=== PATIENT | female | born 1950 | race Caucasian/White ===

== ENCOUNTER 2018-06-17 04:42 | Inpatient (IN) | payer OTHER ==
[2018-06-17] VITALS (72 sets, daily range): BP systolic 68–135; BP diastolic 44–109; PULSE 82–123; RESP 15–30; Ht 152.4 cm; Wt 98.4 kg
[~2018-06-17] VITALS: Ht 152.4 cm; Wt 98.4 kg
--- NOTE | 2018-06-17 04:56 | ERD ---
ER Documentation Chief Complaint Chief Complaint chest pain and dyspnea HPI The patient is a 67-year-old female, presenting to the ER because of substernal chest pain and dyspnea that began around 4 AM that awoke her, 9 over 10, diap horetic, denies similar symptoms previously, complains of nausea but no vomiting, worse with exertion associated with upper back pain. She denies fever, chills, neck pain, abdominal pain, vomiting, dysuria, diarrhea. She does not smoke nor drink. She is supposed to have cholecystectomy in the morning Past medical history: Hypertension, cholelithiasis Past surgical history: None ROS All systems reviewed and are negative except as per history of present illness. Allergies Allergies: Coded Allergies: No Known Allergy (Unverified , 06/17/18) Physical Exam Vitals Vital Signs Date Temp Pulse Resp B/P (MAP) Pulse Ox O2 O2 Flow FiO2 Time Delivery Rate 06/17/18 98 10.0 05:20 06/17/18 56 30 85/69 (74) 98 Nasal 4.0 05:08 Cannula 06/17/18 Nasal 2 05:07 Cannula 06/17/18 56 21 83/58 (66) 98 Nasal 4.0 05:07 Cannula 06/17/18 85 18 129/85 94 Room Air 05:00 (100) 06/17/18 97.9 66 22 120/86 98 04:43 (97) Physical Exam Const: No acute distress. Diaphoretic Head: Atraumatic. Eyes: Normal Conjunctiva. ENT: Normal External Ears, Nose and Mouth. Neck: Full range of motion. No meningismus. Resp: Clear to auscultation bilaterally. Cardio: Regular rate and rhythm. Abd: Soft, non distended, normal bowel sounds, non tender. Skin: No petechiae or rashes. Back: No midline or flank tenderness. Ext: No cyanosis, or edema. Neur: Awake and alert. No focal deficit Psych: Anxious Result Diagram: 06/17/18 1938 06/17/18 1351 Results 24 hrs Laboratory Tests Test 06/17/18 04:45 White Blood Count 12.1 10^3/ul Red Blood Count 5.09 10^6/ul Hemoglobin 15.3 g/dl Hematocrit 45.9 % Mean Corpuscular Volume 90.2 fl Mean Corpuscular Hemoglobin 30.1 pg Mean Corpuscular Hemoglobin Concent 33.3 g/dl Red Cell Distribution Width 13.1 % Platelet Count 255 10^3/UL Mean Platelet Volume 10.3 fl Immature Granulocytes % 0.400 % Neutrophils % 42.5 % Lymphocytes % 47.3 % Monocytes % 7.7 % Eosinophils % 1.5 % Basophils % 0.6 % Nucleated Red Blood Cells % 0.0 /100WBC Immature Granulocytes # 0.050 10^3/ul Neutrophils # 5.2 10^3/ul Lymphocytes # 5.7 10^3/ul Monocytes # 0.9 10^3/ul Eosinophils # 0.2 10^3/ul Basophils # 0.1 10^3/ul Nucleated Red Blood Cells # 0.0 10^3/ul Prothrombin Time 12.5 Sec Prothrombin Time Ratio 1.0 INR International Normalized Ratio 0.92 Activated Partial Thromboplast Time 25.5 Sec Sodium Level 143 mmol/L Potassium Level 3.9 mmol/L Chloride Level 106 mmol/L Carbon Dioxide Level 26 mmol/L Anion Gap 11 Blood Urea Nitrogen 20 mg/dl Creatinine 0.78 mg/dl Est Glomerular Filtrat Rate mL/min > 60 mL/min Glucose Level 186 mg/dl Calcium Level 9.8 mg/dl Troponin I 0.048 ng/ml Current Medications Medications Dose Sig/Waylon Start Time Status Last (Trade) Ordered Route PRN Stop Time Admin Dose Reason Admin Heparin 5,000 unit ONCE ONCE 06/17/18 DC Sodium IV 05:00 06/17/18 (Porcine) 05:01 (Heparin (1000 Units/ml)) Amiodarone 200 ml @ ONCE ONCE 06/17/18 DC 06/17/18 HCl 33.333 mls/ IV 05:15 06/17/18 05:17 hr 11:14 Amiodarone 150 mg STK-MED 06/17/18 DC HCl ONCE .ROUTE 05:11 06/17/18 (Cordarone) 05:12 Ondansetron 4 mg STK-MED 06/17/18 DC HCl (Zofran ONCE .ROUTE 05:19 06/17/18 Inj) 05:20 Procedures/MDM [place] [id number] Radiology Main Line: [phone] DIAGNOSTIC IMAGING REPORT Patient: WILNER VASQUEZ : 1950 Age: 67 Sex: F [id number] [id number] DOS: 06/17/18 0457 Ordering MD: JORGE BOYD MD Location: E/R Room/Bed: PROCEDURE: XR Chest. CLINICAL INDICATION: Chest pain and STEMI TECHNIQUE: AP Portable chest. COMPARISON: None available FINDINGS: Defibrillator paddle is noted along the chest wall with multiple EKG leads. The soft tissues and osseous structures demonstrate thoracic enthesopathy present. No focal infiltrates are present. Mild cardiogenic pulmonary venous hypertension is noted. Moderate cardiomegaly and vascular calcifications are present of the thoracic aorta. No pleural effusions and no pneumothorax is present. The upper abdomen is normal . IMPRESSION: 1. Mild cardiogenic pulmonary venous hypertension 2. Moderate cardiomegaly and atherosclerotic vascular disease 3. Degenerative enthesopathy of the imaged spine RPTAT: HDC .Cielo Bay MD, MD Date Time Electronically viewed and signed by .Cielo Bay MD, MD on 06/17/2018 05:50 .C/ CC: JORGE BOYD MD [phone] EKG: at 4:50 am Read by emergency physician Rate/Rhythm: Normal Sinus Rhythm 91 beats/min QRS, ST, T-waves: Acute inferior ST elevation with reciprocal changes, no PVC Impression: Abnormal EKG, acute inferior NV Consultation: Code STEMI was activated after I read the EKG. I discussed the patient with the on-call critical care physician assistant Dr Monge at 4:55am, made aware of the patient condition, the EKG finding, she is on her way to the ER to do emergent cardiac cath for the patient She was treated with 1 L normal saline, Aspirin 324 mg p.o. chew and swallow, no nitroglycerin was given due to hypotension and acute inferior NV, no heparin was given yet because chest x-ray was pending and she was hypotensive. At approximately 0503 AM, patient went to ventricular tachycardia and became unconscious. She was immediately defibrillated with 200 J with ROSC achieved immediately at 0505am. She was immediately started on amiodarone 1mg/min drip. The granite sandblaster apprentice was informed of the ventricular tachycardia episode MEDICAL MAKING DECISION: The patient is a 67-year-old female, presenting with acute inferior NV, associated with ventricular tachycardia and probable acute cardiogenic shock The differential diagnoses considered include but are not limited to acute inferior NV, suspected right ventricular NV, cardiogenic shock Critical Care: Time: 35 minutes excluding all billable procedures. Treatments/Evaluations: Close monitoring and treatment of unstable vital signs, cardiorespiratory, and neurologic status, while maintaining tight balance of fluid, respiratory, and cardiac interventions. Departure Diagnosis: Primary Impression: Non-ST elevation NV (NSTEMI) Additional Impressions: Ventricular tachycardia Cardiogenic shock Condition: Critical Comments I discussed the findings with the patient. I discussed the patient with the hospitalist Dr Flynn at 5:20 am. who was made aware of the lab, the treatment, the patient condition. The patient is admitted to ICU Disclaimer: Inadvertent spelling and grammatical errors are likely due to EHR/dictation software use and do not reflect on the overall quality of patient care. Also, please note that the electronic time recorded on this note does not necessarily reflect the actual time of the patient encounter. JORGE BOYD MD Jun 17, 2018 04:56
[2018-06-17] MEDS ORDERED: HEPARIN 1000 UNITS/ML 10 ML INJ IV ONE (05:00)
[2018-06-17] MEDS ORDERED: AMIODARONE 150 MG INJ ONE (05:11)
[2018-06-17] MEDS ORDERED: AMIODARONE 200 ML IV ONE (05:15)
[2018-06-17] MEDS ORDERED: ONDANSETRON 4 MG INJ ONE (05:19)
[2018-06-17] MEDS ORDERED: SODIUM CHLORIDE 0.9% 50 ML BAG ONE (05:30)
[2018-06-17] MEDS ORDERED: HEPARIN 5,000 UNIT/1 ML VIAL ONE (05:30)
[2018-06-17] MEDS ORDERED: ASPIRIN 81 MG TAB ONE (05:30)
--- NOTE | 2018-06-17 05:44 | CONS ---
Assessment/Plan Assessment/Plan Hospital Course (Demo Recall) 67 yo with acute inferior stemi Imp: Inferior stemi VT due to OK, shocked htn hypercholesterolemia gallstones Recc: Cath with probable pci, risks and benefits reviewed, she agrees to proceed, all questions answered. Pt got asa, will get heparin during procedure and a p2y12 inhibitor. Echo after procedure. Statin to be initiated Gallbladder surgery will need to be postponed. In light of this, if the artery occluded is large, will lean toward placing a bare-metal stent to facilitate surgery in 3 months -- surgery shortly after OK associated with increased risk of and cv complications. Consultation Date/Type/Reason Admit Date/Time Date of Consultation: Jun 17, 2018 Type of Consult Cardiology Reason for Consultation stemi inferior wall Requesting Provider: JORGE BOYD MD Date/Time of Note DATE: 06/17/18 TIME: 05:39 Hx of Present Illness 67 yo with h/o hypertension, prescribed a statin but did not take, presents with sudden cp that started around 0400. EKG showed st elevation in inferior leads. Patient developed VT in ED, shocked once successfully. No prior cardiac hx. CP aw dyspnea, nausea, no vomiting. Patient has plans for gallbladder surgery on Wednesday, which I informed her would be postponed due to her OK. No smoking, no family history. Constitutional: no complaints Eyes: no complaints ENT: no complaints Respiratory: shortness of breath Cardiovascular: chest pain Gastrointestinal: nausea Genitourinary: no complaints Musculoskeletal: back pain Skin: no complaints Neurologic: no complaints Endocrine: no complaints Lymphatic: no complaints Psychological: no complaints Immunologic: no complaints Past Medical History Medical History: gallstones, high cholesterol, hypertension Medications Current Medications Amiodarone HCl 200 ml @ 33.333 mls/ hr ONCE ONCE IV Last administered on 06/17/18at 05:17; Admin Dose 33.333 MLS/HR; Start 06/17/18 at 05:15; Stop 06/17/18 at 11:14 Amiodarone HCl 200 ml @ 16.667 mls/ hr Q12H IV ; Start 06/17/18 at 11:15 Allergies: Coded Allergies: Unknown: Unable to obtain (Unverified , 06/17/18) Family History Significant Family History: no pertinent family hx Social History Smoking Status: Never smoker Exam/Review of Systems Vital Signs Vitals Vital Signs Date Temp Pulse Resp B/P (MAP) Pulse Ox O2 O2 Flow FiO2 Time Delivery Rate 06/17/18 78 22 85/69 (74) 99 Mask 10.0 05:28 06/17/18 97.9 04:43 Exam Constitutional: alert, oriented, well developed, distress, other (obese) Psych: nl mood/affect Head: normocephalic, atraumatic Eyes: nl conjunctiva, EOMI, nl lids, nl sclera ENMT: nl external ears & nose, nl lips & teeth, nl nasal mucosa & septum Neck: supple; No jvd, No bruits Respiratory: clear to auscultation (anteriorly), normal air movement Cardiovascular: regular rate and rhythm, nl pulses; No murmurs/extra sounds Gastrointestinal: soft, nl liver, spleen, non-tender Musculoskeletal: nl extremities to inspection Extremities: No normal pulses (radial and dp pulses difficult to palpate) Neurological: nl mental status, nl speech Skin: diaphoresis; No rash or lesions Lymph: nl lymph nodes Labs Result Diagram: 06/17/185 06/17/185 Results 24hrs Laboratory Tests Test 06/17/18 04:45 White Blood Count 12.1 H Red Blood Count 5.09 Hemoglobin 15.3 Hematocrit 45.9 Mean Corpuscular Volume 90.2 Mean Corpuscular Hemoglobin 30.1 Mean Corpuscular Hemoglobin Concent 33.3 Red Cell Distribution Width 13.1 Platelet Count 255 Mean Platelet Volume 10.3 Immature Granulocytes % 0.400 Neutrophils % 42.5 Lymphocytes % 47.3 Monocytes % 7.7 Eosinophils % 1.5 Basophils % 0.6 Nucleated Red Blood Cells % 0.0 Immature Granulocytes # 0.050 H Neutrophils # 5.2 Lymphocytes # 5.7 H Monocytes # 0.9 Eosinophils # 0.2 Basophils # 0.1 Nucleated Red Blood Cells # 0.0 Prothrombin Time 12.5 Prothrombin Time Ratio 1.0 INR International Normalized Ratio 0.92 Activated Partial Thromboplast Time 25.5 Sodium Level 143 Potassium Level 3.9 Chloride Level 106 Carbon Dioxide Level 26 Anion Gap 11 Blood Urea Nitrogen 20 Creatinine 0.78 Est Glomerular Filtrat Rate mL/min > 60 Glucose Level 186 Calcium Level 9.8 Troponin I 0.048 Imaging Imaging nsr with st elevation in 2, 3, avf and reciprocal changes Medications Medications Current Medications Amiodarone HCl 200 ml @ 33.333 mls/ hr ONCE ONCE IV Last administered on 06/17/18at 05:17; Admin Dose 33.333 MLS/HR; Start 06/17/18 at 05:15; Stop 06/17/18 at 11:14 Amiodarone HCl 200 ml @ 16.667 mls/ hr Q12H IV ; Start 06/17/18 at 11:15 LISSET PATINO Jun 17, 2018 05:44
[2018-06-17] MEDS ORDERED: IOHEXOL 350MG/ML 50 ML BTL ONE (05:49)
[2018-06-17] MEDS ORDERED: FENTAnyl 50 MCG/ML VIAL ONE (05:49)
[2018-06-17] MEDS ORDERED: IODIXANOL LOCM 100 ML BTL ONE (05:49)
[2018-06-17] MEDS ORDERED: LIDOCAINE 1% (MDV) 20 ML INJ ONE (05:49)
[2018-06-17] MEDS ORDERED: MIDAZOLAM 1 MG/ML 2 ML INJ ONE (05:49)
[2018-06-17] MEDS ORDERED: NORepinephrine 8MG/250 ML (PMX 250 ML IV ONE (06:30)
[2018-06-17] MEDS ORDERED: FUROSEMIDE 40 MG INJ ONE (06:31)
[2018-06-17] MEDS ORDERED: SOD CHLORIDE 0.9% 500 ML ONE (06:31)
[2018-06-17] MEDS ORDERED: ETOMIDATE 20 MG INJ ONE (06:52)
[2018-06-17] MEDS ORDERED: ROCURONIUM 50 MG INJ ONE (06:52)
[2018-06-17] MEDS ORDERED: EPTIFIBATIDE 10 ML ONE ×2 (06:53→08:19)
[2018-06-17] MEDS ORDERED: DOPamine-D5W 1.6 MG/ML 250 ML ONE (06:53)
[2018-06-17] MEDS ORDERED: EPTIFIBATIDE 100 ML IV ONE (06:53)
--- NOTE | 2018-06-17 07:04 | QN ---
Documentation Comment I have been consulted to see the patient for intubation in the [facility] given critical nature and chauncey-Code patient. On exam: General: Altered mental status, currently undergoing coronary artery cathet erization Head: Normocephalic, atraumatic. Eyes: Pupils equally reactive, EOM intact ENT: Moist mucous membranes Neck: Supple, no lymphadenopathy Respiratory: Rhonchi bilaterally, mild distress Cardiovascular: Unable to assess Abdominal: Unable to assess : Deferred MSK: Unable to assess Neurologic: Unable to assess Skin: Unable to assess Psych: Unable to assess Procedure(s): Intubation Note: Indication: Airway protection Consent: This was an emergent situation, implied consent was observed RSI Medications: Etomidate 20 mg, Rocuronium 100 mg Tube size: 7 Secured at: Initially 24 the corner of Mouth and Pulled Back to 23 Procedure: Endotracheal intubation was performed. The patient was preoxygenated with supplemental oxygen, the room was set up with emergency airway equipment including [id number], suction, and adjunct airways. Direct visualization of the cords was performed and was technically very difficult. The patient's body habitus and limited oral space made direct laryngoscopy using a MAC blade and possible. With direct laryngoscopy using [video laryngoscope] I was unable to pass an endotracheal tube given anterior an d limited view of the arytenoids. A bougie was inserted with direct visualization above the arytenoids and palpation of the tracheal rings. Endotracheal tube was then inserted over the bougie. Bilateral breath sounds were auscultated, color change was observed. The tube was then secured in a postintubation chest x-ray was ordered. The patient tolerated the procedure well there were no complications. Significant amount of pulmonary edema visualized. Suctioning requested. Assessment and plan: The patient is likely in cardiogenic shock undergoing cardiac catheterization secondary to ST elevation myocardial infarction. The patient is critically ill requiring intubation. Intubation as above was technically difficult but successful. Chest x-ray is pending given critical nature of the patient. To be followed by admitting team. There is good color change, oxygen saturation response and bilateral breath sounds. Diagnostic impression: Acute respiratory failure, hypoxic Acute encephalopathy. STEMI KAI PALOMINO MD Jun 17, 2018 07:04
[2018-06-17] MEDS ORDERED: EPTIFIBATIDE 100 ML IV SCH (07:32)
[2018-06-17] MEDS ORDERED: morphine 4 MG/ML VIAL ONE (07:54)
[2018-06-17] MEDS ORDERED: TICAGRELOR 90 MG TABLET PO ONE (08:00)
[2018-06-17] MEDS ORDERED: morphine 4 MG/ML VIAL IV STA (08:02)
--- NOTE | 2018-06-17 08:05 | OPR ---
Date/Time of Note Date/Time of Note DATE: 06/17/18 TIME: 07:46 Operative Report Procedure Date: Jun 17, 2018 Preoperative Diagnosis STEMI inferior wall Postoperative Diagnosis STEMI inferior wall due to occlusion of dominant LCX vessel, with severe LM and LAD disease Cardiogenic shock Operation/Procedure Performed Coronary angiography Conscious sedation Balloon angioplasty of distal left main and proximal LCX Bare-metal stent placement to the proximal LCX Intra-aortic balloon pump Surgeon see signature line Engineering Faculty Rudi LANDSCAPE ARCHITECTURE TEACHER and Keila LANDSCAPE ARCHITECTURE TEACHER Anesthesia Type: moderate sedation Estimated Blood Loss: 100 - 150 ml's Transfusion none Specimen none Grafts/Implants Rebel 3.0 x 16 mm bare metal stent to prox Lcx Complications none Pt Condition Post Procedure: critical Disposition: other (ICU) Indications 67 yo with acute onset of chest pain and ST elevations in inferior leads and VT arrest x 1 in the ED Procedure Description Findings: Left mail distal 90% LCX 100% occlusion proximally. Dominant vessel. Lesion length 8 mm. SABRA flow 0 at the beginning of the case, sabra flow 3 at the end of the case LAD ostial/prosimal 90% lesion 8 mm in length, 70% mid lesion 14 mm in length, SABRA 2 flow down the vessel. First diagonal with 95% ostial lesion 12 mm in [facility] RCA small nondominant vessel without significant disease Door to balloon time delayed due to 1) Difficulty obtaining access in the femoral artery, poor pulses. 2) Armboards not available for prepping the patient. Informed consent obtained. Versed and Fentanyl given for sedation. IV fluids given wide open due to hypotension on presentation with suspicion of RV invo lvement. Lidocaine for local anesthesia. Fluoroscopy used for identifying landmarks. Micropuncture used for access, two sheaths placed in the right common femoral vein, sheath placed in right common femoral artery. JL4 diagnostic and JR4 guide advanced to the ascending thoracic aorta, engaged the LM and RCA respectively. Images obtained with cine with injection of contrast. Only one shot taken of the RCA because the vessel was clearly nondominant and catheter was damping. At this point it was decided to proceed to a PCI. Pressors were needed due to hypotension. The LCX was felt to be the culprit vessel. Heparin given, ACT therapeutic. A FL4 guide engaged the LM. Fish Blue wire advanced across the lesion. 2.5 x 12 mm balloon would not advance across the LM lesion. Therefore a second wire, a BMW, was placed in the LCX. The 2.5 x 12 balloon then was able to cross the LM and was inflated in the distal LM and in the LCX several times. Flow was reestablished. However, patient began to desaturate, and was intubated. Once the airway was secured, a 3.0x16 mm Rebel bare metal stent was placed in the proximal LCX. Good apposition noted on final imaging shots. SABRA 3 flow re-established in the LCX. The 6F femoral sheath was exchanged for a IABP sheath, and then an IABP was advanced to the cordell, and inflated with good augmentation of blood pressure. Dr. Mcgraw evaluated the patient, STS risk of 33% of mortality and 70% morbidity with early surgery. As patient stabilized on 2 pressors and balloon, plan will be for surgery in a couple of days if she survives. Patient transferred to the ICU in guarded condition. LISSET PATINO Jun 17, 2018 08:04
[2018-06-17] MEDS ORDERED: CANGRELOR TETRASODIUM/ NS 250 50 MG ONE (08:19)
[2018-06-17] MEDS ORDERED: PROPOFOL 100 ML IV ONE (08:30)
[2018-06-17] MEDS ORDERED: NORepinephrine 8MG/250 ML (PMX 250 ML IV SCH (10:00)
[2018-06-17] MEDS: DOPamine-D5W 1.6 MG/ML 250 ML IV SCH ×2 (10:11→14:07)
[2018-06-17] MEDS ORDERED: AMIODARONE 200 ML IV SCH (11:15)
[2018-06-17] MEDS: PIPER-TAZO 3.375 GM IV (PMX) 100 ML IVPB SCH ×3 (12:16→23:47)
[2018-06-17] MEDS: NORepinephrine 8MG/250 ML (PMX 250 ML IV SCH ×2 (12:22→16:12)
--- NOTE | 2018-06-17 12:55 | HP ---
DATE OF ADMISSION: 06/17/2018 CHIEF COMPLAINT: Chest pain. HISTORY OF PRESENT ILLNESS: A 67-year-old female with a history of hypertension, hyperlipidemia, pre sented to emergency room with sudden onset of chest pain. Symptoms started about 4:00 in the morning . Initial EKG showed inferior wall ST elevated [place]. The patient developed ventricular tachycardia in the emergency room and shocked once only. She was successfully resuscitated. The patient was taken to the supervisor laboratory. She was found to have diffuse multivessel coronary artery disease including left m ain. A stent was placed in circumflex artery and she underwent balloon angioplasty of the left main. The patient was intubated and also placed on intraaortic balloon pump. I met with her daughter at the bedside. There is no previous cardiac history. The patient was supposed to undergo a cholecyste ctomy in 3 days. PAST MEDICAL HISTORY: 1. Hypertension. 2. Hyperlipidemia. SOCIAL HISTORY: The patient lives at home. There is no history of tobacco use or alcohol. PHYSICAL EXAMINATION: GENERAL: Well-developed, well-nourished female, who is intubated and sedated. VITAL SIGNS: Stable. She is afebrile. CHEST: Clear to auscultation bilaterally. CARDIAC: Regular rate and rhythm. No murmurs, rubs or gallops. ABDOMEN: Soft and obese. Normoactive bowel sounds. EXTREMITIES: No clubbing, cyanosis or edema. NEUROLOGICAL: The patient is sedated. LABORATORY DATA: White blood cell count is 12.1, hemoglobin 15.3, platelet count is 255,000. BMP wa s within normal limits. ASSESSMENT: 1. A 67-year-old female with acute inferior wall ST elevated myocardial infarction. 2. Severe and diffuse multivessel coronary artery disease. 3. Cardiogenic shock. The patient was placed on intraaortic balloon pump. 4. Status post cardiac arrest with ventricular tachycardia. 5. Acute respiratory failure, on mechanical ventilation. 6. Hypertension. 7. Hyperlipidemia. PLAN: 1. Admit to ICU. Continue medical therapy. 2. Wean off intraaortic balloon pump. 3. Cardiothoracic consultation was requested. The patient requires coronary artery bypass graft. 4. Her condition is guarded. This was discussed with her daughter at the bedside. Dictated By: CRIS MEEK/RENETTA Conf#: [id number] DID#: [id number] CC: ISABELLA RUSSELL MD;*End*
--- NOTE | 2018-06-17 13:50 | RADRPT ---
Echocardiogram Report Patient Name: WILNER VASQUEZPatient ID: [id number] : 1950 (67y 11m)Study Date: 06/17/2018 8:38:38 AM Gender: FAccession #: [id number] Tech: Trace Bender [facility] Location: 629 Ref.Physician: CARLA MONGE Height(Cm): BSA: Weight(Kg): Quality: AdequateAccount #: Procedures: Echocardiographic Report: Transthoracic echocardiogram with complete 2D, M-Mode, and doppler examination. Indications: STEMI. Measurements: 2D/M Mode Doppler Measurement Value Normal Range Measurement Value Normal Range LVIDd 2D 3.8 [ 3.8 - 5.2 ] cm AV Peak Rcistian 1.6 [ 100.0 - 170.0 ] cm/sec LVIDs 2D 2.8 [ 2.2 - 3.5 ] cm AV Peak PG 10.0 [ 2.0 - 9.0 ] mmHg LVPWd 2D 1.5 [ 0.6 - 0.9 ] cm LVOT Peak Cristian 1.1 [ 70.0 - 110.0 ] cm/sec IVSd 2D 1.4 [ 0.6 - 0.9 ] cm LVOT Peak PG 5.0 [ 2.0 - 6.0 ] mmHg AoR Diam 2D 3.0 [ 2.3 - 3.1 ] cm Lat E` Cristian 0.1 [ 10.0 - 15.0 ] cm/sec EDV 2D 61.2 [ 46.0 - 106.0 ] ml TR Peak Cristian 2.8 [ 100.0 - 280.0 ] cm/sec ESV 2D 29.0 [ 14.0 - 42.0 ] ml TR Peak PG 30.0 mmHg EF 2D 52.6 [ 54.0 - 74.0 ] percent RVSP 33.0 [ 10.0 - 36.0 ] mmHg LA Dimen 2D 3.0 [ 2.7 - 3.8 ] cm RA Pressure 3.0 mmHg Findings: Left Ventricle: Normal left ventricular systolic function. Normal left ventricular cavity size. Moderate concentric left ventricular hypertrophy. Ejection fraction is visually estimated at 60 %. Tissue Doppler/Mitral Doppler indices are consistent with impaired relaxation (Stage I diastolic dysfunction). These segments of the LV are akinetic inferolateral base segment and inferior base segment. Right Ventricle: Normal right ventricular size. Normal right ventricular systolic function. Left Atrium: The left atrium is normal in size. Right Atrium: The right atrium is normal in size. Mitral Valve: Mitral valve leaflets appear mildly thickened. Mild mitral annular calcification. Trace mitral regurgitation. Aortic Valve: Normal appearance of the aortic valve. No significant aortic stenosis or insufficiency. Tricuspid Valve: Normal appearance of the tricuspid valve. Estimated peak PA systolic pressure 33 mmHg. There is trace tricuspid regurgitation. Pulmonic Valve: Pulmonic valve not well visualized. Pericardium: Normal pericardium with no significant pericardial effusion. Aorta: Normal aortic root. IVC: Normal IVC with respiratory collapse, however patient on ventilator. Conclusions: Moderate concentric left ventricular hypertrophy with normal systolic function. Basal inferior and posterior akinesis. Grade 1 diastolic dysfunctoin. Trace mitral and tricuspid regurgitation with borderline pulmonary pressures. Electronically Signed By: Carla Monge 2018-06-17 13:50:01 PST
[2018-06-17] MEDS: SODIUM BICARBONATE (IV ADD) 100 MEQ in DEXTROSE 5%-0.45% NACL 1,000 ML IV SCH (14:38)
--- NOTE | 2018-06-17 15:10 | RADRPT ---
Vent Rate: 107 bpm RR Interval: 0 msec [place] Interval: 156 msec QRS Duration: 80 msec QT Interval: 378 msec QTC Interval: 504 msec P-R-T [place]: 71 - 71 - 64 degrees Sinus tachycardia with frequent premature ventricular complexes Otherwise normal ECG Electronically Signed By: Mason Frey
--- NOTE | 2018-06-17 15:45 | CONS ---
DATE OF ADMISSION: 06/17/2018 DATE OF CONSULTATION: 06/17/2018 #[id number] TYPE OF CONSULTATION: REASON FOR CONSULTATION: Ventilator management. Thank you, Dr. Isidro, for this consultation. HISTORY OF PRESENT ILLNESS: This is a 67-year-old lady who is being evaluated for cholecystectomy, d eveloped chest pain starting around 4:00 a.m., presented to the Emergency Room, found to have inferio r ST elevations. The patient developed ventricular tachycardia requiring ACLS protocol and defibrill ation. Taken to laboratory apparatus glass blower emergently, found to have occlusion of circumflex and severe left main and LAD disease. She underwent bare metal stent placement of proximal circumflex and angioplasty left ma in and proximal circumflex placed on intraaortic balloon pump for hemodynamic support, transferred to the intensive care unit where she remains on mechanical ventilation, intraaortic balloon pump and va sopressor support. Cardiothoracic surgery has been contacted and currently evaluating for coronary a rtery bypass graft surgery when more stable. Chest x-ray this morning demonstrates extensive right-s ided infiltrate consistent with possible aspiration pneumonia. PAST MEDICAL HISTORY: Essential hypertension. MEDICATIONS: Per chart. ALLERGIES: UNKNOWN. SOCIAL HISTORY: Tobacco history none. PHYSICAL EXAMINATION: GENERAL: Well-nourished, well-developed lady, orally intubated on mechanical ventilation, intraaorti c balloon pump. VITAL SIGNS: Temperature 98, pulse is 100, blood pressure 81/50, O2 saturation 96%, FIO2 of 60%. NECK: Supple. No JVD or lymphadenopathy. CARDIAC: S1, S2, no added sounds or murmurs. CHEST: Diminished air entry bilaterally with few rales. ABDOMEN: Soft, nontender. No guarding or rebound. EXTREMITIES: No cyanosis, clubbing. NEUROLOGIC: Generalized weakness. LABORATORY DATA: White count 18.3, hemoglobin 14.7, platelets of 287. BUN 20, creatinine 0.78. DIAGNOSTIC DATA: Chest x-ray shows extensive right-sided infiltrate. Possible underlying pulmonary edema. IMPRESSION AND PLAN: 1. Inferior myocardial infarction, status post angioplasty and stent placement. 2. Ventricular fibrillation. 3. Likely aspiration pneumonia. 4. Probable combination of septic and cardiogenic shock. 5. History of gallbladder disease. The patient will require: 1. Continued vasopressor support. 2. Continue intraaortic balloon pump. 3. Broad-spectrum antibiotic coverage pending sputum cultures. 4. Vent support. 5. Deep vein thrombosis and gastrointestinal prophylaxis. Dictated By: ISABELLA RUSSELL MD SV/RENETTA Conf#: [id number] DID#: [id number] CC: CRIS HAWTHORNE MD;*EndCC*
[2018-06-17] MEDS ORDERED: MAGNESIUM SULFATE 2 GM/50 ML 50 ML IVPB ONE (16:00)
[2018-06-17] MEDS ORDERED: POTASSIUM CHLORIDE 100 ML IVPB ONE (16:00)
[2018-06-17] MEDS ORDERED: ACETAMINOPHEN 650MG/20.3ML CUP NGT PRN (19:30)
[2018-06-17] MEDS: PROPOFOL 100 ML IV SCH (20:00)
[2018-06-17] MEDS: MIDAZOLAM (DRIP) 50 mg/50 mL 50 ML IV SCH (20:20)
[2018-06-17] MEDS: FENTAnyl (DRIP) 1000 mcg/100mL 100 ML IV SCH (20:21)
[2018-06-17] MEDS: ATORVASTATIN 80 MG TAB PO SCH (21:26)
[2018-06-17] MEDS: TICAGRELOR 90 MG TABLET PO SCH (21:29)
[2018-06-17] MEDS ORDERED: LACTULOSE 30ML CUP NGT ONE (21:30)
[2018-06-18] VITALS (104 sets, daily range): BP systolic 70–148; BP diastolic 5–99; PULSE 80–98; RESP 11–25
[2018-06-18] MEDS: SODIUM BICARBONATE (IV ADD) 100 MEQ in DEXTROSE 5%-0.45% NACL 1,000 ML IV SCH (01:06)
[2018-06-18] MEDS: MIDAZOLAM (DRIP) 50 mg/50 mL 50 ML IV SCH ×2 (04:55→20:34)
[2018-06-18] MEDS: PANTOPRAZOLE 40 MG INJ IV SCH (05:28)
[2018-06-18] MEDS: PIPER-TAZO 3.375 GM IV (PMX) 100 ML IVPB SCH ×4 (05:29→23:51)
[2018-06-18] MEDS: PROPOFOL 100 ML IV SCH ×2 (08:00→20:00)
[2018-06-18] MEDS: TICAGRELOR 90 MG TABLET PO SCH (09:00)
--- NOTE | 2018-06-18 09:13 | CONS ---
Assessment/Plan Assessment/Plan Assessment/Plan (Daily) 67 year old admitted with STEMI and shock s/p PCI improving with less pressor support. I discussed with patients daughter that she will need CABG probably Wednesday. The risks are but not limited to bleeding, infection, stroke, [place], renal and respiratory failure and . They understand and accept. Hold berlinta and continue with integrellin. check carotids Consultation Date/Type/Reason Admit Date/Time Date of Consultation: Jun 17, [address] SURGERY Reason for Consultation CABG EVAL Requesting Provider: LISSET PATINO Date/Time of Note DATE: 06/18/18 TIME: 09:05 Hx of Present Illness 67 year old female with history of HTN admitted with STEMI and found to have 90% LM and occluded cx. She underwent pci of cx with bare metal stent and angioplasty of the LM. She was in cardiogenic shock and had an IABP placed and was also on pressors. She now is more hemodynamically stable only on levophed and is responsive. Echo shows an EF of 35%. We are asked to see regarding CABG. pt intubated, unobtainable Subjective hx not possible: pt non-verbal Past Medical History Medical History: hypertension Medications Current Medications Ticagrelor (Brilinta) 90 mg BID PO Last administered on 06/17/18at 21:29; Admin Dose 90 MG; Start 06/17/18 at 21:00 Atorvastatin Calcium (Lipitor) 80 mg DAILY@21 PO Last administered on 06/17/18at 21:26; Admin Dose 80 MG; Start 06/17/18 at 21:00 Dopamine HCl/ Dextrose 250 ml @ 6.705 mls/ hr TITRATE IV Last administered on 06/17/18at 14:07; Admin Dose 50.288 MLS/HR; Start 06/17/18 at 09:30 Piperacillin Sod/ Tazobactam Sod 100 ml @ 200 mls/hr Q6 IVPB Last administered on 06/18/18at 05:29; Admin Dose 200 MLS/HR; Start 06/17/18 at 10:00 Sodium Bicarbonate 100 meq/Dextrose/ Sodium Chloride 1,100 ml @ 100 mls/hr Q11H IV Last administered on 06/18/18at 01:06; Admin Dose 100 MLS/HR; Start 06/17/18 at 15:30 Aspirin (Aspirin) 81 mg DAILY NGT ; Start 06/18/18 at 09:00 Morphine Sulfate (morphine) 2 mg Q3 PRN IV SEVERE PAIN LEVEL 7-10; Start 06/17/18 at 19:30 Acetaminophen (Tylenol Liquid) 650 mg Q4H PRN NGT MILD PAIN(1-3)OR ELEVATED TEMP; Start 06/17/18 at 19:30 Fentanyl 100 ml @ 2.5 mls/hr TITRATE IV Last administered on 06/17/18at 20:21; Admin Dose 2.5 MLS/HR; Start 06/17/18 at 20:00 Midazolam HCl 50 ml @ 1 mls/hr TITRATE IV Last administered on 06/18/18at 04:55; Admin Dose 4 MLS/HR; Start 06/17/18 at 20:00 Norepinephrine 16 mg/Dextrose 250 ml @ 0.94 mls/hr TITRATE IV Last administered on 06/18/18at 03:41; Admin Dose 0.94 MLS/HR; Start 06/17/18 at 20:00 Propofol 100 ml @ 2.952 mls/ hr Q12H IV ; Start 06/17/18 at 20:00 Pantoprazole (Protonix Iv) 40 mg DAILY@06 IV Last administered on 06/18/18at 05:28; Admin Dose 40 MG; Start 06/18/18 at 06:00 Allergies: Coded Allergies: No Known Allergy (Unverified , 06/17/18) Past Surgical History Past Surgical Hx: no surgical history Family History Significant Family History: no pertinent family hx Social History Alcohol Use: none Smoking Status: Never smoker Drug Use: none Exam/Review of Systems Exam Vitals Vital Signs Date Temp Pulse Resp B/P (MAP) Pulse Ox O2 O2 Flow FiO2 Time Delivery Rate 06/18/18 91 18 105/51 99 08:30 (69) 06/18/18 99.1 Mechanical 08:00 Ventilator 06/18/18 45 08:00 06/17/18 10.0 05:28 Intake and Output 06/17/18 06/17/18 06/18/18 1515:00 23:00 07:00 IntakeIntake Total 685.284 ml 1772.622 ml 1172.938 ml OutputOutput Total 1150 ml 450 ml 340 ml BalanceBalance -464.716 ml 1322.622 ml 832.938 ml Head: No normocephalic, No atraumatic, No lacerations, No hematomas, No other Eyes: No nl conjunctiva, No EOMI, No nl lids, No nl sclera, No PERRL, No icteric, No fundi, disc, No other ENMT: No nl external ears & nose, No nl lips & teeth, No nl nasal mucosa & septum, No mucosa pink and moist, No intubated, No tympanic membranes, No other Neck: No supple, No non-tender, No jvd, No bruits, No masses, No thyromegaly, No nuchal rigidity, No other Respiratory: clear to auscultation, normal air movement; No congested cough, No crackles/rales, No diminished breath sounds, No intercostal retraction, No labored breathing, No respirations, No tactile fremitus, No wheezing, No other Cardiovascular: regular rate and rhythm, nl pulses Gastrointestinal: soft, non-tender Musculoskeletal: nl extremities to inspection Extremities: normal pulses; No calf tenderness, No cyanosis, No clubbing, No edema, No pitting pedal edema, No palpable cord, No tenderness, No other Neurological: [employer] AND REPA[employer]ER II-XII intact Skin: No nl turgor, No rash or lesions, No diaphoresis, No ecchymosis, No laceration, No puncture, No other Lymph: No nl lymph nodes, No enlarged, No nontender, No other Results Result Diagram: 06/18/1842106/18/18421 Results 24hrs Laboratory Tests Test 06/17/18 10:51 06/17/18 12:56 06/17/18 13:45 06/17/18 13:51 White Blood 18.3 #H Count Red Blood Count 5.01 Hemoglobin 14.7 Hematocrit 46.0 Mean Corpuscular 91.8 Volume Mean Corpuscular 29.3 Hemoglobin Mean Corpuscular 32.0 Hemoglobin Linda nt Red Cell 13.2 Distribution Width Platelet Count 287 Mean Platelet 10.6 H Volume Immature 1.000 H Granulocytes % Neutrophils % 82.0 H Lymphocytes % 6.9 L Monocytes % 9.8 Eosinophils % 0.0 Basophils % 0.3 Nucleated Red 0.0 Blood Cells % Immature 0.190 H Granulocytes # Neutrophils # 15.0 H Lymphocytes # 1.3 Monocytes # 1.8 H Eosinophils # 0.0 Basophils # 0.1 Nucleated Red 0.0 Blood Cells # Creatine Kinase 2797 H Creatine Kinase 9.9 Index Creatinine 278.00 H Kinase MB (Mass) Troponin I 17.700 *H Lactic Acid 3.0 *H Level Blood Gas Blood arterial Specimen Source Arterial Blood 06/17/2018 1:43:14 Date Drawn PM Arterial Blood 7.264 *L pH (Temp corrected) Arterial Blood 44.2 pCO2 (Temp correct) Arterial Blood 75.6 L pO2 (Temp corrected) Arterial Blood 19.6 L HCO3 Arterial Blood -7.3 L Base Excess Arterial Blood 93.9 L Oxygen Saturatio n Jarrod Test N/A Arterial Blood A-Line Gas Puncture Site Arterial 0.3 Blood Carboxyhem oglobin Arterial Blood 0.4 Methemoglobin Blood Gas A-a O2 303.6 H Differential Oxyhemoglobin 93.2 Percent Blood Gas 37.0 Temperature Blood Gas 18.0 Respiration Rate Blood Gas Actual 19 Respiration Rate Blood Gas VENT - AC Modality FiO2 60.0 Blood Gas Tidal 450.0 Volume Blood Gas Low 8.0 PEEP Setting Blood Gas TDICKENS RN Critical Value Read Back Blood Gas TM Notified Whom Blood Gas 06/17/2018 1:51:03 Notified Time PM Sodium Level 140 Potassium Level 3.6 Chloride Level 109 Carbon Dioxide 22 Level Anion Gap 9 Blood Urea 20 Nitrogen Creatinine 0.79 Est Glomerular > 60 Filtrat Rate mL/min Glucose Level 248 H Calcium Level 8.8 Magnesium Level 1.8 Test 06/17/18 17:12 06/17/18 18:00 06/17/18 19:38 06/18/18 04:22 Creatine Kinase 4666 H Creatine Kinase 8.5 Index Creatinine 395.00 H Kinase MB (Mass) Troponin I 38.600 *H Blood Gas Blood arterial Specimen Source Arterial Blood 06/17/2018 6:45:49 Date Drawn PM Arterial Blood 7.348 L pH (Temp corrected) Arterial Blood 35.8 pCO2 (Temp correct) Arterial Blood 315.7 H pO2 (Temp corrected) Arterial Blood 19.2 L HCO3 Arterial Blood -5.6 L Base Excess Arterial Blood 99.4 H Oxygen Saturatio n Jarrod Test ACCEPTAB Arterial Blood Right Radial Gas Puncture Site Arterial 0.3 Blood Carboxyhem oglobin Arterial Blood 0.4 Methemoglobin Blood Gas A-a O2 72.7 H Differential Oxyhemoglobin 98.7 Percent Blood Gas 37.0 Temperature Blood Gas 18.0 Respiration Rate Blood Gas Actual 24 Respiration Rate Blood Gas TRACH COLLAR Modality FiO2 60.0 Blood Gas Tidal 450.0 Volume Blood Gas Low 8.0 PEEP Setting Blood Gas Krystal MARQUIS RN Critical Value Read Back Blood Gas RDIX Notified Whom Blood Gas 06/17/2018 7:08:02 Notified Time PM White Blood 21.0 H 16.6 #H Count Red Blood Count 4.73 4.31 Hemoglobin 14.1 12.9 Hematocrit 42.4 38.9 Mean Corpuscular 89.6 90.3 Volume Mean Corpuscular 29.8 29.9 Hemoglobin Mean Corpuscular 33.3 33.2 Hemoglobin Linda nt Red Cell 12.9 13.2 Distribution Width Platelet Count 248 221 Mean Platelet 10.1 10.7 H Volume Immature 0.700 H 0.700 H Granulocytes % Neutrophils % 85.2 H 81.0 H Lymphocytes % 6.6 L 10.5 L Monocytes % 7.3 7.6 Eosinophils % 0.0 0.0 Basophils % 0.2 0.2 Nucleated Red 0.0 0.0 Blood Cells % Immature 0.150 H 0.120 H Granulocytes # Neutrophils # 17.8 H 13.4 H Lymphocytes # 1.4 1.7 Monocytes # 1.5 H 1.3 H Eosinophils # 0.0 0.0 Basophils # 0.1 0.0 Nucleated Red 0.0 0.0 Blood Cells # Sodium Level 137 Potassium Level 4.0 Chloride Level 103 Carbon Dioxide 27 Level Anion Gap 7 Blood Urea 15 Nitrogen Creatinine 0.75 Est Glomerular > 60 Filtrat Rate mL/min Glucose Level 189 Lactic Acid 2.2 *H Level Calcium Level 8.4 Phosphorus Level 3.6 Magnesium Level 2.2 Medications Medication Current Medications Ticagrelor (Brilinta) 90 mg BID PO Last administered on 06/17/18at 21:29; Admin Dose 90 MG; Start 06/17/18 at 21:00 Atorvastatin Calcium (Lipitor) 80 mg DAILY@21 PO Last administered on 06/17/18at 21:26; Admin Dose 80 MG; Start 06/17/18 at 21:00 Dopamine HCl/ Dextrose 250 ml @ 6.705 mls/ hr TITRATE IV Last administered on 06/17/18at 14:07; Admin Dose 50.288 MLS/HR; Start 06/17/18 at 09:30 Piperacillin Sod/ Tazobactam Sod 100 ml @ 200 mls/hr Q6 IVPB Last administered on 06/18/18at 05:29; Admin Dose 200 MLS/HR; Start 06/17/18 at 10:00 Sodium Bicarbonate 100 meq/Dextrose/ Sodium Chloride 1,100 ml @ 100 mls/hr Q11H IV Last administered on 06/18/18at 01:06; Admin Dose 100 MLS/HR; Start 06/17/18 at 15:30 Aspirin (Aspirin) 81 mg DAILY NGT ; Start 06/18/18 at 09:00 Morphine Sulfate (morphine) 2 mg Q3 PRN IV SEVERE PAIN LEVEL 7-10; Start 06/17/18 at 19:30 Acetaminophen (Tylenol Liquid) 650 mg Q4H PRN NGT MILD PAIN(1-3)OR ELEVATED TEMP; Start 06/17/18 at 19:30 Fentanyl 100 ml @ 2.5 mls/hr TITRATE IV Last administered on 06/17/18at 20:21; Admin Dose 2.5 MLS/HR; Start 06/17/18 at 20:00 Midazolam HCl 50 ml @ 1 mls/hr TITRATE IV Last administered on 06/18/18at 04:55; Admin Dose 4 MLS/HR; Start 06/17/18 at 20:00 Norepinephrine 16 mg/Dextrose 250 ml @ 0.94 mls/hr TITRATE IV Last administered on 06/18/18at 03:41; Admin Dose 0.94 MLS/HR; Start 06/17/18 at 20:00 Propofol 100 ml @ 2.952 mls/ hr Q12H IV ; Start 06/17/18 at 20:00 Pantoprazole (Protonix Iv) 40 mg DAILY@06 IV Last administered on 06/18/18at 05:28; Admin Dose 40 MG; Start 06/18/18 at 06:00 ROSI HOWELL MD Jun 18, 2018 09:13
[2018-06-18] MEDS: ASPIRIN 81 MG TAB NGT SCH (09:21)
--- NOTE | 2018-06-18 10:24 | PN ---
Date/Time of Note Date/Time of Note DATE: 06/18/18 TIME: 10:20 Subjective Patient remains intubated and sedated. Objective Vitals Vital Signs Date Temp Pulse Resp B/P (MAP) Pulse Ox O2 O2 Flow FiO2 Time Delivery Rate 06/18/18 91 18 105/51 99 08:30 (69) 06/18/18 99.1 Mechanical 08:00 Ventilator 06/18/18 45 08:00 06/17/18 10.0 05:28 Intake and Output 06/17/18 06/17/18 06/18/18 1515:00 23:00 07:00 IntakeIntake Total 685.284 ml 1772.622 ml 1172.938 ml OutputOutput Total 1150 ml 450 ml 340 ml BalanceBalance -464.716 ml 1322.622 ml 832.938 ml Lungs with rhonchi Cardiac regular rate and rhythm no murmurs or gallops Abdomen soft normoactive bowel sounds Extremities no clubbing cyanosis or edema. Intra-aortic balloon pump in place Results Result Diagram: 06/18/18 0422 06/18/18 0422 Medications Medications Current Medications Ticagrelor (Brilinta) 90 mg BID PO Last administered on 06/17/18at 21:29; Admin Dose 90 MG; Start 06/17/18 at 21:00; Status Hold Atorvastatin Calcium (Lipitor) 80 mg DAILY@21 PO Last administered on 06/17/18 21:26; Admin Dose 80 MG; Start 06/17/18 at 21:00 Dopamine HCl/ Dextrose 250 ml @ 6.705 mls/ hr TITRATE IV Last administered on 06/17/18at 14:07; Admin Dose 50.288 MLS/HR; Start 06/17/18 at 09:30 Piperacillin Sod/ Tazobactam Sod 100 ml @ 200 mls/hr Q6 IVPB Last administered on 06/18/18 05:29; Admin Dose 200 MLS/HR; Start 06/17/18 at 10:00 Sodium Bicarbonate 100 meq/Dextrose/ Sodium Chloride 1,100 ml @ 100 mls/hr Q11H IV Last administered on 06/18/18 01:06; Admin Dose 100 MLS/HR; Start 06/17/18 at 15:30 Aspirin (Aspirin) 81 mg DAILY NGT Last administered on 3/2/19at 09:21; Admin Dose 81 MG; Start 06/18/18 at 09:00 Morphine Sulfate (morphine) 2 mg Q3 PRN IV SEVERE PAIN LEVEL 7-10; Start 06/17/18 at 19:30 Acetaminophen (Tylenol Liquid) 650 mg Q4H PRN NGT MILD PAIN(1-3)OR ELEVATED TEMP; Start 06/17/18 at 19:30 Fentanyl 100 ml @ 2.5 mls/hr TITRATE IV Last administered on 06/17/18at 20:21; Admin Dose 2.5 MLS/HR; Start 06/17/18 at 20:00 Midazolam HCl 50 ml @ 1 mls/hr TITRATE IV Last administered on 06/18/18at 04:55; Admin Dose 4 MLS/HR; Start 06/17/18 at 20:00 Norepinephrine 16 mg/Dextrose 250 ml @ 0.94 mls/hr TITRATE IV Last administered on 06/18/18at 03:41; Admin Dose 0.94 MLS/HR; Start 06/17/18 at 20:00 Propofol 100 ml @ 2.952 mls/ hr Q12H IV ; Start 06/17/18 at 20:00 Pantoprazole (Protonix Iv) 40 mg DAILY@06 IV Last administered on 06/18/18at 05:28; Admin Dose 40 MG; Start 06/18/18 at 06:00 Eptifibatide 100 ml @ 5.904 mls/ hr [id number] IV ; Start 06/18/18 at 10:00 VTE Prophylaxis Risk score (from Nsg)>0 risk: 12 SCD applied (from Nsg): Yes Lines/Catheters IV Catheter Type: Saline Lock Reyes in Place: Yes Cont'd reyes catheter reason: other (indicate) (Intubated and sedated) Assessment/Plan Assessment/Plan 67-year-old female with acute inferior wall STEMI Status post cardiac arrest Status post PCI to circumflex and balloon angioplasty of left main Cardiogenic shock, on intra-aortic balloon pump Hypertension Hyperlipidemia Hold Brilinta Wean off levo fed Wean off intra-aortic balloon pump On-call to operating room in 2 days for CABG Case was discussed with CRIS Cardoso MD Jun 18, 2018 10:24
--- NOTE | 2018-06-18 10:53 | CONS ---
Assessment/Plan Assessment/Plan Assessment/Plan (Daily) Inferior stemi VT due to RI, shocked htn hypercholesterolemia gallstones Recc: s/p CX BMS stent awaiting CABG will leave IABP in place, on integrilin CTS following, off brilinta Consultation Date/Type/Reason Admit Date/Time Jun 17, 2018 at 05:25 Initial Consult Date 06/17/18 Type of Consult Cardiology Requesting Provider: LISSET PATINO Date/Time of Note DATE: 06/18/18 TIME: 10:51 24 HR Interval Summary Free Text/Dictation The patient stable overnight Exam/Review of Systems Vital Signs Vitals Vital Signs Date Temp Pulse Resp B/P (MAP) Pulse Ox O2 O2 Flow FiO2 Time Delivery Rate 06/18/18 85 18 104/5 (38) 100 10:30 06/18/18 Mechanical 10:00 Ventilator 06/18/18 99.1 08:00 06/18/18 45 08:00 06/17/18 10.0 05:28 Intake and Output 06/17/18 06/17/18 06/18/18 1515:00 23:00 07:00 IntakeIntake Total 685.284 ml 1772.622 ml 1172.938 ml OutputOutput Total 1150 ml 450 ml 340 ml BalanceBalance -464.716 ml 1322.622 ml 832.938 ml Labs Result Diagram: 06/18/18 0422 06/18/18 0422 Results 24hrs Laboratory Tests Test 06/17/18 12:56 06/17/18 13:45 06/17/18 13:51 06/17/18 17:12 Lactic Acid 3.0 *H Level Blood Gas Blood arterial Specimen Source Arterial Blood 06/17/2018 1:43:1 Date Drawn 4 PM Arterial Blood 7.264 *L pH (Temp corrected ) Arterial Blood 44.2 pCO2 (Temp correct) Arterial Blood 75.6 L pO2 (Temp corrected ) Arterial Blood 19.6 L HCO3 Arterial Blood -7.3 L Base Excess Arterial Blood 93.9 L Oxygen Saturati on Jarrod Test N/A Arterial Blood A-Line Gas Puncture Site Arterial 0.3 Blood Carboxyhe moglobin Arterial Blood 0.4 Methemoglobin Blood Gas A-a 303.6 H O2 Differential Oxyhemoglobin 93.2 Percent Blood Gas 37.0 Temperature Blood Gas 18.0 Respiration Rate Blood Gas 19 Actual Respiration Rat e Blood Gas VENT - AC Modality FiO2 60.0 Blood Gas Tidal 450.0 Volume Blood Gas Low 8.0 PEEP Setting Blood Gas SUNNY LANGLEY Critical Value Read Back Blood Gas TM Notified Whom Blood Gas 06/17/2018 1:51:0 Notified Time 3 PM Sodium Level 140 Potassium Level 3.6 Chloride Level 109 Carbon Dioxide 22 Level Anion Gap 9 Blood Urea 20 Nitrogen Creatinine 0.79 Est Glomerular > 60 Filtrat Rate mL/min Glucose Level 248 H Calcium Level 8.8 Magnesium Level 1.8 Creatine Kinase 4666 H Creatine Kinase 8.5 Index Creatinine 395.00 H Kinase MB (Mass) Troponin I 38.600 *H Test 06/17/18 18:00 06/17/18 19:38 06/18/18 04:22 06/18/18 07:00 Blood Gas Blood arterial Blood arterial Specimen Source Arterial Blood 06/17/2018 6:45:4 06/18/2018 8:55:0 Date Drawn 9 PM 9 AM Arterial Blood 7.348 L 7.428 pH (Temp corrected ) Arterial Blood 35.8 40.1 pCO2 (Temp correct) Arterial Blood 315.7 H 125.0 H pO2 (Temp corrected ) Arterial Blood 19.2 L 25.9 HCO3 Arterial Blood -5.6 L 1.5 Base Excess Arterial Blood 99.4 H 98.4 H Oxygen Saturati on Jarrod Test ACCEPTAB N/A Arterial Blood Right Radial A-Line Gas Puncture Site Arterial 0.3 0.2 Blood Carboxyhe moglobin Arterial Blood 0.4 0.3 Methemoglobin Blood Gas A-a 72.7 H 150.2 H O2 Differential Oxyhemoglobin 98.7 97.9 Percent Blood Gas 37.0 37.0 Temperature Blood Gas 18.0 18.0 Respiration Rate Blood Gas 24 18 Actual Respiration Rat e Blood Gas TRACH COLLAR VENT - AC Modality FiO2 60.0 45.0 Blood Gas Tidal 450.0 450.0 Volume Blood Gas Low 8.0 8.0 PEEP Setting Blood Gas H. Critical Value BENITEZ LANGLEY Read Back Blood Gas JACK SHANKS [employer] BALANCER Notified Whom Blood Gas 06/17/2018 7:08:0 06/18/2018 9:17:1 Notified Time 2 PM 7 AM White Blood 21.0 H 16.6 #H Count Red Blood Count 4.73 4.31 Hemoglobin 14.1 12.9 Hematocrit 42.4 38.9 Mean 89.6 90.3 Corpuscular Volume Mean 29.8 29.9 Corpuscular Hemoglobin Mean 33.3 33.2 Corpuscular Hemoglobin Conc ent Red Cell 12.9 13.2 Distribution Width Platelet Count 248 221 Mean Platelet 10.1 10.7 H Volume Immature 0.700 H 0.700 H Granulocytes % Neutrophils % 85.2 H 81.0 H Lymphocytes % 6.6 L 10.5 L Monocytes % 7.3 7.6 Eosinophils % 0.0 0.0 Basophils % 0.2 0.2 Nucleated Red 0.0 0.0 Blood Cells % Immature 0.150 H 0.120 H Granulocytes # Neutrophils # 17.8 H 13.4 H Lymphocytes # 1.4 1.7 Monocytes # 1.5 H 1.3 H Eosinophils # 0.0 0.0 Basophils # 0.1 0.0 Nucleated Red 0.0 0.0 Blood Cells # Sodium Level 137 Potassium Level 4.0 Chloride Level 103 Carbon Dioxide 27 Level Anion Gap 7 Blood Urea 15 Nitrogen Creatinine 0.75 Est Glomerular > 60 Filtrat Rate mL/min Glucose Level 189 Lactic Acid 2.2 *H Level Calcium Level 8.4 Phosphorus 3.6 Level Magnesium Level 2.2 Troponin I 35.400 *H Medications Medications Current Medications Ticagrelor (Brilinta) 90 mg BID PO Last administered on 06/17/18 21:29; Admin Dose 90 MG; Start 06/17/18 at 21:00; Status Hold Atorvastatin Calcium (Lipitor) 80 mg DAILY@21 PO Last administered on 06/17/18 21:26; Admin Dose 80 MG; Start 06/17/18 at 21:00 Dopamine HCl/ Dextrose 250 ml @ 6.705 mls/ hr TITRATE IV Last administered on 06/17/18 14:07; Admin Dose 50.288 MLS/HR; Start 06/17/18 at 09:30 Piperacillin Sod/ Tazobactam Sod 100 ml @ 200 mls/hr Q6 IVPB Last administered on 06/18/18 05:29; Admin Dose 200 MLS/HR; Start 06/17/18 at 10:00 Sodium Bicarbonate 100 meq/Dextrose/ Sodium Chloride 1,100 ml @ 100 mls/hr Q11H IV Last administered on 3/2/19at 01:06; Admin Dose 100 MLS/HR; Start 06/17/18 at 15:30 Aspirin (Aspirin) 81 mg DAILY NGT Last administered on 06/18/18at 09:21; Admin Dose 81 MG; Start 06/18/18 at 09:00 Morphine Sulfate (morphine) 2 mg Q3 PRN IV SEVERE PAIN LEVEL 7-10; Start 06/17/18 at 19:30 Acetaminophen (Tylenol Liquid) 650 mg Q4H PRN NGT MILD PAIN(1-3)OR ELEVATED TEMP; Start 06/17/18 at 19:30 Fentanyl 100 ml @ 2.5 mls/hr TITRATE IV Last administered on 06/17/18at 20:21; Admin Dose 2.5 MLS/HR; Start 06/17/18 at 20:00 Midazolam HCl 50 ml @ 1 mls/hr TITRATE IV Last administered on 06/18/18at 04:55; Admin Dose 4 MLS/HR; Start 06/17/18 at 20:00 Norepinephrine 16 mg/Dextrose 250 ml @ 0.94 mls/hr TITRATE IV Last administ ered on 06/18/18at 03:41; Admin Dose 0.94 MLS/HR; Start 06/17/18 at 20:00 Propofol 100 ml @ 2.952 mls/ hr Q12H IV ; Start 06/17/18 at 20:00 Pantoprazole (Protonix Iv) 40 mg DAILY@06 IV Last administered on 06/18/18at 05:28; Admin Dose 40 MG; Start 06/18/18 at 06:00 Eptifibatide 100 ml @ 5.904 mls/ hr [id number] IV ; Start 06/18/18 at 10:00 JOSE ANGEL CORLEY MD Jun 18, 2018 10:53
--- NOTE | 2018-06-18 11:55 | CONS ---
Consult Date/Type/Reason Admit Date/Time Jun 17, 2018 at 05:25 Initial Consult Date 06/17/18 Type of Consultation: Pulm/CCM Requesting Provider: LISSET PATINO Date/Time of Note DATE: 06/18/18 TIME: 11:52 Subjective No events. Sedated on the vent. IABP in place. Levophed gtt. Objective Vitals Vital Signs Date Temp Pulse Resp B/P (MAP) Pulse Ox O2 O2 Flow FiO2 Time Delivery Rate 06/18/18 87 18 120/84 100 Mechanical 11:00 (96) Ventilator 06/18/18 99.1 08:00 06/18/18 45 08:00 06/17/18 10.0 05:28 Intake and Output 06/17/18 06/17/18 06/18/18 1515:00 23:00 07:00 IntakeIntake Total 685.284 ml 1772.622 ml 1172.938 ml OutputOutput Total 1150 ml 450 ml 340 ml BalanceBalance -464.716 ml 1322.622 ml 832.938 ml Exam NECK: Supple. No JVD or lymphadenopathy. + ET tube CARDIAC: S1, S2, no added sounds or murmurs. CHEST: Diminished air entry bilaterally with few rales. ABDOMEN: Soft, nontender. No guarding or rebound. EXTREMITIES: No cyanosis, clubbing. NEUROLOGIC: Sedated but moving all extremities Results/Medications Result Diagram: 06/18/18 0422 06/18/18421 Results 24 hrs Laboratory Tests Test 06/17/18 12:56 06/17/18 13:45 06/17/18 13:51 06/17/18 17:12 Lactic Acid 3.0 *H Level Blood Gas Blood arterial Specimen Source Arterial Blood 06/17/2018 1:43:1 Date Drawn 4 PM Arterial Blood 7.264 *L pH (Temp corrected ) Arterial Blood 44.2 pCO2 (Temp correct) Arterial Blood 75.6 L pO2 (Temp corrected ) Arterial Blood 19.6 L HCO3 Arterial Blood -7.3 L Base Excess Arterial Blood 93.9 L Oxygen Saturati on Jarrod Test N/A Arterial Blood A-Line Gas Puncture Site Arterial 0.3 Blood Carboxyhe moglobin Arterial Blood 0.4 Methemoglobin Blood Gas A-a 303.6 H O2 Differential Oxyhemoglobin 93.2 Percent Blood Gas 37.0 Temperature Blood Gas 18.0 Respiration Rate Blood Gas 19 Actual Respiration Rat e Blood Gas VENT - AC Modality FiO2 60.0 Blood Gas Tidal 450.0 Volume Blood Gas Low 8.0 PEEP Setting Blood Gas SUNNY LANGLEY Critical Value Read Back Blood Gas TM Notified Whom Blood Gas 06/17/2018 1:51:0 Notified Time 3 PM Sodium Level 140 Potassium Level 3.6 Chloride Level 109 Carbon Dioxide 22 Level Anion Gap 9 Blood Urea 20 Nitrogen Creatinine 0.79 Est Glomerular > 60 Filtrat Rate mL/min Glucose Level 248 H Calcium Level 8.8 Magnesium Level 1.8 Creatine Kinase 4666 H Creatine Kinase 8.5 Index Creatinine 395.00 H Kinase MB (Mass) Troponin I 38.600 *H Test 06/17/18 18:00 06/17/18 19:38 06/18/18 04:22 06/18/18 07:00 Blood Gas Blood arterial Blood arterial Specimen Source Arterial Blood 06/17/2018 6:45:4 06/18/2018 8:55:0 Date Drawn 9 PM 9 AM Arterial Blood 7.348 L 7.428 pH (Temp corrected ) Arterial Blood 35.8 40.1 pCO2 (Temp correct) Arterial Blood 315.7 H 125.0 H pO2 (Temp corrected ) Arterial Blood 19.2 L 25.9 HCO3 Arterial Blood -5.6 L 1.5 Base Excess Arterial Blood 99.4 H 98.4 H Oxygen Saturati on Jarrod Test ACCEPTAB N/A Arterial Blood Right Radial A-Line Gas Puncture Site Arterial 0.3 0.2 Blood Carboxyhe moglobin Arterial Blood 0.4 0.3 Methemoglobin Blood Gas A-a 72.7 H 150.2 H O2 Differential Oxyhemoglobin 98.7 97.9 Percent Blood Gas 37.0 37.0 Temperature Blood Gas 18.0 18.0 Respiration Rate Blood Gas 24 18 Actual Respiration Rat e Blood Gas TRACH COLLAR VENT - AC Modality FiO2 60.0 45.0 Blood Gas Tidal 450.0 450.0 Volume Blood Gas Low 8.0 8.0 PEEP Setting Blood Gas H. Critical Value BENITEZ LANGLEY Read Back Blood Gas JACK SHANKS [employer]IOR DEVELOPER Notified Whom Blood Gas 06/17/2018 7:08:0 06/18/2018 9:17:1 Notified Time 2 PM 7 AM White Blood 21.0 H 16.6 #H Count Red Blood Count 4.73 4.31 Hemoglobin 14.1 12.9 Hematocrit 42.4 38.9 Mean 89.6 90.3 Corpuscular Volume Mean 29.8 29.9 Corpuscular Hemoglobin Mean 33.3 33.2 Corpuscular Hemoglobin Conc ent Red Cell 12.9 13.2 Distribution Width Platelet Count 248 221 Mean Platelet 10.1 10.7 H Volume Immature 0.700 H 0.700 H Granulocytes % Neutrophils % 85.2 H 81.0 H Lymphocytes % 6.6 L 10.5 L Monocytes % 7.3 7.6 Eosinophils % 0.0 0.0 Basophils % 0.2 0.2 Nucleated Red 0.0 0.0 Blood Cells % Immature 0.150 H 0.120 H Granulocytes # Neutrophils # 17.8 H 13.4 H Lymphocytes # 1.4 1.7 Monocytes # 1.5 H 1.3 H Eosinophils # 0.0 0.0 Basophils # 0.1 0.0 Nucleated Red 0.0 0.0 Blood Cells # Sodium Level 137 Potassium Level 4.0 Chloride Level 103 Carbon Dioxide 27 Level Anion Gap 7 Blood Urea 15 Nitrogen Creatinine 0.75 Est Glomerular > 60 Filtrat Rate mL/min Glucose Level 189 Lactic Acid 2.2 *H Level Calcium Level 8.4 Phosphorus 3.6 Level Magnesium Level 2.2 Troponin I 35.400 *H Medications Current Medications Ticagrelor (Brilinta) 90 mg BID PO Last administered on 06/17/18at 21:29; Admin Dose 90 MG; Start 06/17/18 at 21:00; Status Hold Atorvastatin Calcium (Lipitor) 80 mg DAILY@21 PO Last administered on 06/17/18at 21:26; Admin Dose 80 MG; Start 06/17/18 at 21:00 Dopamine HCl/ Dextrose 250 ml @ 6.705 mls/ hr TITRATE IV Last administered on 06/17/18at 14:07; Admin Dose 50.288 MLS/HR; Start 06/17/18 at 09:30 Piperacillin Sod/ Tazobactam Sod 100 ml @ 200 mls/hr Q6 IVPB Last administered on 06/18/18at 05:29; Admin Dose 200 MLS/HR; Start 06/17/18 at 10:00 Sodium Bicarbonate 100 meq/Dextrose/ Sodium Chloride 1,100 ml @ 100 mls/hr Q11H IV Last administered on 06/18/18at 01:06; Admin Dose 100 MLS/HR; Start 06/17/18 at 15:30 Aspirin (Aspirin) 81 mg DAILY NGT Last administered on 06/18/18at 09:21; Admin Dose 81 MG; Start 06/18/18 at 09:00 Morphine Sulfate (morphine) 2 mg Q3 PRN IV SEVERE PAIN LEVEL 7-10; Start 06/17/18 at 19:30 Acetaminophen (Tylenol Liquid) 650 mg Q4H PRN NGT MILD PAIN(1-3)OR ELEVATED TEMP; Start 06/17/18 at 19:30 Fentanyl 100 ml @ 2.5 mls/hr TITRATE IV Last administered on 06/17/18at 20:21; Admin Dose 2.5 MLS/HR; Start 06/17/18 at 20:00 Midazolam HCl 50 ml @ 1 mls/hr TITRATE IV Last administered on 06/18/18at 04:55; Admin Dose 4 MLS/HR; Start 06/17/18 at 20:00 Norepinephrine 16 mg/Dextrose 250 ml @ 0.94 mls/hr TITRATE IV Last administered on 06/18/18at 03:41; Admin Dose 0.94 MLS/HR; Start 06/17/18 at 20:00 Propofol 100 ml @ 2.952 mls/ hr Q12H IV ; Start 06/17/18 at 20:00 Pantoprazole (Protonix Iv) 40 mg DAILY@06 IV Last administered on 06/18/18at 05:28; Admin Dose 40 MG; Start 06/18/18 at 06:00 Eptifibatide 100 ml @ 5.904 mls/ hr [id number] IV ; Start 06/18/18 at 10:00 Assessment/Plan Assessment/Plan (Daily) IMP: 1. Inferior myocardial infarction, status post angioplasty and stent placement. 2. Ventricular fibrillation 2/2 #1 3. Likely aspiration pneumonia. 4. Cardiogenic shock. 5. History of gallbladder disease. RECS: 1. Vent support 2. Titrate levophed gtt 3. Balloon pump as per Cards 4. Await CABG on Wednesday 5. DVT/GI prophylaxis 40 min cc time ZI LIVE MD Jun 18, 2018 11:55
[2018-06-18] MEDS: EPTIFIBATIDE 100 ML IV SCH (12:09)
[2018-06-18] MEDS: morphine 2 MG INJ IV PRN (20:01)
[2018-06-18] MEDS: ATORVASTATIN 80 MG TAB PO SCH (20:54)
[2018-06-19] VITALS (105 sets, daily range): BP systolic 68–144; BP diastolic 50–112; PULSE 79–102; RESP 0–20
[2018-06-19] MEDS: EPTIFIBATIDE 100 ML IV SCH ×2 (05:15→16:07)
[2018-06-19] MEDS: PIPER-TAZO 3.375 GM IV (PMX) 100 ML IVPB SCH ×4 (05:34→23:39)
[2018-06-19] MEDS: PANTOPRAZOLE 40 MG INJ IV SCH (05:34)
[2018-06-19] MEDS: PROPOFOL 100 ML IV SCH ×3 (08:00→22:52)
[2018-06-19] MEDS: ASPIRIN 81 MG TAB NGT SCH (08:54)
[2018-06-19] MEDS ORDERED: POTASSIUM CHLORIDE 20 MEQ POWDER FOR ORAL SOLN NGT ONE (09:00)
[2018-06-19] MEDS: morphine 2 MG INJ IV PRN (09:39)
[2018-06-19] MEDS ORDERED: POTASSIUM PHOSPHATE 15 MM in SOD CHLORIDE 0.9% 250 ML IVPB ONE (10:00)
--- NOTE | 2018-06-19 10:27 | PN ---
Date/Time of Note Date/Time of Note DATE: 06/19/18 TIME: 10:24 Subjective Remains intubated and sedated Objective Vitals Vital Signs Date Temp Pulse Resp B/P (MAP) Pulse Ox O2 O2 Flow FiO2 Time Delivery Rate 06/19/18 95 18 115/63 98 Mechanical 10:00 (80) Ventilator 06/19/18 98.7 08:00 06/19/18 35 08:00 06/17/18 10.0 05:28 Intake and Output 06/18/18 06/18/18 06/19/18 1515:00 23:00 07:00 IntakeIntake Total 735.55 ml 255.1 ml 293.3 ml OutputOutput Total 755 ml 350 ml 360 ml BalanceBalance -19.45 ml -94.9 ml -66.7 ml Lungs are clear to auscultation Cardiac regular rate and rhythm Abdomen soft normoactive bowel sounds Extremities no clubbing cyanosis or edema Results Result Diagram: 06/19/18 0330 06/19/18 0330 Medications Medications Current Medications Ticagrelor (Brilinta) 90 mg BID PO Last administered on 06/17/18at 21:29; Admin Dose 90 MG; Start 06/17/18 at 21:00; Status Hold Atorvastatin Calcium (Lipitor) 80 mg DAILY@21 PO Last administered on 06/18/18 20:54; Admin Dose 80 MG; Start 06/17/18 at 21:00 Dopamine HCl/ Dextrose 250 ml @ 6.705 mls/ hr TITRATE IV Last administered on 06/17/18 14:07; Admin Dose 50.288 MLS/HR; Start 06/17/18 at 09:30 Piperacillin Sod/ Tazobactam Sod 100 ml @ 200 mls/hr Q6 IVPB Last administered on 06/19/18 05:34; Admin Dose 200 MLS/HR; Start 06/17/18 at 10:00 Aspirin (Aspirin) 81 mg DAILY NGT Last administered on 06/19/18 08:54; Admin Dose 81 MG; Start 06/18/18 at 09:00 Morphine Sulfate (morphine) 2 mg Q3 PRN IV SEVERE PAIN LEVEL 7-10 Last administered on 06/19/18 09:39; Admin Dose 2 MG; Start 06/17/18 at 19:30 Acetaminophen (Tylenol Liquid) 650 mg Q4H PRN NGT MILD PAIN(1-3)OR ELEVATED TEMP; Start 06/17/18 at 19:30 Fentanyl 100 ml @ 2.5 mls/hr TITRATE IV Last administered on 06/17/18at 20:21; Admin Dose 2.5 MLS/HR; Start 06/17/18 at 20:00 Midazolam HCl 50 ml @ 1 mls/hr TITRATE IV Last administered on 06/18/18at 20:34; Admin Dose 4 MLS/HR; Start 06/17/18 at 20:00 Norepinephrine 16 mg/Dextrose 250 ml @ 0.94 mls/hr TITRATE IV Last administered on 06/18/18at 03:41; Admin Dose 0.94 MLS/HR; Start 06/17/18 at 20:00 Propofol 100 ml @ 2.952 mls/ hr Q12H IV ; Start 06/17/18 at 20:00 Pantoprazole (Protonix Iv) 40 mg DAILY@06 IV Last administered on 06/19/18at 05:34; Admin Dose 40 MG; Start 06/18/18 at 06:00 Eptifibatide 100 ml @ 5.904 mls/ hr [id number] IV Last administered on 06/19/18at 05:15; Admin Dose 5.904 MLS/HR; Start 06/18/18 at 10:00 Potassium Phosphate 15 mm/ Sodium Chloride 255 ml @ 85 mls/hr ONCE ONCE IVPB ; Start 06/19/18 at 10:00; Stop 06/19/18 at 12:59 VTE Prophylaxis Risk score (from Nsg)>0 risk: 9 SCD applied (from Nsg): Yes Lines/Catheters IV Catheter Type: Saline Lock Reyes in Place: Yes Cont'd reyes catheter reason: other (indicate) Assessment/Plan Assessment/Plan 67-year-old female status post acute inferior wall STEMI Status post cardiac arrest with V. tach Multivessel coronary artery disease Status post PCI and stent to circumflex and balloon angioplasty of left main Cardiogenic shock, on intra-aortic balloon pump. Levothroid has been discontinued Hypertension Hyperlipidemia Continue current therapy On-call to operating room in a.m. for CABG Potassium and phosphate supplementation CRIS HAWTHONRE MD Jun 19, 2018 10:27
[2018-06-19] MEDS: MIDAZOLAM (DRIP) 50 mg/50 mL 50 ML IV SCH (10:30)
[2018-06-19] MEDS: FENTAnyl (DRIP) 1000 mcg/100mL 100 ML IV SCH ×2 (10:42→23:00)
[2018-06-19] MEDS ORDERED: CEFAZOLIN 2 GM/50 ML (PMX) 50 ML IVPB ONE (11:00)
--- NOTE | 2018-06-19 11:13 | CONS ---
Consultation Date/Type/Reason Admit Date/Time Jun 17, 2018 at 05:25 Initial Consult Date 06/17/18 Type of Consult Cardiology Requesting Provider: LISSET PATINO Date/Time of Note DATE: 06/19/18 TIME: 11:12 24 HR Interval Summary Free Text/Dictation Inferior stemi VT due to ID, shocked htn hypercholesterolemia gallstones Recc: s/p CX BMS stent awaiting CABG will leave IABP in place, on integrilin CTS following, off brilinta 90 % LM and ocluded Circumflex Exam/Review of Systems Vital Signs Vitals Vital Signs Date Temp Pulse Resp B/P (MAP) Pulse Ox O2 O2 Flow FiO2 Time Delivery Rate 06/19/18 98 18 117/61 98 Mechanical 11:00 (79) Ventilator 06/19/18 98.7 08:00 06/19/18 35 08:00 06/17/18 10.0 05:28 Intake and Output 06/18/18 06/18/18 06/19/18 1515:00 23:00 07:00 IntakeIntake Total 735.55 ml 255.1 ml 293.3 ml OutputOutput Total 755 ml 350 ml 360 ml BalanceBalance -19.45 ml -94.9 ml -66.7 ml Exam Constitutional: other (intubated sedated) Respiratory: clear to auscultation Cardiovascular: regular rate and rhythm Extremities: normal pulses (IABP on place) Labs Result Diagram: 06/19/18 0330 06/19/18 0330 Results 24hrs Laboratory Tests Test 06/19/18 03:30 06/19/18 05:00 White Blood Count 11.2 #H Red Blood Count 3.77 L Hemoglobin 11.2 L Hematocrit 34.4 L Mean Corpuscular Volume 91.2 Mean Corpuscular Hemoglobin 29.7 Mean Corpuscular Hemoglobin Concent 32.6 Red Cell Distribution Width 13.5 Platelet Count 159 # Mean Platelet Volume 11.3 H Immature Granulocytes % 0.400 Neutrophils % 70.6 Lymphocytes % 18.4 Monocytes % 10.0 Eosinophils % 0.2 Basophils % 0.4 Nucleated Red Blood Cells % 0.0 Immature Granulocytes # 0.040 H Neutrophils # 7.9 H Lymphocytes # 2.1 Monocytes # 1.1 H Eosinophils # 0.0 Basophils # 0.1 Nucleated Red Blood Cells # 0.0 Prothrombin Time 15.0 H Prothrombin Time Ratio 1.2 INR International Normalized Ratio 1.17 Sodium Level 140 Potassium Level 3.4 L Chloride Level 106 Carbon Dioxide Level 27 Anion Gap 7 Blood Urea Nitrogen 12 Creatinine 0.70 Est Glomerular Filtrat Rate mL/min > 60 Glucose Level 108 # Lactic Acid Level 1.2 Calcium Level 8.2 L Phosphorus Level 2.4 #L Magnesium Level 2.1 Troponin I 17.100 *H Blood Gas Specimen Source Blood arterial Arterial Blood Date Drawn 06/19/2018 4:50:35 AM Arterial Blood pH (Temp corrected) 7.469 H Arterial Blood pCO2 (Temp correct) 22.9 L Arterial Blood pO2 (Temp corrected) 145.7 H Arterial Blood HCO3 16.3 L Arterial Blood Base Excess -6.0 L Arterial Blood Oxygen Saturation 98.5 H Jarrod Test N/A Arterial Blood Gas Puncture Site A-Line Arterial Blood Carboxyhemoglobin 0.3 Arterial Blood Methemoglobin 0.3 Blood Gas A-a O2 Differential 113.2 H Oxyhemoglobin Percent 97.9 Blood Gas Temperature 37.0 Blood Gas Respiration Rate 18.0 Blood Gas Actual Respiration Rate 18 Blood Gas Modality VENT - AC FiO2 40.0 Blood Gas Tidal Volume 450.0 Blood Gas Low PEEP Setting 8.0 Blood Gas Notified Whom Rakan MARAVILLA RCP Blood Gas Notified Time 06/19/2018 5:02:38 AM Medications Medications Current Medications Ticagrelor (Brilinta) 90 mg BID PO Last administered on 06/17/18 21:29; Admin Dose 90 MG; Start 06/17/18 at 21:00; Status Hold Atorvastatin Calcium (Lipitor) 80 mg DAILY@21 PO Last administered on 06/18/18 20:54; Admin Dose 80 MG; Start 06/17/18 at 21:00 Dopamine HCl/ Dextrose 250 ml @ 6.705 mls/ hr TITRATE IV Last administered on 06/17/18 14:07; Admin Dose 50.288 MLS/HR; Start 06/17/18 at 09:30 Piperacillin Sod/ Tazobactam Sod 100 ml @ 200 mls/hr Q6 IVPB Last administered on 06/19/18 05:34; Admin Dose 200 MLS/HR; Start 06/17/18 at 10:00 Aspirin (Aspirin) 81 mg DAILY NGT Last administered on 06/19/18 08:54; Admin Dose 81 MG; Start 06/18/18 at 09:00 Morphine Sulfate (morphine) 2 mg Q3 PRN IV SEVERE PAIN LEVEL 7-10 Last administered on 06/19/18 09:39; Admin Dose 2 MG; Start 06/17/18 at 19:30 Acetaminophen (Tylenol Liquid) 650 mg Q4H PRN NGT MILD PAIN(1-3)OR ELEVATED TEMP; Start 06/17/18 at 19:30 Fentanyl 100 ml @ 2.5 mls/hr TITRATE IV Last administered on 06/19/18 10:42; Admin Dose 2.5 MLS/HR; Start 06/17/18 at 20:00 Midazolam HCl 50 ml @ 1 mls/hr TITRATE IV Last administered on 06/19/18 10:30; Admin Dose 4 MLS/HR; Start 06/17/18 at 20:00 Norepinephrine 16 mg/Dextrose 250 ml @ 0.94 mls/hr TITRATE IV Last administered on 06/18/18 03:41; Admin Dose 0.94 MLS/HR; Start 06/17/18 at 20:00 Propofol 100 ml @ 2.952 mls/ hr Q12H IV ; Start 06/17/18 at 20:00 Pantoprazole (Protonix Iv) 40 mg DAILY@06 IV Last administered on 06/19/18 05:34; Admin Dose 40 MG; Start 06/18/18 at 06:00 Eptifibatide 100 ml @ 5.904 mls/ hr [id number] IV Last administered on 06/19/18 05:15; Admin Dose 5.904 MLS/HR; Start 06/18/18 at 10:00 Potassium Phosphate 15 mm/ Sodium Chloride 255 ml @ 85 mls/hr ONCE ONCE IVPB Last administered on 06/19/18 10:29; Admin Dose 85 MLS/HR; Start 06/19/18 at 10:00; Stop 06/19/18 at 12:59 Cefazolin Sodium/ Dextrose 50 ml @ 100 mls/hr PRE-OP ONCE IVPB ; Start 06/19/18 at 11:00; Stop 06/19/18 at 11:29 LOIS GUZMAN MD Jun 19, 2018 11:13
--- NOTE | 2018-06-19 12:42 | CONS ---
Consult Date/Type/Reason Admit Date/Time Jun 17, 2018 at 05:25 Initial Consult Date 06/17/18 Type of Consultation: Pulm/CCM Requesting Provider: LISSET PATINO Date/Time of Note DATE: 06/19/18 TIME: 12:40 Subjective No events. Sedated on vent. IABP in place. Objective Vitals Vital Signs Date Temp Pulse Resp B/P (MAP) Pulse Ox O2 O2 Flow FiO2 Time Delivery Rate 06/19/18 98.8 93 18 138/70 99 Mechanical 12:00 (92) Ventilator 06/19/18 35 08:00 06/17/18 10.0 05:28 Intake and Output 06/18/18 06/18/18 06/19/18 1515:00 23:00 07:00 IntakeIntake Total 735.55 ml 255.1 ml 293.3 ml OutputOutput Total 755 ml 350 ml 360 ml BalanceBalance -19.45 ml -94.9 ml -66.7 ml Exam NECK: Supple. No JVD or lymphadenopathy. + ET tube CARDIAC: S1, S2, no added sounds or murmurs. CHEST: Diminished air entry bilaterally with few rales. ABDOMEN: Soft, nontender. No guarding or rebound. EXTREMITIES: No cyanosis, clubbing. NEUROLOGIC: Sedated but moving all extremities Results/Medications Result Diagram: 06/19/18 0330 06/19/18 0330 Results 24 hrs Laboratory Tests Test 06/19/18 03:30 06/19/18 05:00 White Blood Count 11.2 #H Red Blood Count 3.77 L Hemoglobin 11.2 L Hematocrit 34.4 L Mean Corpuscular Volume 91.2 Mean Corpuscular Hemoglobin 29.7 Mean Corpuscular Hemoglobin Concent 32.6 Red Cell Distribution Width 13.5 Platelet Count 159 # Mean Platelet Volume 11.3 H Immature Granulocytes % 0.400 Neutrophils % 70.6 Lymphocytes % 18.4 Monocytes % 10.0 Eosinophils % 0.2 Basophils % 0.4 Nucleated Red Blood Cells % 0.0 Immature Granulocytes # 0.040 H Neutrophils # 7.9 H Lymphocytes # 2.1 Monocytes # 1.1 H Eosinophils # 0.0 Basophils # 0.1 Nucleated Red Blood Cells # 0.0 Prothrombin Time 15.0 H Prothrombin Time Ratio 1.2 INR International Normalized Ratio 1.17 Sodium Level 140 Potassium Level 3.4 L Chloride Level 106 Carbon Dioxide Level 27 Anion Gap 7 Blood Urea Nitrogen 12 Creatinine 0.70 Est Glomerular Filtrat Rate mL/min > 60 Glucose Level 108 # Lactic Acid Level 1.2 Calcium Level 8.2 L Phosphorus Level 2.4 #L Magnesium Level 2.1 Troponin I 17.100 *H Blood Gas Specimen Source Blood arterial Arterial Blood Date Drawn 06/19/2018 4:50:35 AM Arterial Blood pH (Temp corrected) 7.469 H Arterial Blood pCO2 (Temp correct) 22.9 L Arterial Blood pO2 (Temp corrected) 145.7 H Arterial Blood HCO3 16.3 L Arterial Blood Base Excess -6.0 L Arterial Blood Oxygen Saturation 98.5 H Jarrod Test N/A Arterial Blood Gas Puncture Site A-Line Arterial Blood Carboxyhemoglobin 0.3 Arterial Blood Methemoglobin 0.3 Blood Gas A-a O2 Differential 113.2 H Oxyhemoglobin Percent 97.9 Blood Gas Temperature 37.0 Blood Gas Respiration Rate 18.0 Blood Gas Actual Respiration Rate 18 Blood Gas Modality VENT - AC FiO2 40.0 Blood Gas Tidal Volume 450.0 Blood Gas Low PEEP Setting 8.0 Blood Gas Notified Whom Rakan MARAVILLA RCP Blood Gas Notified Time 06/19/2018 5:02:38 AM Medications Current Medications Ticagrelor (Brilinta) 90 mg BID PO Last administered on 06/17/18 21:29; Admin Dose 90 MG; Start 06/17/18 at 21:00; Status Hold Atorvastatin Calcium (Lipitor) 80 mg DAILY@21 PO Last administered on 06/18/18 20:54; Admin Dose 80 MG; Start 06/17/18 at 21:00 Dopamine HCl/ Dextrose 250 ml @ 6.705 mls/ hr TITRATE IV Last administered on 06/17/18 14:07; Admin Dose 50.288 MLS/HR; Start 06/17/18 at 09:30 Piperacillin Sod/ Tazobactam Sod 100 ml @ 200 mls/hr Q6 IVPB Last administered on 06/19/18at 12:37; Admin Dose 200 MLS/HR; Start 06/17/18 at 10:00 Aspirin (Aspirin) 81 mg DAILY NGT Last administered on 06/19/18 08:54; Admin Dose 81 MG; Start 06/18/18 at 09:00 Morphine Sulfate (morphine) 2 mg Q3 PRN IV SEVERE PAIN LEVEL 7-10 Last administered on 06/19/18 09:39; Admin Dose 2 MG; Start 06/17/18 at 19:30 Acetaminophen (Tylenol Liquid) 650 mg Q4H PRN NGT MILD PAIN(1-3)OR ELEVATED TEMP; Start 06/17/18 at 19:30 Fentanyl 100 ml @ 2.5 mls/hr TITRATE IV Last administered on 06/19/18at 10:42; Admin Dose 2.5 MLS/HR; Start 06/17/18 at 20:00 Midazolam HCl 50 ml @ 1 mls/hr TITRATE IV Last administered on 06/19/18 10:30; Admin Dose 4 MLS/HR; Start 06/17/18 at 20:00 Norepinephrine 16 mg/Dextrose 250 ml @ 0.94 mls/hr TITRATE IV Last administered on 06/18/18 03:41; Admin Dose 0.94 MLS/HR; Start 06/17/18 at 20:00 Propofol 100 ml @ 2.952 mls/ hr Q12H IV ; Start 06/17/18 at 20:00 Pantoprazole (Protonix Iv) 40 mg DAILY@06 IV Last administered on 06/19/18at 05 :34; Admin Dose 40 MG; Start 06/18/18 at 06:00 Eptifibatide 100 ml @ 5.904 mls/ hr [id number] IV Last administered on 06/19/18 05:15; Admin Dose 5.904 MLS/HR; Start 06/18/18 at 10:00 Potassium Phosphate 15 mm/ Sodium Chloride 255 ml @ 85 mls/hr ONCE ONCE IVPB Last administered on 06/19/18at 10:29; Admin Dose 85 MLS/HR; Start 06/19/18 at 10:00; Stop 06/19/18 at 12:59 Assessment/Plan Assessment/Plan (Daily) IMP: 1. Inferior myocardial infarction, status post angioplasty and stent placement---> awaiting CABG 2. Ventricular fibrillation 2/2 #1 3. Likely aspiration pneumonia. 4. Cardiogenic shock. 5. History of gallbladder disease. RECS: 1. Vent support; reduce PEEP 6 2. Would transition off versed gtt; can up titrate fentanyl and add propofol. 3. Balloon pump as per Cards 4. Await CABG on Wednesday 5. DVT/GI prophylaxis 40 min cc time ZI LIVE MD Jun 19, 2018 12:42
[2018-06-19] MEDS: ATORVASTATIN 80 MG TAB PO SCH (20:48)
[2018-06-20] VITALS (58 sets, daily range): BP systolic 55–138; BP diastolic 35–99; PULSE 74–145; RESP 16–25
[2018-06-20] MEDS: morphine 2 MG INJ IV PRN (01:13)
[2018-06-20] MEDS: PANTOPRAZOLE 40 MG INJ IV SCH (05:30)
[2018-06-20] MEDS: PIPER-TAZO 3.375 GM IV (PMX) 100 ML IVPB SCH ×2 (05:30→12:08)
--- NOTE | 2018-06-20 09:15 | PN ---
Date/Time of Note Date/Time of Note DATE: 06/20/18 TIME: 09:12 Subjective Remains intubated and sedated Objective Vitals Vital Signs Date Temp Pulse Resp B/P (MAP) Pulse Ox O2 O2 Flow FiO2 Time Delivery Rate 06/20/18 83 18 110/55 100 08:30 (73) 06/20/18 35 08:00 06/20/18 98.0 Mechanical 08:00 Ventilator 06/17/18 10.0 05:28 Intake and Output 06/19/18 06/19/18 06/20/18 1515:00 23:00 07:00 IntakeIntake Total 462.7 ml 261.82 ml 237.98 ml OutputOutput Total 400 ml 605 ml 820 ml BalanceBalance 62.7 ml -343.18 ml -582.02 ml Lungs clear to auscultation bilaterally Cardiac regular rate and rhythm. No murmurs or gallops Abdomen soft, normoactive bowel sounds Extremities no clubbing cyanosis or edema. Distal pulses are intact Results Result Diagram: 06/20/18 0330 06/20/18 0330 Medications Medications Current Medications Ticagrelor (Brilinta) 90 mg BID PO Last administered on 06/17/18 21:29; Admin Dose 90 MG; Start 06/17/18 at 21:00; Status Hold Atorvastatin Calcium (Lipitor) 80 mg DAILY@21 PO Last administered on 06/19/18 20:48; Admin Dose 80 MG; Start 06/17/18 at 21:00 Dopamine HCl/ Dextrose 250 ml @ 6.705 mls/ hr TITRATE IV Last administered on 06/17/18 14:07; Admin Dose 50.288 MLS/HR; Start 06/17/18 at 09:30 Piperacillin Sod/ Tazobactam Sod 100 ml @ 200 mls/hr Q6 IVPB Last administered on 06/20/18 05:30; Admin Dose 200 MLS/HR; Start 06/17/18 at 10:00 Aspirin (Aspirin) 81 mg DAILY NGT Last administered on 06/19/18 08:54; Admin Dose 81 MG; Start 06/18/18 at 09:00 Morphine Sulfate (morphine) 2 mg Q3 PRN IV SEVERE PAIN LEVEL 7-10 Last administered on 06/20/18 01:13; Admin Dose 2 MG; Start 06/17/18 at 19:30 Acetaminophen (Tylenol Liquid) 650 mg Q4H PRN NGT MILD PAIN(1-3)OR ELEVATED TEMP; Start 06/17/18 at 19:30 Fentanyl 100 ml @ 2.5 mls/hr TITRATE IV Last administered on 06/19/18at 23:00; Admin Dose 5 MLS/HR; Start 06/17/18 at 20:00 Midazolam HCl 50 ml @ 1 mls/hr TITRATE IV Last administered on 06/19/18at 10:30; Admin Dose 4 MLS/HR; Start 06/17/18 at 20:00 Norepinephrine 16 mg/Dextrose 250 ml @ 0.94 mls/hr TITRATE IV Last administered on 06/18/18at 03:41; Admin Dose 0.94 MLS/HR; Start 06/17/18 at 20:00 Pantoprazole (Protonix Iv) 40 mg DAILY@06 IV Last administered on 06/20/18at 05:30; Admin Dose 40 MG; Start 06/18/18 at 06:00 Propofol 100 ml @ 2.952 mls/ hr Q12H IV Last administered on 06/19/18at 22:52; Admin Dose 8.88 MLS/HR; Start 06/19/18 at 13:00 Cefazolin Sodium/ Dextrose 50 ml @ 100 mls/hr PRE-OP ONCE IVPB ; Start 06/20/18 at 14:00; Stop 06/20/18 at 14:29 Insulin Human Regular 100 unit/ Sodium Chloride 100 ml @ 0 mls/hr Q0M ONCE IVPB ; Start 06/20/18 at 12:00; Stop 06/20/18 at 12:01 Norepinephrine 250 ml @ 0 mls/hr ONCE IV ; Start 06/20/18 at 12:00; Stop 06/20/18 at 16:00 Epinephrine 4 mg/ Dextrose 250 ml @ 0 mls/hr Q0M ONCE IV ; Start 06/20/18 at 12:00; Stop 06/20/18 at 12:01 Phenylephrine HCl 250 ml @ 0 mls/hr ONCE ONCE IV ; Start 06/20/18 at 12:00; Stop 06/20/18 at 12:01 Aspirin (Aspirin) 600 mg ONCE ONCE GA ; Start 06/20/18 at 12:00; Stop 06/20/18 at 12:01 Heparin Sodium (Porcine) 56860 unit/Milrinone Lactate 10 mg/ Sodium Chloride 1,011 ml @ 0 mls/hr ONCE ONCE SC ; Start 06/20/18 at 12:00; Stop 06/20/18 at 12:01 Milrinone Lactate 2 mg/Sodium Chloride 52 ml @ 0 mls/hr ONCE ONCE IV ; Start 06/20/18 at 12:00; Stop 06/20/18 at 12:01 VTE Prophylaxis Risk score (from Ns)>0 risk: 13 SCD applied (from Ns): Yes Lines/Catheters IV Catheter Type: Saline Lock Reyes in Place: Yes Cont'd reyes catheter reason: other (indicate) Assessment/Plan Assessment/Plan 67-year-old female status post inferior wall STEMI Status post cardiac arrest Status post PCI and stent to circumflex and balloon angioplasty of left main Multivessel coronary artery disease Hypertension Hyperlipidemia Cardiogenic shock, on intra-aortic balloon pump On-call to OR this afternoon for CABG Integrtabby has been held Cardiology and cardiothoracic follow-up CRIS HAWTHORNE MD Jun 20, 2018 09:15
[2018-06-20] MEDS: ASPIRIN 81 MG TAB NGT SCH (09:28)
[2018-06-20] MEDS: PROPOFOL 100 ML IV SCH ×2 (10:38→20:12)
--- NOTE | 2018-06-20 10:50 | CONS ---
Consult Date/Type/Reason Admit Date/Time Jun 17, 2018 at 05:25 Initial Consult Date 06/17/18 Type of Consult Pulmonary Requesting Provider: LISSET PATINO Date/Time of Note DATE: 06/20/18 TIME: 10:49 Subjective Patient intubated on mechanical ventilation. Currently no vasopressors. Continues intra-aortic balloon pump. Remains awake and alert. Objective Vital Signs Date Temp Pulse Resp B/P (MAP) Pulse Ox O2 O2 Flow FiO2 Time Delivery Rate 06/20/18 88 18 100 35 09:33 06/20/18 131/76 09:30 (94) 06/20/18 Mechanical 09:00 Ventilator 06/20/18 98.0 08:00 06/17/18 10.0 05:28 Intake and Output 06/19/18 06/19/18 06/20/18 1515:00 23:00 07:00 IntakeIntake Total 462.7 ml 261.82 ml 237.98 ml OutputOutput Total 400 ml 605 ml 820 ml BalanceBalance 62.7 ml -343.18 ml -582.02 ml Exam GENERAL: Well-nourished well-developed lady orally intubated on mechanical ventilation VITAL SIGNS: per chart NECK: Supple. No JVD or lymphadenopathy. CARDIAC EXAM: S1, S2. No added sounds or murmurs. CHEST: clear bilaterally, No added sounds, rales or wheezes ABDOMEN: Soft, nontender. No guarding or rebound. EXTREMITIES: No cyanosis, clubbing or edema. NEUROLOGIC: Generalized weakness. No focal deficits. Vent Setting Ventilator Support Mode: AC Fraction of Inspired Oxygen pe: 35 Positive End Expiratory Pressu: 6.0 Results/Medications Result Diagram: 06/20/18 0330 06/20/18 0330 Results 24 hrs Laboratory Tests Test 06/20/18 03:30 06/20/18 05:00 White Blood Count 9.6 Red Blood Count 3.67 L Hemoglobin 11.0 L Hematocrit 33.7 L Mean Corpuscular Volume 91.8 Mean Corpuscular Hemoglobin 30.0 Mean Corpuscular Hemoglobin Concent 32.6 Red Cell Distribution Width 13.9 Platelet Count 150 Mean Platelet Volume 11.1 H Immature Granulocytes % 0.500 H Neutrophils % 76.2 Lymphocytes % 14.3 L Monocytes % 7.8 Eosinophils % 0.8 Basophils % 0.4 Nucleated Red Blood Cells % 0.0 Immature Granulocytes # 0.050 H Neutrophils # 7.3 Lymphocytes # 1.4 Monocytes # 0.8 Eosinophils # 0.1 Basophils # 0.0 Nucleated Red Blood Cells # 0.0 Sodium Level 139 Potassium Level 3.8 Chloride Level 110 Carbon Dioxide Level 25 Anion Gap 4 L Blood Urea Nitrogen 11 Creatinine 0.63 Est Glomerular Filtrat Rate mL/min > 60 Glucose Level 86 Lactic Acid Level 0.9 Calcium Level 8.4 Blood Gas Specimen Source Blood arterial Arterial Blood Date Drawn 06/20/2018 4:50:47 AM Arterial Blood pH (Temp corrected) 7.366 Arterial Blood pCO2 (Temp correct) 39.1 Arterial Blood pO2 (Temp corrected) 95.0 Arterial Blood HCO3 21.9 L Arterial Blood Base Excess -3.1 L Arterial Blood Oxygen Saturation 97.1 Jarrod Test ACCEPTAB Arterial Blood Gas Puncture Site Right HEEL Arterial Blood Carboxyhemoglobin 0.1 Arterial Blood Methemoglobin 0.2 Blood Gas A-a O2 Differential 109.1 H Oxyhemoglobin Percent 96.8 Blood Gas Temperature 37.0 Blood Gas Respiration Rate 18.0 Blood Gas Actual Respiration Rate 18 Blood Gas Modality VENT - AC FiO2 35.0 Blood Gas Tidal Volume 450.0 Blood Gas Low PEEP Setting 6.0 Blood Gas Notified Whom UP Blood Gas Notified Time 06/20/2018 5:35:07 AM Medications Current Medications Ticagrelor (Brilinta) 90 mg BID PO Last administered on 06/17/18 21:29; Admin Dose 90 MG; Start 06/17/18 at 21:00; Status Hold Atorvastatin Calcium (Lipitor) 80 mg DAILY@21 PO Last administered on 06/19/18 20:48; Admin Dose 80 MG; Start 06/17/18 at 21:00 Dopamine HCl/ Dextrose 250 ml @ 6.705 mls/ hr TITRATE IV Last administered on 06/17/18 14:07; Admin Dose 50.288 MLS/HR; Start 06/17/18 at 09:30 Piperacillin Sod/ Tazobactam Sod 100 ml @ 200 mls/hr Q6 IVPB Last administered on 06/20/18 05:30; Admin Dose 200 MLS/HR; Start 06/17/18 at 10:00 Aspirin (Aspirin) 81 mg DAILY NGT Last administered on 06/20/18 09:28; Admin Dose 81 MG; Start 06/18/18 at 09:00 Morphine Sulfate (morphine) 2 mg Q3 PRN IV SEVERE PAIN LEVEL 7-10 Last administered on 06/20/18 01:13; Admin Dose 2 MG; Start 06/17/18 at 19:30 Acetaminophen (Tylenol Liquid) 650 mg Q4H PRN NGT MILD PAIN(1-3)OR ELEVATED TEMP; Start 06/17/18 at 19:30 Fentanyl 100 ml @ 2.5 mls/hr TITRATE IV Last administered on 06/19/18at 23:00; Admin Dose 5 MLS/HR; Start 06/17/18 at 20:00 Midazolam HCl 50 ml @ 1 mls/hr TITRATE IV Last administered on 06/19/18 10:30; Admin Dose 4 MLS/HR; Start 06/17/18 at 20:00 Norepinephrine 16 mg/Dextrose 250 ml @ 0.94 mls/hr TITRATE IV Last administered on 06/18/18 03:41; Admin Dose 0.94 MLS/HR; Start 06/17/18 at 20:00 Pantoprazole (Protonix Iv) 40 mg DAILY@06 IV Last administered on 06/20/18 05:30; Admin Dose 40 MG; Start 06/18/18 at 06:00 Propofol 100 ml @ 2.952 mls/ hr Q12H IV Last administered on 06/20/18at 10:38; Admin Dose 8.856 MLS/HR; Start 06/19/18 at 13:00 Cefazolin Sodium/ Dextrose 50 ml @ 100 mls/hr PRE-OP ONCE IVPB ; Start 06/20/18 at 14:00; Stop 06/20/18 at 14:29 Insulin Human Regular 100 unit/ Sodium Chloride 100 ml @ 0 mls/hr Q0M ONCE IVPB ; Start 06/20/18 at 12:00; Stop 06/20/18 at 12:01 Norepinephrine 250 ml @ 0 mls/hr ONCE IV ; Start 06/20/18 at 12:00; Stop 06/20/18 at 16:00 Epinephrine 4 mg/ Dextrose 250 ml @ 0 mls/hr Q0M ONCE IV ; Start 06/20/18 at 12:00; Stop 06/20/18 at 12:01 Phenylephrine HCl 250 ml @ 0 mls/hr ONCE ONCE IV ; Start 06/20/18 at 12:00; Stop 06/20/18 at 12:01 Aspirin (Aspirin) 600 mg ONCE ONCE IA ; Start 06/20/18 at 12:00; Stop 06/20/18 at 12:01 Heparin Sodium (Porcine) 10498 unit/Milrinone Lactate 10 mg/ Sodium Chloride 1,011 ml @ 0 mls/hr ONCE ONCE SC ; Start 06/20/18 at 12:00; Stop 06/20/18 at 12:01 Milrinone Lactate 2 mg/Sodium Chloride 52 ml @ 0 mls/hr ONCE ONCE IV ; Start 06/20/18 at 12:00; Stop 06/20/18 at 12:01 Assessment/Plan Hospital Course (Demo Recall) IMP: 1. Inferior myocardial infarction, status post angioplasty and stent placemen t---> awaiting CABG, scheduled for today 2. Ventricular fibrillation 2/2 #1 3. Likely aspiration pneumonia. 4. Cardiogenic shock. 5. History of gallbladder disease. RECS: 1. Vent support; reduce PEEP 6 2. Continue fentanyl and propofol 3. Balloon pump as per Cards 4. Await CABG on Wednesday 5. DVT/GI prophylaxis 40 min cc time ISABELLA RUSSELL MD, [facility] Jun 20, 2018 10:50
[2018-06-20] MEDS ORDERED: MILRINONE LACTATE 2 MG in SOD CHLORIDE 0.9% 50 ML IV ONE ×2 (12:00→22:00)
[2018-06-20] MEDS ORDERED: NORepinephrine 8MG/250 ML (PMX 250 ML IV SCH ×2 (12:00→19:00)
[2018-06-20] MEDS ORDERED: HEPARIN (10000 UNITS/ML) 10,000 UNIT, MILRINONE LACTATE 10 MG in SOD CHLORIDE 0.9% 1,00... SC ONE ×2 (12:00→22:00)
[2018-06-20] MEDS ORDERED: EPINEPHrine 4 MG in DEXTROSE 5% 246 ML IV ONE ×2 (12:00→22:00)
[2018-06-20] MEDS ORDERED: INSULIN HUMAN REGULAR 100 UNIT in SOD CHLORIDE 0.9% 99 ML IVPB ONE ×2 (12:00→22:00)
[2018-06-20] MEDS ORDERED: PHENYLephrine 20MG IN 250 ML 250 ML IV ONE ×3 (12:00→22:00)
[2018-06-20] MEDS ORDERED: ASPIRIN 600 MG SUPP PR ONE ×2 (12:00→22:00)
--- NOTE | 2018-06-20 13:45 | CONS ---
Assessment/Plan Assessment/Plan Hospital Course (Demo Recall) 67 yo with acute inferior stemi, with severe left man disease and acutely occluded dominant LCX. Bare metal stent placed in the prox LCX and balloon angioplasty performed on the left main. She has remained stable over the weekend. Imp: Inferior stemi due to occluded dominant LCX, with severe left main and proximal LAD disease, small nondominant RCA Acute respiratory failure, on ventilator Recc: CABG today On Integrilin as bridge to surgery instead of Brilinta Continue asa, statin Will add beta blockade after surgery if hemodynamics permit Consultation Date/Type/Reason Admit Date/Time Jun 17, 2018 at 05:25 Initial Consult Date 06/17/18 Type of Consult Cardiology Requesting Provider: LISSET PATINO Date/Time of Note DATE: 06/20/18 TIME: 13:41 24 HR Interval Summary Free Text/Dictation Weekend hospital course reviewed. Patient remains intubated, IABP in place, is now off pressors, stable bp and rhythm, with plans to go to OR this afternoon for CABG. (late entry, patient seen at 0950) Exam/Review of Systems Vital Signs Vitals Vital Signs Date Temp Pulse Resp B/P (MAP) Pulse Ox O2 O2 Flow FiO2 Time Delivery Rate 06/20/18 91 18 117/59 99 Mechanical 13:00 (78) Ventilator 06/20/18 35 11:25 06/20/18 98.4 11:00 06/17/18 10.0 05:28 Intake and Output 06/19/18 06/19/18 06/20/18 1414:59 22:59 06:59 IntakeIntake Total 458.2 ml 263.94 ml 233.06 ml OutputOutput Total 375 ml 480 ml 960 ml BalanceBalance 83.2 ml -216.06 ml -726.94 ml Exam Constitutional: other (sedated) Eyes: nl lids ENMT: intubated Neck: No jvd, No bruits Respiratory: clear to auscultation Cardiovascular: regular rate and rhythm; No murmurs/extra sounds Gastrointestinal: soft, nl liver, spleen, non-tender Musculoskeletal: nl extremities to inspection Extremities: edema (mild, diffuse) Neurological: unresponsive (sedated) Skin: nl turgor Labs Result Diagram: 06/20/18 0330 06/20/18 0330 Results 24hrs Laboratory Tests Test 06/20/18 03:30 06/20/18 05:00 White Blood Count 9.6 Red Blood Count 3.67 L Hemoglobin 11.0 L Hematocrit 33.7 L Mean Corpuscular Volume 91.8 Mean Corpuscular Hemoglobin 30.0 Mean Corpuscular Hemoglobin Concent 32.6 Red Cell Distribution Width 13.9 Platelet Count 150 Mean Platelet Volume 11.1 H Immature Granulocytes % 0.500 H Neutrophils % 76.2 Lymphocytes % 14.3 L Monocytes % 7.8 Eosinophils % 0.8 Basophils % 0.4 Nucleated Red Blood Cells % 0.0 Immature Granulocytes # 0.050 H Neutrophils # 7.3 Lymphocytes # 1.4 Monocytes # 0.8 Eosinophils # 0.1 Basophils # 0.0 Nucleated Red Blood Cells # 0.0 Sodium Level 139 Potassium Level 3.8 Chloride Level 110 Carbon Dioxide Level 25 Anion Gap 4 L Blood Urea Nitrogen 11 Creatinine 0.63 Est Glomerular Filtrat Rate mL/min > 60 Glucose Level 86 Lactic Acid Level 0.9 Calcium Level 8.4 Blood Gas Specimen Source Blood arterial Arterial Blood Date Drawn 06/20/2018 4:50:47 AM Arterial Blood pH (Temp corrected) 7.366 Arterial Blood pCO2 (Temp correct) 39.1 Arterial Blood pO2 (Temp corrected) 95.0 Arterial Blood HCO3 21.9 L Arterial Blood Base Excess -3.1 L Arterial Blood Oxygen Saturation 97.1 Jarrod Test ACCEPTAB Arterial Blood Gas Puncture Site Right HEEL Arterial Blood Carboxyhemoglobin 0.1 Arterial Blood Methemoglobin 0.2 Blood Gas A-a O2 Differential 109.1 H Oxyhemoglobin Percent 96.8 Blood Gas Temperature 37.0 Blood Gas Respiration Rate 18.0 Blood Gas Actual Respiration Rate 18 Blood Gas Modality VENT - AC FiO2 35.0 Blood Gas Tidal Volume 450.0 Blood Gas Low PEEP Setting 6.0 Blood Gas Notified Whom UP Blood Gas Notified Time 06/20/2018 5:35:07 AM Medications Medications Current Medications Ticagrelor (Brilinta) 90 mg BID PO Last administered on 06/17/18at 21:29; Admin Dose 90 MG; Start 06/17/18 at 21:00; Status Hold Atorvastatin Calcium (Lipitor) 80 mg DAILY@21 PO Last administered on 06/19/18at 20:48; Admin Dose 80 MG; Start 06/17/18 at 21:00 Dopamine HCl/ Dextrose 250 ml @ 6.705 mls/ hr TITRATE IV Last administered on 06/17/18 14:07; Admin Dose 50.288 MLS/HR; Start 06/17/18 at 09:30 Piperacillin Sod/ Tazobactam Sod 100 ml @ 200 mls/hr Q6 IVPB Last administered on 06/20/18 12:08; Admin Dose 200 MLS/HR; Start 06/17/18 at 10:00 Aspirin (Aspirin) 81 mg DAILY NGT Last administered on 06/20/18 09:28; Admin Dose 81 MG; Start 06/18/18 at 09:00 Morphine Sulfate (morphine) 2 mg Q3 PRN IV SEVERE PAIN LEVEL 7-10 Last administered on 06/20/18 01:13; Admin Dose 2 MG; Start 06/17/18 at 19:30 Acetaminophen (Tylenol Liquid) 650 mg Q4H PRN NGT MILD PAIN(1-3)OR ELEVATED TEMP; Start 06/17/18 at 19:30 Fentanyl 100 ml @ 2.5 mls/hr TITRATE IV Last administered on 06/19/18 23:00; Admin Dose 5 MLS/HR; Start 06/17/18 at 20:00 Midazolam HCl 50 ml @ 1 mls/hr TITRATE IV Last administered on 06/19/18 10:30; Admin Dose 4 MLS/HR; Start 06/17/18 at 20:00 Norepinephrine 16 mg/Dextrose 250 ml @ 0.94 mls/hr TITRATE IV Last administered on 06/18/18 03:41; Admin Dose 0.94 MLS/HR; Start 06/17/18 at 20:00 Pantoprazole (Protonix Iv) 40 mg DAILY@06 IV Last administered on 06/20/18 05:30; Admin Dose 40 MG; Start 06/18/18 at 06:00 Propofol 100 ml @ 2.952 mls/ hr Q12H IV Last administered on 06/20/18 10:38; Admin Dose 8.856 MLS/HR; Start 06/19/18 at 13:00 Cefazolin Sodium/ Dextrose 50 ml @ 100 mls/hr PRE-OP ONCE IVPB ; Start 06/20/18 at 14:00; Stop 06/20/18 at 14:29 Norepinephrine 250 ml @ 0 mls/hr ONCE IV ; Start 06/20/18 at 12:00; Stop 06/20/18 at 16:00 LISSET PATINO Jun 20, 2018 13:45
[2018-06-20] MEDS ORDERED: CEFAZOLIN 2 GM/50 ML (PMX) 50 ML IVPB ONE (14:00)
--- NOTE | 2018-06-20 14:06 | PREAC ---
Date/Time of Note Date/Time of Note DATE: 06/20/18 TIME: 14:04 Anesthesia Eval and Record Evaluation Time Pre-Procedure Interview DATE: 06/20/18 TIME: 14:04 Age 67 Sex female NPO: 8 hrs Preoperative diagnosis CAD Planned procedure CABG Past Medical History Past Medical History: Includes Cardio: HTN, Dyslipidemia Endo: Diabetes Pulm: COPD GI: Morbid obesity Surgery & Anesthesia Issues No known issue Meds Anticoagulation: No Beta Jaleel within 24 hr: No Reason Beta Jaleel not given: Pt. not on B-Jaleel Current Medications Ticagrelor (Brilinta) 90 mg BID PO Last administered on 06/17/18 21:29; Admin Dose 90 MG; Start 06/17/18 at 21:00; Status Hold Atorvastatin Calcium (Lipitor) 80 mg DAILY@21 PO Last administered on 06/19/18 20:48; Admin Dose 80 MG; Start 06/17/18 at 21:00 Dopamine HCl/ Dextrose 250 ml @ 6.705 mls/ hr TITRATE IV Last administered on 06/17/18 14:07; Admin Dose 50.288 MLS/HR; Start 06/17/18 at 09:30 Piperacillin Sod/ Tazobactam Sod 100 ml @ 200 mls/hr Q6 IVPB Last administered on 06/20/18 12:08; Admin Dose 200 MLS/HR; Start 06/17/18 at 10:00 Aspirin (Aspirin) 81 mg DAILY NGT Last administered on 06/20/18 09:28; Admin Dose 81 MG; Start 06/18/18 at 09:00 Morphine Sulfate (morphine) 2 mg Q3 PRN IV SEVERE PAIN LEVEL 7-10 Last administered on 06/20/18 01:13; Admin Dose 2 MG; Start 06/17/18 at 19:30 Acetaminophen (Tylenol Liquid) 650 mg Q4H PRN NGT MILD PAIN(1-3)OR ELEVATED TEMP; Start 06/17/18 at 19:30 Fentanyl 100 ml @ 2.5 mls/hr TITRATE IV Last administered on 06/19/18 23:00; Admin Dose 5 MLS/HR; Start 06/17/18 at 20:00 Midazolam HCl 50 ml @ 1 mls/hr TITRATE IV Last administered on 06/19/18 10:30; Admin Dose 4 MLS/HR; Start 06/17/18 at 20:00 Norepinephrine 16 mg/Dextrose 250 ml @ 0.94 mls/hr TITRATE IV Last administered on 06/18/18at 03:41; Admin Dose 0.94 MLS/HR; Start 06/17/18 at 20:00 Pantoprazole (Protonix Iv) 40 mg DAILY@06 IV Last administered on 06/20/18at 05:30; Admin Dose 40 MG; Start 06/18/18 at 06:00 Propofol 100 ml @ 2.952 mls/ hr Q12H IV Last administered on 06/20/18at 10:38; Admin Dose 8.856 MLS/HR; Start 06/19/18 at 13:00 Cefazolin Sodium/ Dextrose 50 ml @ 100 mls/hr PRE-OP ONCE IVPB ; Start 06/20/18 at 14:00; Stop 06/20/18 at 14:29 Norepinephrine 250 ml @ 0 mls/hr ONCE IV ; Start 06/20/18 at 12:00; Stop 06/20/18 at 16:00 Meds reviewed: Yes Allergies Coded Allergies: No Known Allergy (Unverified , 06/17/18) Allergies Reviewed: Yes Labs/Studies Labs Reviewed: Reviewed by anesthesiologist Result Diagram: 06/20/18 0330 06/20/18 0330 Laboratory Tests 06/20/18 03:30 test: N/A Studies: ECG Pre-procedure Exam Last vitals Vital Signs Date Temp Pulse Resp B/P (MAP) Pulse Ox O2 O2 Flow FiO2 Time Delivery Rate 06/20/18 94 18 99 35 13:30 06/20/18 117/59 Mechanical 13:00 (78) Ventilator 06/20/18 98.4 11:00 06/17/18 10.0 05:28 Airway: Adequate mouth opening, Adequate thyromental dist Mallampati: Mallampati III Teeth: Normal Lung: Normal Heart: Normal ASA Physical Status ASA physical status: 4 Emergency: None Planned Anesthetic General/MAC: ETT Planned Pain Management Parenteral pain med Pre-operative Attestations Prior to commencing anesthesia and surgery, the patient was re-evaluated, there was verification of: *The patient's identity *The results of appropriate recent lab work and preoperative vital signs *The above evaluation not changing prior to induction *Anesthetic plan, risk benefits, alternative and complications discussed with patient/family; questions answered; patient/family understands, accepts and wishes to proceed. LINDA TOSCANO MD Jun 20, 2018 14:06
--- NOTE | 2018-06-20 14:30 | HPN ---
Date/Time of Note Date/Time of Note DATE: 06/20/18 TIME: 14:30 Interval H&P Admission Note Pt. seen H&P reviewed: No system changes ROSI HOWELL MD Jun 20, 2018 14:30
[2018-06-20] MEDS ORDERED: AMINOCAPROIC ACID 5 GM INJ ONE (14:55)
[2018-06-20] MEDS ORDERED: ALBUMIN HUMAN 25% 100 ML INJ ONE (14:55)
[2018-06-20] MEDS ORDERED: NA BICARBONATE 8.4% 50 ML SYG ONE (14:55)
[2018-06-20] MEDS ORDERED: CA CHLORIDE 10% 10 ML SYRINGE ONE (14:55)
[2018-06-20] MEDS ORDERED: FENTAnyl 250MCG INJ ONE (14:55)
[2018-06-20] MEDS ORDERED: CEFAZOLIN 1 GM INJ ONE (14:55)
[2018-06-20] MEDS ORDERED: POTASSIUM CHLORIDE 40 MEQ INJ ONE (14:55)
[2018-06-20] MEDS ORDERED: PHENYLephrine (100 MCG/ML) 5ML SYG ONE (14:55)
[2018-06-20] MEDS ORDERED: MANNITOL 20% 500 ML BAG ONE (14:55)
[2018-06-20] MEDS ORDERED: PROTAMINE 250 MG INJ ONE (14:55)
[2018-06-20] MEDS ORDERED: HEPARIN 1000 UNITS/ML 10 ML INJ ONE ×2 (14:55→14:59)
[2018-06-20] MEDS ORDERED: ROCURONIUM 50 MG INJ ONE (14:55)
[2018-06-20] MEDS ORDERED: ETOMIDATE 20 MG INJ ONE (14:55)
[2018-06-20] MEDS ORDERED: MAGNESIUM SULFATE (MG) 50% 10 ML INJ ONE (14:55)
[2018-06-20] MEDS ORDERED: MIDAZOLAM 1 MG/ML 5 ML INJ ONE (14:55)
[2018-06-20] MEDS ORDERED: LIDOCAINE 2% (SDV) 5 ML INJ ONE (14:55)
[2018-06-20] MEDS ORDERED: VANCOMYCIN 1 GM INJ ONE (14:59)
[2018-06-20] MEDS ORDERED: PAPAVERINE 60 MG INJ ONE (14:59)
[2018-06-20] MEDS ORDERED: DOPamine-D5W 1.6 MG/ML 250 ML ONE (15:00)
[2018-06-20] MEDS ORDERED: NITROGLYCERIN 50 MG/D5W 250 ML BTL ONE (15:00)
[2018-06-20] MEDS ORDERED: PAPAVERINE 60 MG INJ INJ ONE (15:17)
[2018-06-20] MEDS ORDERED: HEPARIN 1000 UNITS/ML 10 ML INJ IRR ONE (15:17)
[2018-06-20] MEDS ORDERED: VANCOMYCIN 1 GM INJ IRR ONE (15:17)
--- NOTE | 2018-06-20 18:42 | SIPON ---
Date/Time of Note Date/Time of Note DATE: 06/20/18 TIME: 18:40 Operative Report Preoperative Diagnosis STEMI, LM STENOSIS, 3V CAD Postoperative Diagnosis SAME Operation/Procedure Performed CABGX4, WALKER TO LAD, SVG TO DISTAL RCA, SVG TO DIAG SEQUENCED TO OM Surgeon see signature line tax accounting assistant NEMESIO SMITH MD Second assist: LELAND JACKSON Anesthesia: general Estimated blood loss: 250 - 300 ml's Transfusion Required 1 UNIT PRBC AND 1 UNIT PLATELETS Specimen NONE Grafts/Implants none Complications none ROSI HOWELL MD Jun 20, 2018 18:42
[2018-06-20] MEDS ORDERED: NITROGLYCERIN 50 MG/D5W (PMX) 250 ML IV SCH ×2 (19:00→20:00)
[2018-06-20] MEDS ORDERED: DEXTROSE 50% 50 ML SYRINGE IV PRN ×2 (19:00)
[2018-06-20] MEDS ORDERED: OXYCODONE/ACETAMINOPHEN (5/325) TAB PO PRN (19:00)
[2018-06-20] MEDS: ACCU-CHEK XX SCH ×5 (19:00→23:00)
[2018-06-20] MEDS ORDERED: FACTOR VIIA 1 MG VIAL IV ONE (19:00)
[2018-06-20] MEDS ORDERED: DOPamine-D5W 1.6 MG/ML 250 ML IV SCH ×2 (19:00→20:00)
[2018-06-20] MEDS ORDERED: CEFAZOLIN 1 GM/50 ML (PMX) 50 ML IVPB SCH (19:00)
[2018-06-20] MEDS ORDERED: POTASSIUM CHLORIDE 50 ML ONE (19:34)
[2018-06-20] MEDS ORDERED: MAGNESIUM SULFATE 2 GM/50 ML 50 ML ONE (19:36)
--- NOTE | 2018-06-20 19:54 | PAC ---
Date/Time of Note Date/Time of Note DATE: 06/20/18 TIME: 19:53 Post-Anesthesia Notes Post-Anesthesia Note Last documented vital signs Vital Signs Date Temp Pulse Resp B/P (MAP) Pulse Ox O2 O2 Flow FiO2 Time Delivery Rate 06/20/18 94 18 99 35 13:30 06/20/18 117/59 Mechanical 13:00 (78) Ventilator 06/20/18 98.4 11:00 06/17/18 10.0 05:28 Activity: WNL Respiratory function: WNL Cardiovascular function: WNL Mental status: Baseline Pain reasonably controlled: Yes Hydration appropriate: Yes Nausea/Vomiting absent: Yes Comments BP:112/56, P:104, spo2:100%, T:98,9 LINDA TOSCANO MD Jun 20, 2018 19:54
[2018-06-20] MEDS ORDERED: POTASSIUM CHLORIDE 50 ML IVPB ONE (20:00)
[2018-06-20] MEDS ORDERED: EPHEDrine SULFATE 50 MG/5 ML SYG IV PRN (20:00)
[2018-06-20] MEDS ORDERED: LORAZEPAM 2 MG INJ IV PRN (20:00)
[2018-06-20] MEDS ORDERED: PHENYLephrine 20MG IN 250 ML 250 ML IV SCH (20:00)
[2018-06-20] MEDS ORDERED: MIDAZOLAM 1 MG/ML 2 ML INJ IV PRN (20:00)
[2018-06-20] MEDS ORDERED: DIPHENHYDRAMINE 50 MG INJ IV PRN (20:00)
[2018-06-20] MEDS ORDERED: MAGNESIUM SULFATE 2 GM/50 ML 50 ML IVPB ONE (20:00)
[2018-06-20] MEDS ORDERED: morphine 2 MG INJ IV PRN ×2 (20:00)
[2018-06-20] MEDS ORDERED: ONDANSETRON 4 MG INJ IV PRN (20:00)
[2018-06-20] MEDS ORDERED: ENOXAPARIN 40 MG/0.4 ML SYG SC SCH (21:00)
[2018-06-20] MEDS ORDERED: FAMOTIDINE 20 MG TAB PO SCH (21:00)
[2018-06-20] MEDS: SOD CHLORIDE 0.9% 1,000 ML IV SCH ×2 (21:00→22:00)
[2018-06-20] MEDS ORDERED: ALBUMIN HUMAN 5% 250 ML ONE (21:15)
[2018-06-20] MEDS: ALBUMIN HUMAN 5% 250 ML IV SCH ×2 (21:30→22:36)
[2018-06-20] MEDS ORDERED: FENTAnyl 50 MCG/ML VIAL ONE (21:44)
[2018-06-20] MEDS ORDERED: NORepinephrine 8MG/250 ML (PMX 250 ML IV ONE (22:00)
--- NOTE | 2018-06-20 23:40 | SIPON ---
Date/Time of Note Date/Time of Note DATE: 06/20/18 TIME: 23:38 Operative Report Preoperative Diagnosis mediastinal bleeding and tamponade Postoperative Diagnosis same Operation/Procedure Performed mediastinal exploration and evacuation of mediastinal clot and control of lbl eeding from RV, WALKER anastomosis and small area on ascending aorta Surgeon see signature line human resources benefits assistant Leatha CHIU Anesthesia: general Estimated blood loss: other Transfusion Required none Specimen none Grafts/Implants none Complications none ROSI HOWELL MD Jun 20, 2018 23:40
--- NOTE | 2018-06-20 23:50 | PREAC ---
Date/Time of Note Date/Time of Note DATE: 06/20/18 TIME: 23:47 Anesthesia Eval and Record Evaluation Time Pre-Procedure Interview DATE: 06/20/18 TIME: 23:47 Age 67 Sex female NPO: 8 hrs Preoperative diagnosis Postop bleeding, Cardiac Tamponade Planned procedure Re thoracotomy, control of bleeding Past Medical History Past Medical History: Includes Cardio: HTN, Dyslipidemia, CAD, CABG GI: Morbid obesity Surgery & Anesthesia Issues No known issue Meds Anticoagulation: No Beta Jaleel within 24 hr: No Reason Beta Jaleel not given: Pt. not on B-Jaleel Current Medications Diagnostic Test (Pha) (Accu-Chek) 1 ea Q1H XX ; Start 06/20/18 at 19:00 Insulin Human Regular 100 unit/ Sodium Chloride 100 ml @ 0 mls/hr PER PROTOCOL IV ; Start 06/20/18 at 19:00 Miscellaneous Information (* Miscellaneous Pharmacy Order) Treatment of Hypoglycemia: 1.BG 51... Per protocol XX ; Start 06/20/18 at 19:00 Dextrose (D50w Syringe) 25 ml Q15M PRN IV .DECREASED GLUCOSE; Start 06/20/18 at 19:00 Dextrose (D50w Syringe) 50 ml Q15M PRN IV .DECREASED GLUCOSE; Start 06/20/18 at 19:00 Potassium Chloride 40 meq/ Calcium Chloride 1 gm/Dextrose/ Sodium Chloride 1,030 ml @ 60 mls/hr [id number] IV ; Start 06/20/18 at 18:43 Cefazolin Sodium 50 ml @ 100 mls/hr Q8H IVPB ; Start 06/20/18 at 19:00; Stop 06/21/18 at 11:29 Hydromorphone HCl (Dilaudid) 0.2 mg Q15M PRN IV PAIN LEVEL 1-5; Start 06/20/18 at 19:00 Hydromorphone HCl (Dilaudid) 0.4 mg Q15M PRN IV PAIN LEVEL 6-10; Start 06/20/18 at 19:00 Oxycodone/ Acetaminophen (Percocet (5/ 325)) 1 tab Q3H PRN PO PAIN LEVEL 1-5; Start 06/20/18 at 19:00 Oxycodone/ Acetaminophen (Percocet (5/ 325)) 2 tab Q3H PRN PO PAIN LEVEL 6-10; Start 06/20/18 at 19:00 Ondansetron HCl (Zofran Inj) 4 mg Q6H PRN IV NAUSEA AND/OR VOMITING; Start 06/20/18 at 19:00 Famotidine (Pepcid Iv) 20 mg BID@08,20 IV ; Start 06/20/18 at 20:00 Famotidine (Pepcid) 20 mg BID PO ; Start 06/20/18 at 21:00; Status UNV Aspirin (Aspirin) 325 mg DAILY PO ; Start 06/21/18 at 09:00 Acetaminophen (Tylenol Tab) 650 mg Q3H PRN PO ELEVATED TEMPERATURE; Start 06/20/18 at 19:00 Potassium Chloride 50 ml @ 50 mls/hr SEE DIRECTION PRN IVPB K+ LEVEL; Start 06/20/18 at 19:00 Magnesium Sulfate/ Dextrose 100 ml @ 100 mls/hr PRN PRN IVPB PENDING LAB VALUE; Start 06/20/18 at 19:00 Nitroglycerin/ Dextrose 250 ml @ 1.5 mls/hr PER PROTOCOL IV ; Start 06/20/18 at 19:00 Dopamine HCl/ Dextrose 250 ml @ 7.38 mls/hr PER PROTOCOL IV ; Start 06/20/18 at 19:00 Enoxaparin Sodium (Lovenox) 40 mg BID SC ; Start 06/20/18 at 21:00 Nitroglycerin/ Dextrose 250 ml @ 1.5 mls/hr PER PROTOCOL IV ; Start 06/20/18 at 20:00 Phenylephrine HCl 250 ml @ 75 mls/hr PER PROTOCOL IV ; Start 06/20/18 at 20:00 Propofol 100 ml @ 2.952 mls/ hr Q12H IV Last administered on 06/20/18at 20:12; Admin Dose 8.856 MLS/HR; Start 06/20/18 at 20:00 Morphine Sulfate (morphine) 2 mg ICU RECOVERY PRN IV .MILD PAIN LEVEL 1-3; Start 06/20/18 at 20:00; Stop 06/20/18 at 23:59 Morphine Sulfate (morphine) 4 mg ICU RECOVERY PRN IV MODERATE PAIN LEVEL 4-6; Start 06/20/18 at 20:00; Stop 06/20/18 at 23:59 Ondansetron HCl (Zofran Inj) 4 mg ICU RECOVERY PRN IV NAUSEA/VOMITING; Start 06/20/18 at 20:00; Stop 06/20/18 at 23:59 Ephedrine Sulfate 5 mg ICU RECOVERY PRN IV MAP LESS THAN 60; Start 06/20/18 at 20:00; Stop 06/20/18 at 23:59 Diphenhydramine HCl (Benadryl) 25 mg ICU RECOVERY PRN IV .PRURITUS; Start 06/20/18 at 20:00; Stop 06/20/18 at 23:59 Lorazepam (Ativan) 1 mg ICU RECOVERY PRN IV .ANXIETY; Start 06/20/18 at 20:00; Stop 06/20/18 at 23:59 Midazolam HCl (Versed) 2 mg ICU RECOVERY PRN IV .ANXIETY; Start 06/20/18 at 20:00; Stop 06/20/18 at 23:59 Norepinephrine 8 mg/Dextrose 258 ml @ 0 mls/hr ONCE IV ; Start 06/20/18 at 22:00; Stop 06/20/18 at 23:59 Norepinephrine 250 ml @ 1.875 mls/ hr TITRATE IV ; Start 06/20/18 at 19:00 Phenylephrine HCl 250 ml @ 75 mls/hr TITRATE IV ; Start 06/20/18 at 19:00 Sodium Chloride 1,000 ml @ 1,000 mls/hr Q1H IV Last administered on 06/20/18at 21:00; Admin Dose 1,000 MLS/HR; Start 06/20/18 at 21:00 Meds reviewed: Yes Allergies Coded Allergies: No Known Allergy (Unverified , 06/17/18) Allergies Reviewed: Yes Labs/Studies Labs Reviewed: Reviewed by anesthesiologist Result Diagram: 06/20/18212906/20/182034 Laboratory Tests 06/20/18 20:35 06/20/18 21:30 test: N/A Studies: ECG Pre-procedure Exam Last vitals Vital Signs Date Temp Pulse Resp B/P (MAP) Pulse Ox O2 O2 Flow FiO2 Time Delivery Rate 06/20/18 98.0 20:04 06/20/18 122 20:00 06/20/18 18 99 35 13:30 06/20/18 117/59 Mechanical 13:00 (78) Ventilator 06/17/18 10.0 05:28 Airway: Adequate mouth opening, Adequate thyromental dist Mallampati: Mallampati III Teeth: Normal Lung: Normal Heart: Abnormal (hypotensive) ASA Physical Status ASA physical status: 4 Emergency: E Planned Anesthetic General/MAC: ETT Planned Pain Management Parenteral pain med Pre-operative Attestations Prior to commencing anesthesia and surgery, the patient was re-evaluated, there was verification of: *The patient's identity *The results of appropriate recent lab work and preoperative vital signs *The above evaluation not changing prior to induction *Anesthetic plan, risk benefits, alternative and complications discussed with patient/family; questions answered; patient/family understands, accepts and wishes to proceed. LINDA TOSCANO MD Jun 20, 2018 23:50
[2018-06-21] VITALS (106 sets, daily range): BP systolic 80–162; BP diastolic 44–75; PULSE 106–131; RESP 17–25; TEMP 96.1–100.2
--- NOTE | 2018-06-21 00:17 | PAC ---
Date/Time of Note Date/Time of Note DATE: 06/21/18 TIME: 00:17 Post-Anesthesia Notes Post-Anesthesia Note Last documented vital signs Vital Signs Date Temp Pulse Resp B/P (MAP) Pulse Ox O2 O2 Flow FiO2 Time Delivery Rate 06/20/18 132 22 119/68 100 21:45 (85) 06/20/18 Mechanical 21:30 Ventilator 06/20/18 98.0 20:04 06/20/18 100 20:00 Activity: WNL Respiratory function: WNL Cardiovascular function: WNL Mental status: Baseline Pain reasonably controlled: Yes Hydration appropriate: Yes Nausea/Vomiting absent: Yes Comments BP:137/67, P:112, spo2:100%, T:98,8 LINDA TOSCANO MD Jun 21, 2018 00:17
[2018-06-21] MEDS: PROPOFOL 100 ML IV SCH ×2 (00:30→10:49)
[2018-06-21] MEDS ORDERED: NORepinephrine 8MG/250 ML (PMX 250 ML IV SCH (00:30)
--- NOTE | 2018-06-21 00:51 | OPR ---
DATE OF OPERATION: 06/20/2018 PREOPERATIVE DIAGNOSES: 1. ST-elevation myocardial infarction. 2. Three-vessel coronary artery disease. 3. Left main stenosis. POSTOPERATIVE DIAGNOSES: 1. ST-elevation myocardial infarction. 2. Three-vessel coronary artery disease. 3. Left main stenosis. PROCEDURE: CABG x4, WALKER to LAD, SVG to distal right coronary artery, SVG to diagonal artery sequenc ed to obtuse marginal artery, endoscopic vein harvesting, epiaortic scanning of the ascending aorta. SURGEON: Rosi Howell MD. TRAFFIC COUNTER: Redd Plata MD. SECOND COSTUMED CHARACTER: ARAM Payne. ANESTHESIOLOGIST: Maged Rashid MD. TYPE OF ANESTHESIA: General endotracheal. COMPLICATIONS: None. FINDINGS: LV function was good pre- and post-revascularization. The flow in the distal RCA was 25 m L per minute, the flow in the sequenced vein graft was 39 mL per minute and the flow in the WALKER was 59 mL per minute. There were no atheromas or plaques noted in the ascending aorta. INDICATION: The patient is a 67-year-old female who was admitted with STEMI, found to have critical left main stenosis and an occluded circumflex. She had a PCI of the circumflex and balloon angioplas ty of the left main and had intraaortic balloon pump placed. She was taken to the ICU and then we we re asked to see her regarding CABG. After explaining to her daughters the risks, benefits and altern atives, they understood and agreed. DESCRIPTION OF PROCEDURE: The patient was brought to the operating room and was placed in supine pos ition. She was already intubated. Lines were placed. Antibiotics were given. She was prepped and draped in the usual sterile fashion. Median sternotomy was made with simultaneous endoscopic vein mejia rvesting of the saphenous vein from the left lower extremity. WALKER was taken down using clips and ca utery. Pericardial well was established. The ascending aorta was scanned. There were no atheromas or plaques. Pursestring was placed in the ascending aorta followed by the right atrium. The ascendi ng aorta was cannulated followed by 2-stage venous cannula in the right atrium. We placed an ascendi ng aortic vent. Once all our lines were in place, we commenced cardiopulmonary bypass. We placed a crossclamp and arrested using antegrade cardioplegia and topical ice. We identified the distal RCA. We made an arteriotomy. We were able to probe into the PDA. We anastomosed our vein graft using 7- 0 Prolene in running fashion in an end-to-side manner. We gave more cardioplegia. We identified the mid obtuse marginal artery, made arteriotomy, extended with Ramires scissors. We anastomosed our vein graft using 7-0 Prolene in running fashion in an end-to-side manner. We then identified the diagona l artery, made a venotomy and arteriotomy, and performed a [id number]-yi-[id number] anastomosis using 7-0 Prolene in running fashion in an end-to-side manner. We then identified the LAD, made arteriotomy, extended with Ramires scissors, anastomosed our WALKER using 7-0 Prolene in a running fashion in an end-to-side m sammy. Once this was completed, warm blood was given. We continued to rewarm the patient. We remov ed the crossclamp and placed a ventricular pacing wire. We placed a partial clamp on the ascending a linda and anastomosed our vein grafts using 5-0 Prolene in a running fashion in an end-to-side manner. Partial clamp was removed. Vein grafts were deaired. Distal hemostasis was achieved. We began ve ntilating and weaned the patient off cardiopulmonary bypass. She was weaned off bypass without diffi culty, on no pressors. We placed the left pleural tube and anterior mediastinal tube. Once hemostas is was achieved, we closed the chest using interrupted cables followed by sternal plates and screws, followed by closure of the fascia using 0 Vicryl and the skin using 4-0 Monocryl in a subcuticular fa shion. Lower extremity incisions were closed using 3-0 Vicryl for the deep layer and 4-0 Monocryl fo r the skin. Dressings were applied. The patient was brought to the ICU in critical condition. Dictated By: ROSI HOWELL MD AA/NTS Conf#: [id number] DID#: [id number] CC: LISSET PATINO MD; CRIS HAWTHORNE MD;*EndCC*
[2018-06-21] MEDS ORDERED: PANTOPRAZOLE IV 80 MG in SOD CHLORIDE 0.9% 100 ML IV SCH (01:00)
[2018-06-21] MEDS: ACCU-CHEK XX SCH ×24 (01:00→22:59)
--- NOTE | 2018-06-21 01:02 | OPR ---
DATE OF OPERATION: 06/20/2018 PREOPERATIVE DIAGNOSES; 1. Status post coronary artery bypass graft. 2. Mediastinal bleeding. 3. Cardiac tamponade. POSTOPERATIVE DIAGNOSES: 1. Status post coronary artery bypass graft. 2. Mediastinal bleeding. 3. Cardiac tamponade. PROCEDURE: Mediastinal exploration with evacuation of mediastinal hematoma and control of bleeding f rom a small area in the right ventricle, the mammary anastomosis as well as a small area in the ascen ding aorta next to one of the vein graft anastomosis. FINDINGS: About 800 mL of clotted blood was identified. There was a small bleeder on the inferior s urface of the right ventricle that appeared to be an arterial bleeder and that was causing the most s ignificant bleeding. This was taken care of using a 4-0 pledgeted suture. We also found a small are a in the WALKER anastomosis and placed a 7-0 suture to control this and then there was a very small are a next to one of the vein graft anastomosis that was controlled using 6-0 Prolene. Once this was don e, hemostasis was achieved and we were able to close the chest. DESCRIPTION OF PROCEDURE: The patient was brought to the operating room and was placed in the supine position. She was prepped and draped. Her incision was reopened. All the wires were cut and all t he sternal plates and screws were removed. Immediately upon opening the chest, several hundred mL of blood was removed. There was significant hematoma and clot along the inferior and left ventricular surface of the heart. All the blood was removed and clot was removed. We suctioned out the left ple ural space as well. The most significant bleeder was identified on the inferior wall of the right ve ntricle. We controlled this using 4-0 pledgeted sutures. There was a very small area on the anastom osis of the WALKER which was controlled using 7-0 Prolene suture and then, along the ascending aorta wh ere some of the fat was removed to place our vein graft, there was a small area on the ascending aort a that required a 6-0 Prolene to control this bleeding. Once this was done, we checked all the other anastomoses. There was no bleeding. We then began our closure. Again, we closed using interrupted cables followed by sternal plates and screws, followed by closure of the fascia using 0 Vicryl and t he skin using 4-0 Monocryl in a subcuticular fashion. She was brought to the ICU in critical conditi on. Dictated By: ROSI HOWELL MD AA/NTS Conf#: [id number] DID#: [id number] CC: CRIS HAWTHORNE MD;*EndCC*
[2018-06-21] MEDS ORDERED: NA BICARBONATE 8.4% 50 ML SYG IV STA (01:37)
[2018-06-21] MEDS ORDERED: NA BICARBONATE 8.4% 50 ML SYG ONE (01:37)
[2018-06-21] MEDS: POTASSIUM CHLORIDE 40 MEQ, CALCIUM CHLORIDE 10% 1 GM in DEXTROSE 5%-0.225% NACL 1,000 ML IV SCH ×2 (01:44→11:53)
[2018-06-21] MEDS: FAMOTIDINE 20 MG INJ IV SCH ×3 (02:02→19:47)
[2018-06-21] MEDS: POTASSIUM CHLORIDE 50 ML IVPB PRN ×5 (02:25→21:14)
[2018-06-21] MEDS ORDERED: DEXTROSE 50% 50 ML SYRINGE IV PRN ×2 (03:00)
[2018-06-21] MEDS: MILRINONE LACTATE 100 ML IV SCH ×2 (03:05→11:09)
[2018-06-21] MEDS: INSULIN HUMAN REGULAR 100 UNIT in SOD CHLORIDE 0.9% 99 ML IV SCH ×2 (03:30→18:13)
[2018-06-21] MEDS ORDERED: EPINEPHrine 4 MG in SOD CHLORIDE 0.9% 246 ML IV SCH (04:00)
[2018-06-21] MEDS: PHENYLephrine 20MG IN 250 ML 250 ML IV SCH ×3 (05:54→18:05)
--- NOTE | 2018-06-21 06:22 | PN ---
Date/Time of Note Date/Time of Note DATE: 06/21/18 TIME: 06:19 Assessment/Plan Lines/Catheters IV Catheter Type (from Nrs): [place] [facility] Ulrich in Place (from Nrs): Yes Assessment/Plan Assessment/Plan HD stable on minimal epi and primacor. good urine output. remove IABP. wean FIO2. hct 30. WBC 11. cxr shows some congestion.will need to restart berlinta tomorrow for stent. Exam/Review of Systems Vital Signs Vitals Vital Signs Date Temp Pulse Resp B/P (MAP) Pulse Ox O2 O2 Flow FiO2 Time Delivery Rate 06/21/18 108 22 94/46 (62) 99 Mechanical 05:30 Ventilator 06/21/18 100 05:20 06/21/18 98.1 05:00 Intake and Output 06/20/18 06/20/18 06/21/18 1515:00 23:00 07:00 IntakeIntake Total 202.8 ml 5507 ml 2903.599 ml OutputOutput Total 635 ml 2580 ml 1495 ml BalanceBalance -432.2 ml 2927 ml 1408.599 ml Results Result Diagram: 06/21/18 0450 06/21/18 0430 ROSI HOWELL MD Jun 21, 2018 06:22
[2018-06-21] MEDS: HYDROmorphONE 0.5 MG/0.5 ML SYG IV PRN ×2 (07:18→09:48)
--- NOTE | 2018-06-21 08:08 | CONS ---
Consult Date/Type/Reason Admit Date/Time Jun 17, 2018 at 05:25 Initial Consult Date 06/17/18 Type of Consult Pulmonary Requesting Provider: LISSET PATINO Date/Time of Note DATE: 06/21/18 TIME: 08:06 Subjective Status post coronary artery bypass graft surgery yesterday. Taken back to the OR for bleeding and chest cavity. Now more stable. Continues multiple vasopressors on mechanical ventilation opens eyes. Objective Vital Signs Date Temp Pulse Resp B/P (MAP) Pulse Ox O2 O2 Flow FiO2 Time Delivery Rate 06/21/18 98.5 121 23 101/56 97 08:00 (71) 06/21/18 Mechanical 07:00 Ventilator 06/21/18 100 05:20 Intake and Output 06/20/18 06/20/18 06/21/18 1515:00 23:00 07:00 IntakeIntake Total 202.8 ml 5507 ml 2908.749 ml OutputOutput Total 635 ml 2580 ml 1675 ml BalanceBalance -432.2 ml 2927 ml 1233.749 ml Exam GENERAL: Well-nourished well-developed lady orally intubated on mechanical ventilation VITAL SIGNS: per chart NECK: Supple. No JVD or lymphadenopathy. CARDIAC EXAM: S1, S2. No added sounds or murmurs. CHEST: clear bilaterally, No added sounds, rales or wheezes ABDOMEN: Soft, nontender. No guarding or rebound. EXTREMITIES: No cyanosis, clubbing or edema. NEUROLOGIC: Generalized weakness. No focal deficits. Vent Setting Ventilator Support Mode: AC Fraction of Inspired Oxygen pe: 100 Positive End Expiratory Pressu: 6.0 Results/Medications Result Diagram: 06/21/18 0450 06/21/18 0430 Results 24 hrs Laboratory Tests Test 06/20/18 20:30 06/20/18 20:35 06/20/18 20:50 06/20/18 21:00 Blood Gas Blood arterial Blood venous Specimen Source Arterial Blood 06/20/2018 8:35:0 06/20/2018 8:50:1 Date Drawn 2 PM 3 PM Arterial Blood 7.387 pH (Temp corrected ) Arterial Blood 40.7 pCO2 (Temp correct) Arterial Blood 150.1 H pO2 (Temp corrected ) Arterial Blood 23.9 HCO3 Arterial Blood -1.0 Base Excess Arterial Blood 98.1 H Oxygen Saturati on Jarrod Test N/A N/A Arterial Blood A-Line VENOUS LINE Gas Puncture Site Arterial 0.3 Blood Carboxyhe moglobin Arterial Blood 0.5 Methemoglobin Blood Gas A-a 522.2 H O2 Differential Oxyhemoglobin 97.3 Percent Blood Gas 37.0 37.0 Temperature Blood Gas 18.0 18.0 Respiration Rate Blood Gas 18 18 Actual Respiration Rat e Blood Gas VENT - AC VENT - AC Modality FiO2 100.0 100.0 Blood Gas Tidal 450.0 450.0 Volume Blood Gas Low 8.0 8.0 PEEP Setting Blood Gas 44.0 44.0 Inspiratory Pressure Blood Gas [facility] Notified Whom Blood Gas 06/20/2018 8:42:1 06/20/2018 9:06:1 Notified Time 0 PM 7 PM White Blood 17.1 #H Count Red Blood Count 2.32 #L Hemoglobin 7.2 #L Hematocrit 21.7 #L Mean 93.5 Corpuscular Volume Mean 31.0 Corpuscular Hemoglobin Mean 33.2 Corpuscular Hemoglobin Conc ent Red Cell 13.3 Distribution Width Platelet Count 114 #L Mean Platelet 9.8 Volume Immature 2.900 H Granulocytes % Neutrophils % 69.5 Lymphocytes % 15.9 Monocytes % 10.7 Eosinophils % 0.6 Basophils % 0.4 Nucleated Red 0.1 H Blood Cells % Immature 0.490 H Granulocytes # Neutrophils # 11.9 H Lymphocytes # 2.7 Monocytes # 1.8 H Eosinophils # 0.1 Basophils # 0.1 Nucleated Red 0.0 Blood Cells # Prothrombin 12.2 Time Prothrombin 1.0 Time Ratio INR 0.89 International Normalized Rati o Activated 26.9 Partial Thrombo plast Time Sodium Level 142 Potassium Level 3.9 Chloride Level 109 Carbon Dioxide 25 Level Anion Gap 8 Blood Urea 12 Nitrogen Creatinine 0.74 Est Glomerular > 60 Filtrat Rate mL/min Glucose Level 156 Calcium Level 8.0 L Magnesium Level 3.2 H Mixed Venous 7.385 Blood pH Mixed Venous 41.2 L Blood PCO2 Mixed Venous 24.8 L Blood PO2 Mixed Venous 24.1 Blood HCO3 Mixed Venous -0.9 Blood Base Excess Mixed Venous 47.8 L Blood O2 Saturation Mixed Venous 8.5 Blood Total Hemoglobi n Mixed Venous 47.4 Blood Oxyhemogl obin Mixed Venous 0.3 Bld Carboxyhemo globin Mixed Venous 0.5 Blood Methemogl obin Albumin 2.7 L Test 06/20/18 21:30 06/21/18 00:20 06/21/18 00:46 06/21/18 01:00 Platelet Count 116 L 92 L Prothrombin 12.7 14.7 Time Prothrombin 1.0 1.1 Time Ratio INR 0.94 1.14 International Normalized Rati o Activated 27.5 28.1 Partial Thrombo plast Time Thrombin Time 15.3 Fibrinogen 300.0 Plasma Fibrin >40 and <80 H Degradation Pro ducts D-Dimer 6811.16 H D-Dimer Comment Sodium Level 143 Potassium Level 4.0 Chloride Level 110 Carbon Dioxide 19 L Level Anion Gap 14 H Blood Urea 11 Nitrogen Creatinine 0.74 Est Glomerular > 60 Filtrat Rate mL/min Glucose Level 192 Calcium Level 7.3 L Magnesium Level 2.5 White Blood 16.5 H Count Red Blood Count 4.12 #L Hemoglobin 11.6 #L Hematocrit 34.6 #L Mean 84.0 Corpuscular Volume Mean 28.2 L Corpuscular Hemoglobin Mean 33.5 Corpuscular Hemoglobin Conc ent Red Cell 18.6 #H Distribution Width Mean Platelet 10.2 Volume Immature 3.100 H Granulocytes % Neutrophils % 81.0 H Lymphocytes % 5.4 L Monocytes % 9.9 Eosinophils % 0.1 Basophils % 0.5 Nucleated Red 0.1 H Blood Cells % Immature 0.510 H Granulocytes # Neutrophils # 13.4 H Lymphocytes # 0.9 Monocytes # 1.6 H Eosinophils # 0.0 Basophils # 0.1 Nucleated Red 0.0 Blood Cells # Blood Gas Blood venous Specimen Source Arterial Blood 06/21/2018 12:55: Date Drawn 15 AM Arterial Blood 7.264 *L pH (Temp corrected ) Arterial Blood 44.5 pCO2 (Temp correct) Arterial Blood 67.9 L pO2 (Temp corrected ) Arterial Blood 19.7 L HCO3 Arterial Blood -7.1 L Base Excess Arterial Blood 92.0 L Oxygen Saturati on Jarrod Test N/A Arterial Blood A-Line Gas Puncture Site Arterial 0.3 Blood Carboxyhe moglobin Arterial Blood 0.3 Methemoglobin Mixed Venous 7.293 L Blood pH Mixed Venous 37.8 L Blood PCO2 Mixed Venous 54.9 H Blood PO2 Mixed Venous 17.9 L Blood HCO3 Mixed Venous -8.0 Blood Base Excess Mixed Venous 87.0 H Blood O2 Saturation Mixed Venous 12.4 Blood Total Hemoglobi n Mixed Venous 86.4 Blood Oxyhemogl obin Mixed Venous 0.3 Bld Carboxyhemo globin Mixed Venous 0.4 Blood Methemogl obin Blood Gas A-a 600.6 H O2 Differential Oxyhemoglobin 91.4 L Percent Blood Gas 37.0 Temperature Blood Gas 18.0 Respiration Rate Blood Gas 19 Actual Respiration Rat e Blood Gas VENT - AC Modality FiO2 100.0 Blood Gas Tidal 450.0 Volume Blood Gas Low 6.0 PEEP Setting Blood Gas C. MARCIASONI Critical Value Read Back Blood Gas Notified Whom Blood Gas 06/21/2018 1:09:1 Notified Time 3 AM Test 06/21/18 02:29 06/21/18 03:26 06/21/18 04:02 06/21/18 04:30 Bedside Glucose 208 208 179 Prothrombin 14.3 Time Prothrombin 1.1 Time Ratio INR 1.10 International Normalized Rati o Activated 30.2 Partial Thrombo plast Time Sodium Level 144 Potassium Level 4.2 Chloride Level 112 H Carbon Dioxide 23 Level Anion Gap 9 # Blood Urea 12 Nitrogen Creatinine 0.67 Est Glomerular > 60 Filtrat Rate mL/min Glucose Level 208 Calcium Level 7.3 L Phosphorus 3.5 Level Magnesium Level 2.5 Test 06/21/18 04:50 06/21/18 05:03 06/21/18 05:07 06/21/18 05:28 White Blood 11.7 #H Count Red Blood Count 3.74 L Hemoglobin 10.5 L Hematocrit 30.8 L Mean 82.4 Corpuscular Volume Mean 28.1 L Corpuscular Hemoglobin Mean 34.1 Corpuscular Hemoglobin Conc ent Red Cell 18.5 H Distribution Width Platelet Count 94 L Mean Platelet 10.9 H Volume Immature 2.100 H Granulocytes % Neutrophils % 80.4 H Lymphocytes % 6.1 L Monocytes % 10.8 Eosinophils % 0.1 Basophils % 0.5 Nucleated Red 0.0 Blood Cells % Immature 0.240 H Granulocytes # Neutrophils # 9.4 H Lymphocytes # 0.7 L Monocytes # 1.3 H Eosinophils # 0.0 Basophils # 0.1 Nucleated Red 0.0 Blood Cells # Bedside Glucose 208 Lab Scanned BLOOD TRANSFUSI Report ON Blood Gas Blood venous Specimen Source Arterial Blood 06/21/2018 5:40:4 Date Drawn 2 AM Arterial Blood 7.389 pH (Temp corrected ) Arterial Blood 38.6 pCO2 (Temp correct) Arterial Blood 105.6 H pO2 (Temp corrected ) Arterial Blood 22.8 HCO3 Arterial Blood -1.9 Base Excess Arterial Blood 97.2 Oxygen Saturati on Jarrod Test N/A Arterial Blood A-Line Gas Puncture Site Arterial 0.3 Blood Carboxyhe moglobin Arterial Blood 0.3 Methemoglobin Mixed Venous 7.357 Blood pH Mixed Venous 42.5 Blood PCO2 Mixed Venous 32.7 Blood PO2 Mixed Venous 23.3 L Blood HCO3 Mixed Venous -2.1 Blood Base Excess Mixed Venous 65.2 Blood O2 Saturation Mixed Venous 11.8 Blood Total Hemoglobi n Mixed Venous 64.7 Blood Oxyhemogl obin Mixed Venous 0.2 Bld Carboxyhemo globin Mixed Venous 0.6 Blood Methemogl obin Blood Gas A-a 568.8 H O2 Differential Oxyhemoglobin 96.6 Percent Blood Gas 37.0 Temperature Blood Gas 22.0 Respiration Rate Blood Gas 22 Actual Respiration Rat e Blood Gas VENT - AC Modality FiO2 100.0 Blood Gas Tidal 450.0 Volume Blood Gas Low 6.0 PEEP Setting Blood Gas Terrell Johnson [facility] Notified Whom Blood Gas 06/21/2018 5:50:5 Notified Time 3 AM Test 06/21/18 05:59 06/21/18 07:22 Bedside Glucose 220 192 Medications Current Medications Miscellaneous Information (* Miscellaneous Pharmacy Order) Treatment of Hypoglycemia: 1.BG 51... Per protocol XX ; Start 06/20/18 at 19:00 Potassium Chloride 40 meq/ Calcium Chloride 1 gm/Dextrose/ Sodium Chloride 1,030 ml @ 60 mls/hr [id number] IV Last administered on 06/21/18at 01:44; Admin Dose 60 MLS/HR; Start 06/20/18 at 18:43 Hydromorphone HCl (Dilaudid) 0.2 mg Q15M PRN IV PAIN LEVEL 1-5 Last administered on 06/21/18at 07:18; Admin Dose 0.2 MG; Start 06/20/18 at 19:00 Hydromorphone HCl (Dilaudid) 0.4 mg Q15M PRN IV PAIN LEVEL 6-10; Start 06/20/18 at 19:00 Oxycodone/ Acetaminophen (Percocet (5/ 325)) 1 tab Q3H PRN PO PAIN LEVEL 1-5; Start 06/20/18 at 19:00 Oxycodone/ Acetaminophen (Percocet (5/ 325)) 2 tab Q3H PRN PO PAIN LEVEL 6-10; Start 06/20/18 at 19:00 Ondansetron HCl (Zofran Inj) 4 mg Q6H PRN IV NAUSEA AND/OR VOMITING; Start 06/20/18 at 19:00 Famotidine (Pepcid Iv) 20 mg BID@08,20 IV Last administered on 06/21/18at 02:02; Admin Dose 20 MG; Start 06/20/18 at 20:00 Famotidine (Pepcid) 20 mg BID PO ; Start 06/20/18 at 21:00; Status Hold Aspirin (Aspirin) 325 mg DAILY PO ; Start 06/21/18 at 09:00 Acetaminophen (Tylenol Tab) 650 mg Q3H PRN PO ELEVATED TEMPERATURE; Start 06/20/18 at 19:00 Potassium Chloride 50 ml @ 50 mls/hr SEE DIRECTION PRN IVPB K+ LEVEL Last administered on 06/21/18at 06:58; Admin Dose 50 MLS/HR; Start 06/20/18 at 19:00 Magnesium Sulfate/ Dextrose 100 ml @ 100 mls/hr PRN PRN IVPB PENDING LAB VALUE; Start 06/20/18 at 19:00 Nitroglycerin/ Dextrose 250 ml @ 1.5 mls/hr PER PROTOCOL IV Last administered on 06/21/18at 01:55; Admin Dose 1.65 MLS/HR; Start 06/20/18 at 19:00 Dopamine HCl/ Dextrose 250 ml @ 7.38 mls/hr PER PROTOCOL IV ; Start 06/20/18 at 19:00 Enoxaparin Sodium (Lovenox) 40 mg BID SC ; Start 06/20/18 at 21:00; Status Hold Nitroglycerin/ Dextrose 250 ml @ 1.5 mls/hr PER PROTOCOL IV ; Start 06/20/18 at 20:00 Propofol 100 ml @ 2.952 mls/ hr Q12H IV Last administered on 06/21/18at 00:30; Admin Dose 5.904 MLS/HR; Start 06/20/18 at 20:00 Phenylephrine HCl 250 ml @ 75 mls/hr TITRATE IV Last administered on 06/21/18at 05:54; Admin Dose 7.5 MLS/HR; Start 06/20/18 at 19:00 Norepinephrine 250 ml @ 1.875 mls/ hr TITRATE IV ; Start 06/21/18 at 00:30 Fentanyl 100 ml @ 2.5 mls/hr TITRATE IV ; Start 06/21/18 at 00:30 Pantoprazole 80 mg/Sodium Chloride 100 ml @ 10 mls/hr Q10H IV Last administered on 06/21/18at 01:44; Admin Dose 10 MLS/HR; Start 06/21/18 at 01:00 Diagnostic Test (Pha) (Accu-Chek) 1 ea Q1H XX Last administered on 06/21/18at 07:26; Admin Dose 1 EA; Start 06/21/18 at 03:00 Insulin Human Regular 100 unit/ Sodium Chloride 100 ml @ 0 mls/hr PER PROTOCOL IV Last administered on 06/21/18at 03:30; Admin Dose 3 MLS/HR; Start 06/21/18 at 03:00 Miscellaneous Information (* Miscellaneous Pharmacy Order) Treatment of Hypo glycemia: 1.BG 51... Per protocol XX ; Start 06/21/18 at 03:00 Dextrose (D50w Syringe) 25 ml Q15M PRN IV .DECREASED GLUCOSE; Start 06/21/18 at 03:00 Dextrose (D50w Syringe) 50 ml Q15M PRN IV .DECREASED GLUCOSE; Start 06/21/18 at 03:00 Milrinone Lactate 100 ml @ 11.07 mls/ hr TITRATE IV Last administered on 06/21/18at 03:05; Admin Dose 11.07 MLS/HR; Start 06/21/18 at 03:00 Cefazolin Sodium 50 ml @ 100 mls/hr Q8H IVPB ; Start 06/21/18 at 11:00; Stop 06/21/18 at 19:29 Epinephrine 4 mg/ Sodium Chloride 250 ml @ 3.75 mls/hr TITRATE IV Last administered on 06/21/18at 04:27; Admin Dose 6 MLS/HR; Start 06/21/18 at 04:00 Assessment/Plan Hospital Course (Demo Recall) IMP: 1. Inferior myocardial infarction, status post angioplasty and stent placement---> status post coronary artery bypass graft surgery with reexploration for possible tamponade. 2. Ventricular fibrillation 2/2 #1 3. Likely aspiration pneumonia. 4. Cardiogenic shock. 5. History of gallbladder disease. RECS: 1. Vent support; decrease FiO2 and PEEP as tolerated currently on 80% FiO2, anticipate weaning trial in the next 24-48 hours if continues to improve. 2. Continue pain control and sedation 3. Continue vasopressors 4. Continue antibiotics for recent pneumonia 5. DVT/GI prophylaxis 40 min cc time ISABELLA RUSSELL MD, [facility] Jun 21, 2018 08:08
--- NOTE | 2018-06-21 08:14 | CONS ---
Assessment/Plan Assessment/Plan Hospital Course (Demo Recall) 67 yo with acute inferior stemi, with severe left man disease and acutely occluded dominant LCX. Bare metal stent placed in the prox LCX and balloon angioplasty performed on the left main. She underwent CABG yesterday with return to the OR for mediastinal bleeding Imp: Inferior stemi due to occluded dominant LCX, with severe left main and proximal LAD disease, small nondominant RCA, s/p bare metal stent to prox LCX on Wednesday am and CABG yesterday Acute respiratory failure, on ventilator Recc: ASA 81 mg daily, statin Ticagrelor or clopidogrel need to be restarted [place] given presence of a new coronary stent, will discuss with Dr. Mariluz Canas as per CT surgery Ventilator management as per pulmonary Will initiate beta chantell when patient off drips Consultation Date/Type/Reason Admit Date/Time Jun 17, 2018 at 05:25 Initial Consult Date 06/17/18 Type of Consult Cardiology Requesting Provider: LISSET PATINO Date/Time of Note DATE: 06/21/18 TIME: 08:08 24 HR Interval Summary Free Text/Dictation Case discussed with Dr. Mcgraw yesterday. Patient went to the OR for cabg in the afternoon, and returned to the OR late last night for mediastinal bleeding. This morning she remains on drips, IABP is out, bp is stable. Subjective hx not possible: pt non-verbal Exam/Review of Systems Vital Signs Vitals Vital Signs Date Temp Pulse Resp B/P (MAP) Pulse Ox O2 O2 Flow FiO2 Time Delivery Rate 06/21/18 98.5 121 23 101/56 97 08:00 (71) 06/21/18 Mechanical 07:00 Ventilator 06/21/18 100 05:20 Intake and Output 06/20/18 06/20/18 06/21/18 1414:59 22:59 06:59 IntakeIntake Total 222.5 ml 4257 ml 4153.749 ml OutputOutput Total 695 ml 2580 ml 1545 ml BalanceBalance -472.5 ml 1677 ml 2608.749 ml Exam Constitutional: non-verbal Head: normocephalic, atraumatic Eyes: nl lids ENMT: intubated Neck: No jvd, No bruits Respiratory: clear to auscultation, normal air movement Cardiovascular: regular rate and rhythm; No murmurs/extra sounds, No rub Gastrointestinal: soft, non-tender Musculoskeletal: nl extremities to inspection Extremities: other (right groin site with Femstop in place and ecchymosis medial to the site) Neurological: other (sedated) Skin: nl turgor Labs Result Diagram: 06/21/18 0450 06/21/18 0430 Results 24hrs Laboratory Tests Test 06/20/18 20:30 06/20/18 20:35 06/20/18 20:50 06/20/18 21:00 Blood Gas Blood arterial Blood venous Specimen Source Arterial Blood 06/20/2018 8:35:0 06/20/2018 8:50:1 Date Drawn 2 PM 3 PM Arterial Blood 7.387 pH (Temp corrected ) Arterial Blood 40.7 pCO2 (Temp correct) Arterial Blood 150.1 H pO2 (Temp corrected ) Arterial Blood 23.9 HCO3 Arterial Blood -1.0 Base Excess Arterial Blood 98.1 H Oxygen Saturati on Jarrod Test N/A N/A Arterial Blood A-Line VENOUS LINE Gas Puncture Site Arterial 0.3 Blood Carboxyhe moglobin Arterial Blood 0.5 Methemoglobin Blood Gas A-a 522.2 H O2 Differential Oxyhemoglobin 97.3 Percent Blood Gas 37.0 37.0 Temperature Blood Gas 18.0 18.0 Respiration Rate Blood Gas 18 18 Actual Respiration Rat e Blood Gas VENT - AC VENT - AC Modality FiO2 100.0 100.0 Blood Gas Tidal 450.0 450.0 Volume Blood Gas Low 8.0 8.0 PEEP Setting Blood Gas 44.0 44.0 Inspiratory Pressure Blood Gas [facility] Notified Whom Blood Gas 06/20/2018 8:42:1 06/20/2018 9:06:1 Notified Time 0 PM 7 PM White Blood 17.1 #H Count Red Blood Count 2.32 #L Hemoglobin 7.2 #L Hematocrit 21.7 #L Mean 93.5 Corpuscular Volume Mean 31.0 Corpuscular Hemoglobin Mean 33.2 Corpuscular Hemoglobin Conc ent Red Cell 13.3 Distribution Width Platelet Count 114 #L Mean Platelet 9.8 Volume Immature 2.900 H Granulocytes % Neutrophils % 69.5 Lymphocytes % 15.9 Monocytes % 10.7 Eosinophils % 0.6 Basophils % 0.4 Nucleated Red 0.1 H Blood Cells % Immature 0.490 H Granulocytes # Neutrophils # 11.9 H Lymphocytes # 2.7 Monocytes # 1.8 H Eosinophils # 0.1 Basophils # 0.1 Nucleated Red 0.0 Blood Cells # Prothrombin 12.2 Time Prothrombin 1.0 Time Ratio INR 0.89 International Normalized Rati o Activated 26.9 Partial Thrombo plast Time Sodium Level 142 Potassium Level 3.9 Chloride Level 109 Carbon Dioxide 25 Level Anion Gap 8 Blood Urea 12 Nitrogen Creatinine 0.74 Est Glomerular > 60 Filtrat Rate mL/min Glucose Level 156 Calcium Level 8.0 L Magnesium Level 3.2 H Mixed Venous 7.385 Blood pH Mixed Venous 41.2 L Blood PCO2 Mixed Venous 24.8 L Blood PO2 Mixed Venous 24.1 Blood HCO3 Mixed Venous -0.9 Blood Base Excess Mixed Venous 47.8 L Blood O2 Saturation Mixed Venous 8.5 Blood Total Hemoglobi n Mixed Venous 47.4 Blood Oxyhemogl obin Mixed Venous 0.3 Bld Carboxyhemo globin Mixed Venous 0.5 Blood Methemogl obin Albumin 2.7 L Test 06/20/18 21:30 06/21/18 00:20 06/21/18 00:46 06/21/18 01:00 Platelet Count 116 L 92 L Prothrombin 12.7 14.7 Time Prothrombin 1.0 1.1 Time Ratio INR 0.94 1.14 International Normalized Rati o Activated 27.5 28.1 Partial Thrombo plast Time Thrombin Time 15.3 Fibrinogen 300.0 Plasma Fibrin >40 and <80 H Degradation Pro ducts D-Dimer 6811.16 H D-Dimer Comment Sodium Level 143 Potassium Level 4.0 Chloride Level 110 Carbon Dioxide 19 L Level Anion Gap 14 H Blood Urea 11 Nitrogen Creatinine 0.74 Est Glomerular > 60 Filtrat Rate mL/min Glucose Level 192 Calcium Level 7.3 L Magnesium Level 2.5 White Blood 16.5 H Count Red Blood Count 4.12 #L Hemoglobin 11.6 #L Hematocrit 34.6 #L Mean 84.0 Corpuscular Volume Mean 28.2 L Corpuscular Hemoglobin Mean 33.5 Corpuscular Hemoglobin Conc ent Red Cell 18.6 #H Distribution Width Mean Platelet 10.2 Volume Immature 3.100 H Granulocytes % Neutrophils % 81.0 H Lymphocytes % 5.4 L Monocytes % 9.9 Eosinophils % 0.1 Basophils % 0.5 Nucleated Red 0.1 H Blood Cells % Immature 0.510 H Granulocytes # Neutrophils # 13.4 H Lymphocytes # 0.9 Monocytes # 1.6 H Eosinophils # 0.0 Basophils # 0.1 Nucleated Red 0.0 Blood Cells # Blood Gas Blood venous Specimen Source Arterial Blood 06/21/2018 12:55: Date Drawn 15 AM Arterial Blood 7.264 *L pH (Temp corrected ) Arterial Blood 44.5 pCO2 (Temp correct) Arterial Blood 67.9 L pO2 (Temp corrected ) Arterial Blood 19.7 L HCO3 Arterial Blood -7.1 L Base Excess Arterial Blood 92.0 L Oxygen Saturati on Jarrod Test N/A Arterial Blood A-Line Gas Puncture Site Arterial 0.3 Blood Carboxyhe moglobin Arterial Blood 0.3 Methemoglobin Mixed Venous 7.293 L Blood pH Mixed Venous 37.8 L Blood PCO2 Mixed Venous 54.9 H Blood PO2 Mixed Venous 17.9 L Blood HCO3 Mixed Venous -8.0 Blood Base Excess Mixed Venous 87.0 H Blood O2 Saturation Mixed Venous 12.4 Blood Total Hemoglobi n Mixed Venous 86.4 Blood Oxyhemogl obin Mixed Venous 0.3 Bld Carboxyhemo globin Mixed Venous 0.4 Blood Methemogl obin Blood Gas A-a 600.6 H O2 Differential Oxyhemoglobin 91.4 L Percent Blood Gas 37.0 Temperature Blood Gas 18.0 Respiration Rate Blood Gas 19 Actual Respiration Rat e Blood Gas VENT - AC Modality FiO2 100.0 Blood Gas Tidal 450.0 Volume Blood Gas Low 6.0 PEEP Setting Blood Gas C. [id number] Critical Value Read Back Blood Gas Notified Whom Blood Gas 06/21/2018 1:09:1 Notified Time 3 AM Test 06/21/18 02:29 06/21/18 03:26 06/21/18 04:02 06/21/18 04:30 Bedside Glucose 208 208 179 Prothrombin 14.3 Time Prothrombin 1.1 Time Ratio INR 1.10 International Normalized Rati o Activated 30.2 Partial Thrombo plast Time Sodium Level 144 Potassium Level 4.2 Chloride Level 112 H Carbon Dioxide 23 Level Anion Gap 9 # Blood Urea 12 Nitrogen Creatinine 0.67 Est Glomerular > 60 Filtrat Rate mL/min Glucose Level 208 Calcium Level 7.3 L Phosphorus 3.5 Level Magnesium Level 2.5 Test 06/21/18 04:50 06/21/18 05:03 06/21/18 05:07 06/21/18 05:28 White Blood 11.7 #H Count Red Blood Count 3.74 L Hemoglobin 10.5 L Hematocrit 30.8 L Mean 82.4 Corpuscular Volume Mean 28.1 L Corpuscular Hemoglobin Mean 34.1 Corpuscular Hemoglobin Conc ent Red Cell 18.5 H Distribution Width Platelet Count 94 L Mean Platelet 10.9 H Volume Immature 2.100 H Granulocytes % Neutrophils % 80.4 H Lymphocytes % 6.1 L Monocytes % 10.8 Eosinophils % 0.1 Basophils % 0.5 Nucleated Red 0.0 Blood Cells % Immature 0.240 H Granulocytes # Neutrophils # 9.4 H Lymphocytes # 0.7 L Monocytes # 1.3 H Eosinophils # 0.0 Basophils # 0.1 Nucleated Red 0.0 Blood Cells # Bedside Glucose 208 Lab Scanned BLOOD TRANSFUSI Report ON Blood Gas Blood venous Specimen Source Arterial Blood 06/21/2018 5:40:4 Date Drawn 2 AM Arterial Blood 7.389 pH (Temp corrected ) Arterial Blood 38.6 pCO2 (Temp correct) Arterial Blood 105.6 H pO2 (Temp corrected ) Arterial Blood 22.8 HCO3 Arterial Blood -1.9 Base Excess Arterial Blood 97.2 Oxygen Saturati on Jarrod Test N/A Arterial Blood A-Line Gas Puncture Site Arterial 0.3 Blood Carboxyhe moglobin Arterial Blood 0.3 Methemoglobin Mixed Venous 7.357 Blood pH Mixed Venous 42.5 Blood PCO2 Mixed Venous 32.7 Blood PO2 Mixed Venous 23.3 L Blood HCO3 Mixed Venous -2.1 Blood Base Excess Mixed Venous 65.2 Blood O2 Saturation Mixed Venous 11.8 Blood Total Hemoglobi n Mixed Venous 64.7 Blood Oxyhemogl obin Mixed Venous 0.2 Bld Carboxyhemo globin Mixed Venous 0.6 Blood Methemogl obin Blood Gas A-a 568.8 H O2 Differential Oxyhemoglobin 96.6 Percent Blood Gas 37.0 Temperature Blood Gas 22.0 Respiration Rate Blood Gas 22 Actual Respiration Rat e Blood Gas VENT - AC Modality FiO2 100.0 Blood Gas Tidal 450.0 Volume Blood Gas Low 6.0 PEEP Setting Blood Gas Terrell Johnson [facility] Notified Whom Blood Gas 06/21/2018 5:50:5 Notified Time 3 AM Test 06/21/18 05:59 06/21/18 07:22 Bedside Glucose 220 192 Imaging Imaging Telemetry this morning shows NSR Medications Medications Current Medications Miscellaneous Information (* Miscellaneous Pharmacy Order) Treatment of Hypoglycemia: 1.BG 51... Per protocol XX ; Start 06/20/18 at 19:00 Potassium Chloride 40 meq/ Calcium Chloride 1 gm/Dextrose/ Sodium Chloride 1,030 ml @ 60 mls/hr [id number] IV Last administered on 06/21/18at 01:44; Admin Dose 60 MLS/HR; Start 06/20/18 at 18:43 Hydromorphone HCl (Dilaudid) 0.2 mg Q15M PRN IV PAIN LEVEL 1-5 Last administered on 06/21/18at 07:18; Admin Dose 0.2 MG; Start 06/20/18 at 19:00 Hydromorphone HCl (Dilaudid) 0.4 mg Q15M PRN IV PAIN LEVEL 6-10; Start 06/20/18 at 19:00 Oxycodone/ Acetaminophen (Percocet (5/ 325)) 1 tab Q3H PRN PO PAIN LEVEL 1-5; Start 06/20/18 at 19:00 Oxycodone/ Acetaminophen (Percocet (5/ 325)) 2 tab Q3H PRN PO PAIN LEVEL 6-10; Start 06/20/18 at 19:00 Ondansetron HCl (Zofran Inj) 4 mg Q6H PRN IV NAUSEA AND/OR VOMITING; Start 06/20/18 at 19:00 Famotidine (Pepcid Iv) 20 mg BID@08,20 IV Last administered on 06/21/18at 02:02; Admin Dose 20 MG; Start 06/20/18 at 20:00 Famotidine (Pepcid) 20 mg BID PO ; Start 06/20/18 at 21:00; Status Hold Acetaminophen (Tylenol Tab) 650 mg Q3H PRN PO ELEVATED TEMPERATURE; Start 06/20/18 at 19:00 Potassium Chloride 50 ml @ 50 mls/hr SEE DIRECTION PRN IVPB K+ LEVEL Last administered on 06/21/18at 06:58; Admin Dose 50 MLS/HR; Start 06/20/18 at 19:00 Magnesium Sulfate/ Dextrose 100 ml @ 100 mls/hr PRN PRN IVPB PENDING LAB VALUE; Start 06/20/18 at 19:00 Nitroglycerin/ Dextrose 250 ml @ 1.5 mls/hr PER PROTOCOL IV Last administered on 06/21/18at 01:55; Admin Dose 1.65 MLS/HR; Start 06/20/18 at 19:00 Dopamine HCl/ Dextrose 250 ml @ 7.38 mls/hr PER PROTOCOL IV ; Start 06/20/18 at 19:00 Enoxaparin Sodium (Lovenox) 40 mg BID SC ; Start 06/20/18 at 21:00; Status Hold Nitroglycerin/ Dextrose 250 ml @ 1.5 mls/hr PER PROTOCOL IV ; Start 06/20/18 at 20:00 Propofol 100 ml @ 2.952 mls/ hr Q12H IV Last administered on 06/21/18at 00:30; Admin Dose 5.904 MLS/HR; Start 06/20/18 at 20:00 Phenylephrine HCl 250 ml @ 75 mls/hr TITRATE IV Last administered on 06/21/18at 05:54; Admin Dose 7.5 MLS/HR; Start 06/20/18 at 19:00 Norepinephrine 250 ml @ 1.875 mls/ hr TITRATE IV ; Start 06/21/18 at 00:30 Fentanyl 100 ml @ 2.5 mls/hr TITRATE IV ; Start 06/21/18 at 00:30 Pantoprazole 80 mg/Sodium Chloride 100 ml @ 10 mls/hr Q10H IV Last administered on 06/21/18at 01:44; Admin Dose 10 MLS/HR; Start 06/21/18 at 01:00 Diagnostic Test (Pha) (Accu-Chek) 1 ea Q1H XX Last administered on 06/21/18at 07:26; Admin Dose 1 EA; Start 06/21/18 at 03:00 Insulin Human Regular 100 unit/ Sodium Chloride 100 ml @ 0 mls/hr PER PROTOCOL IV Last administered on 06/21/18at 03:30; Admin Dose 3 MLS/HR; Start 06/21/18 at 03:00 Miscellaneous Information (* Miscellaneous Pharmacy Order) Treatment of Hypoglycemia: 1.BG 51... Per protocol XX ; Start 06/21/18 at 03:00 Dextrose (D50w Syringe) 25 ml Q15M PRN IV .DECREASED GLUCOSE; Start 06/21/18 at 03:00 Dextrose (D50w Syringe) 50 ml Q15M PRN IV .DECREASED GLUCOSE; Start 06/21/18 at 03:00 Milrinone Lactate 100 ml @ 11.07 mls/ hr TITRATE IV Last administered on 06/21/18at 03:05; Admin Dose 11.07 MLS/HR; Start 06/21/18 at 03:00 Cefazolin Sodium 50 ml @ 100 mls/hr Q8H IVPB ; Start 06/21/18 at 11:00; Stop 06/21/18 at 19:29 Epinephrine 4 mg/ Sodium Chloride 250 ml @ 3.75 mls/hr TITRATE IV Last administered on 06/21/18at 04:27; Admin Dose 6 MLS/HR; Start 06/21/18 at 04:00 LISSET PATINO Jun 21, 2018 08:13
[2018-06-21] MEDS ORDERED: ASPIRIN 81 MG TAB NGT SCH (09:00)
[2018-06-21] MEDS ORDERED: ASPIRIN 325 MG TAB PO SCH (09:00)
--- NOTE | 2018-06-21 09:33 | PN ---
Date/Time of Note Date/Time of Note DATE: 06/21/18 TIME: 09:30 Subjective Remains intubated and sedated postop Objective Vitals Vital Signs Date Temp Pulse Resp B/P (MAP) Pulse Ox O2 O2 Flow FiO2 Time Delivery Rate 06/21/18 98.6 120 24 97/54 (68) 97 09:00 06/21/18 80 08:00 06/21/18 Mechanical 07:00 Ventilator Intake and Output 06/20/18 06/20/18 06/21/18 1515:00 23:00 07:00 IntakeIntake Total 202.8 ml 5507 ml 3049.879 ml OutputOutput Total 635 ml 2580 ml 1675 ml BalanceBalance -432.2 ml 2927 ml 1374.879 ml Lungs with bilateral rhonchi. Chest tubes in place Cardiac regular rate and rhythm. Abdomen soft normoactive bowel sounds Extremities no clubbing cyanosis or edema Results Result Diagram: 06/21/18 0450 06/21/18 0430 Medications Medications Current Medications Miscellaneous Information (* Miscellaneous Pharmacy Order) Treatment of Hypoglycemia: 1.BG 51... Per protocol XX ; Start 06/20/18 at 19:00 Potassium Chloride 40 meq/ Calcium Chloride 1 gm/Dextrose/ Sodium Chloride 1,030 ml @ 60 mls/hr [id number] IV Last administered on 06/21/18at 01:44; Admin Dose 60 MLS/HR; Start 06/20/18 at 18:43 Hydromorphone HCl (Dilaudid) 0.2 mg Q15M PRN IV PAIN LEVEL 1-5 Last administ ered on 06/21/18at 07:18; Admin Dose 0.2 MG; Start 06/20/18 at 19:00 Hydromorphone HCl (Dilaudid) 0.4 mg Q15M PRN IV PAIN LEVEL 6-10; Start 06/20/18 at 19:00 Oxycodone/ Acetaminophen (Percocet (5/ 325)) 1 tab Q3H PRN PO PAIN LEVEL 1-5; Start 06/20/18 at 19:00 Oxycodone/ Acetaminophen (Percocet (5/ 325)) 2 tab Q3H PRN PO PAIN LEVEL 6-10; Start 06/20/18 at 19:00 Ondansetron HCl (Zofran Inj) 4 mg Q6H PRN IV NAUSEA AND/OR VOMITING; Start 06/20/18 at 19:00 Famotidine (Pepcid Iv) 20 mg BID@08,20 IV Last administered on 06/21/18at 02:02; Admin Dose 20 MG; Start 06/20/18 at 20:00 Famotidine (Pepcid) 20 mg BID PO ; Start 06/20/18 at 21:00; Status Hold Acetaminophen (Tylenol Tab) 650 mg Q3H PRN PO ELEVATED TEMPERATURE; Start 06/20/18 at 19:00 Potassium Chloride 50 ml @ 50 mls/hr SEE DIRECTION PRN IVPB K+ LEVEL Last administered on 06/21/18at 06:58; Admin Dose 50 MLS/HR; Start 06/20/18 at 19:00 Magnesium Sulfate/ Dextrose 100 ml @ 100 mls/hr PRN PRN IVPB PENDING LAB VALUE; Start 06/20/18 at 19:00 Nitroglycerin/ Dextrose 250 ml @ 1.5 mls/hr PER PROTOCOL IV Last administered on 06/21/18at 01:55; Admin Dose 1.65 MLS/HR; Start 06/20/18 at 19:00 Dopamine HCl/ Dextrose 250 ml @ 7.38 mls/hr PER PROTOCOL IV ; Start 06/20/18 at 19:00 Enoxaparin Sodium (Lovenox) 40 mg BID SC ; Start 06/20/18 at 21:00; Status Hold Nitroglycerin/ Dextrose 250 ml @ 1.5 mls/hr PER PROTOCOL IV ; Start 06/20/18 at 20:00 Propofol 100 ml @ 2.952 mls/ hr Q12H IV Last administered on 06/21/18at 00:30; Admin Dose 5.904 MLS/HR; Start 06/20/18 at 20:00 Phenylephrine HCl 250 ml @ 75 mls/hr TITRATE IV Last administered on 06/21/18at 05:54; Admin Dose 7.5 MLS/HR; Start 06/20/18 at 19:00 Norepinephrine 250 ml @ 1.875 mls/ hr TITRATE IV ; Start 06/21/18 at 00:30 Fentanyl 100 ml @ 2.5 mls/hr TITRATE IV ; Start 06/21/18 at 00:30 Diagnostic Test (Pha) (Accu-Chek) 1 ea Q1H XX Last administered on 06/21/18at 08:25; Admin Dose 1 EA; Start 06/21/18 at 03:00 Insulin Human Regular 100 unit/ Sodium Chloride 100 ml @ 0 mls/hr PER PROTOCOL IV Last administered on 06/21/18at 03:30; Admin Dose 3 MLS/HR; Start 06/21/18 at 03:00 Miscellaneous Information (* Miscellaneous Pharmacy Order) Treatment of Hypoglycemia: 1.BG 51... Per protocol XX ; Start 06/21/18 at 03:00 Dextrose (D50w Syringe) 25 ml Q15M PRN IV .DECREASED GLUCOSE; Start 06/21/18 at 03:00 Dextrose (D50w Syringe) 50 ml Q15M PRN IV .DECREASED GLUCOSE; Start 06/21/18 at 03:00 Milrinone Lactate 100 ml @ 11.07 mls/ hr TITRATE IV Last administered on 06/21/18at 03:05; Admin Dose 11.07 MLS/HR; Start 06/21/18 at 03:00 Cefazolin Sodium 50 ml @ 100 mls/hr Q8H IVPB ; Start 06/21/18 at 11:00; Stop 06/21/18 at 19:29 Epinephrine 4 mg/ Sodium Chloride 250 ml @ 3.75 mls/hr TITRATE IV Last adm inistered on 06/21/18at 04:27; Admin Dose 6 MLS/HR; Start 06/21/18 at 04:00 Aspirin (Aspirin) 81 mg DAILY NGT ; Start 06/21/18 at 09:00 Atorvastatin Calcium (Lipitor) 80 mg HS NGT ; Start 06/21/18 at 21:00 Clopidogrel Bisulfate (plaVIX) 600 mg ONCE ONCE PO ; Start 06/21/18 at 15:00; Stop 06/21/18 at 15:01 Clopidogrel Bisulfate (plaVIX) 75 mg DAILY PO ; Start 06/22/18 at 09:00 VTE Prophylaxis Risk score (from Nsg)>0 risk: 18 SCD applied (from Nsg): Yes Lines/Catheters IV Catheter Type: Saline Lock Reyes in Place: Yes Cont'd reyes catheter reason: other (indicate) (Critical care) Assessment/Plan Assessment/Plan 67-year-old female status post CABG x4 Postop bleeding. Status post evacuation of blood clot and control of bleeding Acute respiratory failure Cardiogenic shock. Status post removal of intra-aortic balloon pump Continue postop care Wean off the ventilator Cardiology, cardiothoracic, and pulmonary follow-up CRIS HAWTHORNE MD Jun 21, 2018 09:33
[2018-06-21] MEDS: FENTAnyl (DRIP) 1000 mcg/100mL 100 ML IV SCH (10:49)
[2018-06-21] MEDS: CEFAZOLIN 1 GM/50 ML (PMX) 50 ML IVPB SCH ×2 (10:49→18:51)
[2018-06-21] MEDS ORDERED: FUROSEMIDE 40 MG INJ IV ONE (12:30)
[2018-06-21] MEDS ORDERED: FUROSEMIDE 40 MG INJ ONE (12:34)
[2018-06-21] MEDS ORDERED: CLOPIDOGREL 75 MG TAB PO ONE (15:00)
[2018-06-21] MEDS ORDERED: MIDAZOLAM (DRIP) 50 mg/50 mL 50 ML IV SCH (15:30)
[2018-06-21] MEDS: MIDAZOLAM 50 MG in DEXTROSE 5% 40 ML IV SCH ×2 (15:54→22:47)
[2018-06-21] MEDS ORDERED: ENOXAPARIN 40 MG/0.4 ML SYG SC SCH (21:00)
[2018-06-21] MEDS: ATORVASTATIN 80 MG TAB NGT SCH (21:13)
[2018-06-21] MEDS: ACETAMINOPHEN 325 MG TAB PO PRN (22:54)
[2018-06-22] VITALS (104 sets, daily range): BP systolic 87–142; BP diastolic 50–76; PULSE 99–131; RESP 0–22; TEMP 99.2–100.6
[2018-06-22] MEDS: ACCU-CHEK XX SCH ×24 (00:03→23:00)
[2018-06-22] MEDS: PHENYLephrine 20MG IN 250 ML 250 ML IV SCH (01:24)
[2018-06-22] MEDS: HYDROmorphONE 0.5 MG/0.5 ML SYG IV PRN ×3 (02:35→07:03)
[2018-06-22] MEDS: POTASSIUM CHLORIDE 40 MEQ, CALCIUM CHLORIDE 10% 1 GM in DEXTROSE 5%-0.225% NACL 1,000 ML IV SCH ×2 (03:28→22:20)
[2018-06-22] MEDS ORDERED: FUROSEMIDE 20 MG INJ IV ONE ×2 (05:30)
[2018-06-22] MEDS: POTASSIUM CHLORIDE 50 ML IVPB PRN (05:44)
[2018-06-22] MEDS: FENTAnyl (DRIP) 1000 mcg/100mL 100 ML IV SCH (06:28)
--- NOTE | 2018-06-22 07:34 | CONS ---
Assessment/Plan Assessment/Plan Hospital Course (Demo Recall) 67 yo with acute inferior stemi, with severe left man disease and acutely occluded dominant LCX. Bare metal stent placed in the prox LCX and balloon angioplasty performed on the left main. 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, with severe left main and proximal LAD disease, small nondominant RCA, s/p bare metal stent to prox LCX on Wednesday am and CABG yesterday Acute respiratory failure, on ventilator Thrombocytopenia, mild PVC's, improved Recc: ASA 81 mg daily, clopidogrel, statin, received clopidogrel loading dose yesterday Drips as per CT surgery Ventilator management as per pulmonary Will initiate beta chantell when patient off neosynephrine Consultation Date/Type/Reason Admit Date/Time Jun 17, 2018 at 05:25 Initial Consult Date 06/17/18 Type of Consult Cardiology Requesting Provider: LISSET PATINO Date/Time of Note DATE: 06/22/18 TIME: 07:27 24 HR Interval Summary Free Text/Dictation Remains intubated, on FiO2 45%. Frequent PVC's overnight improved now. Awakens off sedation per nursing. On neosynehrine as only pressor, is on nitro and received furosemide last night, making urine. Subjective hx not possible: pt non-verbal Exam/Review of Systems Vital Signs Vitals Vital Signs Date Temp Pulse Resp B/P (MAP) Pulse Ox O2 O2 Flow FiO2 Time Delivery Rate 06/22/18 99.2 107 22 96/55 (69) 98 07:00 06/22/18 Mechanical 07:00 Ventilator 06/22/18 45 05:00 Intake and Output 06/21/18 06/21/18 06/22/18 1515:00 23:00 07:00 IntakeIntake Total 930.846 ml 964.25 ml 883.25 ml OutputOutput Total 603 ml 630 ml 1345 ml BalanceBalance 327.846 ml 334.25 ml -461.75 ml Exam Constitutional: other (obese) Head: normocephalic, atraumatic Eyes: nl lids ENMT: intubated Neck: No jvd, No bruits Respiratory: clear to auscultation, normal air movement Cardiovascular: regular rate and rhythm; No murmurs/extra sounds, No rub Gastrointestinal: soft, non-tender Musculoskeletal: nl extremities to inspection Extremities: normal pulses (DP's palpable bilaterally), edema (in all 4 extremities) Neurological: other (sedated) Skin: nl turgor Labs Result Diagram: 06/22/18 0430 06/22/18 0430 Results 24hrs Laboratory Tests Test 06/21/18 08:21 06/21/18 09:33 06/21/18 10:03 06/21/18 11:50 Bedside Glucose 220 165 175 134 Test 06/21/18 13:21 06/21/18 13:31 06/21/18 16:21 06/21/18 18:07 Bedside Glucose 137 97 113 White Blood Count 10.5 Red Blood Count 3.33 L Hemoglobin 9.3 L Hematocrit 27.4 L Mean Corpuscular Volume 82.3 Mean Corpuscular 27.9 L Hemoglobin Mean Corpuscular 33.9 Hemoglobin Concent Red Cell Distribution 18.9 H Width Platelet Count 106 L Mean Platelet Volume 10.5 H Immature Granulocytes % 1.800 H Neutrophils % 74.4 Lymphocytes % 10.7 L Monocytes % 12.6 H Eosinophils % 0.1 Basophils % 0.4 Nucleated Red Blood 0.9 H Cells % Immature Granulocytes # 0.190 H Neutrophils # 7.8 H Lymphocytes # 1.1 Monocytes # 1.3 H Eosinophils # 0.0 Basophils # 0.0 Nucleated Red Blood 0.1 H Cells # Sodium Level 144 Potassium Level 4.0 Chloride Level 112 H Carbon Dioxide Level 24 Anion Gap 8 Blood Urea Nitrogen 14 Creatinine 0.86 Est Glomerular Filtrat > 60 Rate mL/min Glucose Level 126 # Calcium Level 7.7 L Magnesium Level 2.4 Test 06/21/18 19:32 06/21/18 20:04 06/21/18 21:01 06/21/18 22:20 White Blood Count 12.0 H Red Blood Count 3.01 L Hemoglobin 8.5 L Hematocrit 25.0 L Mean Corpuscular Volume 83.1 Mean Corpuscular 28.2 L Hemoglobin Mean Corpuscular 34.0 Hemoglobin Concent Red Cell Distribution 19.1 H Width Platelet Count 105 L Mean Platelet Volume 11.1 H Immature Granulocytes % 1.800 H Neutrophils % 74.2 Lymphocytes % 10.5 L Monocytes % 13.1 H Eosinophils % 0.1 Basophils % 0.3 Nucleated Red Blood 1.0 H Cells % Immature Granulocytes # 0.220 H Neutrophils # 8.9 H Lymphocytes # 1.3 Monocytes # 1.6 H Eosinophils # 0.0 Basophils # 0.0 Nucleated Red Blood 0.1 H Cells # Sodium Level 142 Potassium Level 4.3 Chloride Level 114 H Carbon Dioxide Level 24 Anion Gap 4 L Blood Urea Nitrogen 14 Creatinine 0.89 Est Glomerular Filtrat > 60 Rate mL/min Glucose Level 104 Calcium Level 7.8 L Magnesium Level 2.3 Bedside Glucose 110 115 108 Test 06/21/18 22:59 06/22/18 00:01 06/22/18 01:07 06/22/18 01:58 Bedside Glucose 119 121 117 118 Test 06/22/18 02:25 06/22/18 02:58 06/22/18 04:12 06/22/18 04:30 Lactic Acid Level 1.2 Bedside Glucose 125 116 White Blood Count 12.5 H Red Blood Count 2.84 L Hemoglobin 8.0 L Hematocrit 24.0 L Mean Corpuscular Volume 84.5 Mean Corpuscular 28.2 L Hemoglobin Mean Corpuscular 33.3 Hemoglobin Concent Red Cell Distribution 19.4 H Width Platelet Count 109 L Mean Platelet Volume 10.9 H Immature Granulocytes % 1.700 H Neutrophils % 72.5 Lymphocytes % 12.7 L Monocytes % 12.4 H Eosinophils % 0.5 Basophils % 0.2 Nucleated Red Blood 0.6 H Cells % Immature Granulocytes # 0.210 H Neutrophils # 9.1 H Lymphocytes # 1.6 Monocytes # 1.6 H Eosinophils # 0.1 Basophils # 0.0 Nucleated Red Blood 0.1 H Cells # Sodium Level 142 Potassium Level 4.2 Chloride Level 115 H Carbon Dioxide Level 25 Anion Gap 2 L Blood Urea Nitrogen 14 Creatinine 0.86 Est Glomerular Filtrat > 60 Rate mL/min Glucose Level 110 Calcium Level 8.0 L Phosphorus Level 2.9 Magnesium Level 2.4 Test 06/22/18 05:03 06/22/18 06:02 06/22/18 06:59 Bedside Glucose 114 94 113 Imaging Imaging telemetry demonstrates sinus tachycardia in the low 100's Medications Medications Current Medications Potassium Chloride 40 meq/ Calcium Chloride 1 gm/Dextrose/ Sodium Chloride 1,030 ml @ 60 mls/hr [id number] IV Last administered on 06/22/18at 03:28; Admin Dose 60 MLS/HR; Start 06/20/18 at 18:43 Hydromorphone HCl (Dilaudid) 0.2 mg Q15M PRN IV PAIN LEVEL 1-5 Last administered on 06/22/18 06:15; Admin Dose 0.2 MG; Start 06/20/18 at 19:00 Hydromorphone HCl (Dilaudid) 0.4 mg Q15M PRN IV PAIN LEVEL 6-10 Last administered on 06/22/18 02:35; Admin Dose 0.4 MG; Start 06/20/18 at 19:00 Oxycodone/ Acetaminophen (Percocet (5/ 325)) 1 tab Q3H PRN PO PAIN LEVEL 1-5; Start 06/20/18 at 19:00 Oxycodone/ Acetaminophen (Percocet (5/ 325)) 2 tab Q3H PRN PO PAIN LEVEL 6-10; Start 06/20/18 at 19:00 Ondansetron HCl (Zofran Inj) 4 mg Q6H PRN IV NAUSEA AND/OR VOMITING; Start 06/20/18 at 19:00 Famotidine (Pepcid Iv) 20 mg BID@08,20 IV Last administered on 06/21/18 19:47; Admin Dose 20 MG; Start 06/20/18 at 20:00 Famotidine (Pepcid) 20 mg BID PO ; Start 06/20/18 at 21:00; Status Hold Acetaminophen (Tylenol Tab) 650 mg Q3H PRN PO ELEVATED TEMPERATURE Last a dministered on 06/21/18 22:54; Admin Dose 650 MG; Start 06/20/18 at 19:00 Potassium Chloride 50 ml @ 50 mls/hr SEE DIRECTION PRN IVPB K+ LEVEL Last administered on 06/22/18 05:44; Admin Dose 50 MLS/HR; Start 06/20/18 at 19:00 Magnesium Sulfate/ Dextrose 100 ml @ 100 mls/hr PRN PRN IVPB PENDING LAB V ALUE; Start 06/20/18 at 19:00 Nitroglycerin/ Dextrose 250 ml @ 1.5 mls/hr PER PROTOCOL IV Last administered on 06/21/18 01:55; Admin Dose 1.65 MLS/HR; Start 06/20/18 at 19:00 Dopamine HCl/ Dextrose 250 ml @ 7.38 mls/hr PER PROTOCOL IV ; Start 06/20/18 at 19:00 Propofol 100 ml @ 2.952 mls/ hr Q12H IV Last administered on 06/21/18 10:49; Admin Dose 6.494 MLS/HR; Start 06/20/18 at 20:00 Phenylephrine HCl 250 ml @ 75 mls/hr TITRATE IV Last administered on 06/22/18 01:24; Admin Dose 33.75 MLS/HR; Start 06/20/18 at 19:00 Norepinephrine 250 ml @ 1.875 mls/ hr TITRATE IV ; Start 06/21/18 at 00:30 Fentanyl 100 ml @ 2.5 mls/hr TITRATE IV Last administered on 06/22/18 06:28; Admin Dose 5 MLS/HR; Start 06/21/18 at 00:30 Diagnostic Test (Pha) (Accu-Chek) 1 ea Q1H XX Last administered on 06/22/18 06 :59; Admin Dose 1 EA; Start 06/21/18 at 03:00 Insulin Human Regular 100 unit/ Sodium Chloride 100 ml @ 0 mls/hr PER PROTOCOL IV Last administered on 06/21/18 18:13; Admin Dose 2 MLS/HR; Start 06/21/18 at 03:00 Miscellaneous Information (* Miscellaneous Pharmacy Order) Treatment of Hypoglycemia: 1.BG 51... Per protocol XX ; Start 06/21/18 at 03:00 Dextrose (D50w Syringe) 25 ml Q15M PRN IV .DECREASED GLUCOSE; Start 06/21/18 at 03:00 Dextrose (D50w Syringe) 50 ml Q15M PRN IV .DECREASED GLUCOSE; Start 06/21/18 at 03:00 Milrinone Lactate 100 ml @ 11.07 mls/ hr TITRATE IV Last administered on 06/21/18 11:09; Admin Dose 13.284 MLS/HR; Start 06/21/18 at 03:00 Epinephrine 4 mg/ Sodium Chloride 250 ml @ 3.75 mls/hr TITRATE IV Last administered on 06/21/18 04:27; Admin Dose 6 MLS/HR; Start 06/21/18 at 04:00 Aspirin (Aspirin) 81 mg DAILY NGT Last administered on 3/5/19at 09:47; Admin Dose 81 MG; Start 06/21/18 at 09:00 Atorvastatin Calcium (Lipitor) 80 mg HS NGT Last administered on 06/21/18at 21:1 3; Admin Dose 80 MG; Start 06/21/18 at 21:00 Clopidogrel Bisulfate (plaVIX) 75 mg DAILY PO ; Start 06/22/18 at 09:00 Midazolam HCl 50 mg/Dextrose 50 ml @ 1 mls/hr TITRATE IV Last administered on 06/21/18at 22:47; Admin Dose 4 MLS/HR; Start 06/21/18 at 16:00 Enoxaparin Sodium (Lovenox) 40 mg BID SC ; Start 06/21/18 at 21:00; Status Hold LISSET PATINO Jun 22, 2018 07:34
[2018-06-22] MEDS ORDERED: ONDANSETRON 4 MG INJ IV PRN (08:30)
[2018-06-22] MEDS ORDERED: INSULIN HUMAN REGULAR 100 UNIT in SOD CHLORIDE 0.9% 99 ML IV SCH (08:30)
[2018-06-22] MEDS ORDERED: ACCU-CHEK XX SCH (08:30)
[2018-06-22] MEDS ORDERED: NITROGLYCERIN 50 MG/D5W (PMX) 250 ML IV SCH (08:30)
[2018-06-22] MEDS ORDERED: DIPHENHYDRAMINE 50 MG INJ IV PRN (08:30)
[2018-06-22] MEDS ORDERED: NORepinephrine 8MG/250 ML (PMX 250 ML IV SCH (08:30)
[2018-06-22] MEDS ORDERED: DEXTROSE 50% 50 ML SYRINGE IV PRN ×2 (08:30)
[2018-06-22] MEDS ORDERED: morphine 2 MG INJ IV PRN ×2 (08:30)
[2018-06-22] MEDS: FAMOTIDINE 20 MG INJ IV SCH ×2 (08:31→19:50)
[2018-06-22] MEDS ORDERED: PHENYLephrine 20MG IN 250 ML 250 ML IV SCH (09:00)
[2018-06-22] MEDS: ASPIRIN 325 MG TAB PO SCH (09:12)
[2018-06-22] MEDS: CLOPIDOGREL 75 MG TAB PO SCH (09:12)
--- NOTE | 2018-06-22 09:53 | PN ---
Date/Time of Note Date/Time of Note DATE: 06/22/18 TIME: 09:47 Assessment/Plan VTE Prophylaxis Risk [place] [facility] [place]0 risk: 20 SCD applied (from [facility] [place] Yes Pharmacological prophylaxis: LMWH Lines/Catheters IV Catheter Type (from [facility]): A Line Urinary Cath still in place: Yes Reason Cath still needed: other (indicate) (critical care) Assessment/Plan Assessment/Plan Remains on inotropic support. Satisfactory hemodynamics. UO OK post lasix. Cr. .86. WBC nl. No sign infection. Responsive on vent. CXR Rlower chest haze. Chest drainage 270 last 12 hours. crit 24. NSR. Continue current management Result Diagram: 06/22/18 0430 06/22/18 0430 Results 24hrs Laboratory Tests Test 06/21/18 10:03 06/21/18 11:50 06/21/18 13:21 06/21/18 13:31 Bedside Glucose 175 134 137 White Blood Count 10.5 Red Blood Count 3.33 L Hemoglobin 9.3 L Hematocrit 27.4 L Mean Corpuscular 82.3 Volume Mean Corpuscular 27.9 L Hemoglobin Mean Corpuscular 33.9 Hemoglobin Concent Red Cell 18.9 H Distribution Width Platelet Count 106 L Mean Platelet 10.5 H Volume Immature 1.800 H Granulocytes % Neutrophils % 74.4 Lymphocytes % 10.7 L Monocytes % 12.6 H Eosinophils % 0.1 Basophils % 0.4 Nucleated Red 0.9 H Blood Cells % Immature 0.190 H Granulocytes # Neutrophils # 7.8 H Lymphocytes # 1.1 Monocytes # 1.3 H Eosinophils # 0.0 Basophils # 0.0 Nucleated Red 0.1 H Blood Cells # Sodium Level 144 Potassium Level 4.0 Chloride Level 112 H Carbon Dioxide 24 Level Anion Gap 8 Blood Urea 14 Nitrogen Creatinine 0.86 Est Glomerular > 60 Filtrat Rate mL/min Glucose Level 126 # Calcium Level 7.7 L Magnesium Level 2.4 Test 06/21/18 16:21 06/21/18 18:07 06/21/18 19:32 06/21/18 20:04 Bedside Glucose 97 113 110 White Blood Count 12.0 H Red Blood Count 3.01 L Hemoglobin 8.5 L Hematocrit 25.0 L Mean Corpuscular 83.1 Volume Mean Corpuscular 28.2 L Hemoglobin Mean Corpuscular 34.0 Hemoglobin Concent Red Cell 19.1 H Distribution Width Platelet Count 105 L Mean Platelet 11.1 H Volume Immature 1.800 H Granulocytes % Neutrophils % 74.2 Lymphocytes % 10.5 L Monocytes % 13.1 H Eosinophils % 0.1 Basophils % 0.3 Nucleated Red 1.0 H Blood Cells % Immature 0.220 H Granulocytes # Neutrophils # 8.9 H Lymphocytes # 1.3 Monocytes # 1.6 H Eosinophils # 0.0 Basophils # 0.0 Nucleated Red 0.1 H Blood Cells # Sodium Level 142 Potassium Level 4.3 Chloride Level 114 H Carbon Dioxide 24 Level Anion Gap 4 L Blood Urea 14 Nitrogen Creatinine 0.89 Est Glomerular > 60 Filtrat Rate mL/min Glucose Level 104 Calcium Level 7.8 L Magnesium Level 2.3 Test 06/21/18 21:01 06/21/18 22:20 06/21/18 22:59 06/22/18 00:01 Bedside Glucose 115 108 119 121 Test 06/22/18 01:07 06/22/18 01:58 06/22/18 02:25 06/22/18 02:58 Bedside Glucose 117 118 125 Lactic Acid Level 1.2 Test 06/22/18 04:12 06/22/18 04:30 06/22/18 05:03 06/22/18 06:02 Bedside Glucose 116 114 94 White Blood Count 12.5 H Red Blood Count 2.84 L Hemoglobin 8.0 L Hematocrit 24.0 L Mean Corpuscular 84.5 Volume Mean Corpuscular 28.2 L Hemoglobin Mean Corpuscular 33.3 Hemoglobin Concent Red Cell 19.4 H Distribution Width Platelet Count 109 L Mean Platelet 10.9 H Volume Immature 1.700 H Granulocytes % Neutrophils % 72.5 Lymphocytes % 12.7 L Monocytes % 12.4 H Eosinophils % 0.5 Basophils % 0.2 Nucleated Red 0.6 H Blood Cells % Immature 0.210 H Granulocytes # Neutrophils # 9.1 H Lymphocytes # 1.6 Monocytes # 1.6 H Eosinophils # 0.1 Basophils # 0.0 Nucleated Red 0.1 H Blood Cells # Sodium Level 142 Potassium Level 4.2 Chloride Level 115 H Carbon Dioxide 25 Level Anion Gap 2 L Blood Urea 14 Nitrogen Creatinine 0.86 Est Glomerular > 60 Filtrat Rate mL/min Glucose Level 110 Calcium Level 8.0 L Phosphorus Level 2.9 Magnesium Level 2.4 Test 06/22/18 06:59 06/22/18 07:00 06/22/18 07:57 06/22/18 09:02 Bedside Glucose 113 123 128 Blood Gas Specimen Blood arterial Source Arterial Blood 06/22/2018 8:53:46 Date Drawn AM Arterial Blood pH 7.505 H (Temp corrected) Arterial Blood 28.6 L pCO2 (Temp correct) Arterial Blood pO2 79.1 L (Temp corrected) Arterial Blood 22.1 HCO3 Arterial Blood -0.6 Base Excess Arterial Blood 95.2 Oxygen Saturation Jarrod Test N/A Arterial Blood Gas A-Line Puncture Site Arterial 0.3 Blood Carboxyhemog lobin Arterial Blood 0.5 Methemoglobin Blood Gas A-a O2 173.2 H Differential Oxyhemoglobin 94.4 Percent Blood Gas 37.0 Temperature Blood Gas 22.0 Respiration Rate Blood Gas Actual 22 Respiration Rate Blood Gas Modality VENT - AC FiO2 40.0 Blood Gas Tidal 450.0 Volume Blood Gas Low PEEP 6.0 Setting Blood Gas Notified TM Whom Blood Gas Notified 06/22/2018 9:01:39 Time AM Exam/Review of Systems Exam Vitals Vital Signs Date Temp Pulse Resp B/P (MAP) Pulse Ox O2 O2 Flow FiO2 Time Delivery Rate 06/22/18 103 22 99 40 08:37 06/22/18 110/62 08:30 (78) 06/22/18 99.5 08:00 06/22/18 Mechanical 07:00 Ventilator Intake and Output 06/21/18 06/21/18 06/22/18 1515:00 23:00 07:00 IntakeIntake Total 930.846 ml 964.25 ml 883.25 ml OutputOutput Total 603 ml 630 ml 1345 ml BalanceBalance 327.846 ml 334.25 ml -461.75 ml Results Results 24hrs Laboratory Tests Test 06/21/18 10:03 06/21/18 11:50 06/21/18 13:21 06/21/18 13:31 Bedside Glucose 175 134 137 White Blood Count 10.5 Red Blood Count 3.33 L Hemoglobin 9.3 L Hematocrit 27.4 L Mean Corpuscular 82.3 Volume Mean Corpuscular 27.9 L Hemoglobin Mean Corpuscular 33.9 Hemoglobin Concent Red Cell 18.9 H Distribution Width Platelet Count 106 L Mean Platelet 10.5 H Volume Immature 1.800 H Granulocytes % Neutrophils % 74.4 Lymphocytes % 10.7 L Monocytes % 12.6 H Eosinophils % 0.1 Basophils % 0.4 Nucleated Red 0.9 H Blood Cells % Immature 0.190 H Granulocytes # Neutrophils # 7.8 H Lymphocytes # 1.1 Monocytes # 1.3 H Eosinophils # 0.0 Basophils # 0.0 Nucleated Red 0.1 H Blood Cells # Sodium Level 144 Potassium Level 4.0 Chloride Level 112 H Carbon Dioxide 24 Level Anion Gap 8 Blood Urea 14 Nitrogen Creatinine 0.86 Est Glomerular > 60 Filtrat Rate mL/min Glucose Level 126 # Calcium Level 7.7 L Magnesium Level 2.4 Test 06/21/18 16:21 06/21/18 18:07 06/21/18 19:32 06/21/18 20:04 Bedside Glucose 97 113 110 White Blood Count 12.0 H Red Blood Count 3.01 L Hemoglobin 8.5 L Hematocrit 25.0 L Mean Corpuscular 83.1 Volume Mean Corpuscular 28.2 L Hemoglobin Mean Corpuscular 34.0 Hemoglobin Concent Red Cell 19.1 H Distribution Width Platelet Count 105 L Mean Platelet 11.1 H Volume Immature 1.800 H Granulocytes % Neutrophils % 74.2 Lymphocytes % 10.5 L Monocytes % 13.1 H Eosinophils % 0.1 Basophils % 0.3 Nucleated Red 1.0 H Blood Cells % Immature 0.220 H Granulocytes # Neutrophils # 8.9 H Lymphocytes # 1.3 Monocytes # 1.6 H Eosinophils # 0.0 Basophils # 0.0 Nucleated Red 0.1 H Blood Cells # Sodium Level 142 Potassium Level 4.3 Chloride Level 114 H Carbon Dioxide 24 Level Anion Gap 4 L Blood Urea 14 Nitrogen Creatinine 0.89 Est Glomerular > 60 Filtrat Rate mL/min Glucose Level 104 Calcium Level 7.8 L Magnesium Level 2.3 Test 06/21/18 21:01 06/21/18 22:20 06/21/18 22:59 06/22/18 00:01 Bedside Glucose 115 108 119 121 Test 06/22/18 01:07 06/22/18 01:58 06/22/18 02:25 06/22/18 02:58 Bedside Glucose 117 118 125 Lactic Acid Level 1.2 Test 06/22/18 04:12 06/22/18 04:30 06/22/18 05:03 06/22/18 06:02 Bedside Glucose 116 114 94 White Blood Count 12.5 H Red Blood Count 2.84 L Hemoglobin 8.0 L Hematocrit 24.0 L Mean Corpuscular 84.5 Volume Mean Corpuscular 28.2 L Hemoglobin Mean Corpuscular 33.3 Hemoglobin Concent Red Cell 19.4 H Distribution Width Platelet Count 109 L Mean Platelet 10.9 H Volume Immature 1.700 H Granulocytes % Neutrophils % 72.5 Lymphocytes % 12.7 L Monocytes % 12.4 H Eosinophils % 0.5 Basophils % 0.2 Nucleated Red 0.6 H Blood Cells % Immature 0.210 H Granulocytes # Neutrophils # 9.1 H Lymphocytes # 1.6 Monocytes # 1.6 H Eosinophils # 0.1 Basophils # 0.0 Nucleated Red 0.1 H Blood Cells # Sodium Level 142 Potassium Level 4.2 Chloride Level 115 H Carbon Dioxide 25 Level Anion Gap 2 L Blood Urea 14 Nitrogen Creatinine 0.86 Est Glomerular > 60 Filtrat Rate mL/min Glucose Level 110 Calcium Level 8.0 L Phosphorus Level 2.9 Magnesium Level 2.4 Test 06/22/18 06:59 06/22/18 07:00 06/22/18 07:57 06/22/18 09:02 Bedside Glucose 113 123 128 Blood Gas Specimen Blood arterial Source Arterial Blood 06/22/2018 8:53:46 Date Drawn AM Arterial Blood pH 7.505 H (Temp corrected) Arterial Blood 28.6 L pCO2 (Temp correct) Arterial Blood pO2 79.1 L (Temp corrected) Arterial Blood 22.1 HCO3 Arterial Blood -0.6 Base Excess Arterial Blood 95.2 Oxygen Saturation Jarrod Test N/A Arterial Blood Gas A-Line Puncture Site Arterial 0.3 Blood Carboxyhemog lobin Arterial Blood 0.5 Methemoglobin Blood Gas A-a O2 173.2 H Differential Oxyhemoglobin 94.4 Percent Blood Gas 37.0 Temperature Blood Gas 22.0 Respiration Rate Blood Gas Actual 22 Respiration Rate Blood Gas Modality VENT - AC FiO2 40.0 Blood Gas Tidal 450.0 Volume Blood Gas Low PEEP 6.0 Setting Blood Gas Notified TM Whom Blood Gas Notified 06/22/2018 9:01:39 Time AM Medications Medication Current Medications Insulin Human Regular 100 unit/ Sodium Chloride 100 ml @ 0 mls/hr PER PROTOCOL IV ; Start 06/20/18 at 19:00 Potassium Chloride 40 meq/ Calcium Chloride 1 gm/Dextrose/ Sodium Chloride 1,030 ml @ 60 mls/hr [id number] IV Last administered on 06/22/18 03:28; Admin Dose 60 MLS/HR; Start 06/20/18 at 18:43 Hydromorphone HCl (Dilaudid) 0.2 mg Q15M PRN IV PAIN LEVEL 1-5 Last administered on 06/22/18 06:15; Admin Dose 0.2 MG; Start 06/20/18 at 19:00 Hydromorphone HCl (Dilaudid) 0.4 mg Q15M PRN IV PAIN LEVEL 6-10 Last administered on 06/22/18 02:35; Admin Dose 0.4 MG; Start 06/20/18 at 19:00 Oxycodone/ Acetaminophen (Percocet (5/ 325)) 1 tab Q3H PRN PO PAIN LEVEL 1-5; Start 06/20/18 at 19:00 Oxycodone/ Acetaminophen (Percocet (5/ 325)) 2 tab Q3H PRN PO PAIN LEVEL 6-10; Start 06/20/18 at 19:00 Ondansetron HCl (Zofran Inj) 4 mg Q6H PRN IV NAUSEA AND/OR VOMITING; Start 06/20/18 at 19:00 Famotidine (Pepcid Iv) 20 mg BID@08,20 IV Last administered on 06/22/18 08:31; Admin Dose 20 MG; Start 06/20/18 at 20:00 Acetaminophen (Tylenol Tab) 650 mg Q3H PRN PO ELEVATED TEMPERATURE Last administered on 06/21/18 22:54; Admin Dose 650 MG; Start 06/20/18 at 19:00 Potassium Chloride 50 ml @ 50 mls/hr SEE DIRECTION PRN IVPB K+ LEVEL Last administered on 06/22/18 05:44; Admin Dose 50 MLS/HR; Start 06/20/18 at 19:00 Magnesium Sulfate/ Dextrose 100 ml @ 100 mls/hr PRN PRN IVPB PENDING LAB VALUE; Start 06/20/18 at 19:00 Dopamine HCl/ Dextrose 250 ml @ 7.38 mls/hr PER PROTOCOL IV ; Start 06/20/18 at 19:00 Phenylephrine HCl 250 ml @ 75 mls/hr TITRATE IV Last administered on 06/22/18 01:24; Admin Dose 33.75 MLS/HR; Start 06/20/18 at 19:00 Fentanyl 100 ml @ 2.5 mls/hr TITRATE IV Last administered on 06/22/18 06:28; Admin Dose 5 MLS/HR; Start 06/21/18 at 00:30 Diagnostic Test (Pha) (Accu-Chek) 1 ea Q1H XX Last administered on 06/22/18at 06:59; Admin Dose 1 EA; Start 06/21/18 at 03:00 Miscellaneous Information (* Miscellaneous Pharmacy Order) Treatment of Hypoglycemia: 1.BG 51... Per protocol XX ; Start 06/21/18 at 03:00 Dextrose (D50w Syringe) 25 ml Q15M PRN IV .DECREASED GLUCOSE; Start 06/21/18 at 03:00 Dextrose (D50w Syringe) 50 ml Q15M PRN IV .DECREASED GLUCOSE; Start 06/21/18 at 03:00 Atorvastatin Calcium (Lipitor) 80 mg HS NGT Last administered on 06/21/18at 21:13; Admin Dose 80 MG; Start 06/21/18 at 21:00 Clopidogrel Bisulfate (plaVIX) 75 mg DAILY PO Last administered on 06/22/18 09:12; Admin Dose 75 MG; Start 06/22/18 at 09:00 Midazolam HCl 50 mg/Dextrose 50 ml @ 1 mls/hr TITRATE IV Last administered on 06/21/18at 22:47; Admin Dose 4 MLS/HR; Start 06/21/18 at 16:00 Miscellaneous Information (* Miscellaneous Pharmacy Order) Treatment of Hypoglycemia: 1.BG 51... Per protocol XX ; Start 06/22/18 at 08:30 Dextrose (D50w Syringe) 25 ml Q15M PRN IV .DECREASED GLUCOSE; Start 06/22/18 at 08:30 Dextrose (D50w Syringe) 50 ml Q15M PRN IV .DECREASED GLUCOSE; Start 06/22/18 at 08:30 Aspirin (Aspirin) 325 mg DAILY PO Last administered on 06/22/18 09:12; Admin Dose 325 MG; Start 06/22/18 at 09:00 Nitroglycerin/ Dextrose 250 ml @ 1.5 mls/hr PER PROTOCOL IV ; Start 06/22/18 at 08:30 Diphenhydramine HCl (Benadryl) 25 mg ICU RECOVERY PRN IV .PRURITUS; Start 06/22/18 at 08:30; Stop 06/22/18 at 13:00 Norepinephrine 250 ml @ 1.875 mls/ hr TITRATE IV ; Start 06/22/18 at 08:30 JORGE MIDDLETON MD Jun 22, 2018 09:53
--- NOTE | 2018-06-22 11:30 | CONS ---
Consult Date/Type/Reason Admit Date/Time Jun 17, 2018 at 05:25 Initial Consult Date 06/17/18 Type of Consult Pulmonary Requesting Provider: LISSET PATINO Date/Time of Note DATE: 06/22/18 TIME: 11:28 Subjective Continues to improve. Decreased vasopressor requirements. Hemodynamically improved. Elevated CVP and PA pressures this morning and chest x-ray de monstrating ongoing pulmonary edema. Neurologically intact remains awake and alert oxidation follows commands. Objective Vital Signs Date Temp Pulse Resp B/P (MAP) Pulse Ox O2 O2 Flow FiO2 Time Delivery Rate 06/22/18 101 16 98 40 11:06 06/22/18 99.5 108/59 10:00 (75) 06/22/18 Mechanical 07:00 Ventilator Intake and Output 06/21/18 06/21/18 06/22/18 1515:00 23:00 07:00 IntakeIntake Total 930.846 ml 964.25 ml 883.25 ml OutputOutput Total 603 ml 630 ml 1345 ml BalanceBalance 327.846 ml 334.25 ml -461.75 ml Exam GENERAL: Well-nourished well-developed lady orally intubated on mechanical ve ntilation VITAL SIGNS: per chart NECK: Supple. No JVD or lymphadenopathy. CARDIAC EXAM: S1, S2. No added sounds or murmurs. CHEST: clear bilaterally, No added sounds, rales or wheezes ABDOMEN: Soft, nontender. No guarding or rebound. EXTREMITIES: No cyanosis, clubbing or edema. NEUROLOGIC: Generalized weakness. No focal deficits. Vent Setting Ventilator Support Mode: AC Fraction of Inspired Oxygen pe: 40 Positive End Expiratory Pressu: 5.0 Results/Medications Result Diagram: 06/22/18 0430 06/22/18 0430 Results 24 hrs Laboratory Tests Test 06/21/18 11:50 06/21/18 13:21 06/21/18 13:31 06/21/18 16:21 Bedside Glucose 134 137 97 White Blood Count 10.5 Red Blood Count 3.33 L Hemoglobin 9.3 L Hematocrit 27.4 L Mean Corpuscular 82.3 Volume Mean Corpuscular 27.9 L Hemoglobin Mean Corpuscular 33.9 Hemoglobin Concent Red Cell 18.9 H Distribution Width Platelet Count 106 L Mean Platelet 10.5 H Volume Immature 1.800 H Granulocytes % Neutrophils % 74.4 Lymphocytes % 10.7 L Monocytes % 12.6 H Eosinophils % 0.1 Basophils % 0.4 Nucleated Red 0.9 H Blood Cells % Immature 0.190 H Granulocytes # Neutrophils # 7.8 H Lymphocytes # 1.1 Monocytes # 1.3 H Eosinophils # 0.0 Basophils # 0.0 Nucleated Red 0.1 H Blood Cells # Sodium Level 144 Potassium Level 4.0 Chloride Level 112 H Carbon Dioxide 24 Level Anion Gap 8 Blood Urea 14 Nitrogen Creatinine 0.86 Est Glomerular > 60 Filtrat Rate mL/min Glucose Level 126 # Calcium Level 7.7 L Magnesium Level 2.4 Test 06/21/18 18:07 06/21/18 19:32 06/21/18 20:04 06/21/18 21:01 Bedside Glucose 113 110 115 White Blood Count 12.0 H Red Blood Count 3.01 L Hemoglobin 8.5 L Hematocrit 25.0 L Mean Corpuscular 83.1 Volume Mean Corpuscular 28.2 L Hemoglobin Mean Corpuscular 34.0 Hemoglobin Concent Red Cell 19.1 H Distribution Width Platelet Count 105 L Mean Platelet 11.1 H Volume Immature 1.800 H Granulocytes % Neutrophils % 74.2 Lymphocytes % 10.5 L Monocytes % 13.1 H Eosinophils % 0.1 Basophils % 0.3 Nucleated Red 1.0 H Blood Cells % Immature 0.220 H Granulocytes # Neutrophils # 8.9 H Lymphocytes # 1.3 Monocytes # 1.6 H Eosinophils # 0.0 Basophils # 0.0 Nucleated Red 0.1 H Blood Cells # Sodium Level 142 Potassium Level 4.3 Chloride Level 114 H Carbon Dioxide 24 Level Anion Gap 4 L Blood Urea 14 Nitrogen Creatinine 0.89 Est Glomerular > 60 Filtrat Rate mL/min Glucose Level 104 Calcium Level 7.8 L Magnesium Level 2.3 Test 06/21/18 22:20 06/21/18 22:59 06/22/18 00:01 06/22/18 01:07 Bedside Glucose 108 119 121 117 Test 06/22/18 01:58 06/22/18 02:25 06/22/18 02:58 06/22/18 04:12 Bedside Glucose 118 125 116 Lactic Acid Level 1.2 Test 06/22/18 04:30 06/22/18 05:03 06/22/18 06:02 06/22/18 06:59 White Blood Count 12.5 H Red Blood Count 2.84 L Hemoglobin 8.0 L Hematocrit 24.0 L Mean Corpuscular 84.5 Volume Mean Corpuscular 28.2 L Hemoglobin Mean Corpuscular 33.3 Hemoglobin Concent Red Cell 19.4 H Distribution Width Platelet Count 109 L Mean Platelet 10.9 H Volume Immature 1.700 H Granulocytes % Neutrophils % 72.5 Lymphocytes % 12.7 L Monocytes % 12.4 H Eosinophils % 0.5 Basophils % 0.2 Nucleated Red 0.6 H Blood Cells % Immature 0.210 H Granulocytes # Neutrophils # 9.1 H Lymphocytes # 1.6 Monocytes # 1.6 H Eosinophils # 0.1 Basophils # 0.0 Nucleated Red 0.1 H Blood Cells # Sodium Level 142 Potassium Level 4.2 Chloride Level 115 H Carbon Dioxide 25 Level Anion Gap 2 L Blood Urea 14 Nitrogen Creatinine 0.86 Est Glomerular > 60 Filtrat Rate mL/min Glucose Level 110 Calcium Level 8.0 L Phosphorus Level 2.9 Magnesium Level 2.4 Bedside Glucose 114 94 113 Test 06/22/18 07:00 06/22/18 07:57 06/22/18 09:02 Blood Gas Specimen Blood arterial Source Arterial Blood 06/22/2018 8:53:46 Date Drawn AM Arterial Blood pH 7.505 H (Temp corrected) Arterial Blood 28.6 L pCO2 (Temp correct) Arterial Blood pO2 79.1 L (Temp corrected) Arterial Blood 22.1 HCO3 Arterial Blood -0.6 Base Excess Arterial Blood 95.2 Oxygen Saturation Jarrod Test N/A Arterial Blood Gas A-Line Puncture Site Arterial 0.3 Blood Carboxyhemog lobin Arterial Blood 0.5 Methemoglobin Blood Gas A-a O2 173.2 H Differential Oxyhemoglobin 94.4 Percent Blood Gas 37.0 Temperature Blood Gas 22.0 Respiration Rate Blood Gas Actual 22 Respiration Rate Blood Gas Modality VENT - AC FiO2 40.0 Blood Gas Tidal 450.0 Volume Blood Gas Low PEEP 6.0 Setting Blood Gas Notified TM Whom Blood Gas Notified 06/22/2018 9:01:39 Time AM Bedside Glucose 123 128 Medications Current Medications Insulin Human Regular 100 unit/ Sodium Chloride 100 ml @ 0 mls/hr PER PROTOCOL IV ; Start 06/20/18 at 19:00 Potassium Chloride 40 meq/ Calcium Chloride 1 gm/Dextrose/ Sodium Chloride 1,030 ml @ 60 mls/hr [id number] IV Last administered on 06/22/18 03:28; Admin Dose 60 MLS/HR; Start 06/20/18 at 18:43 Hydromorphone HCl (Dilaudid) 0.2 mg Q15M PRN IV PAIN LEVEL 1-5 Last administered on 06/22/18 06:15; Admin Dose 0.2 MG; Start 06/20/18 at 19:00 Hydromorphone HCl (Dilaudid) 0.4 mg Q15M PRN IV PAIN LEVEL 6-10 Last administered on 06/22/18 02:35; Admin Dose 0.4 MG; Start 06/20/18 at 19:00 Oxycodone/ Acetaminophen (Percocet (5/ 325)) 1 tab Q3H PRN PO PAIN LEVEL 1-5; Start 06/20/18 at 19:00 Oxycodone/ Acetaminophen (Percocet (5/ 325)) 2 tab Q3H PRN PO PAIN LEVEL 6-10; Start 06/20/18 at 19:00 Ondansetron HCl (Zofran Inj) 4 mg Q6H PRN IV NAUSEA AND/OR VOMITING; Start 06/20/18 at 19:00 Famotidine (Pepcid Iv) 20 mg BID@08,20 IV Last administered on 06/22/18 08:31; Admin Dose 20 MG; Start 06/20/18 at 20:00 Acetaminophen (Tylenol Tab) 650 mg Q3H PRN PO ELEVATED TEMPERATURE Last administered on 06/21/18 22:54; Admin Dose 650 MG; Start 06/20/18 at 19:00 Potassium Chloride 50 ml @ 50 mls/hr SEE DIRECTION PRN IVPB K+ LEVEL Last administered on 06/22/18 05:44; Admin Dose 50 MLS/HR; Start 06/20/18 at 19:00 Magnesium Sulfate/ Dextrose 100 ml @ 100 mls/hr PRN PRN IVPB PENDING LAB VALUE; Start 06/20/18 at 19:00 Dopamine HCl/ Dextrose 250 ml @ 7.38 mls/hr PER PROTOCOL IV ; Start 06/20/18 at 19:00 Phenylephrine HCl 250 ml @ 75 mls/hr TITRATE IV Last administered on 06/22/18 01:24; Admin Dose 33.75 MLS/HR; Start 06/20/18 at 19:00 Fentanyl 100 ml @ 2.5 mls/hr TITRATE IV Last administered on 06/22/18at 06:28; Admin Dose 5 MLS/HR; Start 06/21/18 at 00:30 Diagnostic Test (Pha) (Accu-Chek) 1 ea Q1H XX Last administered on 06/22/18at 06:59; Admin Dose 1 EA; Start 06/21/18 at 03:00 Dextrose (D50w Syringe) 25 ml Q15M PRN IV .DECREASED GLUCOSE; Start 06/21/18 at 03:00 Dextrose (D50w Syringe) 50 ml Q15M PRN IV .DECREASED GLUCOSE; Start 06/21/18 at 03:00 Atorvastatin Calcium (Lipitor) 80 mg HS NGT Last administered on 06/21/18at 21:13; Admin Dose 80 MG; Start 06/21/18 at 21:00 Clopidogrel Bisulfate (plaVIX) 75 mg DAILY PO Last administered on 06/22/18at 09:12; Admin Dose 75 MG; Start 06/22/18 at 09:00 Midazolam HCl 50 mg/Dextrose 50 ml @ 1 mls/hr TITRATE IV Last administered on 06/21/18at 22:47; Admin Dose 4 MLS/HR; Start 06/21/18 at 16:00 Miscellaneous Information (* Miscellaneous Pharmacy Order) Treatment of Hypoglycemia: 1.BG 51... Per protocol XX ; Start 06/22/18 at 08:30 Dextrose (D50w Syringe) 25 ml Q15M PRN IV .DECREASED GLUCOSE; Start 06/22/18 at 08:30 Dextrose (D50w Syringe) 50 ml Q15M PRN IV .DECREASED GLUCOSE; Start 06/22/18 at 08:30 Aspirin (Aspirin) 325 mg DAILY PO Last administered on 06/22/18at 09:12; Admin Dose 325 MG; Start 06/22/18 at 09:00 Nitroglycerin/ Dextrose 250 ml @ 1.5 mls/hr PER PROTOCOL IV ; Start 06/22/18 at 08:30 Diphenhydramine HCl (Benadryl) 25 mg ICU RECOVERY PRN IV .PRURITUS; Start 06/22/18 at 08:30; Stop 06/22/18 at 13:00 Norepinephrine 250 ml @ 1.875 mls/ hr TITRATE IV ; Start 06/22/18 at 08:30 Enoxaparin Sodium (Lovenox) 40 mg DAILY SC ; Start 06/22/18 at 10:00 Assessment/Plan Hospital Course (Demo Recall) IMP: 1. Inferior myocardial infarction, status post angioplasty and stent placement---> status post coronary artery bypass graft surgery with reexploration for possible tamponade. 2. Ventricular fibrillation 2/2 #1 3. Likely aspiration pneumonia. 4. Cardiogenic shock. 5. History of gallbladder disease. RECS: 1. Vent support; decrease FiO2 and PEEP as tolerated currently on 40% FiO2. Anticipate weaning trial tomorrow if hemodynamically stable 2. Continue pain control and sedation 3. Continue vasopressors decrease as tolerated keep map greater than 65 4. Continue antibiotics for recent pneumonia 5. DVT/GI prophylaxis 40 min cc time Discussed with family at bedside. ISABELLA RUSSELL MD, [facility] Jun 22, 2018 11:30
--- NOTE | 2018-06-22 11:46 | PN ---
Date/Time of Note Date/Time of Note DATE: 06/22/18 TIME: 11:43 Subjective Patient remains intubated and sedated. Objective Vitals Vital Signs Date Temp Pulse Resp B/P (MAP) Pulse Ox O2 O2 Flow FiO2 Time Delivery Rate 06/22/18 101 16 98 40 11:06 06/22/18 99.5 108/59 10:00 (75) 06/22/18 Mechanical 07:00 Ventilator Intake and Output 06/21/18 06/21/18 06/22/18 1515:00 23:00 07:00 IntakeIntake Total 930.846 ml 964.25 ml 883.25 ml OutputOutput Total 603 ml 630 ml 1345 ml BalanceBalance 327.846 ml 334.25 ml -461.75 ml Neck no JVD Lungs bilateral rhonchi Cardiac regular rate and rhythm. Chest wound is clean. Chest tubes are in place Abdomen soft. Normoactive bowel sounds Extremities with mild edema Results Result Diagram: 06/22/1842906/22/18 043 Medications Medications Current Medications Insulin Human Regular 100 unit/ Sodium Chloride 100 ml @ 0 mls/hr PER PROTOCOL IV ; Start 06/20/18 at 19:00 Potassium Chloride 40 meq/ Calcium Chloride 1 gm/Dextrose/ Sodium Chloride 1,030 ml @ 60 mls/hr [id number] IV Last administered on 06/22/18at 03:28; Admin Dose 60 MLS/HR; Start 06/20/18 at 18:43 Hydromorphone HCl (Dilaudid) 0.2 mg Q15M PRN IV PAIN LEVEL 1-5 Last administered on 06/22/18at 06:15; Admin Dose 0.2 MG; Start 06/20/18 at 19:00 Hydromorphone HCl (Dilaudid) 0.4 mg Q15M PRN IV PAIN LEVEL 6-10 Last administered on 06/22/18at 02:35; Admin Dose 0.4 MG; Start 06/20/18 at 19:00 Oxycodone/ Acetaminophen (Percocet (5/ 325)) 1 tab Q3H PRN PO PAIN LEVEL 1-5; Start 06/20/18 at 19:00 Oxycodone/ Acetaminophen (Percocet (5/ 325)) 2 tab Q3H PRN PO PAIN LEVEL 6-10; Start 06/20/18 at 19:00 Ondansetron HCl (Zofran Inj) 4 mg Q6H PRN IV NAUSEA AND/OR VOMITING; Start 06/20/18 at 19:00 Famotidine (Pepcid Iv) 20 mg BID@08,20 IV Last administered on 06/22/18 08:31; Admin Dose 20 MG; Start 06/20/18 at 20:00 Acetaminophen (Tylenol Tab) 650 mg Q3H PRN PO ELEVATED TEMPERATURE Last admi nistered on 06/21/18 22:54; Admin Dose 650 MG; Start 06/20/18 at 19:00 Potassium Chloride 50 ml @ 50 mls/hr SEE DIRECTION PRN IVPB K+ LEVEL Last administered on 06/22/18 05:44; Admin Dose 50 MLS/HR; Start 06/20/18 at 19:00 Magnesium Sulfate/ Dextrose 100 ml @ 100 mls/hr PRN PRN IVPB PENDING LAB VALU E; Start 06/20/18 at 19:00 Dopamine HCl/ Dextrose 250 ml @ 7.38 mls/hr PER PROTOCOL IV ; Start 06/20/18 at 19:00 Phenylephrine HCl 250 ml @ 75 mls/hr TITRATE IV Last administered on 06/22/18 01:24; Admin Dose 33.75 MLS/HR; Start 06/20/18 at 19:00 Fentanyl 100 ml @ 2.5 mls/hr TITRATE IV Last administered on 06/22/18 06:28; Admin Dose 5 MLS/HR; Start 06/21/18 at 00:30 Diagnostic Test (Pha) (Accu-Chek) 1 ea Q1H XX Last administered on 06/22/18 06:59; Admin Dose 1 EA; Start 06/21/18 at 03:00 Dextrose (D50w Syringe) 25 ml Q15M PRN IV .DECREASED GLUCOSE; Start 06/21/18 at 03:00 Dextrose (D50w Syringe) 50 ml Q15M PRN IV .DECREASED GLUCOSE; Start 06/21/18 at 03:00 Atorvastatin Calcium (Lipitor) 80 mg HS NGT Last administered on 06/21/18 21:13; Admin Dose 80 MG; Start 06/21/18 at 21:00 Clopidogrel Bisulfate (plaVIX) 75 mg DAILY PO Last administered on 3/6/19at 09:12; Admin Dose 75 MG; Start 06/22/18 at 09:00 Midazolam HCl 50 mg/Dextrose 50 ml @ 1 mls/hr TITRATE IV Last administered on 06/21/18at 22:47; Admin Dose 4 MLS/HR; Start 06/21/18 at 16:00 Miscellaneous Information (* Miscellaneous Pharmacy Order) Treatment of Hypoglycemia: 1.BG 51... Per protocol XX ; Start 06/22/18 at 08:30 Dextrose (D50w Syringe) 25 ml Q15M PRN IV .DECREASED GLUCOSE; Start 06/22/18 at 08:30 Dextrose (D50w Syringe) 50 ml Q15M PRN IV .DECREASED GLUCOSE; Start 06/22/18 at 08:30 Aspirin (Aspirin) 325 mg DAILY PO Last administered on 06/22/18at 09:12; Admin Dose 325 MG; Start 06/22/18 at 09:00 Nitroglycerin/ Dextrose 250 ml @ 1.5 mls/hr PER PROTOCOL IV ; Start 06/22/18 at 08:30 Diphenhydramine HCl (Benadryl) 25 mg ICU RECOVERY PRN IV .PRURITUS; Start 06/22/18 at 08:30; Stop 06/22/18 at 13:00 Norepinephrine 250 ml @ 1.875 mls/ hr TITRATE IV ; Start 06/22/18 at 08:30 Enoxaparin Sodium (Lovenox) 40 mg DAILY SC ; Start 06/22/18 at 10:00 VTE Prophylaxis Risk score (from Nsg)>0 risk: 18 SCD applied (from Nsg): Yes Lines/Catheters IV Catheter Type: Saline Lock Reyes in Place: Yes (Critical care) Cont'd reyes catheter reason: other (indicate) (Critical care) Assessment/Plan Assessment/Plan 67-year-old female status post four-vessel CABG Postoperative bleeding. Status post evacuation of hematoma and control of bleeding Hypertension, stable Volume overload Type 2 diabetes mellitus Hyperlipidemia Continue ventilatory support Wean off nitro and Manan-Synephrine drip Cardiology, pulmonary, and cardiothoracic follow-up Case was discussed with CRIS Eldridge MD Jun 22, 2018 11:46
[2018-06-22] MEDS: ENOXAPARIN 40 MG/0.4 ML SYG SC SCH (13:13)
[2018-06-22] MEDS ORDERED: FUROSEMIDE (10 MG/ML) IV SYG IV ONE (14:00)
[2018-06-22] MEDS ORDERED: VANCOMYCIN IV PER PHARMACY XX SCH (14:00)
[2018-06-22] MEDS ORDERED: FUROSEMIDE 40 MG INJ IV SCH (14:00)
[2018-06-22] MEDS ORDERED: ZOSYN XX SCH (14:00)
[2018-06-22] MEDS: PIPER-TAZO 3.375 GM IV (PMX) 100 ML IVPB SCH ×2 (14:28→21:47)
[2018-06-22] MEDS ORDERED: VANCOMYCIN HCL 2 GM in SOD CHLORIDE 0.9% 500 ML IVPB SCH (15:00)
[2018-06-22] MEDS: MIDAZOLAM 50 MG in DEXTROSE 5% 40 ML IV SCH (15:53)
[2018-06-22] MEDS: ATORVASTATIN 80 MG TAB NGT SCH (21:17)
[2018-06-23] VITALS (74 sets, daily range): BP systolic 92–146; BP diastolic 49–79; PULSE 90–121; RESP 6–44; TEMP 99.4–99.7
[2018-06-23] MEDS: ACCU-CHEK XX SCH ×23 (00:02→23:03)
[2018-06-23] MEDS: INSULIN HUMAN REGULAR 100 UNIT in SOD CHLORIDE 0.9% 99 ML IV SCH (00:04)
[2018-06-23] MEDS: MIDAZOLAM 50 MG in DEXTROSE 5% 40 ML IV SCH (05:28)
[2018-06-23] MEDS: PIPER-TAZO 3.375 GM IV (PMX) 100 ML IVPB SCH ×3 (05:39→22:03)
--- NOTE | 2018-06-23 06:30 | PN ---
Date/Time of Note Date/Time of Note DATE: 06/23/18 TIME: 06:29 Assessment/Plan Lines/Catheters IV Catheter Type (from Nrs): A Line Ulrich in Place (from Nrs): Yes Assessment/Plan Assessment/Plan doing better off pressors. PEEP 8. cxr shows some congestion, start bumex drip and continue weaning vent. no fevers, no leukocytosis. d/c swan. Exam/Review of Systems Vital Signs Vitals Vital Signs Date Temp Pulse Resp B/P (MAP) Pulse Ox O2 O2 Flow FiO2 Time Delivery Rate 06/23/18 108 19 108/53 99 06:15 (71) 06/23/18 99.5 06:00 06/23/18 Mechanical 06:00 Ventilator 06/22/18 40 23:20 Intake and Output 06/22/18 06/22/18 06/23/18 1515:00 23:00 07:00 IntakeIntake Total 712.40 ml 1209 ml 620 ml OutputOutput Total 1545 ml 3042 ml 382 ml BalanceBalance -832.60 ml -1833 ml 238 ml Results Result Diagram: 06/23/18 0430 06/22/18 0430 ROSI HOWELL MD Jun 23, 2018 06:30
[2018-06-23] MEDS ORDERED: BUMETANIDE 6 MG in DEXTROSE 5% 36 ML IV ONE (07:00)
[2018-06-23] MEDS: VANCOMYCIN 1 GM 250 ML IVPB SCH ×2 (08:19→19:55)
[2018-06-23] MEDS: POTASSIUM CHLORIDE 50 ML IVPB PRN ×3 (08:20→10:31)
[2018-06-23] MEDS: ASPIRIN 325 MG TAB PO SCH (08:31)
[2018-06-23] MEDS: ASCORBIC ACID 500 MG TAB NGT SCH ×2 (08:31→21:02)
[2018-06-23] MEDS: FAMOTIDINE 20 MG INJ IV SCH ×2 (08:31→19:54)
[2018-06-23] MEDS: CLOPIDOGREL 75 MG TAB PO SCH (08:31)
[2018-06-23] MEDS: ENOXAPARIN 40 MG/0.4 ML SYG SC SCH (08:32)
--- NOTE | 2018-06-23 08:39 | RADRPT ---
Vent Rate: 107 bpm RR Interval: 0 msec OK Interval: 138 msec QRS Duration: 74 msec QT Interval: 356 msec QTC Interval: 475 msec P-R-T [place]: 54 - 43 - 45 degrees Sinus tachycardia Nonspecific ST abnormality Abnormal ECG Electronically Signed By: Darshan Pate
--- NOTE | 2018-06-23 08:44 | RADRPT ---
Vent Rate: 116 bpm RR Interval: 0 msec VT Interval: 128 msec QRS Duration: 76 msec QT Interval: 378 msec QTC Interval: 525 msec P-R-T [place]: 64 - 45 - 60 degrees Sinus tachycardia with frequent premature ventricular complexes and fusion complexes Inferior-posterior infarct , age undetermined ST T abnormalities, consider anterior ischemia Abnormal ECG Electronically Signed By: Darshan Pate
--- NOTE | 2018-06-23 08:46 | RADRPT ---
Vent Rate: 123 bpm RR Interval: 0 msec VT Interval: 136 msec QRS Duration: 74 msec QT Interval: 282 msec QTC Interval: 403 msec P-R-T [place]: 69 - 53 - 59 degrees Sinus tachycardia with fusion complexes Posterior infarct , age undetermined ST T abnormaliteis., suggestive of anterior ischemia Abnormal ECG Electronically Signed By: Darshan Pate
--- NOTE | 2018-06-23 08:52 | RADRPT ---
Vent Rate: 88 bpm RR Interval: 0 msec LA Interval: 152 msec QRS Duration: 86 msec QT Interval: 416 msec QTC Interval: 503 msec P-R-T [place]: 74 - 53 - 48 degrees Sinus rhythm with occasional premature ventricular complexes Inferior-posterior infarct , vs anterior ischemia Abnormal ECG Electronically Signed By: Darshan Pate
--- NOTE | 2018-06-23 09:17 | PN ---
Date/Time of Note Date/Time of Note DATE: 06/23/18 TIME: 09:15 Subjective Remains intubated. She is arousable and follows commands Objective Vitals Vital Signs Date Temp Pulse Resp B/P (MAP) Pulse Ox O2 O2 Flow FiO2 Time Delivery Rate 06/23/18 107 17 118/62 99 08:30 (80) 06/23/18 99.8 Mechanical 08:00 Ventilator 06/23/18 40 06:30 Intake and Output 06/22/18 06/22/18 06/23/18 1515:00 23:00 07:00 IntakeIntake Total 712.40 ml 1209 ml 620 ml OutputOutput Total 1545 ml 3042 ml 382 ml BalanceBalance -832.60 ml -1833 ml 238 ml Lungs with bilateral rhonchi Cardiac regular rate and rhythm Chest with clean wound Abdomen soft, nontender, normoactive bowel sounds Extremities 2+ edema Results Result Diagram: 06/23/18 0430 06/23/18 0430 Medications Medications Current Medications Insulin Human Regular 100 unit/ Sodium Chloride 100 ml @ 0 mls/hr PER PROTOCOL IV Last administered on 06/23/18at 00:04; Admin Dose 2 MLS/HR; Start 06/20/18 at 19:00 Potassium Chloride 40 meq/ Calcium Chloride 1 gm/Dextrose/ Sodium Chloride 1,030 ml @ 60 mls/hr [id number] IV Last administered on 06/22/18at 22:20; Admin Dose 60 MLS/HR; Start 06/20/18 at 18:43 Hydromorphone HCl (Dilaudid) 0.2 mg Q15M PRN IV PAIN LEVEL 1-5 Last administered on 06/22/18at 06:15; Admin Dose 0.2 MG; Start 06/20/18 at 19:00 Hydromorphone HCl (Dilaudid) 0.4 mg Q15M PRN IV PAIN LEVEL 6-10 Last administered on 06/22/18at 02:35; Admin Dose 0.4 MG; Start 06/20/18 at 19:00 Oxycodone/ Acetaminophen (Percocet (5/ 325)) 1 tab Q3H PRN PO PAIN LEVEL 1-5; Start 06/20/18 at 19:00 Oxycodone/ Acetaminophen (Percocet (5/ 325)) 2 tab Q3H PRN PO PAIN LEVEL 6-10; Start 06/20/18 at 19:00 Ondansetron HCl (Zofran Inj) 4 mg Q6H PRN IV NAUSEA AND/OR VOMITING; Start 06/20/18 at 19:00 Famotidine (Pepcid Iv) 20 mg BID@08,20 IV Last administered on 06/23/18 08:31; Admin Dose 20 MG; Start 06/20/18 at 20:00 Acetaminophen (Tylenol Tab) 650 mg Q3H PRN PO ELEVATED TEMPERATURE Last administered on 06/21/18 22:54; Admin Dose 650 MG; Start 06/20/18 at 19:00 Potassium Chloride 50 ml @ 50 mls/hr SEE DIRECTION PRN IVPB K+ LEVEL Last administered on 06/23/18 08:20; Admin Dose 50 MLS/HR; Start 06/20/18 at 19:00 Magnesium Sulfate/ Dextrose 100 ml @ 100 mls/hr PRN PRN IVPB PENDING LAB VALUE; Start 06/20/18 at 19:00 Dopamine HCl/ Dextrose 250 ml @ 7.38 mls/hr PER PROTOCOL IV ; Start 06/20/18 at 19:00 Phenylephrine HCl 250 ml @ 75 mls/hr TITRATE IV Last administered on 06/22/18 01:24; Admin Dose 33.75 MLS/HR; Start 06/20/18 at 19:00 Fentanyl 100 ml @ 2.5 mls/hr TITRATE IV Last administered on 06/22/18 06:28; Admin Dose 5 MLS/HR; Start 06/21/18 at 00:30 Diagnostic Test (Pha) (Accu-Chek) 1 ea Q1H XX Last administered on 06/23/18 08:08; Admin Dose 1 EA; Start 06/21/18 at 03:00 Dextrose (D50w Syringe) 25 ml Q15M PRN IV .DECREASED GLUCOSE; Start 06/21/18 at 03:00 Dextrose (D50w Syringe) 50 ml Q15M PRN IV .DECREASED GLUCOSE; Start 06/21/18 at 03:00 Atorvastatin Calcium (Lipitor) 80 mg HS NGT Last administered on 06/22/18 21:17; Admin Dose 80 MG; Start 06/21/18 at 21:00 Clopidogrel Bisulfate (plaVIX) 75 mg DAILY PO Last administered on 3/7/19at 08:31; Admin Dose 75 MG; Start 06/22/18 at 09:00 Midazolam HCl 50 mg/Dextrose 50 ml @ 1 mls/hr TITRATE IV Last administered on 06/23/18at 05:28; Admin Dose 4 MLS/HR; Start 06/21/18 at 16:00 Miscellaneous Information (* Miscellaneous Pharmacy Order) Treatment of Hypoglycemia: 1.BG 51... Per protocol XX ; Start 06/22/18 at 08:30 Dextrose (D50w Syringe) 25 ml Q15M PRN IV .DECREASED GLUCOSE; Start 06/22/18 at 08:30 Dextrose (D50w Syringe) 50 ml Q15M PRN IV .DECREASED GLUCOSE; Start 06/22/18 at 08:30 Aspirin (Aspirin) 325 mg DAILY PO Last administered on 06/23/18at 08:31; Admin Dose 325 MG; Start 06/22/18 at 09:00 Nitroglycerin/ Dextrose 250 ml @ 1.5 mls/hr PER PROTOCOL IV ; Start 06/22/18 at 08:30 Norepinephrine 250 ml @ 1.875 mls/ hr TITRATE IV ; Start 06/22/18 at 08:30 Enoxaparin Sodium (Lovenox) 40 mg DAILY SC Last administered on 06/23/18at 08:32; Admin Dose 40 MG; Start 06/22/18 at 10:00 Vancomycin HCl (Vanco Iv Per Pharmacy) VANCOMYCIN PER PHARMACY PER PROTOCOL XX ; Start 06/22/18 at 14:00 Miscellaneous Information (* Miscellaneous Pharmacy Order) ZOSYN IV PER PHARMACY ONCE XX ; Start 06/22/18 at 14:00 Piperacillin Sod/ Tazobactam Sod 100 ml @ 200 mls/hr Q8 IVPB Last administered on 06/23/18at 05:39; Admin Dose 200 MLS/HR; Start 06/22/18 at 14:06 Vancomycin HCl 250 ml @ 125 mls/hr Q12H IVPB Last administered on 06/23/18at 08:19; Admin Dose 125 MLS/HR; Start 06/23/18 at 08:00 Bumetanide 6 mg/ Dextrose 60 ml @ 10 mls/hr Q6H ONCE IV ; Start 06/23/18 at 07:00; Stop 06/23/18 at 12:59 Ferric Sodium Gluconate Complex 125 mg/Sodium Chloride 110 ml @ 110 mls/hr DAILY@1300 IVPB ; Start 06/23/18 at 13:00; Stop 06/27/18 at 13:59 Ascorbic Acid (Vitamin C) 1,000 mg BID NGT Last administered on 06/23/18at 08:31; Admin Dose 1,000 MG; Start 06/23/18 at 09:00 VTE Prophylaxis Risk score (from [facility])>0 risk: 18 SCD applied (from [facility]): Yes Lines/Catheters IV Catheter Type: Saline Lock Reyes in Place: Yes Cont'd reyes catheter reason: other (indicate) (Critical care) Assessment/Plan Assessment/Plan 67-year-old female status post four-vessel CABG Acute respiratory failure, on mechanical ventilation Volume overload Continue ventilatory support Bumex drip Cardiology, cardiothoracic, and pulmonary follow-up CRIS HAWTHORNE MD Jun 23, 2018 09:17
--- NOTE | 2018-06-23 09:56 | CONS ---
Consult Date/Type/Reason Admit Date/Time Jun 17, 2018 at 05:25 Initial Consult Date 06/17/18 Type of Consult Pulmonary Requesting Provider: LISSET PATINO Date/Time of Note DATE: 06/23/18 TIME: 09:54 Subjective Improved hemodynamics. Significant improvement following diuresis yesterday. Continues with chest tube drainage. Follow simple commands off sedation. Pending Bumex drip Objective Vital Signs Date Temp Pulse Resp B/P (MAP) Pulse Ox O2 O2 Flow FiO2 Time Delivery Rate 06/23/18 107 17 118/62 99 08:30 (80) 06/23/18 99.8 Mechanical 08:00 Ventilator 06/23/18 40 06:30 Intake and Output 06/22/18 06/22/18 06/23/18 1515:00 23:00 07:00 IntakeIntake Total 712.40 ml 1209 ml 660 ml OutputOutput Total 1545 ml 3042 ml 382 ml BalanceBalance -832.60 ml -1833 ml 278 ml Exam GENERAL: Well-nourished well-developed lady orally intubated on mechanical ventilation VITAL SIGNS: per chart NECK: Supple. No JVD or lymphadenopathy. CARDIAC EXAM: S1, S2. No added sounds or murmurs. CHEST: clear bilaterally, No added sounds, rales or wheezes ABDOMEN: Soft, nontender. No guarding or rebound. EXTREMITIES: No cyanosis, clubbing or edema. NEUROLOGIC: Generalized weakness. No focal deficits. Vent Setting Ventilator Support Mode: AC Fraction of Inspired Oxygen pe: 40 Positive End Expiratory Pressu: 8.0 Results/Medications Result Diagram: 06/23/18 0430 06/23/18 0430 Results 24 hrs Laboratory Tests Test 06/22/18 11:12 06/22/18 13:05 06/22/18 14:58 06/22/18 16:56 Bedside Glucose 125 135 149 140 Test 06/22/18 18:34 06/22/18 20:03 06/22/18 22:04 06/22/18 23:59 Bedside Glucose 120 115 131 113 Test 06/23/18 02:01 06/23/18 04:02 06/23/18 04:30 06/23/18 04:44 Bedside Glucose 135 128 White Blood 11.0 H Count Red Blood Count 2.82 L Hemoglobin 7.9 L Hematocrit 24.7 L Mean Corpuscular 87.6 Volume Mean Corpuscular 28.0 L Hemoglobin Mean Corpuscular 32.0 Hemoglobin Linda nt Red Cell 19.7 H Distribution Width Platelet Count 110 L Mean Platelet 10.8 H Volume Immature 2.000 H Granulocytes % Neutrophils % 69.0 Lymphocytes % 17.4 Monocytes % 9.4 Eosinophils % 1.9 Basophils % 0.3 Nucleated Red 0.6 H Blood Cells % Immature 0.220 H Granulocytes # Neutrophils # 7.6 H Lymphocytes # 1.9 Monocytes # 1.0 H Eosinophils # 0.2 Basophils # 0.0 Nucleated Red 0.1 H Blood Cells # Sodium Level 139 Potassium Level 3.7 Chloride Level 106 Carbon Dioxide 29 Level Anion Gap 4 L Blood Urea 15 Nitrogen Creatinine 0.82 Est Glomerular > 60 Filtrat Rate mL/min Glucose Level 124 Calcium Level 8.1 L Phosphorus Level 2.7 Magnesium Level 2.1 Blood Gas BLMV Specimen Source Arterial Blood 06/23/2018 4:47:54 Date Drawn AM Arterial Blood PUL ART LINE Gas Puncture Site Jarrod Test N/A Mixed Venous 7.454 H Blood pH Mixed Venous 41.2 L Blood PCO2 Mixed Venous 35.1 Blood PO2 Mixed Venous 28.3 H Blood HCO3 Mixed Venous 4.0 Blood Base Excess Mixed Venous 68.6 Blood O2 Saturation Mixed Venous 9.6 Blood Total Hemoglobin Mixed Venous 68.1 Blood Oxyhemoglo bin Mixed Venous 0.3 Bld Carboxyhemog lobin Mixed Venous 0.4 Blood Methemoglo bin Blood Gas A-a O2 202.7 Differential Blood Gas 37.0 Temperature Blood Gas 16.0 Respiration Rate Blood Gas Actual 18 Respiration Rate Blood Gas VENT - AC Modality FiO2 40.0 Blood Gas Tidal 450.0 Volume Blood Gas Low 8.0 PEEP Setting Blood Gas 42.0 Inspiratory Pressure Blood Gas Faby KAHN Critical Value .N. Read Back Blood Gas YOSVANY HUNTLEY Notified Whom Blood Gas 06/23/2018 5:00:44 Notified Time AM Test 06/23/18 06:02 06/23/18 07:00 06/23/18 08:04 Bedside Glucose 133 123 Blood Gas Blood arterial Specimen Source Arterial Blood 06/23/2018 7:25:08 Date Drawn AM Arterial Blood 7.478 H pH (Temp corrected) Arterial Blood 37.0 pCO2 (Temp correct) Arterial Blood 78.8 L pO2 (Temp corrected) Arterial Blood 26.8 H HCO3 Arterial Blood 3.2 H Base Excess Arterial Blood 95.2 Oxygen Saturatio n Jarrod Test N/A Arterial Blood A-Line Gas Puncture Site Arterial 0.3 Blood Carboxyhem oglobin Arterial Blood 0.2 Methemoglobin Blood Gas A-a O2 163.9 H Differential Oxyhemoglobin 94.7 Percent Blood Gas 37.0 Temperature Blood Gas Actual 16 Respiration Rate Blood Gas VENT - AC Modality FiO2 40.0 Blood Gas Tidal 450.0 Volume Blood Gas High 20.0 PEEP Setting Blood Gas Low 8.0 PEEP Setting Blood Gas TM Notified Whom Blood Gas 06/23/2018 7:40:13 Notified Time AM Medications Current Medications Insulin Human Regular 100 unit/ Sodium Chloride 100 ml @ 0 mls/hr PER PROTOCOL IV Last administered on 06/23/18at 00:04; Admin Dose 2 MLS/HR; Start 06/20/18 at 19:00 Potassium Chloride 40 meq/ Calcium Chloride 1 gm/Dextrose/ Sodium Chloride 1,030 ml @ 60 mls/hr [id number] IV Last administered on 06/22/18at 22:20; Admin Dose 60 MLS/HR; Start 06/20/18 at 18:43 Hydromorphone HCl (Dilaudid) 0.2 mg Q15M PRN IV PAIN LEVEL 1-5 Last administered on 06/22/18at 06:15; Admin Dose 0.2 MG; Start 06/20/18 at 19:00 Hydromorphone HCl (Dilaudid) 0.4 mg Q15M PRN IV PAIN LEVEL 6-10 Last administered on 06/22/18at 02:35; Admin Dose 0.4 MG; Start 06/20/18 at 19:00 Oxycodone/ Acetaminophen (Percocet (5/ 325)) 1 tab Q3H PRN PO PAIN LEVEL 1-5; Start 06/20/18 at 19:00 Oxycodone/ Acetaminophen (Percocet (5/ 325)) 2 tab Q3H PRN PO PAIN LEVEL 6-10; Start 06/20/18 at 19:00 Ondansetron HCl (Zofran Inj) 4 mg Q6H PRN IV NAUSEA AND/OR VOMITING; Start 06/20/18 at 19:00 Famotidine (Pepcid Iv) 20 mg BID@08,20 IV Last administered on 06/23/18 08:31; Admin Dose 20 MG; Start 06/20/18 at 20:00 Acetaminophen (Tylenol Tab) 650 mg Q3H PRN PO ELEVATED TEMPERATURE Last administered on 06/21/18 22:54; Admin Dose 650 MG; Start 06/20/18 at 19:00 Potassium Chloride 50 ml @ 50 mls/hr SEE DIRECTION PRN IVPB K+ LEVEL Last administered on 06/23/18 09:23; Admin Dose 50 MLS/HR; Start 06/20/18 at 19:00 Magnesium Sulfate/ Dextrose 100 ml @ 100 mls/hr PRN PRN IVPB PENDING LAB VALUE; Start 06/20/18 at 19:00 Dopamine HCl/ Dextrose 250 ml @ 7.38 mls/hr PER PROTOCOL IV ; Start 06/20/18 at 19:00 Phenylephrine HCl 250 ml @ 75 mls/hr TITRATE IV Last administered on 06/22/18 01:24; Admin Dose 33.75 MLS/HR; Start 06/20/18 at 19:00 Fentanyl 100 ml @ 2.5 mls/hr TITRATE IV Last administered on 06/22/18 06:28; Admin Dose 5 MLS/HR; Start 06/21/18 at 00:30 Diagnostic Test (Pha) (Accu-Chek) 1 ea Q1H XX Last administered on 06/23/18 08:08; Admin Dose 1 EA; Start 06/21/18 at 03:00 Dextrose (D50w Syringe) 25 ml Q15M PRN IV .DECREASED GLUCOSE; Start 06/21/18 at 03:00 Dextrose (D50w Syringe) 50 ml Q15M PRN IV .DECREASED GLUCOSE; Start 06/21/18 at 03:00 Atorvastatin Calcium (Lipitor) 80 mg HS NGT Last administered on 06/22/18 21:17; Admin Dose 80 MG; Start 06/21/18 at 21:00 Clopidogrel Bisulfate (plaVIX) 75 mg DAILY PO Last administered on 06/23/18 08:31; Admin Dose 75 MG; Start 06/22/18 at 09:00 Midazolam HCl 50 mg/Dextrose 50 ml @ 1 mls/hr TITRATE IV Last administered on 06/23/18 05:28; Admin Dose 4 MLS/HR; Start 06/21/18 at 16:00 Miscellaneous Information (* Miscellaneous Pharmacy Order) Treatment of Hypoglycemia: 1.BG 51... Per protocol XX ; Start 06/22/18 at 08:30 Dextrose (D50w Syringe) 25 ml Q15M PRN IV .DECREASED GLUCOSE; Start 06/22/18 at 08:30 Dextrose (D50w Syringe) 50 ml Q15M PRN IV .DECREASED GLUCOSE; Start 06/22/18 at 08:30 Aspirin (Aspirin) 325 mg DAILY PO Last administered on 06/23/18at 08:31; Admin Dose 325 MG; Start 06/22/18 at 09:00 Nitroglycerin/ Dextrose 250 ml @ 1.5 mls/hr PER PROTOCOL IV ; Start 06/22/18 at 08:30 Norepinephrine 250 ml @ 1.875 mls/ hr TITRATE IV ; Start 06/22/18 at 08:30 Enoxaparin Sodium (Lovenox) 40 mg DAILY SC Last administered on 06/23/18at 08:32; Admin Dose 40 MG; Start 06/22/18 at 10:00 Vancomycin HCl (Vanco Iv Per Pharmacy) VANCOMYCIN PER PHARMACY PER PROTOCOL XX ; Start 06/22/18 at 14:00 Miscellaneous Information (* Miscellaneous Pharmacy Order) ZOSYN IV PER PHARMACY ONCE XX ; Start 06/22/18 at 14:00 Piperacillin Sod/ Tazobactam Sod 100 ml @ 200 mls/hr Q8 IVPB Last administered on 06/23/18at 05:39; Admin Dose 200 MLS/HR; Start 06/22/18 at 14:06 Vancomycin HCl 250 ml @ 125 mls/hr Q12H IVPB Last administered on 06/23/18at 08:19; Admin Dose 125 MLS/HR; Start 06/23/18 at 08:00 Bumetanide 6 mg/ Dextrose 60 ml @ 10 mls/hr Q6H ONCE IV Last administered on 06/23/18at 09:23; Admin Dose 10 MLS/HR; Start 06/23/18 at 07:00; Stop 06/23/18 at 12:59 Ferric Sodium Gluconate Complex 125 mg/Sodium Chloride 110 ml @ 110 mls/hr DAILY@1300 IVPB ; Start 06/23/18 at 13:00; Stop 06/27/18 at 13:59 Ascorbic Acid (Vitamin C) 1,000 mg BID NGT Last administered on 06/23/18at 08:31; Admin Dose 1,000 MG; Start 06/23/18 at 09:00 Assessment/Plan Hospital Course (Demo Recall) IMP: 1. Inferior myocardial infarction, status post angioplasty and stent placement---> status post coronary artery bypass graft surgery with reexploration for possible tamponade. 2. Ventricular fibrillation 2/2 #1 3. Likely aspiration pneumonia. 4. Cardiogenic shock. Now resolved 5. History of gallbladder disease. 6. Congestive cardiac failure RECS: 1. Vent support; will attempt weaning trial later today following initiation of continuous diuresis 2. Continue pain control and sedation 3. Continue vasopressors decrease as tolerated keep map greater than 65 4. Continue antibiotics for recent pneumonia 5. DVT/GI prophylaxis 40 min cc time ISABELLA RUSSELL MD, [facility] Jun 23, 2018 09:56
--- NOTE | 2018-06-23 10:59 | CONS ---
Assessment/Plan Assessment/Plan Hospital Course (Demo Recall) 67 yo with acute inferior stemi, with severe left man disease and acutely occluded dominant LCX. Bare metal stent placed in the prox LCX and balloon angioplasty performed on the left main. She underwent CABG on Wednesday06/20/18 with return to the OR same day for mediastinal bleeding. Today off drips, with plans for weaning trial today. Impression: Inferior stemi due to occluded dominant LCX, with severe left main and proximal LAD disease, small nondominant RCA, s/p bare metal stent to prox LCX on Wednesday am and CABG on Wednesday06/20/18 Acute respiratory failure, on ventilator Recc: ASA 81 mg daily, clopidogrel, statin, received clopidogrel loading dose yesterday. Of note, ASA 325 is contraindicated in patients receiving Brilinta, ASA 81 mg is the correct dose. Ventilator management and weaning as per pulmonary Will initiate beta chantell today Consultation Date/Type/Reason Admit Date/Time Jun 17, 2018 at 05:25 Initial Consult Date 06/17/18 Type of Consult Cardiology Requesting Provider: LISSET PATINO Date/Time of Note DATE: 06/23/18 TIME: 10:53 24 HR Interval Summary Free Text/Dictation Overnight has diuresed, is off drips. Daughter at bedside. Exam/Review of Systems Vital Signs Vitals Vital Signs Date Temp Pulse Resp B/P (MAP) Pulse Ox O2 O2 Flow FiO2 Time Delivery Rate 06/23/18 111 19 127/66 97 10:30 (86) 06/23/18 Mechanical 10:00 Ventilator 06/23/18 99.8 08:00 06/23/18 40 08:00 Intake and Output 06/22/18 06/22/18 06/23/18 1515:00 23:00 07:00 IntakeIntake Total 712.40 ml 1209 ml 660 ml OutputOutput Total 1545 ml 3042 ml 407 ml BalanceBalance -832.60 ml -1833 ml 253 ml Exam Constitutional: other (arousable) Psych: nl mood/affect Head: normocephalic, atraumatic Eyes: nl lids ENMT: intubated Neck: No jvd, No bruits Respiratory: clear to auscultation, normal air movement Cardiovascular: regular rate and rhythm; No murmurs/extra sounds, No rub Gastrointestinal: soft, non-tender Musculoskeletal: nl extremities to inspection Extremities: edema (mild bilateral lower extremity) Skin: nl turgor Labs Result Diagram: 06/23/18 0430 06/23/18 0430 Results 24hrs Laboratory Tests Test 06/22/18 11:12 06/22/18 13:05 06/22/18 14:58 06/22/18 16:56 Bedside Glucose 125 135 149 140 Test 06/22/18 18:34 06/22/18 20:03 06/22/18 22:04 06/22/18 23:59 Bedside Glucose 120 115 131 113 Test 06/23/18 02:01 06/23/18 04:02 06/23/18 04:30 06/23/18 04:44 Bedside Glucose 135 128 White Blood 11.0 H Count Red Blood Count 2.82 L Hemoglobin 7.9 L Hematocrit 24.7 L Mean Corpuscular 87.6 Volume Mean Corpuscular 28.0 L Hemoglobin Mean Corpuscular 32.0 Hemoglobin Linda nt Red Cell 19.7 H Distribution Width Platelet Count 110 L Mean Platelet 10.8 H Volume Immature 2.000 H Granulocytes % Neutrophils % 69.0 Lymphocytes % 17.4 Monocytes % 9.4 Eosinophils % 1.9 Basophils % 0.3 Nucleated Red 0.6 H Blood Cells % Immature 0.220 H Granulocytes # Neutrophils # 7.6 H Lymphocytes # 1.9 Monocytes # 1.0 H Eosinophils # 0.2 Basophils # 0.0 Nucleated Red 0.1 H Blood Cells # Sodium Level 139 Potassium Level 3.7 Chloride Level 106 Carbon Dioxide 29 Level Anion Gap 4 L Blood Urea 15 Nitrogen Creatinine 0.82 Est Glomerular > 60 Filtrat Rate mL/min Glucose Level 124 Calcium Level 8.1 L Phosphorus Level 2.7 Magnesium Level 2.1 Blood Gas BLMV Specimen Source Arterial Blood 06/23/2018 4:47:54 Date Drawn AM Arterial Blood PUL ART LINE Gas Puncture Site Jarrod Test N/A Mixed Venous 7.454 H Blood pH Mixed Venous 41.2 L Blood PCO2 Mixed Venous 35.1 Blood PO2 Mixed Venous 28.3 H Blood HCO3 Mixed Venous 4.0 Blood Base Excess Mixed Venous 68.6 Blood O2 Saturation Mixed Venous 9.6 Blood Total Hemoglobin Mixed Venous 68.1 Blood Oxyhemoglo bin Mixed Venous 0.3 Bld Carboxyhemog lobin Mixed Venous 0.4 Blood Methemoglo bin Blood Gas A-a O2 202.7 Differential Blood Gas 37.0 Temperature Blood Gas 16.0 Respiration Rate Blood Gas Actual 18 Respiration Rate Blood Gas VENT - AC Modality FiO2 40.0 Blood Gas Tidal 450.0 Volume Blood Gas Low 8.0 PEEP Setting Blood Gas 42.0 Inspiratory Pressure Blood Gas Faby KAHN Critical Value .N. Read Back Blood Gas YOSVANY HUNTLEY Notified Whom Blood Gas 06/23/2018 5:00:44 Notified Time AM Test 06/23/18 06:02 06/23/18 07:00 06/23/18 08:04 06/23/18 10:07 Bedside Glucose 133 123 119 Blood Gas Blood arterial Specimen Source Arterial Blood 06/23/2018 7:25:08 Date Drawn AM Arterial Blood 7.478 H pH (Temp corrected) Arterial Blood 37.0 pCO2 (Temp correct) Arterial Blood 78.8 L pO2 (Temp corrected) Arterial Blood 26.8 H HCO3 Arterial Blood 3.2 H Base Excess Arterial Blood 95.2 Oxygen Saturatio n Jarrod Test N/A Arterial Blood A-Line Gas Puncture Site Arterial 0.3 Blood Carboxyhem oglobin Arterial Blood 0.2 Methemoglobin Blood Gas A-a O2 163.9 H Differential Oxyhemoglobin 94.7 Percent Blood Gas 37.0 Temperature Blood Gas Actual 16 Respiration Rate Blood Gas VENT - AC Modality FiO2 40.0 Blood Gas Tidal 450.0 Volume Blood Gas High 20.0 PEEP Setting Blood Gas Low 8.0 PEEP Setting Blood Gas TM Notified Whom Blood Gas 06/23/2018 7:40:13 Notified Time AM Imaging Imaging telemetry shows sinus tachycardia Medications Medications Current Medications Insulin Human Regular 100 unit/ Sodium Chloride 100 ml @ 0 mls/hr PER PROTOCOL IV Last administered on 06/23/18at 00:04; Admin Dose 2 MLS/HR; Start 06/20/18 at 19:00 Potassium Chloride 40 meq/ Calcium Chloride 1 gm/Dextrose/ Sodium Chloride 1,030 ml @ 60 mls/hr [id number] IV Last administered on 06/22/18at 22:20; Admin Dose 60 MLS/HR; Start 06/20/18 at 18:43 Hydromorphone HCl (Dilaudid) 0.2 mg Q15M PRN IV PAIN LEVEL 1-5 Last administered on 06/22/18at 06:15; Admin Dose 0.2 MG; Start 06/20/18 at 19:00 Hydromorphone HCl (Dilaudid) 0.4 mg Q15M PRN IV PAIN LEVEL 6-10 Last adm inistered on 06/22/18at 02:35; Admin Dose 0.4 MG; Start 06/20/18 at 19:00 Oxycodone/ Acetaminophen (Percocet (5/ 325)) 1 tab Q3H PRN PO PAIN LEVEL 1-5; Start 06/20/18 at 19:00 Oxycodone/ Acetaminophen (Percocet (5/ 325)) 2 tab Q3H PRN PO PAIN LEVEL 6-10; Start 06/20/18 at 19:00 Ondansetron HCl (Zofran Inj) 4 mg Q6H PRN IV NAUSEA AND/OR VOMITING; Start 06/20/18 at 19:00 Famotidine (Pepcid Iv) 20 mg BID@08,20 IV Last administered on 06/23/18 08:31; Admin Dose 20 MG; Start 06/20/18 at 20:00 Acetaminophen (Tylenol Tab) 650 mg Q3H PRN PO ELEVATED TEMPERATURE Last administered on 06/21/18at 22:54; Admin Dose 650 MG; Start 06/20/18 at 19:00 Potassium Chloride 50 ml @ 50 mls/hr SEE DIRECTION PRN IVPB K+ LEVEL Last administered on 06/23/18 10:31; Admin Dose 50 MLS/HR; Start 06/20/18 at 19:00 Magnesium Sulfate/ Dextrose 100 ml @ 100 mls/hr PRN PRN IVPB PENDING LAB VALUE; Start 06/20/18 at 19:00 Dopamine HCl/ Dextrose 250 ml @ 7.38 mls/hr PER PROTOCOL IV ; Start 06/20/18 at 19:00 Phenylephrine HCl 250 ml @ 75 mls/hr TITRATE IV Last administered on 06/22/18 01:24; Admin Dose 33.75 MLS/HR; Start 06/20/18 at 19:00 Fentanyl 100 ml @ 2.5 mls/hr TITRATE IV Last administered on 06/22/18 06:28; Admin Dose 5 MLS/HR; Start 06/21/18 at 00:30 Diagnostic Test (Pha) (Accu-Chek) 1 ea Q1H XX Last administered on 06/23/18at 10:08; Admin Dose 1 EA; Start 06/21/18 at 03:00 Dextrose (D50w Syringe) 25 ml Q15M PRN IV .DECREASED GLUCOSE; Start 06/21/18 at 03:00 Dextrose (D50w Syringe) 50 ml Q15M PRN IV .DECREASED GLUCOSE; Start 06/21/18 at 03:00 Atorvastatin Calcium (Lipitor) 80 mg HS NGT Last administered on 06/22/18at 21:17; Admin Dose 80 MG; Start 06/21/18 at 21:00 Clopidogrel Bisulfate (plaVIX) 75 mg DAILY PO Last administered on 06/23/18at 08:31; Admin Dose 75 MG; Start 06/22/18 at 09:00 Midazolam HCl 50 mg/Dextrose 50 ml @ 1 mls/hr TITRATE IV Last administered on 06/23/18at 05:28; Admin Dose 4 MLS/HR; Start 06/21/18 at 16:00 Miscellaneous Information (* Miscellaneous Pharmacy Order) Treatment of Hypoglyc emia: 1.BG 51... Per protocol XX ; Start 06/22/18 at 08:30 Dextrose (D50w Syringe) 25 ml Q15M PRN IV .DECREASED GLUCOSE; Start 06/22/18 at 08:30 Dextrose (D50w Syringe) 50 ml Q15M PRN IV .DECREASED GLUCOSE; Start 06/22/18 at 08:30 Aspirin (Aspirin) 325 mg DAILY PO Last administered on 06/23/18at 08:31; Admin Dose 325 MG; Start 06/22/18 at 09:00 Nitroglycerin/ Dextrose 250 ml @ 1.5 mls/hr PER PROTOCOL IV ; Start 06/22/18 at 08:30 Norepinephrine 250 ml @ 1.875 mls/ hr TITRATE IV ; Start 06/22/18 at 08:30 Enoxaparin Sodium (Lovenox) 40 mg DAILY SC Last administered on 06/23/18at 08:32; Admin Dose 40 MG; Start 06/22/18 at 10:00 Vancomycin HCl (Vanco Iv Per Pharmacy) VANCOMYCIN PER PHARMACY PER PROTOCOL XX ; Start 06/22/18 at 14:00 Miscellaneous Information (* Miscellaneous Pharmacy Order) ZOSYN IV PER PHARMACY ONCE XX ; Start 06/22/18 at 14:00 Piperacillin Sod/ Tazobactam Sod 100 ml @ 200 mls/hr Q8 IVPB Last administered on 06/23/18at 05:39; Admin Dose 200 MLS/HR; Start 06/22/18 at 14:06 Vancomycin HCl 250 ml @ 125 mls/hr Q12H IVPB Last administered on 06/23/18at 08:19; Admin Dose 125 MLS/HR; Start 06/23/18 at 08:00 Bumetanide 6 mg/ Dextrose 60 ml @ 10 mls/hr Q6H ONCE IV Last administered on at 09:23; Admin Dose 10 MLS/HR; Start 06/23/18 at 07:00; Stop 06/23/18 at 12:59 Ferric Sodium Gluconate Complex 125 mg/Sodium Chloride 110 ml @ 110 mls/hr DAILY@1300 IVPB ; Start 06/23/18 at 13:00; Stop 06/27/18 at 13:59 Ascorbic Acid (Vitamin C) 1,000 mg BID NGT Last administered on 06/23/18at 08:31; Admin Dose 1,000 MG; Start 06/23/18 at 09:00 LISSET PATINO Jun 23, 2018 10:59
[2018-06-23] MEDS: METOPROLOL 25 MG TAB GTB SCH ×2 (11:05→21:03)
[2018-06-23] MEDS: SOD FERRIC GLUC COMPLX 125 MG in SOD CHLORIDE 0.9% 100 ML IVPB SCH (12:52)
[2018-06-23] MEDS: FENTAnyl (DRIP) 1000 mcg/100mL 100 ML IV SCH (13:35)
[2018-06-23] MEDS: HYDROmorphONE 0.5 MG/0.5 ML SYG IV PRN (13:44)
[2018-06-23] MEDS: POTASSIUM CHLORIDE 40 MEQ, CALCIUM CHLORIDE 10% 1 GM in DEXTROSE 5%-0.225% NACL 1,000 ML IV SCH (15:23)
[2018-06-23] MEDS: MAGNESIUM SULFATE 1 GM/D5W 100 ML IVPB PRN ×2 (18:21→19:28)
[2018-06-23] MEDS: ATORVASTATIN 80 MG TAB NGT SCH (21:02)
[2018-06-24] VITALS (52 sets, daily range): BP systolic 90–149; BP diastolic 43–70; PULSE 85–114; RESP 15–30
[2018-06-24] MEDS: MIDAZOLAM 50 MG in DEXTROSE 5% 40 ML IV SCH (00:28)
[2018-06-24] MEDS: ACCU-CHEK XX SCH ×24 (01:00→23:23)
[2018-06-24] MEDS: POTASSIUM CHLORIDE 50 ML IVPB PRN ×6 (03:47→23:26)
[2018-06-24] MEDS: POTASSIUM CHLORIDE 40 MEQ, CALCIUM CHLORIDE 10% 1 GM in DEXTROSE 5%-0.225% NACL 1,000 ML IV SCH (03:51)
[2018-06-24] MEDS: PIPER-TAZO 3.375 GM IV (PMX) 100 ML IVPB SCH ×3 (05:28→22:07)
--- NOTE | 2018-06-24 06:08 | PN ---
Date/Time of Note Date/Time of Note DATE: 06/24/18 TIME: 06:07 Assessment/Plan Lines/Catheters IV Catheter Type (from Nrs): A Line Ulrich in Place (from Nrs): Yes Assessment/Plan Assessment/Plan awake. diruesed with bumex. replace K. attempt weaning today. chest tube 200cc over 24hr. no fevers. creat stable. good progress. Exam/Review of Systems Vital Signs Vitals Vital Signs Date Temp Pulse Resp B/P (MAP) Pulse Ox O2 O2 Flow FiO2 Time Delivery Rate 06/24/18 89 16 100 40 05:25 06/24/18 99.3 113/55 Mechanical 05:00 (74) Ventilator Intake and Output 06/23/18 06/23/18 06/24/18 1515:00 23:00 07:00 IntakeIntake Total 1010.25 ml 1325.5 ml 603.5 ml OutputOutput Total 4156 ml 2237 ml 220 ml BalanceBalance -3145.75 ml -911.5 ml 383.5 ml Results Result Diagram: 06/24/18 0249 06/24/18 0249 ROSI HOWELL MD Jun 24, 2018 06:08
--- NOTE | 2018-06-24 08:01 | CONS ---
Assessment/Plan Assessment/Plan Hospital Course (Demo Recall) 67 yo with acute inferior stemi, with severe left man disease and acutely occluded dominant LCX. Bare metal stent placed in the prox LCX and balloon angioplasty performed on the left main. She underwent CABG on Wednesday06/20/18 with return to the OR same day for mediastinal bleeding. Failed weaning trial yesterday. Impression: Inferior stemi due to occluded dominant LCX, with severe left main and proximal LAD disease, small nondominant RCA, s/p bare metal stent to prox LCX on Wednesday am and CABG on Wednesday06/20/18 Acute respiratory failure, on ventilator, s/p failed weaning trial yesterday Recc: ASA 81 mg daily, clopidogrel, statin. Ventilator management and weaning as per pulmonary Continue metoprolol Consultation Date/Type/Reason Admit Date/Time Jun 17, 2018 at 05:25 Initial Consult Date 06/17/18 Type of Consult Cardiology Requesting Provider: LISSET PATINO Date/Time of Note DATE: 06/24/18 TIME: 07:59 24 HR Interval Summary Free Text/Dictation Overnight failed weaning trial, continued to diurese, rhythm stable, bp stable o ff pressors Subjective hx not possible: pt non-verbal Exam/Review of Systems Vital Signs Vitals Vital Signs Date Temp Pulse Resp B/P (MAP) Pulse Ox O2 O2 Flow FiO2 Time Delivery Rate 06/24/18 89 16 98/47 (64) 100 Mechanical 06:45 Ventilator 06/24/18 98.5 06:00 06/24/18 40 05:25 Intake and Output 06/23/18 06/23/18 06/24/18 1515:00 23:00 07:00 IntakeIntake Total 1010.25 ml 1325.5 ml 897.0 ml OutputOutput Total 4156 ml 2237 ml 304 ml BalanceBalance -3145.75 ml -911.5 ml 593.0 ml Exam Constitutional: well developed Eyes: nl lids ENMT: intubated Neck: No jvd, No bruits Respiratory: clear to auscultation, normal air movement Cardiovascular: regular rate and rhythm, nl pulses; No murmurs/extra sounds, No rub Gastrointestinal: soft, non-tender Musculoskeletal: nl extremities to inspection Skin: nl turgor Labs Result Diagram: 06/24/1824806/24/18248 Results 24hrs Laboratory Tests Test 06/23/18 08:04 06/23/18 10:07 06/23/18 12:04 06/23/18 14:34 Bedside Glucose 123 119 144 132 Test 06/23/18 16:04 06/23/18 17:10 06/23/18 18:00 06/23/18 20:01 Bedside Glucose 155 141 154 Sodium Level 138 Potassium Level 4.5 Chloride Level 99 Carbon Dioxide Level 33 H Anion Gap 6 Blood Urea Nitrogen 15 Creatinine 0.88 Est Glomerular Filtrat > 60 Rate mL/min Glucose Level 254 #H Calcium Level 8.5 Phosphorus Level 3.0 Magnesium Level 1.9 Total Bilirubin 0.6 Direct Bilirubin 0.00 Indirect Bilirubin 0.6 Aspartate Amino 35 Transf (AST/SGOT) Alanine 30 Aminotransferase (ALT/SG PT) Alkaline Phosphatase 95 Total Protein 5.2 L Albumin 2.5 L Globulin 2.70 Albumin/Globulin Ratio 0.92 Test 06/23/18 21:57 06/23/18 23:56 06/24/18 01:51 06/24/18 02:49 Bedside Glucose 110 124 121 White Blood Count 10.6 Red Blood Count 2.68 L Hemoglobin 7.6 L Hematocrit 23.8 L Mean Corpuscular Volume 88.8 Mean Corpuscular 28.4 L Hemoglobin Mean Corpuscular 31.9 L Hemoglobin Concent Red Cell Distribution 19.0 H Width Platelet Count 141 # Mean Platelet Volume 10.6 H Immature Granulocytes % 2.200 H Neutrophils % 70.5 Lymphocytes % 14.0 L Monocytes % 10.4 Eosinophils % 2.5 Basophils % 0.4 Nucleated Red Blood 0.5 H Cells % Immature Granulocytes # 0.230 H Neutrophils # 7.5 Lymphocytes # 1.5 Monocytes # 1.1 H Eosinophils # 0.3 Basophils # 0.0 Nucleated Red Blood 0.1 H Cells # Sodium Level 140 Potassium Level 3.4 L Chloride Level 101 Carbon Dioxide Level 33 H Anion Gap 6 Blood Urea Nitrogen 17 Creatinine 0.81 Est Glomerular Filtrat > 60 Rate mL/min Glucose Level 122 # Calcium Level 7.9 L Phosphorus Level 3.1 Magnesium Level 2.5 Test 06/24/18 03:54 06/24/18 05:50 Bedside Glucose 110 110 Medications Medications Current Medications Insulin Human Regular 100 unit/ Sodium Chloride 100 ml @ 0 mls/hr PER PROTOCOL IV Last administered on 06/23/18 00:04; Admin Dose 2 MLS/HR; Start 06/20/18 at 19:00 Potassium Chloride 40 meq/ Calcium Chloride 1 gm/Dextrose/ Sodium Chloride 1,030 ml @ 60 mls/hr [id number] IV Last administered on 06/24/18 03:51; Admin Dose 60 MLS/HR; Start 06/20/18 at 18:43 Hydromorphone HCl (Dilaudid) 0.2 mg Q15M PRN IV PAIN LEVEL 1-5 Last administered on 06/22/18 06:15; Admin Dose 0.2 MG; Start 06/20/18 at 19:00 Hydromorphone HCl (Dilaudid) 0.4 mg Q15M PRN IV PAIN LEVEL 6-10 Last administered on 06/23/18 13:44; Admin Dose 0.4 MG; Start 06/20/18 at 19:00 Oxycodone/ Acetaminophen (Percocet (5/ 325)) 1 tab Q3H PRN PO PAIN LEVEL 1-5; Start 06/20/18 at 19:00 Oxycodone/ Acetaminophen (Percocet (5/ 325)) 2 tab Q3H PRN PO PAIN LEVEL 6-10; Start 06/20/18 at 19:00 Ondansetron HCl (Zofran Inj) 4 mg Q6H PRN IV NAUSEA AND/OR VOMITING; Start 06/20/18 at 19:00 Famotidine (Pepcid Iv) 20 mg BID@08,20 IV Last administered on 06/23/18 19:54; Admin Dose 20 MG; Start 06/20/18 at 20:00 Acetaminophen (Tylenol Tab) 650 mg Q3H PRN PO ELEVATED TEMPERATURE Last administered on 06/21/18 22:54; Admin Dose 650 MG; Start 06/20/18 at 19:00 Potassium Chloride 50 ml @ 50 mls/hr SEE DIRECTION PRN IVPB K+ LEVEL Last administered on 06/24/18 05:15; Admin Dose 50 MLS/HR; Start 06/20/18 at 19:00 Magnesium Sulfate/ Dextrose 100 ml @ 100 mls/hr PRN PRN IVPB PENDING LAB VALUE Last administered on 06/23/18 19:28; Admin Dose 100 MLS/HR; Start 06/20/18 at 19:00 Dopamine HCl/ Dextrose 250 ml @ 7.38 mls/hr PER PROTOCOL IV ; Start 06/20/18 at 19:00 Phenylephrine HCl 250 ml @ 75 mls/hr TITRATE IV Last administered on 06/22/18at 01:24; Admin Dose 33.75 MLS/HR; Start 06/20/18 at 19:00 Fentanyl 100 ml @ 2.5 mls/hr TITRATE IV Last administered on 06/23/18at 13:35; Admin Dose 2.5 MLS/HR; Start 06/21/18 at 00:30 Diagnostic Test (Pha) (Accu-Chek) 1 ea Q1H XX Last administered on 06/24/18at 06:00; Admin Dose 1 EA; Start 06/21/18 at 03:00 Dextrose (D50w Syringe) 25 ml Q15M PRN IV .DECREASED GLUCOSE; Start 06/21/18 at 03:00 Dextrose (D50w Syringe) 50 ml Q15M PRN IV .DECREASED GLUCOSE; Start 06/21/18 at 03:00 Atorvastatin Calcium (Lipitor) 80 mg HS NGT Last administered on 06/23/18at 21:02; Admin Dose 80 MG; Start 06/21/18 at 21:00 Clopidogrel Bisulfate (plaVIX) 75 mg DAILY PO Last administered on 06/23/18at 08:31; Admin Dose 75 MG; Start 06/22/18 at 09:00 Midazolam HCl 50 mg/Dextrose 50 ml @ 1 mls/hr TITRATE IV Last administered on 06/24/18at 00:28; Admin Dose 3 MLS/HR; Start 06/21/18 at 16:00 Miscellaneous Information (* Miscellaneous Pharmacy Order) Treatment of Hypoglycemia: 1.BG 51... Per protocol XX ; Start 06/22/18 at 08:30 Dextrose (D50w Syringe) 25 ml Q15M PRN IV .DECREASED GLUCOSE; Start 06/22/18 at 08:30 Dextrose (D50w Syringe) 50 ml Q15M PRN IV .DECREASED GLUCOSE; Start 06/22/18 at 08:30 Nitroglycerin/ Dextrose 250 ml @ 1.5 mls/hr PER PROTOCOL IV ; Start 06/22/18 at 08:30 Norepinephrine 250 ml @ 1.875 mls/ hr TITRATE IV ; Start 06/22/18 at 08:30 Enoxaparin Sodium (Lovenox) 40 mg DAILY SC Last administered on 06/23/18at 08:32; Admin Dose 40 MG; Start 06/22/18 at 10:00 Vancomycin HCl (Vanco Iv Per Pharmacy) VANCOMYCIN PER PHARMACY PER PROTOCOL XX ; Start 06/22/18 at 14:00 Miscellaneous Information (* Miscellaneous Pharmacy Order) ZOSYN IV PER PHARMACY ONCE XX ; Start 06/22/18 at 14:00 Piperacillin Sod/ Tazobactam Sod 100 ml @ 200 mls/hr Q8 IVPB Last administered on 06/24/18at 05:28; Admin Dose 200 MLS/HR; Start 06/22/18 at 14:06 Vancomycin HCl 250 ml @ 125 mls/hr Q12H IVPB Last administered on 06/23/18at 19:55; Admin Dose 125 MLS/HR; Start 06/23/18 at 08:00 Ferric Sodium Gluconate Complex 125 mg/Sodium Chloride 110 ml @ 110 mls/hr DAILY@1300 IVPB Last administered on 06/23/18at 12:52; Admin Dose 110 MLS/HR; Start 06/23/18 at 13:00; Stop 06/27/18 at 13:59 Ascorbic Acid (Vitamin C) 1,000 mg BID NGT Last administered on 06/23/18at 21:02; Admin Dose 1,000 MG; Start 06/23/18 at 09:00 Metoprolol Tartrate (Lopressor) 25 mg BID GTB Last administered on 06/23/18at 21:03; Admin Dose 25 MG; Start 06/23/18 at 11:00 Aspirin (Aspirin) 81 mg DAILY GTB ; Start 06/24/18 at 09:00 LISSET PATINO Jun 24, 2018 08:01
[2018-06-24] MEDS: CLOPIDOGREL 75 MG TAB PO SCH (08:58)
[2018-06-24] MEDS: ASCORBIC ACID 500 MG TAB NGT SCH ×2 (08:58→21:00)
[2018-06-24] MEDS: ASPIRIN 81 MG TAB GTB SCH (08:58)
[2018-06-24] MEDS: METOPROLOL 25 MG TAB GTB SCH ×2 (08:58→21:00)
[2018-06-24] MEDS: ENOXAPARIN 40 MG/0.4 ML SYG SC SCH (09:02)
[2018-06-24] MEDS: FAMOTIDINE 20 MG INJ IV SCH ×2 (09:10→20:04)
[2018-06-24] MEDS: VANCOMYCIN 1 GM 250 ML IVPB SCH ×2 (09:16→20:04)
--- NOTE | 2018-06-24 09:28 | PN ---
Date/Time of Note Date/Time of Note DATE: 06/24/18 TIME: 09:25 Subjective Remains intubated. She is arousable and follows commands. Objective Vitals Vital Signs Date Temp Pulse Resp B/P (MAP) Pulse Ox O2 O2 Flow FiO2 Time Delivery Rate 06/24/18 99.1 97 18 115/53 99 Mechanical 08:00 (73) Ventilator 06/24/18 40 08:00 Intake and Output 06/23/18 06/23/18 06/24/18 1515:00 23:00 07:00 IntakeIntake Total 1010.25 ml 1325.5 ml 897.0 ml OutputOutput Total 4156 ml 2237 ml 337 ml BalanceBalance -3145.75 ml -911.5 ml 560.0 ml Bilateral rhonchi Regular rate and rhythm no murmurs or gallops Abdomen soft nontender nondistended normoactive bowel sounds Mild pedal edema Results Result Diagram: 06/24/18 0249 06/24/18 0802 Medications Medications Current Medications Insulin Human Regular 100 unit/ Sodium Chloride 100 ml @ 0 mls/hr PER PROTOCOL IV Last administered on 06/23/18at 00:04; Admin Dose 2 MLS/HR; Start 06/20/18 at 19:00 Potassium Chloride 40 meq/ Calcium Chloride 1 gm/Dextrose/ Sodium Chloride 1,030 ml @ 60 mls/hr [id number] IV Last administered on 06/24/18at 03:51; Admin Dose 60 MLS/HR; Start 06/20/18 at 18:43 Hydromorphone HCl (Dilaudid) 0.2 mg Q15M PRN IV PAIN LEVEL 1-5 Last admin istered on 06/22/18at 06:15; Admin Dose 0.2 MG; Start 06/20/18 at 19:00 Hydromorphone HCl (Dilaudid) 0.4 mg Q15M PRN IV PAIN LEVEL 6-10 Last administered on 06/23/18at 13:44; Admin Dose 0.4 MG; Start 06/20/18 at 19:00 Oxycodone/ Acetaminophen (Percocet (5/ 325)) 1 tab Q3H PRN PO PAIN LEVEL 1-5; Start 06/20/18 at 19:00 Oxycodone/ Acetaminophen (Percocet (5/ 325)) 2 tab Q3H PRN PO PAIN LEVEL 6-10; Start 06/20/18 at 19:00 Ondansetron HCl (Zofran Inj) 4 mg Q6H PRN IV NAUSEA AND/OR VOMITING; Start 06/20/18 at 19:00 Famotidine (Pepcid Iv) 20 mg BID@08,20 IV Last administered on 06/24/18 09:10; Admin Dose 20 MG; Start 06/20/18 at 20:00 Acetaminophen (Tylenol Tab) 650 mg Q3H PRN PO ELEVATED TEMPERATURE Last administered on 06/21/18 22:54; Admin Dose 650 MG; Start 06/20/18 at 19:00 Potassium Chloride 50 ml @ 50 mls/hr SEE DIRECTION PRN IVPB K+ LEVEL Last administered on 06/24/18 05:15; Admin Dose 50 MLS/HR; Start 06/20/18 at 19:00 Magnesium Sulfate/ Dextrose 100 ml @ 100 mls/hr PRN PRN IVPB PENDING LAB VALUE Last administered on 06/23/18 19:28; Admin Dose 100 MLS/HR; Start 06/20/18 at 19:00 Dopamine HCl/ Dextrose 250 ml @ 7.38 mls/hr PER PROTOCOL IV ; Start 06/20/18 at 19:00 Phenylephrine HCl 250 ml @ 75 mls/hr TITRATE IV Last administered on 06/22/18 01:24; Admin Dose 33.75 MLS/HR; Start 06/20/18 at 19:00 Fentanyl 100 ml @ 2.5 mls/hr TITRATE IV Last administered on 06/23/18 13:35; Admin Dose 2.5 MLS/HR; Start 06/21/18 at 00:30 Diagnostic Test (Pha) (Accu-Chek) 1 ea Q1H XX Last administered on 06/24/18 08:36; Admin Dose 1 EA; Start 06/21/18 at 03:00 Dextrose (D50w Syringe) 25 ml Q15M PRN IV .DECREASED GLUCOSE; Start 06/21/18 at 03:00 Dextrose (D50w Syringe) 50 ml Q15M PRN IV .DECREASED GLUCOSE; Start 06/21/18 at 03:00 Atorvastatin Calcium (Lipitor) 80 mg HS NGT Last administered on 06/23/18 21:02; Admin Dose 80 MG; Start 06/21/18 at 21:00 Clopidogrel Bisulfate (plaVIX) 75 mg DAILY PO Last administered on 06/24/18at 08:58; Admin Dose 75 MG; Start 06/22/18 at 09:00 Midazolam HCl 50 mg/Dextrose 50 ml @ 1 mls/hr TITRATE IV Last administered on 06/24/18at 00:28; Admin Dose 3 MLS/HR; Start 06/21/18 at 16:00 Miscellaneous Information (* Miscellaneous Pharmacy Order) Treatment of Hypog lycemia: 1.BG 51... Per protocol XX ; Start 06/22/18 at 08:30 Dextrose (D50w Syringe) 25 ml Q15M PRN IV .DECREASED GLUCOSE; Start 06/22/18 at 08:30 Dextrose (D50w Syringe) 50 ml Q15M PRN IV .DECREASED GLUCOSE; Start 06/22/18 at 08:30 Nitroglycerin/ Dextrose 250 ml @ 1.5 mls/hr PER PROTOCOL IV ; Start 06/22/18 at 08:30 Norepinephrine 250 ml @ 1.875 mls/ hr TITRATE IV ; Start 06/22/18 at 08:30 Enoxaparin Sodium (Lovenox) 40 mg DAILY SC Last administered on 06/24/18at 09:02; Admin Dose 40 MG; Start 06/22/18 at 10:00 Vancomycin HCl (Vanco Iv Per Pharmacy) VANCOMYCIN PER PHARMACY PER PROTOCOL XX ; Start 06/22/18 at 14:00 Miscellaneous Information (* Miscellaneous Pharmacy Order) ZOSYN IV PER PHARMACY ONCE XX ; Start 06/22/18 at 14:00 Piperacillin Sod/ Tazobactam Sod 100 ml @ 200 mls/hr Q8 IVPB Last administered on 06/24/18at 05:28; Admin Dose 200 MLS/HR; Start 06/22/18 at 14:06 Vancomycin HCl 250 ml @ 125 mls/hr Q12H IVPB Last administered on 06/24/18at 09:16; Admin Dose 125 MLS/HR; Start 06/23/18 at 08:00 Ferric Sodium Gluconate Complex 125 mg/Sodium Chloride 110 ml @ 110 mls/hr DAILY@1300 IVPB Last administered on 06/23/18at 12:52; Admin Dose 110 MLS/HR; Start 06/23/18 at 13:00; Stop 06/27/18 at 13:59 Ascorbic Acid (Vitamin C) 1,000 mg BID NGT Last administered on 06/24/18at 08:58; Admin Dose 1,000 MG; Start 06/23/18 at 09:00 Metoprolol Tartrate (Lopressor) 25 mg BID GTB Last administered on 06/24/18at 08:58; Admin Dose 25 MG; Start 06/23/18 at 11:00 Aspirin (Aspirin) 81 mg DAILY GTB Last administered on 06/24/18at 08:58; Admin Dose 81 MG; Start 06/24/18 at 09:00 VTE Prophylaxis Risk score (from Ns)>0 risk: 19 SCD applied (from [facility] [place]): Yes Lines/Catheters IV Catheter Type: Saline Lock Reyes in Place: Yes (Critical care) Cont'd reyes catheter reason: other (indicate) (Critical care) Assessment/Plan Assessment/Plan 67-year-old female with acute inferior wall STEMI Multivessel coronary artery disease Postop day #4 four-vessel CABG Acute respiratory failure Postop anemia Hypokalemia Volume overload, improved Type 2 diabetes mellitus Continue ventilatory support Transfuse 1 unit of packed RBC Potassium supplementation Cardiology, cardiothoracic, and pulmonary follow-up CRIS HAWTHORNE MD Jun 24, 2018 09:28
--- NOTE | 2018-06-24 09:59 | CONS ---
Consult Date/Type/Reason Admit Date/Time Jun 17, 2018 at 05:25 Initial Consult Date 06/17/18 Type of Consult Pulmonary Requesting Provider: LISSET PATINO Date/Time of Note DATE: 06/24/18 TIME: 09:58 Subjective Significant diuresis with Bumex drip. Remains awake alert this morning decreasing sedation. Currently hemodynamically stable. Objective Vital Signs Date Temp Pulse Resp B/P (MAP) Pulse Ox O2 O2 Flow FiO2 Time Delivery Rate 06/24/18 99.3 90 16 106/52 100 09:30 (70) 06/24/18 Mechanical 09:00 Ventilator 06/24/18 40 08:00 Intake and Output 06/23/18 06/23/18 06/24/18 1515:00 23:00 07:00 IntakeIntake Total 1010.25 ml 1325.5 ml 897.0 ml OutputOutput Total 4156 ml 2237 ml 337 ml BalanceBalance -3145.75 ml -911.5 ml 560.0 ml Exam GENERAL: Well-nourished well-developed lady orally intubated on mechanical ventilation VITAL SIGNS: per chart NECK: Supple. No JVD or lymphadenopathy. CARDIAC EXAM: S1, S2. No added sounds or murmurs. CHEST: clear bilaterally, No added sounds, rales or wheezes ABDOMEN: Soft, nontender. No guarding or rebound. EXTREMITIES: No cyanosis, clubbing or edema. NEUROLOGIC: Generalized weakness. No focal deficits. Vent Setting Ventilator Support Mode: AC Fraction of Inspired Oxygen pe: 40 Positive End Expiratory Pressu: 5.0 Results/Medications Result Diagram: 06/24/18 0249 06/24/18 0802 Results 24 hrs Laboratory Tests Test 06/23/18 10:07 06/23/18 12:04 06/23/18 14:34 06/23/18 16:04 Bedside Glucose 119 144 132 155 Test 06/23/18 17:10 06/23/18 18:00 06/23/18 20:01 06/23/18 21:57 Sodium Level 138 Potassium Level 4.5 Chloride Level 99 Carbon Dioxide Level 33 H Anion Gap 6 Blood Urea Nitrogen 15 Creatinine 0.88 Est Glomerular Filtrat > 60 Rate mL/min Glucose Level 254 #H Calcium Level 8.5 Phosphorus Level 3.0 Magnesium Level 1.9 Total Bilirubin 0.6 Direct Bilirubin 0.00 Indirect Bilirubin 0.6 Aspartate Amino 35 Transf (AST/SGOT) Alanine 30 Aminotransferase (ALT/SG PT) Alkaline Phosphatase 95 Total Protein 5.2 L Albumin 2.5 L Globulin 2.70 Albumin/Globulin Ratio 0.92 Bedside Glucose 141 154 110 Test 06/23/18 23:56 06/24/18 01:51 06/24/18 02:49 06/24/18 03:54 Bedside Glucose 124 121 110 White Blood Count 10.6 Red Blood Count 2.68 L Hemoglobin 7.6 L Hematocrit 23.8 L Mean Corpuscular Volume 88.8 Mean Corpuscular 28.4 L Hemoglobin Mean Corpuscular 31.9 L Hemoglobin Concent Red Cell Distribution 19.0 H Width Platelet Count 141 # Mean Platelet Volume 10.6 H Immature Granulocytes % 2.200 H Neutrophils % 70.5 Lymphocytes % 14.0 L Monocytes % 10.4 Eosinophils % 2.5 Basophils % 0.4 Nucleated Red Blood 0.5 H Cells % Immature Granulocytes # 0.230 H Neutrophils # 7.5 Lymphocytes # 1.5 Monocytes # 1.1 H Eosinophils # 0.3 Basophils # 0.0 Nucleated Red Blood 0.1 H Cells # Sodium Level 140 Potassium Level 3.4 L Chloride Level 101 Carbon Dioxide Level 33 H Anion Gap 6 Blood Urea Nitrogen 17 Creatinine 0.81 Est Glomerular Filtrat > 60 Rate mL/min Glucose Level 122 # Calcium Level 7.9 L Phosphorus Level 3.1 Magnesium Level 2.5 Test 06/24/18 05:50 06/24/18 08:02 06/24/18 08:29 Bedside Glucose 110 126 Potassium Level 3.8 Vancomycin Level Trough 12.8 Medications Current Medications Insulin Human Regular 100 unit/ Sodium Chloride 100 ml @ 0 mls/hr PER PROTOCOL IV Last administered on 06/23/18at 00:04; Admin Dose 2 MLS/HR; Start 06/20/18 at 19:00 Potassium Chloride 40 meq/ Calcium Chloride 1 gm/Dextrose/ Sodium Chloride 1,030 ml @ 60 mls/hr [id number] IV Last administered on 06/24/18at 03:51; Admin Dose 60 MLS/HR; Start 06/20/18 at 18:43 Hydromorphone HCl (Dilaudid) 0.2 mg Q15M PRN IV PAIN LEVEL 1-5 Last administered on 3/6/19at 06:15; Admin Dose 0.2 MG; Start 06/20/18 at 19:00 Hydromorphone HCl (Dilaudid) 0.4 mg Q15M PRN IV PAIN LEVEL 6-10 Last administered on 06/23/18 13:44; Admin Dose 0.4 MG; Start 06/20/18 at 19:00 Oxycodone/ Acetaminophen (Percocet (5/ 325)) 1 tab Q3H PRN PO PAIN LEVEL 1-5; Start 06/20/18 at 19:00 Oxycodone/ Acetaminophen (Percocet (5/ 325)) 2 tab Q3H PRN PO PAIN LEVEL 6-10; Start 06/20/18 at 19:00 Ondansetron HCl (Zofran Inj) 4 mg Q6H PRN IV NAUSEA AND/OR VOMITING; Start 06/20/18 at 19:00 Famotidine (Pepcid Iv) 20 mg BID@08,20 IV Last administered on 06/24/18 09:10; Admin Dose 20 MG; Start 06/20/18 at 20:00 Acetaminophen (Tylenol Tab) 650 mg Q3H PRN PO ELEVATED TEMPERATURE Last administered on 06/21/18 22:54; Admin Dose 650 MG; Start 06/20/18 at 19:00 Potassium Chloride 50 ml @ 50 mls/hr SEE DIRECTION PRN IVPB K+ LEVEL Last administered on 06/24/18 05:15; Admin Dose 50 MLS/HR; Start 06/20/18 at 19:00 Magnesium Sulfate/ Dextrose 100 ml @ 100 mls/hr PRN PRN IVPB PENDING LAB VALUE Last administered on 06/23/18 19:28; Admin Dose 100 MLS/HR; Start 06/20/18 at 19:00 Dopamine HCl/ Dextrose 250 ml @ 7.38 mls/hr PER PROTOCOL IV ; Start 06/20/18 at 19:00 Phenylephrine HCl 250 ml @ 75 mls/hr TITRATE IV Last administered on 06/22/18 01:24; Admin Dose 33.75 MLS/HR; Start 06/20/18 at 19:00 Fentanyl 100 ml @ 2.5 mls/hr TITRATE IV Last administered on 06/23/18 13:35; Admin Dose 2.5 MLS/HR; Start 06/21/18 at 00:30 Diagnostic Test (Pha) (Accu-Chek) 1 ea Q1H XX Last administered on 06/24/18at 08:36; Admin Dose 1 EA; Start 06/21/18 at 03:00 Dextrose (D50w Syringe) 25 ml Q15M PRN IV .DECREASED GLUCOSE; Start 06/21/18 at 03:00 Dextrose (D50w Syringe) 50 ml Q15M PRN IV .DECREASED GLUCOSE; Start 06/21/18 at 03:00 Atorvastatin Calcium (Lipitor) 80 mg HS NGT Last administered on 06/23/18at 21:02; Admin Dose 80 MG; Start 06/21/18 at 21:00 Clopidogrel Bisulfate (plaVIX) 75 mg DAILY PO Last administered on 06/24/18at 08:58; Admin Dose 75 MG; Start 06/22/18 at 09:00 Midazolam HCl 50 mg/Dextrose 50 ml @ 1 mls/hr TITRATE IV Last administered on 06/24/18at 00:28; Admin Dose 3 MLS/HR; Start 06/21/18 at 16:00 Miscellaneous Information (* Miscellaneous Pharmacy Order) Treatment of Hypoglycemia: 1.BG 51... Per protocol XX ; Start 06/22/18 at 08:30 Dextrose (D50w Syringe) 25 ml Q15M PRN IV .DECREASED GLUCOSE; Start 06/22/18 at 08:30 Dextrose (D50w Syringe) 50 ml Q15M PRN IV .DECREASED GLUCOSE; Start 06/22/18 at 08:30 Nitroglycerin/ Dextrose 250 ml @ 1.5 mls/hr PER PROTOCOL IV ; Start 06/22/18 at 08:30 Norepinephrine 250 ml @ 1.875 mls/ hr TITRATE IV ; Start 06/22/18 at 08:30 Enoxaparin Sodium (Lovenox) 40 mg DAILY SC Last administered on 06/24/18at 09:02; Admin Dose 40 MG; Start 06/22/18 at 10:00 Vancomycin HCl (Vanco Iv Per Pharmacy) VANCOMYCIN PER PHARMACY PER PROTOCOL XX ; Start 06/22/18 at 14:00 Miscellaneous Information (* Miscellaneous Pharmacy Order) ZOSYN IV PER PHARMACY ONCE XX ; Start 06/22/18 at 14:00 Piperacillin Sod/ Tazobactam Sod 100 ml @ 200 mls/hr Q8 IVPB Last administered on 06/24/18 05:28; Admin Dose 200 MLS/HR; Start 06/22/18 at 14:06 Vancomycin HCl 250 ml @ 125 mls/hr Q12H IVPB Last administered on 06/24/18 09:16; Admin Dose 125 MLS/HR; Start 06/23/18 at 08:00 Ferric Sodium Gluconate Complex 125 mg/Sodium Chloride 110 ml @ 110 mls/hr DAILY@1300 IVPB Last administered on 06/23/18 12:52; Admin Dose 110 MLS/HR; Start 06/23/18 at 13:00; Stop 06/27/18 at 13:59 Ascorbic Acid (Vitamin C) 1,000 mg BID NGT Last administered on 06/24/18 08:58; Admin Dose 1,000 MG; Start 06/23/18 at 09:00 Metoprolol Tartrate (Lopressor) 25 mg BID GTB Last administered on 06/24/18 08:58; Admin Dose 25 MG; Start 06/23/18 at 11:00 Aspirin (Aspirin) 81 mg DAILY GTB Last administered on 06/24/18 08:58; Admin Dose 81 MG; Start 06/24/18 at 09:00 Assessment/Plan Hospital Course (Demo Recall) IMP: 1. Inferior myocardial infarction, status post angioplasty and stent placement---> status post coronary artery bypass graft surgery with reexploration for possible tamponade. 2. Ventricular fibrillation 2/2 #1 3. Likely aspiration pneumonia. 4. Cardiogenic shock. Now resolved 5. History of gallbladder disease. 6. Congestive cardiac failure RECS: 1. Vent support; will attempt weaning trial later today 2. Continue pain control and sedation 3. Diuretics per cardiology 4. Continue antibiotics for recent pneumonia 5. DVT/GI prophylaxis 6. Post extubation incentive spirometry and speech therapy evaluate 40 min cc time ISABELLA RUSSELL MD[facility] Jun 24, 2018 09:59
[2018-06-24] MEDS: INSULIN HUMAN REGULAR 100 UNIT in SOD CHLORIDE 0.9% 99 ML IV SCH (13:25)
[2018-06-24] MEDS: SOD FERRIC GLUC COMPLX 125 MG in SOD CHLORIDE 0.9% 100 ML IVPB SCH (13:46)
[2018-06-24] MEDS: morphine 2 MG INJ IV PRN (15:19)
[2018-06-24] MEDS: ONDANSETRON 4 MG INJ IV PRN (19:57)
[2018-06-24] MEDS: OXYCODONE/ACETAMINOPHEN (5/325) TAB PO PRN (20:36)
[2018-06-24] MEDS: ATORVASTATIN 80 MG TAB NGT SCH (21:00)
[2018-06-25] VITALS (24 sets, daily range): BP systolic 83–137; BP diastolic 46–81; PULSE 88–102; RESP 14–30
[2018-06-25] MEDS: ACCU-CHEK XX SCH ×12 (00:18→10:24)
[2018-06-25] MEDS: POTASSIUM CHLORIDE 40 MEQ, CALCIUM CHLORIDE 10% 1 GM in DEXTROSE 5%-0.225% NACL 1,000 ML IV SCH ×2 (03:53→20:38)
[2018-06-25] MEDS: OXYCODONE/ACETAMINOPHEN (5/325) TAB PO PRN (03:53)
[2018-06-25] MEDS: PIPER-TAZO 3.375 GM IV (PMX) 100 ML IVPB SCH ×3 (06:28→22:51)
[2018-06-25] MEDS: ASPIRIN 81 MG TAB GTB SCH (09:01)
[2018-06-25] MEDS: CLOPIDOGREL 75 MG TAB PO SCH (09:01)
[2018-06-25] MEDS: VANCOMYCIN 1 GM 250 ML IVPB SCH ×2 (09:01→20:30)
[2018-06-25] MEDS: METOPROLOL 25 MG TAB GTB SCH ×2 (09:02→20:29)
[2018-06-25] MEDS: ASCORBIC ACID 500 MG TAB NGT SCH ×2 (09:02→20:29)
[2018-06-25] MEDS: ENOXAPARIN 40 MG/0.4 ML SYG SC SCH (09:05)
[2018-06-25] MEDS: FAMOTIDINE 20 MG INJ IV SCH ×2 (09:10→20:38)
--- NOTE | 2018-06-25 10:08 | PN ---
Date/Time of Note Date/Time of Note DATE: 06/25/18 TIME: 10:06 Assessment/Plan VTE Prophylaxis Risk score (from [facility])>0 risk: 12 SCD applied (from [facility]): No SCD contraindicated: other Pharmacological prophylaxis: LMWH Lines/Catheters IV Catheter Type (from [facility]): A Line Urinary Cath still in place: No Assessment/Plan Assessment/Plan 1.cards: s/p inf stemi (b) pod #4 cabgwith take back for mediastinalbleed (c) chf, intermittant lasix 2. dm, will plan to wean insulin gtt 3.contabx Result Diagram: 06/25/1841906/25/18419 Results 24hrs Laboratory Tests Test 06/24/18 10:31 06/24/18 13:05 06/24/18 13:30 06/24/18 14:52 Bedside Glucose 113 101 115 Blood Gas Blood arterial Specimen Source Arterial Blood 06/24/2018 1:30:00 Date Drawn PM Arterial Blood 7.499 H pH (Temp corrected) Arterial Blood 41.3 pCO2 (Temp correct) Arterial Blood 83.1 pO2 (Temp corrected) Arterial Blood 31.4 H HCO3 Arterial Blood 7.6 H Base Excess Arterial Blood 95.9 Oxygen Saturatio n Jarrod Test N/A Arterial Blood A-Line Gas Puncture Site Arterial 0.3 Blood Carboxyhem oglobin Arterial Blood 0.3 Methemoglobin Blood Gas A-a O2 154.6 H Differential Oxyhemoglobin 95.3 Percent Blood Gas 37.0 Temperature Blood Gas Actual 20 Respiration Rate Blood Gas VENT - CPAP Modality FiO2 40.0 Blood Gas Low 5.0 PEEP Setting Blood Gas 10 Pressure Support Blood Gas TM Notified Whom Blood Gas 06/24/2018 1:39:01 Notified Time PM Test 06/24/18 16:15 06/24/18 17:54 06/24/18 19:52 06/24/18 20:20 Bedside Glucose 116 111 106 Potassium Level 3.6 Magnesium Level 2.4 Test 06/24/18 22:16 06/25/18 00:17 06/25/18 03:57 06/25/18 04:20 Bedside Glucose 92 89 102 White Blood 10.5 Count Red Blood Count 2.74 L Hemoglobin 7.8 L Hematocrit 25.1 L Mean Corpuscular 91.6 Volume Mean Corpuscular 28.5 L Hemoglobin Mean Corpuscular 31.1 L Hemoglobin Linda nt Red Cell 19.2 H Distribution Width Platelet Count 201 # Mean Platelet 10.2 Volume Immature 2.600 H Granulocytes % Neutrophils % 69.3 Lymphocytes % 13.2 L Monocytes % 11.4 H Eosinophils % 3.0 Basophils % 0.5 Nucleated Red 0.0 Blood Cells % Immature 0.270 H Granulocytes # Neutrophils # 7.3 Lymphocytes # 1.4 Monocytes # 1.2 H Eosinophils # 0.3 Basophils # 0.1 Nucleated Red 0.0 Blood Cells # Sodium Level 141 Potassium Level 4.2 Chloride Level 106 Carbon Dioxide 31 Level Anion Gap 4 L Blood Urea 12 Nitrogen Creatinine 0.79 Est Glomerular > 60 Filtrat Rate mL/min Glucose Level 101 Calcium Level 8.3 L Phosphorus Level 3.4 Magnesium Level 2.3 Test 06/25/18 05:00 06/25/18 06:26 06/25/18 08:08 Blood Gas Blood arterial Specimen Source Arterial Blood 06/25/2018 4:30:12 Date Drawn AM Arterial Blood 7.399 pH (Temp corrected) Arterial Blood 42.0 pCO2 (Temp correct) Arterial Blood 101.7 H pO2 (Temp corrected) Arterial Blood 25.4 HCO3 Arterial Blood 0.5 Base Excess Arterial Blood 97.3 Oxygen Saturatio n Jarrod Test N/A Arterial Blood A-Line Gas Puncture Site Arterial 0.3 Blood Carboxyhem oglobin Arterial Blood 0.2 Methemoglobin Blood Gas A-a O2 84.6 H Differential Oxyhemoglobin 96.8 Percent Blood Gas 37.0 Temperature Blood Gas NASAL CANNULA Modality FiO2 33.0 Blood Gas Rakan Connolly [facility] Notified Whom Blood Gas 06/25/2018 4:39:03 Notified Time AM Bedside Glucose 106 107 Subjective 24 Hr Interval Summary Free Text/Dictation feelingbetter,nosob,no pain Exam/Review of Systems Exam Vitals Vital Signs Date Temp Pulse Resp B/P (MAP) Pulse Ox O2 O2 Flow FiO2 Time Delivery Rate 06/25/18 4.0 09:37 06/25/18 97 19 120/48 97 Nasal 09:00 (72) Cannula 06/25/18 98.0 08:00 06/24/18 40 13:30 Intake and Output 06/24/18 06/24/18 06/25/18 1515:00 23:00 07:00 IntakeIntake Total 685.75 ml 1063.0 ml 665.0 ml OutputOutput Total 448 ml 793 ml 618 ml BalanceBalance 237.75 ml 270.0 ml 47.0 ml Exam nad,soft nt, ctab ant, rrr Results Results 24hrs Laboratory Tests Test 06/24/18 10:31 06/24/18 13:05 06/24/18 13:30 06/24/18 14:52 Bedside Glucose 113 101 115 Blood Gas Blood arterial Specimen Source Arterial Blood 06/24/2018 1:30:00 Date Drawn PM Arterial Blood 7.499 H pH (Temp corrected) Arterial Blood 41.3 pCO2 (Temp correct) Arterial Blood 83.1 pO2 (Temp corrected) Arterial Blood 31.4 H HCO3 Arterial Blood 7.6 H Base Excess Arterial Blood 95.9 Oxygen Saturatio n Jarrod Test N/A Arterial Blood A-Line Gas Puncture Site Arterial 0.3 Blood Carboxyhem oglobin Arterial Blood 0.3 Methemoglobin Blood Gas A-a O2 154.6 H Differential Oxyhemoglobin 95.3 Percent Blood Gas 37.0 Temperature Blood Gas Actual 20 Respiration Rate Blood Gas VENT - CPAP Modality FiO2 40.0 Blood Gas Low 5.0 PEEP Setting Blood Gas 10 Pressure Support Blood Gas TM Notified Whom Blood Gas 06/24/2018 1:39:01 Notified Time PM Test 06/24/18 16:15 06/24/18 17:54 06/24/18 19:52 06/24/18 20:20 Bedside Glucose 116 111 106 Potassium Level 3.6 Magnesium Level 2.4 Test 06/24/18 22:16 06/25/18 00:17 06/25/18 03:57 06/25/18 04:20 Bedside Glucose 92 89 102 White Blood 10.5 Count Red Blood Count 2.74 L Hemoglobin 7.8 L Hematocrit 25.1 L Mean Corpuscular 91.6 Volume Mean Corpuscular 28.5 L Hemoglobin Mean Corpuscular 31.1 L Hemoglobin Linda nt Red Cell 19.2 H Distribution Width Platelet Count 201 # Mean Platelet 10.2 Volume Immature 2.600 H Granulocytes % Neutrophils % 69.3 Lymphocytes % 13.2 L Monocytes % 11.4 H Eosinophils % 3.0 Basophils % 0.5 Nucleated Red 0.0 Blood Cells % Immature 0.270 H Granulocytes # Neutrophils # 7.3 Lymphocytes # 1.4 Monocytes # 1.2 H Eosinophils # 0.3 Basophils # 0.1 Nucleated Red 0.0 Blood Cells # Sodium Level 141 Potassium Level 4.2 Chloride Level 106 Carbon Dioxide 31 Level Anion Gap 4 L Blood Urea 12 Nitrogen Creatinine 0.79 Est Glomerular > 60 Filtrat Rate mL/min Glucose Level 101 Calcium Level 8.3 L Phosphorus Level 3.4 Magnesium Level 2.3 Test 06/25/18 05:00 06/25/18 06:26 06/25/18 08:08 Blood Gas Blood arterial Specimen Source Arterial Blood 06/25/2018 4:30:12 Date Drawn AM Arterial Blood 7.399 pH (Temp corrected) Arterial Blood 42.0 pCO2 (Temp correct) Arterial Blood 101.7 H pO2 (Temp corrected) Arterial Blood 25.4 HCO3 Arterial Blood 0.5 Base Excess Arterial Blood 97.3 Oxygen Saturatio n Jarrod Test N/A Arterial Blood A-Line Gas Puncture Site Arterial 0.3 Blood Carboxyhem oglobin Arterial Blood 0.2 Methemoglobin Blood Gas A-a O2 84.6 H Differential Oxyhemoglobin 96.8 Percent Blood Gas 37.0 Temperature Blood Gas NASAL CANNULA Modality FiO2 33.0 Blood Gas M Mohsen [facility] Notified Whom Blood Gas 06/25/2018 4:39:03 Notified Time AM Bedside Glucose 106 107 Medications Medication Current Medications Insulin Human Regular 100 unit/ Sodium Chloride 100 ml @ 0 mls/hr PER PROTOCOL IV Last administered on 06/24/18 13:25; Admin Dose 1 MLS/HR; Start 06/20/18 at 19:00 Potassium Chloride 40 meq/ Calcium Chloride 1 gm/Dextrose/ Sodium Chloride 1,030 ml @ 60 mls/hr [id number] IV Last administered on 06/25/18at 03:53; Admin Dose 60 MLS/HR; Start 06/20/18 at 18:43 Oxycodone/ Acetaminophen (Percocet (5/ 325)) 1 tab Q3H PRN PO PAIN LEVEL 1-5 Last administered on 06/25/18at 03:53; Admin Dose 1 TAB; Start 06/20/18 at 19:00 Oxycodone/ Acetaminophen (Percocet (5/ 325)) 2 tab Q3H PRN PO PAIN LEVEL 6-10; Start 06/20/18 at 19:00 Ondansetron HCl (Zofran Inj) 4 mg Q6H PRN IV NAUSEA AND/OR VOMITING Last administered on 06/24/18 19:57; Admin Dose 4 MG; Start 06/20/18 at 19:00 Famotidine (Pepcid Iv) 20 mg BID@08,20 IV Last administered on 06/25/18 09:10; Admin Dose 20 MG; Start 06/20/18 at 20:00 Acetaminophen (Tylenol Tab) 650 mg Q3H PRN PO ELEVATED TEMPERATURE Last administered on 06/21/18 22:54; Admin Dose 650 MG; Start 06/20/18 at 19:00 Potassium Chloride 50 ml @ 50 mls/hr SEE DIRECTION PRN IVPB K+ LEVEL Last administered on 06/24/18 23:26; Admin Dose 50 MLS/HR; Start 06/20/18 at 19:00 Magnesium Sulfate/ Dextrose 100 ml @ 100 mls/hr PRN PRN IVPB PENDING LAB VALUE Last administered on 06/23/18 19:28; Admin Dose 100 MLS/HR; Start 06/20/18 at 19:00 Dopamine HCl/ Dextrose 250 ml @ 7.38 mls/hr PER PROTOCOL IV ; Start 06/20/18 at 19:00 Phenylephrine HCl 250 ml @ 75 mls/hr TITRATE IV Last administered on 06/22/18 01:24; Admin Dose 33.75 MLS/HR; Start 06/20/18 at 19:00 Fentanyl 100 ml @ 2.5 mls/hr TITRATE IV Last administered on 06/23/18 13:35; Admin Dose 2.5 MLS/HR; Start 06/21/18 at 00:30 Diagnostic Test (Pha) (Accu-Chek) 1 ea Q1H XX Last administered on 06/25/18 06:28; Admin Dose 1 EA; Start 06/21/18 at 03:00 Dextrose (D50w Syringe) 25 ml Q15M PRN IV .DECREASED GLUCOSE; Start 06/21/18 at 03:00 Dextrose (D50w Syringe) 50 ml Q15M PRN IV .DECREASED GLUCOSE; Start 06/21/18 at 03:00 Atorvastatin Calcium (Lipitor) 80 mg HS NGT Last administered on 06/24/18 21:00; Admin Dose 80 MG; Start 06/21/18 at 21:00 Clopidogrel Bisulfate (plaVIX) 75 mg DAILY PO Last administered on 06/25/18at 09: 01; Admin Dose 75 MG; Start 06/22/18 at 09:00 Midazolam HCl 50 mg/Dextrose 50 ml @ 1 mls/hr TITRATE IV Last administered on 06/24/18at 00:28; Admin Dose 3 MLS/HR; Start 06/21/18 at 16:00 Miscellaneous Information (* Miscellaneous Pharmacy Order) Treatment of Hypoglycemia: 1.BG 51... Per protocol XX ; Start 06/22/18 at 08:30 Dextrose (D50w Syringe) 25 ml Q15M PRN IV .DECREASED GLUCOSE; Start 06/22/18 at 08:30 Dextrose (D50w Syringe) 50 ml Q15M PRN IV .DECREASED GLUCOSE; Start 06/22/18 at 08:30 Nitroglycerin/ Dextrose 250 ml @ 1.5 mls/hr PER PROTOCOL IV ; Start 06/22/18 at 08:30 Norepinephrine 250 ml @ 1.875 mls/ hr TITRATE IV ; Start 06/22/18 at 08:30 Enoxaparin Sodium (Lovenox) 40 mg DAILY SC Last administered on 06/25/18at 09:05; Admin Dose 40 MG; Start 06/22/18 at 10:00 Vancomycin HCl (Vanco Iv Per Pharmacy) VANCOMYCIN PER PHARMACY PER PROTOCOL XX ; Start 06/22/18 at 14:00 Miscellaneous Information (* Miscellaneous Pharmacy Order) ZOSYN IV PER PHARMACY ONCE XX ; Start 06/22/18 at 14:00 Piperacillin Sod/ Tazobactam Sod 100 ml @ 200 mls/hr Q8 IVPB Last administered on 06/25/18at 06:28; Admin Dose 200 MLS/HR; Start 06/22/18 at 14:06 Vancomycin HCl 250 ml @ 125 mls/hr Q12H IVPB Last administered on 06/25/18at 09:01; Admin Dose 125 MLS/HR; Start 06/23/18 at 08:00 Ferric Sodium Gluconate Complex 125 mg/Sodium Chloride 110 ml @ 110 mls/hr DAILY@1300 IVPB Last administered on 06/24/18at 13:46; Admin Dose 110 MLS/HR; Start 06/23/18 at 13:00; Stop 06/27/18 at 13:59 Ascorbic Acid (Vitamin C) 1,000 mg BID NGT Last administered on 06/25/18 09:02; Admin Dose 1,000 MG; Start 06/23/18 at 09:00 Metoprolol Tartrate (Lopressor) 25 mg BID GTB Last administered on 06/25/18at 09:02; Admin Dose 25 MG; Start 06/23/18 at 11:00 Aspirin (Aspirin) 81 mg DAILY GTB Last administered on 06/25/18 09:01; Admin D ose 81 MG; Start 06/24/18 at 09:00 Morphine Sulfate (morphine) 2 mg Q2H PRN IV SEVERE PAIN LEVEL 7-10 Last administered on 06/24/18 15:19; Admin Dose 2 MG; Start 06/24/18 at 15:00 KATRIN CORNEJO MD Jun 25, 2018 10:08
[2018-06-25] MEDS ORDERED: FUROSEMIDE 40 MG INJ IV ONE (10:30)
--- NOTE | 2018-06-25 10:34 | CONS ---
Consult Date/Type/Reason Admit Date/Time Jun 17, 2018 at 05:25 Initial Consult Date 06/17/18 Type of Consult Pulmonary Requesting Provider: LISSET PATINO Date/Time of Note DATE: 06/25/18 TIME: 10:33 Subjective Patient continues to remain stable no new events. Out of bed this morning in chair but significant global weakness. Objective Vital Signs Date Temp Pulse Resp B/P (MAP) Pulse Ox O2 O2 Flow FiO2 Time Delivery Rate 06/25/18 4.0 09:37 06/25/18 97 19 120/48 97 Nasal 09:00 (72) Cannula 06/25/18 98.0 08:00 06/24/18 40 13:30 Intake and Output 06/24/18 06/24/18 06/25/18 1414:59 22:59 06:59 IntakeIntake Total 717.25 ml 1024.0 ml 715.5 ml OutputOutput Total 338 ml 882 ml 622 ml BalanceBalance 379.25 ml 142.0 ml 93.5 ml Exam GENERAL: Elderly lady comfortable at rest no acute distress VITAL SIGNS: per chart NECK: Supple. No JVD or lymphadenopathy. CARDIAC EXAM: S1, S2. No added sounds or murmurs. CHEST: clear bilaterally, No added sounds, rales or wheezes ABDOMEN: Soft, nontender. No guarding or rebound. EXTREMITIES: No cyanosis, clubbing or edema. NEUROLOGIC: Generalized weakness. No focal deficits. Vent Setting Ventilator Support Mode: CPAP, PS Fraction of Inspired Oxygen pe: 40 Positive End Expiratory Pressu: 5.0 Results/Medications Result Diagram: 06/25/18 0420 06/25/18 0420 Results 24 hrs Chest x-ray bilateral infiltrates with pulmonary edema Laboratory Tests Test 06/24/18 13:05 06/24/18 13:30 06/24/18 14:52 06/24/18 16:15 Bedside Glucose 101 115 116 Blood Gas Blood arterial Specimen Source Arterial Blood 06/24/2018 1:30:00 Date Drawn PM Arterial Blood 7.499 H pH (Temp corrected) Arterial Blood 41.3 pCO2 (Temp correct) Arterial Blood 83.1 pO2 (Temp corrected) Arterial Blood 31.4 H HCO3 Arterial Blood 7.6 H Base Excess Arterial Blood 95.9 Oxygen Saturatio n Jarrod Test N/A Arterial Blood A-Line Gas Puncture Site Arterial 0.3 Blood Carboxyhem oglobin Arterial Blood 0.3 Methemoglobin Blood Gas A-a O2 154.6 H Differential Oxyhemoglobin 95.3 Percent Blood Gas 37.0 Temperature Blood Gas Actual 20 Respiration Rate Blood Gas VENT - CPAP Modality FiO2 40.0 Blood Gas Low 5.0 PEEP Setting Blood Gas 10 Pressure Support Blood Gas TM Notified Whom Blood Gas 06/24/2018 1:39:01 Notified Time PM Test 06/24/18 17:54 06/24/18 19:52 06/24/18 20:20 06/24/18 22:16 Bedside Glucose 111 106 92 Potassium Level 3.6 Magnesium Level 2.4 Test 06/25/18 00:17 06/25/18 03:57 06/25/18 04:20 06/25/18 05:00 Bedside Glucose 89 102 White Blood 10.5 Count Red Blood Count 2.74 L Hemoglobin 7.8 L Hematocrit 25.1 L Mean Corpuscular 91.6 Volume Mean Corpuscular 28.5 L Hemoglobin Mean Corpuscular 31.1 L Hemoglobin Linda nt Red Cell 19.2 H Distribution Width Platelet Count 201 # Mean Platelet 10.2 Volume Immature 2.600 H Granulocytes % Neutrophils % 69.3 Lymphocytes % 13.2 L Monocytes % 11.4 H Eosinophils % 3.0 Basophils % 0.5 Nucleated Red 0.0 Blood Cells % Immature 0.270 H Granulocytes # Neutrophils # 7.3 Lymphocytes # 1.4 Monocytes # 1.2 H Eosinophils # 0.3 Basophils # 0.1 Nucleated Red 0.0 Blood Cells # Sodium Level 141 Potassium Level 4.2 Chloride Level 106 Carbon Dioxide 31 Level Anion Gap 4 L Blood Urea 12 Nitrogen Creatinine 0.79 Est Glomerular > 60 Filtrat Rate mL/min Glucose Level 101 Calcium Level 8.3 L Phosphorus Level 3.4 Magnesium Level 2.3 Blood Gas Blood arterial Specimen Source Arterial Blood 06/25/2018 4:30:12 Date Drawn AM Arterial Blood 7.399 pH (Temp corrected) Arterial Blood 42.0 pCO2 (Temp correct) Arterial Blood 101.7 H pO2 (Temp corrected) Arterial Blood 25.4 HCO3 Arterial Blood 0.5 Base Excess Arterial Blood 97.3 Oxygen Saturatio n Jarrod Test N/A Arterial Blood A-Line Gas Puncture Site Arterial 0.3 Blood Carboxyhem oglobin Arterial Blood 0.2 Methemoglobin Blood Gas A-a O2 84.6 H Differential Oxyhemoglobin 96.8 Percent Blood Gas 37.0 Temperature Blood Gas NASAL CANNULA Modality FiO2 33.0 Blood Gas Rakan Connolly [facility] Notified Whom Blood Gas 06/25/2018 4:39:03 Notified Time AM Test 06/25/18 06:26 06/25/18 08:08 06/25/18 10:01 Bedside Glucose 106 107 106 Medications Current Medications Insulin Human Regular 100 unit/ Sodium Chloride 100 ml @ 0 mls/hr PER PROTOCOL IV Last administered on 06/24/18 13:25; Admin Dose 1 MLS/HR; Start 06/20/18 at 19:00 Potassium Chloride 40 meq/ Calcium Chloride 1 gm/Dextrose/ Sodium Chloride 1,030 ml @ 60 mls/hr [id number] IV Last administered on 06/25/18 03:53; Admin Dose 60 MLS/HR; Start 06/20/18 at 18:43 Oxycodone/ Acetaminophen (Percocet (5/ 325)) 1 tab Q3H PRN PO PAIN LEVEL 1-5 Last administered on 06/25/18 03:53; Admin Dose 1 TAB; Start 06/20/18 at 19:00 Oxycodone/ Acetaminophen (Percocet (5/ 325)) 2 tab Q3H PRN PO PAIN LEVEL 6-10; Start 06/20/18 at 19:00 Ondansetron HCl (Zofran Inj) 4 mg Q6H PRN IV NAUSEA AND/OR VOMITING Last administered on 06/24/18 19:57; Admin Dose 4 MG; Start 06/20/18 at 19:00 Famotidine (Pepcid Iv) 20 mg BID@08,20 IV Last administered on 06/25/18 09:10; Admin Dose 20 MG; Start 06/20/18 at 20:00 Acetaminophen (Tylenol Tab) 650 mg Q3H PRN PO ELEVATED TEMPERATURE Last administered on 06/21/18 22:54; Admin Dose 650 MG; Start 06/20/18 at 19:00 Potassium Chloride 50 ml @ 50 mls/hr SEE DIRECTION PRN IVPB K+ LEVEL Last administered on 06/24/18 23:26; Admin Dose 50 MLS/HR; Start 06/20/18 at 19:00 Magnesium Sulfate/ Dextrose 100 ml @ 100 mls/hr PRN PRN IVPB PENDING LAB VALUE Last administered on 06/23/18at 19:28; Admin Dose 100 MLS/HR; Start 06/20/18 at 19:00 Dopamine HCl/ Dextrose 250 ml @ 7.38 mls/hr PER PROTOCOL IV ; Start 06/20/18 at 19:00 Phenylephrine HCl 250 ml @ 75 mls/hr TITRATE IV Last administered on 06/22/18at 01:24; Admin Dose 33.75 MLS/HR; Start 06/20/18 at 19:00 Fentanyl 100 ml @ 2.5 mls/hr TITRATE IV Last administered on 06/23/18at 13:35; Admin Dose 2.5 MLS/HR; Start 06/21/18 at 00:30 Dextrose (D50w Syringe) 25 ml Q15M PRN IV .DECREASED GLUCOSE; Start 06/21/18 at 03:00 Dextrose (D50w Syringe) 50 ml Q15M PRN IV .DECREASED GLUCOSE; Start 06/21/18 at 03:00 Atorvastatin Calcium (Lipitor) 80 mg HS NGT Last administered on 06/24/18at 21:00; Admin Dose 80 MG; Start 06/21/18 at 21:00 Clopidogrel Bisulfate (plaVIX) 75 mg DAILY PO Last administered on 06/25/18at 09:01; Admin Dose 75 MG; Start 06/22/18 at 09:00 Midazolam HCl 50 mg/Dextrose 50 ml @ 1 mls/hr TITRATE IV Last administered on 06/24/18at 00:28; Admin Dose 3 MLS/HR; Start 06/21/18 at 16:00 Miscellaneous Information (* Miscellaneous Pharmacy Order) Treatment of Hypoglycemia: 1.BG 51... Per protocol XX ; Start 06/22/18 at 08:30 Dextrose (D50w Syringe) 25 ml Q15M PRN IV .DECREASED GLUCOSE; Start 06/22/18 at 08:30 Dextrose (D50w Syringe) 50 ml Q15M PRN IV .DECREASED GLUCOSE; Start 06/22/18 at 08:30 Nitroglycerin/ Dextrose 250 ml @ 1.5 mls/hr PER PROTOCOL IV ; Start 06/22/18 at 08:30 Norepinephrine 250 ml @ 1.875 mls/ hr TITRATE IV ; Start 06/22/18 at 08:30 Enoxaparin Sodium (Lovenox) 40 mg DAILY SC Last administered on 06/25/18 09:05; Admin Dose 40 MG; Start 06/22/18 at 10:00 Vancomycin HCl (Vanco Iv Per Pharmacy) VANCOMYCIN PER PHARMACY PER PROTOCOL XX ; Start 06/22/18 at 14:00 Miscellaneous Information (* Miscellaneous Pharmacy Order) ZOSYN IV PER PHARMACY ONCE XX ; Start 06/22/18 at 14:00 Piperacillin Sod/ Tazobactam Sod 100 ml @ 200 mls/hr Q8 IVPB Last administered on 06/25/18at 06:28; Admin Dose 200 MLS/HR; Start 06/22/18 at 14:06 Vancomycin HCl 250 ml @ 125 mls/hr Q12H IVPB Last administered on 06/25/18 09:01; Admin Dose 125 MLS/HR; Start 06/23/18 at 08:00 Ferric Sodium Gluconate Complex 125 mg/Sodium Chloride 110 ml @ 110 mls/hr D AILY@1300 IVPB Last administered on 06/24/18at 13:46; Admin Dose 110 MLS/HR; Start 06/23/18 at 13:00; Stop 06/27/18 at 13:59 Ascorbic Acid (Vitamin C) 1,000 mg BID NGT Last administered on 06/25/18 09:02; Admin Dose 1,000 MG; Start 06/23/18 at 09:00 Metoprolol Tartrate (Lopressor) 25 mg BID GTB Last administered on 06/25/18 09:02; Admin Dose 25 MG; Start 06/23/18 at 11:00 Aspirin (Aspirin) 81 mg DAILY GTB Last administered on 06/25/18 09:01; Admin Dose 81 MG; Start 06/24/18 at 09:00 Morphine Sulfate (morphine) 2 mg Q2H PRN IV SEVERE PAIN LEVEL 7-10 Last administered on 06/24/18 15:19; Admin Dose 2 MG; Start 06/24/18 at 15:00 Diagnostic Test (Pha) (Accu-Chek) 1 ea Q4H XX ; Start 06/25/18 at 11:00; Status UNV Furosemide (Lasix) 40 mg ONCE ONCE IV ; Start 06/25/18 at 10:30; Stop 06/25/18 at 10:31; Status UNV Miscellaneous Information (* Miscellaneous Pharmacy Order) Discontinue current oral sulfonylur... ONCE ONCE XX ; Start 06/25/18 at 10:30; Stop 06/25/18 at 10:31; Status UNV Diagnostic Test (Pha) (Accu-Chek) 1 ea 02 XX ; Start 06/26/18 at 02:00; Status UNV Miscellaneous Information (* Miscellaneous Pharmacy Order) HYPOGLYCEMIA PROTOCOL w... ONCE ONCE XX ; Start 06/25/18 at 10:30; Stop 06/25/18 at 10:31; Status UNV Miscellaneous Information (* Miscellaneous Pharmacy Order) Discontinue all previ... ONCE ONCE XX ; Start 06/25/18 at 10:30; Stop 06/25/18 at 10:31; Status UNV Assessment/Plan Hospital Course (Demo Recall) IMP: 1. Inferior myocardial infarction, status post angioplasty and stent placement---> status post coronary artery bypass graft surgery with reexploration for possible tamponade. 2. Ventricular fibrillation 2/2 #1 3. Likely aspiration pneumonia. 4. Cardiogenic shock. Now resolved 5. History of gallbladder disease. 6. Congestive cardiac failure RECS: 1. Continue incentive spirometry 2. Encourage out of bed 3. Continue diuretics 4. Aspiration precautions advance diet per speech therapy 5. DVT/GI prophylaxis 6. DC arterial line DC Cordis and chest tube soon 40 min cc time ISABELLA RUSSELL MD, [facility] Jun 25, 2018 10:34
[2018-06-25] MEDS ORDERED: ACCU-CHEK XX SCH (11:00)
--- NOTE | 2018-06-25 11:59 | PN ---
Date/Time of Note Date/Time of Note DATE: 06/25/18 TIME: 11:53 Assessment/Plan Lines/Catheters IV Catheter Type (from Nrsg): A Line Reyes in Place (from Nrsg): No Assessment/Plan Assessment/Plan s/p cabg take back for bleeding diuresing d/c central line picc d/c insulin drip sliding scale tubes still draining Subjective 24 Hr Interval Summary Constitutional: no complaints, other (extubated out of bed) Feeding: clear Pain Control: mild Exam/Review of Systems Vital Signs Vitals Vital Signs Date Temp Pulse Resp B/P (MAP) Pulse Ox O2 O2 Flow FiO2 Time Delivery Rate 06/25/18 4.0 09:37 06/25/18 97 19 120/48 97 Nasal 09:00 (72) Cannula 06/25/18 98.0 08:00 06/24/18 40 13:30 Intake and Output 06/24/18 06/24/18 06/25/18 1515:00 23:00 07:00 IntakeIntake Total 685.75 ml 1063.0 ml 665.0 ml OutputOutput Total 448 ml 793 ml 618 ml BalanceBalance 237.75 ml 270.0 ml 47.0 ml Exam Constitutional: alert Psych: no complaints Head: normocephalic Eyes: EOMI ENMT: nl lips & teeth Neck: supple Respiratory: other (5 liters n/c pleurevac 1600 cc total 360 cc/24) Cardiovascular: regular rate and rhythm Drains leon 40 cc today Genitourinary - Female: other (reyes diuresing) Results Result Diagram: 06/25/1841906/25/18419 DIANA SMITH MD Jun 25, 2018 11:59
[2018-06-25] MEDS ORDERED: LIDOCAINE 1% (MPF) 5 ML VIAL SC ONE (12:00)
[2018-06-25] MEDS: POTASSIUM CHLORIDE 50 ML IVPB PRN ×2 (12:02→12:57)
[2018-06-25] MEDS: SOD FERRIC GLUC COMPLX 125 MG in SOD CHLORIDE 0.9% 100 ML IVPB SCH (12:56)
[2018-06-25] MEDS ORDERED: DO NOT FORGET TO ENTER HYPOGLYCEMIC PROTOCOL XX SCH (13:30)
[2018-06-25] MEDS ORDERED: GLUCOSE GEL 15 GRAM TUBE PO PRN ×2 (14:00)
[2018-06-25] MEDS ORDERED: GLUCOSE GEL 15 GRAM TUBE BUCCAL PRN (14:00)
[2018-06-25] MEDS ORDERED: GLUCAGON 1 MG INJ IM PRN (14:00)
[2018-06-25] MEDS: ACETAMINOPHEN 325 MG TAB PO PRN ×2 (14:23→22:57)
--- NOTE | 2018-06-25 15:47 | CONS ---
Assessment/Plan Assessment/Plan Hospital Course (Demo Recall) 67 yo with acute inferior stemi, with severe left man disease and acutely occluded dominant LCX. Bare metal stent placed in the prox LCX and balloon angioplasty performed on the left main. She underwent CABG on Wednesday06/20/18 with return to the OR same day for mediastinal bleeding. Now extubated Impression: Inferior stemi due to occluded dominant LCX, with severe left main and proximal LAD disease, small nondominant RCA, s/p bare metal stent to prox LCX on Wednesday am and CABG on Wednesday06/20/18 Acute respiratory failure, on ventilator, s/p failed weaning trial yesterday Recc: ASA 81 mg daily, clopidogrel, statin. Continue and increase metoprolol Surgical management per Dr. Plata/Mariluz/Mariaa Consultation Date/Type/Reason Admit Date/Time Jun 17, 2018 at 05:25 Initial Consult Date 06/17/18 Type of Consult Cardiology Requesting Provider: LISSET PATINO Date/Time of Note DATE: 06/25/18 TIME: 15:45 24 HR Interval Summary Free Text/Dictation Yesterday she was extubated. Is comfortable, minimal pain. Sat in a chair for several hours. Exam/Review of Systems Vital Signs Vitals Vital Signs Date Temp Pulse Resp B/P (MAP) Pulse Ox O2 O2 Flow FiO2 Time Delivery Rate 06/25/18 98 27 127/73 95 Nasal 2.0 15:00 (91) Cannula 06/25/18 98.1 12:00 06/24/18 40 13:30 Intake and Output 06/24/18 06/24/18 06/25/18 1515:00 23:00 07:00 IntakeIntake Total 685.75 ml 1063.0 ml 665.0 ml OutputOutput Total 448 ml 793 ml 618 ml BalanceBalance 237.75 ml 270.0 ml 47.0 ml Exam Constitutional: alert, oriented, well developed Psych: no complaints, nl mood/affect Head: normocephalic, atraumatic Eyes: nl conjunctiva, nl lids ENMT: nl external ears & nose Neck: supple; No jvd, No bruits Respiratory: clear to auscultation (anteriorly), normal air movement Cardiovascular: regular rate and rhythm; No murmurs/extra sounds, No rub Gastrointestinal: soft Musculoskeletal: nl extremities to inspection Extremities: edema (mild diffuse) Neurological: nl mental status, nl speech Skin: nl turgor Labs Result Diagram: 06/25/1841906/25/18419 Results 24hrs Laboratory Tests Test 06/24/18 16:15 06/24/18 17:54 06/24/18 19:52 06/24/18 20:20 Bedside Glucose 116 111 106 Potassium Level 3.6 Magnesium Level 2.4 Test 06/24/18 22:16 06/25/18 00:17 06/25/18 03:57 06/25/18 04:20 Bedside Glucose 92 89 102 White Blood Count 10.5 Red Blood Count 2.74 L Hemoglobin 7.8 L Hematocrit 25.1 L Mean Corpuscular 91.6 Volume Mean Corpuscular 28.5 L Hemoglobin Mean Corpuscular 31.1 L Hemoglobin Concent Red Cell 19.2 H Distribution Width Platelet Count 201 # Mean Platelet 10.2 Volume Immature 2.600 H Granulocytes % Neutrophils % 69.3 Lymphocytes % 13.2 L Monocytes % 11.4 H Eosinophils % 3.0 Basophils % 0.5 Nucleated Red 0.0 Blood Cells % Immature 0.270 H Granulocytes # Neutrophils # 7.3 Lymphocytes # 1.4 Monocytes # 1.2 H Eosinophils # 0.3 Basophils # 0.1 Nucleated Red 0.0 Blood Cells # Sodium Level 141 Potassium Level 4.2 Chloride Level 106 Carbon Dioxide 31 Level Anion Gap 4 L Blood Urea 12 Nitrogen Creatinine 0.79 Est Glomerular > 60 Filtrat Rate mL/min Glucose Level 101 Calcium Level 8.3 L Phosphorus Level 3.4 Magnesium Level 2.3 Test 06/25/18 05:00 06/25/18 06:26 06/25/18 08:08 06/25/18 10:01 Blood Gas Specimen Blood arterial Source Arterial Blood 06/25/2018 4:30:12 Date Drawn AM Arterial Blood pH 7.399 (Temp corrected) Arterial Blood 42.0 pCO2 (Temp correct) Arterial Blood pO2 101.7 H (Temp corrected) Arterial Blood 25.4 HCO3 Arterial Blood 0.5 Base Excess Arterial Blood 97.3 Oxygen Saturation Jarrod Test N/A Arterial Blood Gas A-Line Puncture Site Arterial 0.3 Blood Carboxyhemog lobin Arterial Blood 0.2 Methemoglobin Blood Gas A-a O2 84.6 H Differential Oxyhemoglobin 96.8 Percent Blood Gas 37.0 Temperature Blood Gas Modality NASAL CANNULA FiO2 33.0 Blood Gas Notified Rakan Connolly YOSVANY Whom Blood Gas Notified 06/25/2018 4:39:03 Time AM Bedside Glucose 106 107 106 Medications Medications Current Medications Potassium Chloride 40 meq/ Calcium Chloride 1 gm/Dextrose/ Sodium Chloride 1,030 ml @ 60 mls/hr [id number] IV Last administered on 06/25/18 03:53; Admin Dose 60 MLS/HR; Start 06/20/18 at 18:43 Oxycodone/ Acetaminophen (Percocet (5/ 325)) 1 tab Q3H PRN PO PAIN LEVEL 1-5 Last administered on 06/25/18 03:53; Admin Dose 1 TAB; Start 06/20/18 at 19:00 Oxycodone/ Acetaminophen (Percocet (5/ 325)) 2 tab Q3H PRN PO PAIN LEVEL 6-10; Start 06/20/18 at 19:00 Ondansetron HCl (Zofran Inj) 4 mg Q6H PRN IV NAUSEA AND/OR VOMITING Last administered on 06/24/18 19:57; Admin Dose 4 MG; Start 06/20/18 at 19:00 Famotidine (Pepcid Iv) 20 mg BID@08,20 IV Last administered on 06/25/18 09:10; Admin Dose 20 MG; Start 06/20/18 at 20:00 Acetaminophen (Tylenol Tab) 650 mg Q3H PRN PO ELEVATED TEMPERATURE Last administered on 06/25/18 14:23; Admin Dose 650 MG; Start 06/20/18 at 19:00 Potassium Chloride 50 ml @ 50 mls/hr SEE DIRECTION PRN IVPB K+ LEVEL Last administered on 06/25/18 12:57; Admin Dose 50 MLS/HR; Start 06/20/18 at 19:00 Magnesium Sulfate/ Dextrose 100 ml @ 100 mls/hr PRN PRN IVPB PENDING LAB VALUE Last administered on 06/23/18 19:28; Admin Dose 100 MLS/HR; Start 06/20/18 at 19:00 Dopamine HCl/ Dextrose 250 ml @ 7.38 mls/hr PER PROTOCOL IV ; Start 06/20/18 at 19:00 Phenylephrine HCl 250 ml @ 75 mls/hr TITRATE IV Last administered on 3/6/19at 01:24; Admin Dose 33.75 MLS/HR; Start 06/20/18 at 19:00 Fentanyl 100 ml @ 2.5 mls/hr TITRATE IV Last administered on 06/23/18at 13:35; Admin Dose 2.5 MLS/HR; Start 06/21/18 at 00:30 Dextrose (D50w Syringe) 25 ml Q15M PRN IV .DECREASED GLUCOSE; Start 06/21/18 at 03:00 Dextrose (D50w Syringe) 50 ml Q15M PRN IV .DECREASED GLUCOSE; Start 06/21/18 at 03:00 Atorvastatin Calcium (Lipitor) 80 mg HS NGT Last administered on 06/24/18 21:00; Admin Dose 80 MG; Start 06/21/18 at 21:00 Clopidogrel Bisulfate (plaVIX) 75 mg DAILY PO Last administered on 06/25/18 09:01; Admin Dose 75 MG; Start 06/22/18 at 09:00 Midazolam HCl 50 mg/Dextrose 50 ml @ 1 mls/hr TITRATE IV Last administered on 06/24/18at 00:28; Admin Dose 3 MLS/HR; Start 06/21/18 at 16:00 Dextrose (D50w Syringe) 25 ml Q15M PRN IV .DECREASED GLUCOSE; Start 06/22/18 at 08:30 Dextrose (D50w Syringe) 50 ml Q15M PRN IV .DECREASED GLUCOSE; Start 06/22/18 at 08:30 Nitroglycerin/ Dextrose 250 ml @ 1.5 mls/hr PER PROTOCOL IV ; Start 06/22/18 at 08:30 Norepinephrine 250 ml @ 1.875 mls/ hr TITRATE IV ; Start 06/22/18 at 08:30 Enoxaparin Sodium (Lovenox) 40 mg DAILY SC Last administered on 06/25/18at 09:05; Admin Dose 40 MG; Start 06/22/18 at 10:00 Vancomycin HCl (Vanco Iv Per Pharmacy) VANCOMYCIN PER PHARMACY PER PROTOCOL XX ; Start 06/22/18 at 14:00 Miscellaneous Information (* Miscellaneous Pharmacy Order) ZOSYN IV PER PHARMACY ONCE XX ; Start 06/22/18 at 14:00 Piperacillin Sod/ Tazobactam Sod 100 ml @ 200 mls/hr Q8 IVPB Last administered on 06/25/18at 14:30; Admin Dose 200 MLS/HR; Start 06/22/18 at 14:06 Vancomycin HCl 250 ml @ 125 mls/hr Q12H IVPB Last administered on 06/25/18at 09:01; Admin Dose 125 MLS/HR; Start 06/23/18 at 08:00 Ferric Sodium Gluconate Complex 125 mg/Sodium Chloride 110 ml @ 110 mls/hr DAILY@1300 IVPB Last administered on 06/25/18at 12:56; Admin Dose 110 MLS/HR; Start 06/23/18 at 13:00; Stop 06/27/18 at 13:59 Ascorbic Acid (Vitamin C) 1,000 mg BID NGT Last administered on 06/25/18 09:02; Admin Dose 1,000 MG; Start 06/23/18 at 09:00 Metoprolol Tartrate (Lopressor) 25 mg BID GTB Last administered on 06/25/18 09:02; Admin Dose 25 MG; Start 06/23/18 at 11:00 Aspirin (Aspirin) 81 mg DAILY GTB Last administered on 06/25/18at 09:01; Admin Dose 81 MG; Start 06/24/18 at 09:00 Morphine Sulfate (morphine) 2 mg Q2H PRN IV SEVERE PAIN LEVEL 7-10 Last administered on 06/24/18 15:19; Admin Dose 2 MG; Start 06/24/18 at 15:00 Insulin Aspart (Novolog Insulin Pen) (Adult SC Insulin - Mild Algorithm)... AC MEALS AND BEDTIME SC ; Start 06/25/18 at 17:05 Diagnostic Test (Pha) (Accu-Chek) 1 ea 02 XX ; Start 06/26/18 at 02:00 Miscellaneous Information 1 ea NOTE XX ; Start 06/25/18 at 13:30 Miscellaneous Information 1 ea NOTE XX ; Start 06/25/18 at 14:00 Glucose (Glutose) 15 gm Q15M PRN PO DECREASED GLUCOSE; Start 06/25/18 at 14:00 Glucose (Glutose) 22.5 gm Q15M PRN PO DECREASED GLUCOSE; Start 06/25/18 at 14:00 Glucagon (Glucagen) 1 mg Q15M PRN IM DECREASED GLUCOSE; Start 06/25/18 at 14:00 Glucose (Glutose) 15 gm Q15M PRN BUCCAL DECREASED GLUCOSE; Start 06/25/18 at 14: 00 LISSET PATINO Jun 25, 2018 15:47
[2018-06-25] MEDS: Insulin NOVOLOG SS MILD Algorithm (SS with meals and bedtime) SC SCH ×2 (17:05→21:00)
[2018-06-25] MEDS: ATORVASTATIN 80 MG TAB NGT SCH (20:29)
[2018-06-26] VITALS (24 sets, daily range): BP systolic 104–139; BP diastolic 57–87; PULSE 90–104; RESP 17–27
[2018-06-26] MEDS: morphine 2 MG INJ IV PRN (01:24)
[2018-06-26] MEDS ORDERED: ACCU-CHEK XX SCH (02:00)
[2018-06-26] MEDS: ACCUCHECK AT 2AM (Patients on SS coverage) XX SCH (02:00)
[2018-06-26] MEDS: PIPER-TAZO 3.375 GM IV (PMX) 100 ML IVPB SCH ×3 (06:50→22:18)
[2018-06-26] MEDS: Insulin NOVOLOG SS MILD Algorithm (SS with meals and bedtime) SC SCH ×4 (07:05→21:00)
[2018-06-26] MEDS: POTASSIUM CHLORIDE 50 ML IVPB PRN ×2 (07:29→10:58)
[2018-06-26] MEDS ORDERED: LIDOCAINE 1% (MPF) 5 ML VIAL SC ONE (09:00)
--- NOTE | 2018-06-26 09:02 | PN ---
Date/Time of Note Date/Time of Note DATE: 06/26/18 TIME: 08:59 Assessment/Plan VTE Prophylaxis Risk score (from Ns)>0 risk: 12 SCD applied (from Ns): No SCD contraindicated: other (leg vein harvest) Pharmacological prophylaxis: LMWH Lines/Catheters [facility] (from [facility] Cord[facility] Urinary Cath still in place: No Reason Cath still needed: other (indicate) (critcal care) Assessment/Plan Assessment/Plan Alert. Extubated. On nasal cannula. Still draining chest tube and leg drain. NSR. Alert. Was up in chair. To have PIC line placed. Result Diagram: 06/26/18 0508 06/26/18 0508 Results 24hrs Laboratory Tests Test 06/25/18 10:01 06/25/18 17:10 06/25/18 20:42 06/26/18 05:07 Bedside Glucose 106 109 88 Magnesium Level 2.1 Test 06/26/18 05:08 06/26/18 05:51 06/26/18 07:18 White Blood Count 10.7 Red Blood Count 2.92 L Hemoglobin 8.4 L Hematocrit 26.7 L Mean Corpuscular 91.4 Volume Mean Corpuscular 28.8 L Hemoglobin Mean Corpuscular 31.5 L Hemoglobin Concent Red Cell 19.3 H Distribution Width Platelet Count 286 # Mean Platelet Volume 9.7 Immature 3.900 H Granulocytes % Neutrophils % 67.0 Lymphocytes % 14.5 L Monocytes % 11.3 H Eosinophils % 2.9 Basophils % 0.4 Nucleated Red Blood 0.0 Cells % Immature 0.420 H Granulocytes # Neutrophils # 7.1 Lymphocytes # 1.6 Monocytes # 1.2 H Eosinophils # 0.3 Basophils # 0.0 Nucleated Red Blood 0.0 Cells # Sodium Level 141 Potassium Level 4.1 Chloride Level 103 Carbon Dioxide Level 33 H Anion Gap 5 Blood Urea Nitrogen 9 Creatinine 0.79 Est Glomerular > 60 Filtrat Rate mL/min Glucose Level 111 Calcium Level 9.0 Bedside Glucose 118 116 Exam/Review of Systems Exam Vitals Vital Signs Date Temp Pulse Resp B/P (MAP) Pulse Ox O2 O2 Flow FiO2 Time Delivery Rate 06/26/18 94 19 125/62 97 Mechanical 07:00 (83) Ventilator 06/26/18 3.0 05:45 06/26/18 97.0 04:00 06/24/18 40 13:30 Intake and Output 06/25/18 06/25/18 06/26/18 1515:00 23:00 07:00 IntakeIntake Total 1162.5 ml 900 ml 580 ml OutputOutput Total 2575 ml 955 ml 775 ml BalanceBalance -1412.5 ml -55 ml -195 ml Results Results 24hrs Laboratory Tests Test 06/25/18 10:01 06/25/18 17:10 06/25/18 20:42 06/26/18 05:07 Bedside Glucose 106 109 88 Magnesium Level 2.1 Test 06/26/18 05:08 06/26/18 05:51 06/26/18 07:18 White Blood Count 10.7 Red Blood Count 2.92 L Hemoglobin 8.4 L Hematocrit 26.7 L Mean Corpuscular 91.4 Volume Mean Corpuscular 28.8 L Hemoglobin Mean Corpuscular 31.5 L Hemoglobin Concent Red Cell 19.3 H Distribution Width Platelet Count 286 # Mean Platelet Volume 9.7 Immature 3.900 H Granulocytes % Neutrophils % 67.0 Lymphocytes % 14.5 L Monocytes % 11.3 H Eosinophils % 2.9 Basophils % 0.4 Nucleated Red Blood 0.0 Cells % Immature 0.420 H Granulocytes # Neutrophils # 7.1 Lymphocytes # 1.6 Monocytes # 1.2 H Eosinophils # 0.3 Basophils # 0.0 Nucleated Red Blood 0.0 Cells # Sodium Level 141 Potassium Level 4.1 Chloride Level 103 Carbon Dioxide Level 33 H Anion Gap 5 Blood Urea Nitrogen 9 Creatinine 0.79 Est Glomerular > 60 Filtrat Rate mL/min Glucose Level 111 Calcium Level 9.0 Bedside Glucose 118 116 Medications Medication Current Medications Potassium Chloride 40 meq/ Calcium Chloride 1 gm/Dextrose/ Sodium Chloride 1,030 ml @ 60 mls/hr [id number] IV Last administered on 06/25/18at 20:38; Admin Dose 60 MLS/HR; Start 06/20/18 at 18:43 Oxycodone/ Acetaminophen (Percocet (5/ 325)) 1 tab Q3H PRN PO PAIN LEVEL 1-5 Last administered on 06/25/18at 03:53; Admin Dose 1 TAB; Start 06/20/18 at 19:00 Oxycodone/ Acetaminophen (Percocet (5/ 325)) 2 tab Q3H PRN PO PAIN LEVEL 6-10; Start 06/20/18 at 19:00 Ondansetron HCl (Zofran Inj) 4 mg Q6H PRN IV NAUSEA AND/OR VOMITING Last administered on 06/24/18 19:57; Admin Dose 4 MG; Start 06/20/18 at 19:00 Famotidine (Pepcid Iv) 20 mg BID@08,20 IV Last administered on 06/25/18 20:38; Admin Dose 20 MG; Start 06/20/18 at 20:00 Acetaminophen (Tylenol Tab) 650 mg Q3H PRN PO ELEVATED TEMPERATURE Last administered on 06/25/18 22:57; Admin Dose 650 MG; Start 06/20/18 at 19:00 Potassium Chloride 50 ml @ 50 mls/hr SEE DIRECTION PRN IVPB K+ LEVEL Last administered on 06/26/18 07:29; Admin Dose 50 MLS/HR; Start 06/20/18 at 19:00 Magnesium Sulfate/ Dextrose 100 ml @ 100 mls/hr PRN PRN IVPB PENDING LAB VALUE Last administered on 06/23/18 19:28; Admin Dose 100 MLS/HR; Start 06/20/18 at 19: 00 Dopamine HCl/ Dextrose 250 ml @ 7.38 mls/hr PER PROTOCOL IV ; Start 06/20/18 at 19:00 Phenylephrine HCl 250 ml @ 75 mls/hr TITRATE IV Last administered on 06/22/18 01:24; Admin Dose 33.75 MLS/HR; Start 06/20/18 at 19:00 Fentanyl 100 ml @ 2.5 mls/hr TITRATE IV Last administered on 06/23/18 13:35; Admin Dose 2.5 MLS/HR; Start 06/21/18 at 00:30 Dextrose (D50w Syringe) 25 ml Q15M PRN IV .DECREASED GLUCOSE; Start 06/21/18 at 03:00 Dextrose (D50w Syringe) 50 ml Q15M PRN IV .DECREASED GLUCOSE; Start 06/21/18 at 03:00 Atorvastatin Calcium (Lipitor) 80 mg HS NGT Last administered on 06/25/18 20:2 9; Admin Dose 80 MG; Start 06/21/18 at 21:00 Clopidogrel Bisulfate (plaVIX) 75 mg DAILY PO Last administered on 3/9/19at 09:01; Admin Dose 75 MG; Start 06/22/18 at 09:00 Midazolam HCl 50 mg/Dextrose 50 ml @ 1 mls/hr TITRATE IV Last administered on 06/24/18at 00:28; Admin Dose 3 MLS/HR; Start 06/21/18 at 16:00 Dextrose (D50w Syringe) 25 ml Q15M PRN IV .DECREASED GLUCOSE; Start 06/22/18 at 08:30 Dextrose (D50w Syringe) 50 ml Q15M PRN IV .DECREASED GLUCOSE; Start 06/22/18 at 08:30 Nitroglycerin/ Dextrose 250 ml @ 1.5 mls/hr PER PROTOCOL IV ; Start 06/22/18 at 08:30 Norepinephrine 250 ml @ 1.875 mls/ hr TITRATE IV ; Start 06/22/18 at 08:30 Enoxaparin Sodium (Lovenox) 40 mg DAILY SC Last administered on 06/25/18at 09:05; Admin Dose 40 MG; Start 06/22/18 at 10:00 Vancomycin HCl (Vanco Iv Per Pharmacy) VANCOMYCIN PER PHARMACY PER PROTOCOL XX ; Start 06/22/18 at 14:00 Miscellaneous Information (* Miscellaneous Pharmacy Order) ZOSYN IV PER PHARMACY ONCE XX ; Start 06/22/18 at 14:00 Piperacillin Sod/ Tazobactam Sod 100 ml @ 200 mls/hr Q8 IVPB Last administered on 06/26/18at 06:50; Admin Dose 200 MLS/HR; Start 06/22/18 at 14:06 Vancomycin HCl 250 ml @ 125 mls/hr Q12H IVPB Last administered on 06/25/18at 20:30; Admin Dose 125 MLS/HR; Start 06/23/18 at 08:00 Ferric Sodium Gluconate Complex 125 mg/Sodium Chloride 110 ml @ 110 mls/hr DAILY@1300 IVPB Last administered on 06/25/18at 12:56; Admin Dose 110 MLS/HR; Start 06/23/18 at 13:00; Stop 06/27/18 at 13:59 Ascorbic Acid (Vitamin C) 1,000 mg BID NGT Last administered on 06/25/18at 20:29; Admin Dose 1,000 MG; Start 06/23/18 at 09:00 Metoprolol Tartrate (Lopressor) 25 mg BID GTB Last administered on 06/25/18at 20:29; Admin Dose 25 MG; Start 06/23/18 at 11:00 Aspirin (Aspirin) 81 mg DAILY GTB Last administered on 06/25/18at 09:01; Admin Dose 81 MG; Start 06/24/18 at 09:00 Morphine Sulfate (morphine) 2 mg Q2H PRN IV SEVERE PAIN LEVEL 7-10 Last admini stered on 06/26/18at 01:24; Admin Dose 2 MG; Start 06/24/18 at 15:00 Insulin Aspart (Novolog Insulin Pen) (Adult SC Insulin - Mild Algorithm)... AC MEALS AND BEDTIME SC ; Start 06/25/18 at 17:05 Diagnostic Test (Pha) (Accu-Chek) 1 ea 02 XX Last administered on 06/26/18at 02:00; Admin Dose 1 EA; Start 06/26/18 at 02:00 Miscellaneous Information 1 ea NOTE XX ; Start 06/25/18 at 13:30 Miscellaneous Information 1 ea NOTE XX ; Start 06/25/18 at 14:00 Glucose (Glutose) 15 gm Q15M PRN PO DECREASED GLUCOSE; Start 06/25/18 at 14:00 Glucose (Glutose) 22.5 gm Q15M PRN PO DECREASED GLUCOSE; Start 06/25/18 at 14:00 Glucagon (Glucagen) 1 mg Q15M PRN IM DECREASED GLUCOSE; Start 06/25/18 at 14:00 Glucose (Glutose) 15 gm Q15M PRN BUCCAL DECREASED GLUCOSE; Start 06/25/18 at 14:00 JORGE MIDDLETON MD Jun 26, 2018 09:02
[2018-06-26] MEDS: CLOPIDOGREL 75 MG TAB PO SCH (09:33)
[2018-06-26] MEDS: FAMOTIDINE 20 MG INJ IV SCH ×2 (09:33→20:16)
[2018-06-26] MEDS: ASPIRIN 81 MG TAB GTB SCH (09:34)
[2018-06-26] MEDS: ASCORBIC ACID 500 MG TAB NGT SCH ×2 (09:34→20:16)
[2018-06-26] MEDS: METOPROLOL 25 MG TAB GTB SCH (09:34)
[2018-06-26] MEDS: ENOXAPARIN 40 MG/0.4 ML SYG SC SCH (09:41)
--- NOTE | 2018-06-26 10:33 | PN ---
Date/Time of Note Date/Time of Note DATE: 06/26/18 TIME: 10:32 Assessment/Plan VTE Prophylaxis Risk score (from Ns)>0 risk: 12 SCD applied (from [facility]): No SCD contraindicated: patient refusal Pharmacological prophylaxis: LMWH Lines/Catheters IV Catheter Type (from [facility]): Cord[facility] Urinary Cath still in place: No Assessment/Plan Assessment/Plan 1. cards: s/p inf HI, s/p stent, cont med manage (b) POD #5 cabg (C) chf, spot with lasix 2. on iss only 3. ok tele if ok surgery Result Diagram: 06/26/18 0508 06/26/18 0508 Results 24hrs Laboratory Tests Test 06/25/18 17:10 06/25/18 20:42 06/26/18 05:07 06/26/18 05:08 Bedside Glucose 109 88 Magnesium Level 2.1 White Blood Count 10.7 Red Blood Count 2.92 L Hemoglobin 8.4 L Hematocrit 26.7 L Mean Corpuscular 91.4 Volume Mean Corpuscular 28.8 L Hemoglobin Mean Corpuscular 31.5 L Hemoglobin Concent Red Cell 19.3 H Distribution Width Platelet Count 286 # Mean Platelet Volume 9.7 Immature 3.900 H Granulocytes % Neutrophils % 67.0 Lymphocytes % 14.5 L Monocytes % 11.3 H Eosinophils % 2.9 Basophils % 0.4 Nucleated Red Blood 0.0 Cells % Immature 0.420 H Granulocytes # Neutrophils # 7.1 Lymphocytes # 1.6 Monocytes # 1.2 H Eosinophils # 0.3 Basophils # 0.0 Nucleated Red Blood 0.0 Cells # Sodium Level 141 Potassium Level 4.1 Chloride Level 103 Carbon Dioxide Level 33 H Anion Gap 5 Blood Urea Nitrogen 9 Creatinine 0.79 Est Glomerular > 60 Filtrat Rate mL/min Glucose Level 111 Calcium Level 9.0 Test 06/26/18 05:51 06/26/18 07:18 Bedside Glucose 118 116 Subjective 24 Hr Interval Summary Free Text/Dictation no complaints at this time, did significant tinme in chair yest Exam/Review of Systems Exam Vitals Vital Signs Date Temp Pulse Resp B/P (MAP) Pulse Ox O2 O2 Flow FiO2 Time Delivery Rate 06/26/18 92 08:00 06/26/18 125/62 97 Mechanical 07:00 (83) Ventilator 06/26/18 3.0 05:45 06/26/18 97.0 04:00 06/24/18 40 13:30 Intake and Output 06/25/18 06/25/18 06/26/18 1414:59 22:59 06:59 IntakeIntake Total 1163.0 ml 1000 ml 580 ml OutputOutput Total 2325 ml 1155 ml 875 ml BalanceBalance -1162.0 ml -155 ml -295 ml Exam luing flat on nc ctab ant picc in situ Results Results 24hrs Laboratory Tests Test 06/25/18 17:10 06/25/18 20:42 06/26/18 05:07 06/26/18 05:08 Bedside Glucose 109 88 Magnesium Level 2.1 White Blood Count 10.7 Red Blood Count 2.92 L Hemoglobin 8.4 L Hematocrit 26.7 L Mean Corpuscular 91.4 Volume Mean Corpuscular 28.8 L Hemoglobin Mean Corpuscular 31.5 L Hemoglobin Concent Red Cell 19.3 H Distribution Width Platelet Count 286 # Mean Platelet Volume 9.7 Immature 3.900 H Granulocytes % Neutrophils % 67.0 Lymphocytes % 14.5 L Monocytes % 11.3 H Eosinophils % 2.9 Basophils % 0.4 Nucleated Red Blood 0.0 Cells % Immature 0.420 H Granulocytes # Neutrophils # 7.1 Lymphocytes # 1.6 Monocytes # 1.2 H Eosinophils # 0.3 Basophils # 0.0 Nucleated Red Blood 0.0 Cells # Sodium Level 141 Potassium Level 4.1 Chloride Level 103 Carbon Dioxide Level 33 H Anion Gap 5 Blood Urea Nitrogen 9 Creatinine 0.79 Est Glomerular > 60 Filtrat Rate mL/min Glucose Level 111 Calcium Level 9.0 Test 06/26/18 05:51 06/26/18 07:18 Bedside Glucose 118 116 Medications Medication Current Medications Potassium Chloride 40 meq/ Calcium Chloride 1 gm/Dextrose/ Sodium Chloride 1,030 ml @ 60 mls/hr [id number] IV Last administered on 06/25/18at 20:38; Admin Dose 60 MLS/HR; Start 06/20/18 at 18:43 Oxycodone/ Acetaminophen (Percocet (5/ 325)) 1 tab Q3H PRN PO PAIN LEVEL 1-5 Last administered on 06/25/18at 03:53; Admin Dose 1 TAB; Start 06/20/18 at 19:00 Oxycodone/ Acetaminophen (Percocet (5/ 325)) 2 tab Q3H PRN PO PAIN LEVEL 6-10; Start 06/20/18 at 19:00 Ondansetron HCl (Zofran Inj) 4 mg Q6H PRN IV NAUSEA AND/OR VOMITING Last administered on 06/24/18 19:57; Admin Dose 4 MG; Start 06/20/18 at 19:00 Famotidine (Pepcid Iv) 20 mg BID@08,20 IV Last administered on 06/26/18 09:33; Admin Dose 20 MG; Start 06/20/18 at 20:00 Acetaminophen (Tylenol Tab) 650 mg Q3H PRN PO ELEVATED TEMPERATURE Last administered on 06/25/18 22:57; Admin Dose 650 MG; Start 06/20/18 at 19:00 Potassium Chloride 50 ml @ 50 mls/hr SEE DIRECTION PRN IVPB K+ LEVEL Last administered on 06/26/18 07:29; Admin Dose 50 MLS/HR; Start 06/20/18 at 19:00 Magnesium Sulfate/ Dextrose 100 ml @ 100 mls/hr PRN PRN IVPB PENDING LAB VALUE Last administered on 06/23/18 19:28; Admin Dose 100 MLS/HR; Start 06/20/18 at 19:00 Dopamine HCl/ Dextrose 250 ml @ 7.38 mls/hr PER PROTOCOL IV ; Start 06/20/18 at 19:00 Phenylephrine HCl 250 ml @ 75 mls/hr TITRATE IV Last administered on 06/22/18 01:24; Admin Dose 33.75 MLS/HR; Start 06/20/18 at 19:00 Fentanyl 100 ml @ 2.5 mls/hr TITRATE IV Last administered on 06/23/18 13:35; Admin Dose 2.5 MLS/HR; Start 06/21/18 at 00:30 Dextrose (D50w Syringe) 25 ml Q15M PRN IV .DECREASED GLUCOSE; Start 06/21/18 at 03:00 Dextrose (D50w Syringe) 50 ml Q15M PRN IV .DECREASED GLUCOSE; Start 06/21/18 at 03:00 Atorvastatin Calcium (Lipitor) 80 mg HS NGT Last administered on 06/25/18 20:29; Admin Dose 80 MG; Start 06/21/18 at 21:00 Clopidogrel Bisulfate (plaVIX) 75 mg DAILY PO Last administered on 06/26/18at 09:33; Admin Dose 75 MG; Start 06/22/18 at 09:00 Midazolam HCl 50 mg/Dextrose 50 ml @ 1 mls/hr TITRATE IV Last administered on 06/24/18at 00:28; Admin Dose 3 MLS/HR; Start 06/21/18 at 16:00 Dextrose (D50w Syringe) 25 ml Q15M PRN IV .DECREASED GLUCOSE; Start 06/22/18 at 08:30 Dextrose (D50w Syringe) 50 ml Q15M PRN IV .DECREASED GLUCOSE; Start 06/22/18 at 08:30 Nitroglycerin/ Dextrose 250 ml @ 1.5 mls/hr PER PROTOCOL IV ; Start 06/22/18 at 08:30 Norepinephrine 250 ml @ 1.875 mls/ hr TITRATE IV ; Start 06/22/18 at 08:30 Enoxaparin Sodium (Lovenox) 40 mg DAILY SC Last administered on 06/26/18at 09:41; Admin Dose 40 MG; Start 06/22/18 at 10:00 Vancomycin HCl (Vanco Iv Per Pharmacy) VANCOMYCIN PER PHARMACY PER PROTOCOL XX ; Start 06/22/18 at 14:00 Miscellaneous Information (* Miscellaneous Pharmacy Order) ZOSYN IV PER PHARMACY ONCE XX ; Start 06/22/18 at 14:00 Piperacillin Sod/ Tazobactam Sod 100 ml @ 200 mls/hr Q8 IVPB Last administered on 06/26/18at 06:50; Admin Dose 200 MLS/HR; Start 06/22/18 at 14:06 Vancomycin HCl 250 ml @ 125 mls/hr Q12H IVPB Last administered on 06/25/18at 20:30; Admin Dose 125 MLS/HR; Start 06/23/18 at 08:00 Ferric Sodium Gluconate Complex 125 mg/Sodium Chloride 110 ml @ 110 mls/hr DAILY@1300 IVPB Last administered on 06/25/18at 12:56; Admin Dose 110 MLS/HR; Start 06/23/18 at 13:00; Stop 06/27/18 at 13:59 Ascorbic Acid (Vitamin C) 1,000 mg BID NGT Last administered on 06/26/18 09:34; Admin Dose 1,000 MG; Start 06/23/18 at 09:00 Metoprolol Tartrate (Lopressor) 25 mg BID GTB Last administered on 06/26/18at 09:34; Admin Dose 25 MG; Start 06/23/18 at 11:00 Aspirin (Aspirin) 81 mg DAILY GTB Last administered on 06/26/18at 09:34; Admin Dose 81 MG; Start 06/24/18 at 09:00 Morphine Sulfate (morphine) 2 mg Q2H PRN IV SEVERE PAIN LEVEL 7-10 Last administered on 06/26/18at 01:24; Admin Dose 2 MG; Start 06/24/18 at 15:00 Insulin Aspart (Novolog Insulin Pen) (Adult SC Insulin - Mild Algorithm)... AC MEALS AND BEDTIME SC ; Start 06/25/18 at 17:05 Diagnostic Test (Pha) (Accu-Chek) 1 ea 02 XX Last administered on 06/26/18at 02:00; Admin Dose 1 EA; Start 06/26/18 at 02:00 Miscellaneous Information 1 ea NOTE XX ; Start 06/25/18 at 13:30 Miscellaneous Information 1 ea NOTE XX ; Start 06/25/18 at 14:00 Glucose (Glutose) 15 gm Q15M PRN PO DECREASED GLUCOSE; Start 06/25/18 at 14:00 Glucose (Glutose) 22.5 gm Q15M PRN PO DECREASED GLUCOSE; Start 06/25/18 at 14:00 Glucagon (Glucagen) 1 mg Q15M PRN IM DECREASED GLUCOSE; Start 06/25/18 at 14:00 Glucose (Glutose) 15 gm Q15M PRN BUCCAL DECREASED GLUCOSE; Start 06/25/18 at 14 :00 KATRIN CORNEJO MD Jun 26, 2018 10:33
[2018-06-26] MEDS: ONDANSETRON 4 MG INJ IV PRN (10:51)
[2018-06-26] MEDS: VANCOMYCIN 1 GM 250 ML IVPB SCH ×2 (10:58→20:19)
[2018-06-26] MEDS: POTASSIUM CHLORIDE 40 MEQ, CALCIUM CHLORIDE 10% 1 GM in DEXTROSE 5%-0.225% NACL 1,000 ML IV SCH ×2 (12:03→22:17)
[2018-06-26] MEDS: SOD FERRIC GLUC COMPLX 125 MG in SOD CHLORIDE 0.9% 100 ML IVPB SCH (13:48)
[2018-06-26] MEDS: ACETAMINOPHEN 325 MG TAB PO PRN (15:12)
--- NOTE | 2018-06-26 17:32 | CONS ---
Assessment/Plan Assessment/Plan Hospital Course (Demo Recall) 67 yo with acute inferior stemi, with severe left man disease and acutely occluded dominant LCX. Bare metal stent placed in the prox LCX and balloon angioplasty performed on the left main. She underwent CABG on Wednesday06/20/18 with return to the OR same day for mediastinal bleeding. Doing well overall, chest tube still in place. Impression: Inferior stemi due to occluded dominant LCX, with severe left main and proximal LAD disease, small nondominant RCA, s/p bare metal stent to prox LCX on Wednesday am and CABG on Wednesday06/20/18 Acute respiratory failure, extubated Recc: ASA 81 mg daily, clopidogrel, statin. Increased metoprolol tartrate to 50 mg bid OOB/mobilize Surgical management per Dr. Plata/Mariluz/Mariaa Consultation Date/Type/Reason Admit Date/Time Jun 17, 2018 at 05:25 Initial Consult Date 06/17/18 Type of Consult Cardiology Requesting Provider: LISSET PATINO Date/Time of Note DATE: 06/26/18 TIME: 17:30 24 HR Interval Summary Free Text/Dictation No events. Feels tired. Chest tubes still with significant output. Exam/Review of Systems Vital Signs Vitals Vital Signs Date Temp Pulse Resp B/P (MAP) Pulse Ox O2 O2 Flow FiO2 Time Delivery Rate 06/26/18 98.3 104 23 131/75 97 Nasal 2.0 16:00 (93) Cannula 06/24/18 40 13:30 Intake and Output 06/25/18 06/25/18 06/26/18 1515:00 23:00 07:00 IntakeIntake Total 1162.5 ml 900 ml 580 ml OutputOutput Total 2575 ml 955 ml 850 ml BalanceBalance -1412.5 ml -55 ml -270 ml Exam Constitutional: alert, oriented, well developed Psych: nl mood/affect Head: normocephalic, atraumatic Eyes: EOMI, nl lids ENMT: nl external ears & nose, nl lips & teeth Neck: supple; No jvd, No bruits Respiratory: clear to auscultation, normal air movement Cardiovascular: regular rate and rhythm, nl pulses; No murmurs/extra sounds Gastrointestinal: soft, nl liver, spleen, non-tender Musculoskeletal: nl extremities to inspection Extremities: normal pulses Neurological: nl mental status, nl speech Skin: nl turgor; No rash or lesions Labs Result Diagram: 06/26/18 0508 06/26/18 0508 Results 24hrs Laboratory Tests Test 06/25/18 20:42 06/26/18 05:07 06/26/18 05:08 06/26/18 05:51 Bedside Glucose 88 118 Magnesium Level 2.1 White Blood Count 10.7 Red Blood Count 2.92 L Hemoglobin 8.4 L Hematocrit 26.7 L Mean Corpuscular 91.4 Volume Mean Corpuscular 28.8 L Hemoglobin Mean Corpuscular 31.5 L Hemoglobin Concent Red Cell 19.3 H Distribution Width Platelet Count 286 # Mean Platelet Volume 9.7 Immature 3.900 H Granulocytes % Neutrophils % 67.0 Lymphocytes % 14.5 L Monocytes % 11.3 H Eosinophils % 2.9 Basophils % 0.4 Nucleated Red Blood 0.0 Cells % Immature 0.420 H Granulocytes # Neutrophils # 7.1 Lymphocytes # 1.6 Monocytes # 1.2 H Eosinophils # 0.3 Basophils # 0.0 Nucleated Red Blood 0.0 Cells # Sodium Level 141 Potassium Level 4.1 Chloride Level 103 Carbon Dioxide Level 33 H Anion Gap 5 Blood Urea Nitrogen 9 Creatinine 0.79 Est Glomerular > 60 Filtrat Rate mL/min Glucose Level 111 Calcium Level 9.0 Test 06/26/18 07:18 06/26/18 11:06 06/26/18 16:44 Bedside Glucose 116 104 99 Medications Medications Current Medications Potassium Chloride 40 meq/ Calcium Chloride 1 gm/Dextrose/ Sodium Chloride 1,030 ml @ 60 mls/hr [id number] IV Last administered on 06/25/18at 20:38; Admin Dose 60 MLS/HR; Start 06/20/18 at 18:43 Oxycodone/ Acetaminophen (Percocet (5/ 325)) 1 tab Q3H PRN PO PAIN LEVEL 1-5 Last administered on 06/25/18at 03:53; Admin Dose 1 TAB; Start 06/20/18 at 19:00 Oxycodone/ Acetaminophen (Percocet (5/ 325)) 2 tab Q3H PRN PO PAIN LEVEL 6-10; Start 06/20/18 at 19:00 Ondansetron HCl (Zofran Inj) 4 mg Q6H PRN IV NAUSEA AND/OR VOMITING Last administered on 06/26/18 10:51; Admin Dose 4 MG; Start 06/20/18 at 19:00 Famotidine (Pepcid Iv) 20 mg BID@08,20 IV Last administered on 06/26/18 09:33; Admin Dose 20 MG; Start 06/20/18 at 20:00 Acetaminophen (Tylenol Tab) 650 mg Q3H PRN PO ELEVATED TEMPERATURE Last administered on 06/26/18 15:12; Admin Dose 650 MG; Start 06/20/18 at 19:00 Potassium Chloride 50 ml @ 50 mls/hr SEE DIRECTION PRN IVPB K+ LEVEL Last administered on 06/26/18 10:58; Admin Dose 50 MLS/HR; Start 06/20/18 at 19:00 Magnesium Sulfate/ Dextrose 100 ml @ 100 mls/hr PRN PRN IVPB PENDING LAB VALUE Last administered on 06/23/18 19:28; Admin Dose 100 MLS/HR; Start 06/20/18 at 19:00 Dopamine HCl/ Dextrose 250 ml @ 7.38 mls/hr PER PROTOCOL IV ; Start 06/20/18 at 19:00 Phenylephrine HCl 250 ml @ 75 mls/hr TITRATE IV Last administered on 06/22/18 01:24; Admin Dose 33.75 MLS/HR; Start 06/20/18 at 19:00 Fentanyl 100 ml @ 2.5 mls/hr TITRATE IV Last administered on 06/23/18 13:35; Admin Dose 2.5 MLS/HR; Start 06/21/18 at 00:30 Dextrose (D50w Syringe) 25 ml Q15M PRN IV .DECREASED GLUCOSE; Start 06/21/18 at 03:00 Dextrose (D50w Syringe) 50 ml Q15M PRN IV .DECREASED GLUCOSE; Start 06/21/18 at 03:00 Atorvastatin Calcium (Lipitor) 80 mg HS NGT Last administered on 06/25/18 20:29; Admin Dose 80 MG; Start 06/21/18 at 21:00 Clopidogrel Bisulfate (plaVIX) 75 mg DAILY PO Last administered on 06/26/18 09:33; Admin Dose 75 MG; Start 06/22/18 at 09:00 Midazolam HCl 50 mg/Dextrose 50 ml @ 1 mls/hr TITRATE IV Last administered on 3/8/19at 00:28; Admin Dose 3 MLS/HR; Start 06/21/18 at 16:00 Dextrose (D50w Syringe) 25 ml Q15M PRN IV .DECREASED GLUCOSE; Start 06/22/18 at 08:30 Dextrose (D50w Syringe) 50 ml Q15M PRN IV .DECREASED GLUCOSE; Start 06/22/18 at 08:30 Nitroglycerin/ Dextrose 250 ml @ 1.5 mls/hr PER PROTOCOL IV ; Start 06/22/18 at 08:30 Norepinephrine 250 ml @ 1.875 mls/ hr TITRATE IV ; Start 06/22/18 at 08:30 Enoxaparin Sodium (Lovenox) 40 mg DAILY SC Last administered on 06/26/18at 09:41; Admin Dose 40 MG; Start 06/22/18 at 10:00 Vancomycin HCl (Vanco Iv Per Pharmacy) VANCOMYCIN PER PHARMACY PER PROTOCOL XX ; Start 06/22/18 at 14:00 Miscellaneous Information (* Miscellaneous Pharmacy Order) ZOSYN IV PER PHARMACY ONCE XX ; Start 06/22/18 at 14:00 Piperacillin Sod/ Tazobactam Sod 100 ml @ 200 mls/hr Q8 IVPB Last administered on 06/26/18at 15:09; Admin Dose 200 MLS/HR; Start 06/22/18 at 14:06 Vancomycin HCl 250 ml @ 125 mls/hr Q12H IVPB Last administered on 06/26/18at 1 0:58; Admin Dose 125 MLS/HR; Start 06/23/18 at 08:00 Ferric Sodium Gluconate Complex 125 mg/Sodium Chloride 110 ml @ 110 mls/hr DAILY@1300 IVPB Last administered on 06/26/18at 13:48; Admin Dose 110 MLS/HR; Start 06/23/18 at 13:00; Stop 06/27/18 at 13:59 Ascorbic Acid (Vitamin C) 1,000 mg BID NGT Last administered on 06/26/18 09:34; Admin Dose 1,000 MG; Start 06/23/18 at 09:00 Aspirin (Aspirin) 81 mg DAILY GTB Last administered on 06/26/18 09:34; Admin Dose 81 MG; Start 06/24/18 at 09:00 Morphine Sulfate (morphine) 2 mg Q2H PRN IV SEVERE PAIN LEVEL 7-10 Last administered on 06/26/18at 01:24; Admin Dose 2 MG; Start 06/24/18 at 15:00 Insulin Aspart (Novolog Insulin Pen) (Adult SC Insulin - Mild Algorithm)... AC MEALS AND BEDTIME SC ; Start 06/25/18 at 17:05 Diagnostic Test (Pha) (Accu-Chek) 1 ea 02 XX Last administered on 06/26/18at 02:00; Admin Dose 1 EA; Start 06/26/18 at 02:00 Miscellaneous Information 1 ea NOTE XX ; Start 06/25/18 at 13:30 Miscellaneous Information 1 ea NOTE XX ; Start 06/25/18 at 14:00 Glucose (Glutose) 15 gm Q15M PRN PO DECREASED GLUCOSE; Start 06/25/18 at 14:00 Glucose (Glutose) 22.5 gm Q15M PRN PO DECREASED GLUCOSE; Start 06/25/18 at 14:00 Glucagon (Glucagen) 1 mg Q15M PRN IM DECREASED GLUCOSE; Start 06/25/18 at 14:00 Glucose (Glutose) 15 gm Q15M PRN BUCCAL DECREASED GLUCOSE; Start 06/25/18 at 14:00 Miscellaneous Information (*Rx Drug Level Order Reminder*) VANCO TROUGH @ 0,700 ONCE ONCE XX ; Start 06/27/18 at 07:00; Stop 06/27/18 at 07:01 Metoprolol Tartrate (Lopressor) 50 mg BID PO ; Start 06/26/18 at 21:00; Status LISSET MCCARTY Jun 26, 2018 17:32
[2018-06-26] MEDS: ATORVASTATIN 80 MG TAB NGT SCH (20:16)
[2018-06-26] MEDS ORDERED: METOPROLOL 50 MG TAB GTB SCH (21:00)
[2018-06-27] VITALS (24 sets, daily range): BP systolic 86–147; BP diastolic 56–86; PULSE 87–114; RESP 16–32
[2018-06-27] MEDS: traZODone 50 MG TAB PO PRN (01:29)
[2018-06-27] MEDS: ACCUCHECK AT 2AM (Patients on SS coverage) XX SCH (02:00)
[2018-06-27] MEDS: morphine 2 MG INJ IV PRN ×2 (06:20→22:27)
[2018-06-27] MEDS: PIPER-TAZO 3.375 GM IV (PMX) 100 ML IVPB SCH ×3 (06:22→22:32)
--- NOTE | 2018-06-27 08:05 | CONS ---
Assessment/Plan Assessment/Plan Hospital Course (Demo Recall) 67 yo with acute inferior stemi, with severe left man disease and acutely occluded dominant LCX. Bare metal stent placed in the prox LCX and balloon angioplasty performed on the left main. She underwent CABG on Wednesday06/20/18 with return to the OR same day for mediastinal bleeding. Doing well overall, chest tube still in place with drainage. Impression: Inferior stemi due to occluded dominant LCX, with severe left main and proximal LAD disease, small nondominant RCA, s/p bare metal stent to prox LCX on Wednesday am and CABG on Wednesday06/20/18 Acute respiratory failure, extubated Anemia due to blood loss Recc: ASA 81 mg daily, clopidogrel, statin. Continue metoprolol, will change to tid OOB/mobilize Surgical management per Dr. Plata/Mariluz/Mariaa Consultation Date/Type/Reason Admit Date/Time Jun 17, 2018 at 05:25 Initial Consult Date 06/17/18 Type of Consult Cardiology Requesting Provider: LISSET PATINO Date/Time of Note DATE: 06/27/18 TIME: 08:03 24 HR Interval Summary Free Text/Dictation Patient slept well. No pain. Legs feel weak and tight. Exam/Review of Systems Vital Signs Vitals Vital Signs Date Temp Pulse Resp B/P (MAP) Pulse Ox O2 O2 Flow FiO2 Time Delivery Rate 06/27/18 97 20 118/65 98 Nasal 07:00 (82) Cannula 06/27/18 99.0 04:00 06/27/18 3.0 03:44 06/24/18 40 13:30 Intake and Output 06/26/18 06/26/18 06/27/18 1515:00 23:00 07:00 IntakeIntake Total 685 ml 330 ml 0 ml OutputOutput Total 875 ml 730 ml 950 ml BalanceBalance -190 ml -400 ml -950 ml Exam Constitutional: alert, oriented, other (obese) Psych: no complaints, nl mood/affect Head: normocephalic, atraumatic Eyes: nl lids, nl sclera ENMT: nl external ears & nose Neck: No jvd, No bruits Respiratory: clear to auscultation, normal air movement Cardiovascular: regular rate and rhythm; No murmurs/extra sounds Gastrointestinal: soft, nl liver, spleen, non-tender Musculoskeletal: nl extremities to inspection Extremities: No edema Neurological: nl mental status, nl speech Skin: nl turgor Labs Result Diagram: 06/26/18 0508 06/26/18 0508 Results 24hrs Laboratory Tests Test 06/26/18 11:06 06/26/18 16:44 06/26/18 20:47 06/27/18 04:01 Bedside Glucose 104 99 106 105 Medications Medications Current Medications Potassium Chloride 40 meq/ Calcium Chloride 1 gm/Dextrose/ Sodium Chloride 1,030 ml @ 60 mls/hr [id number] IV Last administered on 06/26/18 22:17; Admin Dose 60 MLS/HR; Start 06/20/18 at 18:43 Oxycodone/ Acetaminophen (Percocet (5/ 325)) 1 tab Q3H PRN PO PAIN LEVEL 1-5 Last administered on 06/25/18 03:53; Admin Dose 1 TAB; Start 06/20/18 at 19:00 Oxycodone/ Acetaminophen (Percocet (5/ 325)) 2 tab Q3H PRN PO PAIN LEVEL 6-10; Start 06/20/18 at 19:00 Ondansetron HCl (Zofran Inj) 4 mg Q6H PRN IV NAUSEA AND/OR VOMITING Last administered on 06/26/18 10:51; Admin Dose 4 MG; Start 06/20/18 at 19:00 Famotidine (Pepcid Iv) 20 mg BID@08,20 IV Last administered on 06/26/18 20:16; Admin Dose 20 MG; Start 06/20/18 at 20:00 Acetaminophen (Tylenol Tab) 650 mg Q3H PRN PO ELEVATED TEMPERATURE Last administered on 06/26/18 15:12; Admin Dose 650 MG; Start 06/20/18 at 19:00 Potassium Chloride 50 ml @ 50 mls/hr SEE DIRECTION PRN IVPB K+ LEVEL Last administered on 06/26/18 10:58; Admin Dose 50 MLS/HR; Start 06/20/18 at 19:00 Magnesium Sulfate/ Dextrose 100 ml @ 100 mls/hr PRN PRN IVPB PENDING LAB VALUE Last administered on 06/23/18 19:28; Admin Dose 100 MLS/HR; Start 06/20/18 at 19:00 Dopamine HCl/ Dextrose 250 ml @ 7.38 mls/hr PER PROTOCOL IV ; Start 06/20/18 at 19:00 Phenylephrine HCl 250 ml @ 75 mls/hr TITRATE IV Last administered on 06/22/18at 01:24; Admin Dose 33.75 MLS/HR; Start 06/20/18 at 19:00 Fentanyl 100 ml @ 2.5 mls/hr TITRATE IV Last administered on 06/23/18at 13:35; Admin Dose 2.5 MLS/HR; Start 06/21/18 at 00:30 Dextrose (D50w Syringe) 25 ml Q15M PRN IV .DECREASED GLUCOSE; Start 06/21/18 at 03:00 Dextrose (D50w Syringe) 50 ml Q15M PRN IV .DECREASED GLUCOSE; Start 06/21/18 at 03:00 Atorvastatin Calcium (Lipitor) 80 mg HS NGT Last administered on 06/26/18at 20:16; Admin Dose 80 MG; Start 06/21/18 at 21:00 Clopidogrel Bisulfate (plaVIX) 75 mg DAILY PO Last administered on 06/26/18at 09:33; Admin Dose 75 MG; Start 06/22/18 at 09:00 Midazolam HCl 50 mg/Dextrose 50 ml @ 1 mls/hr TITRATE IV Last administered on 06/24/18at 00:28; Admin Dose 3 MLS/HR; Start 06/21/18 at 16:00 Dextrose (D50w Syringe) 25 ml Q15M PRN IV .DECREASED GLUCOSE; Start 06/22/18 at 08:30 Dextrose (D50w Syringe) 50 ml Q15M PRN IV .DECREASED GLUCOSE; Start 06/22/18 at 08:30 Nitroglycerin/ Dextrose 250 ml @ 1.5 mls/hr PER PROTOCOL IV ; Start 06/22/18 at 08:30 Norepinephrine 250 ml @ 1.875 mls/ hr TITRATE IV ; Start 06/22/18 at 08:30 Enoxaparin Sodium (Lovenox) 40 mg DAILY SC Last administered on 06/26/18at 09:41; Admin Dose 40 MG; Start 06/22/18 at 10:00 Vancomycin HCl (Vanco Iv Per Pharmacy) VANCOMYCIN PER PHARMACY PER PROTOCOL XX ; Start 06/22/18 at 14:00 Miscellaneous Information (* Miscellaneous Pharmacy Order) ZOSYN IV PER PHARMACY ONCE XX ; Start 06/22/18 at 14:00 Piperacillin Sod/ Tazobactam Sod 100 ml @ 200 mls/hr Q8 IVPB Last administered on 06/27/18at 06:22; Admin Dose 200 MLS/HR; Start 06/22/18 at 14:06 Vancomycin HCl 250 ml @ 125 mls/hr Q12H IVPB Last administered on 06/26/18at 20:19; Admin Dose 125 MLS/HR; Start 06/23/18 at 08:00 Ferric Sodium Gluconate Complex 125 mg/Sodium Chloride 110 ml @ 110 mls/hr DAILY@1300 IVPB Last administered on 06/26/18at 13:48; Admin Dose 110 MLS/HR; Start 06/23/18 at 13:00; Stop 06/27/18 at 13:59 Ascorbic Acid (Vitamin C) 1,000 mg BID NGT Last administered on 06/26/18at 20:16; Admin Dose 1,000 MG; Start 06/23/18 at 09:00 Aspirin (Aspirin) 81 mg DAILY GTB Last administered on 06/26/18at 09:34; Admin Dose 81 MG; Start 06/24/18 at 09:00 Morphine Sulfate (morphine) 2 mg Q2H PRN IV SEVERE PAIN LEVEL 7-10 Last administered on 06/27/18at 06:20; Admin Dose 2 MG; Start 06/24/18 at 15:00 Insulin Aspart (Novolog Insulin Pen) (Adult SC Insulin - Mild Algorithm)... AC MEALS AND BEDTIME SC ; Start 06/25/18 at 17:05 Diagnostic Test (Pha) (Accu-Chek) 1 ea 02 XX Last administered on 06/27/18at 02:00; Admin Dose 1 EA; Start 06/26/18 at 02:00 Miscellaneous Information 1 ea NOTE XX ; Start 06/25/18 at 13:30 Miscellaneous Information 1 ea NOTE XX ; Start 06/25/18 at 14:00 Glucose (Glutose) 15 gm Q15M PRN PO DECREASED GLUCOSE; Start 06/25/18 at 14:00 Glucose (Glutose) 22.5 gm Q15M PRN PO DECREASED GLUCOSE; Start 06/25/18 at 14:00 Glucagon (Glucagen) 1 mg Q15M PRN IM DECREASED GLUCOSE; Start 06/25/18 at 14:00 Glucose (Glutose) 15 gm Q15M PRN BUCCAL DECREASED GLUCOSE; Start 06/25/18 at 14:00 Metoprolol Tartrate (Lopressor) 50 mg BID GTB Last administered on 06/26/18at 20:17; Admin Dose 50 MG; Start 06/26/18 at 21:00 Trazodone HCl (Desyrel) 25 mg HS PRN PO SLEEP Last administered on 06/27/18at 01:29; Admin Dose 25 MG; Start 06/26/18 at 23:00 LISSET PATINO Jun 27, 2018 08:05
[2018-06-27] MEDS: Insulin NOVOLOG SS MILD Algorithm (SS with meals and bedtime) SC SCH ×4 (08:26→20:44)
--- NOTE | 2018-06-27 08:42 | CONS ---
Assessment/Plan Assessment/Plan Assessment/Plan (Daily) Assessment recommendations; 1. Patient admitted with acute IA status post acute coronary intervention with following CABG. Patient required reexploration of the chest cavity because of cardiac tamponade. Patient now successfully extubated with markedly improved overall clinical status. 2. Mild pulmonary edema. 3. History of hypertension. 4. Possibly some element of aspiration pneumonia. Currently on appropriate antimicrobial regimen. 5. Anemia. Continue current supportive care. Consider transfer to medical floor. Continue IV antibiotics for additional 24-48 hours. Obtain follow-up chest x-ray 24 hours. Consultation Date/Type/Reason Admit Date/Time Jun 17, 2018 at 05:25 Initial Consult Date 06/17/18 Type of Consult Pulmonary/critical care Patient's condition is improving gradually. Patient remains completely awake and alert. Denies any shortness of breath, chest pain, coughing, wheezing. General exam; elderly female, awake alert, currently in no distress. Reason for Consultation HEENT exam; supple neck, no JVD. No lymphadenopathy. Midline trachea. No thyromegaly. Patient has fair dentition. No neck masses. Chest exam; diminished but clear breath sounds. S1-S2 audible, no murmurs. Regular rhythm. Dressing applied over the sternum. Left side chest tube in place. Has drained 100 mL over the last 12 hours. Abdomen exam; soft, protuberant. Nontender. Bowel sounds audible. Extremity exam; no peripheral edema. Pulses 1+. [employer] exam; no focal deficit. Requesting Provider: LISSET PATINO Date/Time of Note DATE: 06/27/18 TIME: 08:40 Exam/Review of Systems Exam Vitals Vital Signs Date Temp Pulse Resp B/P (MAP) Pulse Ox O2 O2 Flow FiO2 Time Delivery Rate 06/27/18 98.7 102 27 99/77 (84) 99 Nasal 2.0 08:00 Cannula 06/24/18 40 13:30 Intake and Output 06/26/18 06/26/18 06/27/18 1414:59 22:59 06:59 IntakeIntake Total 685 ml 390 ml 0 ml OutputOutput Total 850 ml 730 ml 1050 ml BalanceBalance -165 ml -340 ml -1050 ml Results Result Diagram: 06/26/18 0508 06/26/18 0508 Results 24hrs Laboratory Tests Test 06/26/18 11:06 06/26/18 16:44 06/26/18 20:47 06/27/18 04:01 Bedside Glucose 104 99 106 105 Test 06/27/18 07:06 06/27/18 08:26 Vancomycin Level 14.0 Trough Bedside Glucose 108 Medications Medication Current Medications Potassium Chloride 40 meq/ Calcium Chloride 1 gm/Dextrose/ Sodium Chloride 1,030 ml @ 60 mls/hr [id number] IV Last administered on 06/26/18 22:17; Admin Dose 60 MLS/HR; Start 06/20/18 at 18:43 Oxycodone/ Acetaminophen (Percocet (5/ 325)) 1 tab Q3H PRN PO PAIN LEVEL 1-5 Last administered on 06/25/18 03:53; Admin Dose 1 TAB; Start 06/20/18 at 19:00 Oxycodone/ Acetaminophen (Percocet (5/ 325)) 2 tab Q3H PRN PO PAIN LEVEL 6-10; Start 06/20/18 at 19:00 Ondansetron HCl (Zofran Inj) 4 mg Q6H PRN IV NAUSEA AND/OR VOMITING Last administered on 06/26/18 10:51; Admin Dose 4 MG; Start 06/20/18 at 19:00 Famotidine (Pepcid Iv) 20 mg BID@08,20 IV Last administered on 06/26/18 20:16; Admin Dose 20 MG; Start 06/20/18 at 20:00 Acetaminophen (Tylenol Tab) 650 mg Q3H PRN PO ELEVATED TEMPERATURE Last administered on 06/26/18 15:12; Admin Dose 650 MG; Start 06/20/18 at 19:00 Potassium Chloride 50 ml @ 50 mls/hr SEE DIRECTION PRN IVPB K+ LEVEL Last admin istered on 06/26/18 10:58; Admin Dose 50 MLS/HR; Start 06/20/18 at 19:00 Magnesium Sulfate/ Dextrose 100 ml @ 100 mls/hr PRN PRN IVPB PENDING LAB VALUE Last administered on 06/23/18 19:28; Admin Dose 100 MLS/HR; Start 06/20/18 at 19:00 Dopamine HCl/ Dextrose 250 ml @ 7.38 mls/hr PER PROTOCOL IV ; Start 06/20/18 at 19:00 Phenylephrine HCl 250 ml @ 75 mls/hr TITRATE IV Last administered on 06/22/18at 01:24; Admin Dose 33.75 MLS/HR; Start 06/20/18 at 19:00 Fentanyl 100 ml @ 2.5 mls/hr TITRATE IV Last administered on 06/23/18at 13:35; Admin Dose 2.5 MLS/HR; Start 06/21/18 at 00:30 Dextrose (D50w Syringe) 25 ml Q15M PRN IV .DECREASED GLUCOSE; Start 06/21/18 at 03:00 Dextrose (D50w Syringe) 50 ml Q15M PRN IV .DECREASED GLUCOSE; Start 06/21/18 at 03:00 Atorvastatin Calcium (Lipitor) 80 mg HS NGT Last administered on 06/26/18at 20:16; Admin Dose 80 MG; Start 06/21/18 at 21:00 Clopidogrel Bisulfate (plaVIX) 75 mg DAILY PO Last administered on 06/26/18at 09:33; Admin Dose 75 MG; Start 06/22/18 at 09:00 Midazolam HCl 50 mg/Dextrose 50 ml @ 1 mls/hr TITRATE IV Last administered on 06/24/18at 00:28; Admin Dose 3 MLS/HR; Start 06/21/18 at 16:00 Dextrose (D50w Syringe) 25 ml Q15M PRN IV .DECREASED GLUCOSE; Start 06/22/18 at 08:30 Dextrose (D50w Syringe) 50 ml Q15M PRN IV .DECREASED GLUCOSE; Start 06/22/18 at 08:30 Nitroglycerin/ Dextrose 250 ml @ 1.5 mls/hr PER PROTOCOL IV ; Start 06/22/18 at 08:30 Norepinephrine 250 ml @ 1.875 mls/ hr TITRATE IV ; Start 06/22/18 at 08:30 Enoxaparin Sodium (Lovenox) 40 mg DAILY SC Last administered on 06/26/18at 09:41; Admin Dose 40 MG; Start 06/22/18 at 10:00 Vancomycin HCl (Vanco Iv Per Pharmacy) VANCOMYCIN PER PHARMACY PER PROTOCOL XX ; Start 06/22/18 at 14:00 Miscellaneous Information (* Miscellaneous Pharmacy Order) ZOSYN IV PER PHARMACY ONCE XX ; Start 06/22/18 at 14:00 Piperacillin Sod/ Tazobactam Sod 100 ml @ 200 mls/hr Q8 IVPB Last administered on 06/27/18at 06:22; Admin Dose 200 MLS/HR; Start 06/22/18 at 14:06 Vancomycin HCl 250 ml @ 125 mls/hr Q12H IVPB Last administered on 06/26/18at 20:19; Admin Dose 125 MLS/HR; Start 06/23/18 at 08:00 Ferric Sodium Gluconate Complex 125 mg/Sodium Chloride 110 ml @ 110 mls/hr DAILY@1300 IVPB Last administered on 06/26/18at 13:48; Admin Dose 110 MLS/HR; Start 06/23/18 at 13:00; Stop 06/27/18 at 13:59 Ascorbic Acid (Vitamin C) 1,000 mg BID NGT Last administered on 06/26/18at 20:16; Admin Dose 1,000 MG; Start 06/23/18 at 09:00 Aspirin (Aspirin) 81 mg DAILY GTB Last administered on 06/26/18at 09:34; Admin Dose 81 MG; Start 06/24/18 at 09:00 Morphine Sulfate (morphine) 2 mg Q2H PRN IV SEVERE PAIN LEVEL 7-10 Last administered on 06/27/18at 06:20; Admin Dose 2 MG; Start 06/24/18 at 15:00 Insulin Aspart (Novolog Insulin Pen) (Adult SC Insulin - Mild Algorithm)... AC MEALS AND BEDTIME SC ; Start 06/25/18 at 17:05 Diagnostic Test (Pha) (Accu-Chek) 1 ea 02 XX Last administered on 06/27/18at 02:00; Admin Dose 1 EA; Start 06/26/18 at 02:00 Miscellaneous Information 1 ea NOTE XX ; Start 06/25/18 at 13:30 Miscellaneous Information 1 ea NOTE XX ; Start 06/25/18 at 14:00 Glucose (Glutose) 15 gm Q15M PRN PO DECREASED GLUCOSE; Start 06/25/18 at 14:00 Glucose (Glutose) 22.5 gm Q15M PRN PO DECREASED GLUCOSE; Start 06/25/18 at 14:00 Glucagon (Glucagen) 1 mg Q15M PRN IM DECREASED GLUCOSE; Start 06/25/18 at 14:00 Glucose (Glutose) 15 gm Q15M PRN BUCCAL DECREASED GLUCOSE; Start 06/25/18 at 14:00 Trazodone HCl (Desyrel) 25 mg HS PRN PO SLEEP Last administered on 06/27/18at 01:29; Admin Dose 25 MG; Start 06/26/18 at 23:00 Metoprolol Tartrate (Lopressor) 50 mg TID GTB ; Start 06/27/18 at 08:30; Status GURWINDER CASILLAS Jun 27, 2018 08:42
[2018-06-27] MEDS: FAMOTIDINE 20 MG INJ IV SCH ×2 (08:56→20:41)
[2018-06-27] MEDS: VANCOMYCIN 1 GM 250 ML IVPB SCH (08:57)
[2018-06-27] MEDS: ASPIRIN 81 MG TAB GTB SCH (08:57)
[2018-06-27] MEDS: ASCORBIC ACID 500 MG TAB NGT SCH ×2 (08:58→20:42)
[2018-06-27] MEDS: CLOPIDOGREL 75 MG TAB PO SCH (08:58)
[2018-06-27] MEDS: ENOXAPARIN 40 MG/0.4 ML SYG SC SCH (08:59)
[2018-06-27] MEDS: METOPROLOL 50 MG TAB GTB SCH ×3 (08:59→20:42)
[2018-06-27] MEDS: ACETAMINOPHEN 325 MG TAB PO PRN (09:05)
--- NOTE | 2018-06-27 09:24 | PN ---
Date/Time of Note Date/Time of Note DATE: 06/27/18 TIME: 09:22 Subjective Chart was reviewed. Doing well. No chest pain. No shortness of breath. Objective Vitals Vital Signs Date Temp Pulse Resp B/P (MAP) Pulse Ox O2 O2 Flow FiO2 Time Delivery Rate 06/27/18 98.7 102 27 99/77 (84) 99 Nasal 2.0 08:00 Cannula 06/24/18 40 13:30 Intake and Output 06/26/18 06/26/18 06/27/18 1515:00 23:00 07:00 IntakeIntake Total 685 ml 330 ml 0 ml OutputOutput Total 875 ml 730 ml 950 ml BalanceBalance -190 ml -400 ml -950 ml Lungs with bilateral rhonchi Cardiac regular rate and rhythm Chest tube in place Abdomen soft nontender nondistended normoactive bowel sounds Extremities no clubbing cyanosis or edema Neurological nonfocal Results Result Diagram: 06/27/1870406/27/18 07 Medications Medications Current Medications Potassium Chloride 40 meq/ Calcium Chloride 1 gm/Dextrose/ Sodium Chloride 1,030 ml @ 60 mls/hr [id number] IV Last administered on 06/26/18 22:17; Admin Dose 60 MLS/HR; Start 06/20/18 at 18:43 Oxycodone/ Acetaminophen (Percocet (5/ 325)) 1 tab Q3H PRN PO PAIN LEVEL 1-5 Last administered on 06/25/18 03:53; Admin Dose 1 TAB; Start 06/20/18 at 19:00 Oxycodone/ Acetaminophen (Percocet (5/ 325)) 2 tab Q3H PRN PO PAIN LEVEL 6-10; Start 06/20/18 at 19:00 Ondansetron HCl (Zofran Inj) 4 mg Q6H PRN IV NAUSEA AND/OR VOMITING Last administered on 06/26/18 10:51; Admin Dose 4 MG; Start 06/20/18 at 19:00 Famotidine (Pepcid Iv) 20 mg BID@08,20 IV Last administered on 06/27/18 08:56; Admin Dose 20 MG; Start 06/20/18 at 20:00 Acetaminophen (Tylenol Tab) 650 mg Q3H PRN PO ELEVATED TEMPERATURE Last administered on 06/27/18 09:05; Admin Dose 650 MG; Start 06/20/18 at 19:00 Potassium Chloride 50 ml @ 50 mls/hr SEE DIRECTION PRN IVPB K+ LEVEL Last administered on 06/26/18at 10:58; Admin Dose 50 MLS/HR; Start 06/20/18 at 19:00 Magnesium Sulfate/ Dextrose 100 ml @ 100 mls/hr PRN PRN IVPB PENDING LAB VALUE Last administered on 06/23/18at 19:28; Admin Dose 100 MLS/HR; Start 06/20/18 at 19:00 Dopamine HCl/ Dextrose 250 ml @ 7.38 mls/hr PER PROTOCOL IV ; Start 06/20/18 at 19:00 Phenylephrine HCl 250 ml @ 75 mls/hr TITRATE IV Last administered on 06/22/18at 01:24; Admin Dose 33.75 MLS/HR; Start 06/20/18 at 19:00 Fentanyl 100 ml @ 2.5 mls/hr TITRATE IV Last administered on 06/23/18at 13:35; Admin Dose 2.5 MLS/HR; Start 06/21/18 at 00:30 Dextrose (D50w Syringe) 25 ml Q15M PRN IV .DECREASED GLUCOSE; Start 06/21/18 at 03:00 Dextrose (D50w Syringe) 50 ml Q15M PRN IV .DECREASED GLUCOSE; Start 06/21/18 at 03:00 Atorvastatin Calcium (Lipitor) 80 mg HS NGT Last administered on 06/26/18at 20:16; Admin Dose 80 MG; Start 06/21/18 at 21:00 Clopidogrel Bisulfate (plaVIX) 75 mg DAILY PO Last administered on 06/27/18at 08:58; Admin Dose 75 MG; Start 06/22/18 at 09:00 Midazolam HCl 50 mg/Dextrose 50 ml @ 1 mls/hr TITRATE IV Last administered on 06/24/18 00:28; Admin Dose 3 MLS/HR; Start 06/21/18 at 16:00 Dextrose (D50w Syringe) 25 ml Q15M PRN IV .DECREASED GLUCOSE; Start 06/22/18 at 08:30 Dextrose (D50w Syringe) 50 ml Q15M PRN IV .DECREASED GLUCOSE; Start 06/22/18 at 08:30 Nitroglycerin/ Dextrose 250 ml @ 1.5 mls/hr PER PROTOCOL IV ; Start 06/22/18 at 08:30 Norepinephrine 250 ml @ 1.875 mls/ hr TITRATE IV ; Start 06/22/18 at 08:30 Enoxaparin Sodium (Lovenox) 40 mg DAILY SC Last administered on 06/27/18at 08:59; Admin Dose 40 MG; Start 06/22/18 at 10:00 Vancomycin HCl (Vanco Iv Per Pharmacy) VANCOMYCIN PER PHARMACY PER PROTOCOL XX ; Start 06/22/18 at 14:00 Miscellaneous Information (* Miscellaneous Pharmacy Order) ZOSYN IV PER PHARMACY ONCE XX ; Start 06/22/18 at 14:00 Piperacillin Sod/ Tazobactam Sod 100 ml @ 200 mls/hr Q8 IVPB Last administered on 06/27/18at 06:22; Admin Dose 200 MLS/HR; Start 06/22/18 at 14:06 Vancomycin HCl 250 ml @ 125 mls/hr Q12H IVPB Last administered on 06/27/18at 08:57; Admin Dose 125 MLS/HR; Start 06/23/18 at 08:00 Ferric Sodium Gluconate Complex 125 mg/Sodium Chloride 110 ml @ 110 mls/hr DAILY@1300 IVPB Last administered on 06/26/18at 13:48; Admin Dose 110 MLS/HR; Start 06/23/18 at 13:00; Stop 06/27/18 at 13:59 Ascorbic Acid (Vitamin C) 1,000 mg BID NGT Last administered on 06/27/18at 08:58; Admin Dose 1,000 MG; Start 06/23/18 at 09:00 Aspirin (Aspirin) 81 mg DAILY GTB Last administered on 06/27/18at 08:57; Admin Dose 81 MG; Start 06/24/18 at 09:00 Morphine Sulfate (morphine) 2 mg Q2H PRN IV SEVERE PAIN LEVEL 7-10 Last administered on 06/27/18at 06:20; Admin Dose 2 MG; Start 06/24/18 at 15:00 Insulin Aspart (Novolog Insulin Pen) (Adult SC Insulin - Mild Algorithm)... AC MEALS AND BEDTIME SC ; Start 06/25/18 at 17:05 Diagnostic Test (Pha) (Accu-Chek) 1 ea 02 XX Last administered on 06/27/18at 02:00; Admin Dose 1 EA; Start 06/26/18 at 02:00 Miscellaneous Information 1 ea NOTE XX ; Start 06/25/18 at 13:30 Miscellaneous Information 1 ea NOTE XX ; Start 06/25/18 at 14:00 Glucose (Glutose) 15 gm Q15M PRN PO DECREASED GLUCOSE; Start 06/25/18 at 14:00 Glucose (Glutose) 22.5 gm Q15M PRN PO DECREASED GLUCOSE; Start 06/25/18 at 14:00 Glucagon (Glucagen) 1 mg Q15M PRN IM DECREASED GLUCOSE; Start 06/25/18 at 14:00 Glucose (Glutose) 15 gm Q15M PRN BUCCAL DECREASED GLUCOSE; Start 06/25/18 at 14:00 Trazodone HCl (Desyrel) 25 mg HS PRN PO SLEEP Last administered on 06/27/18at 01:29; Admin Dose 25 MG; Start 06/26/18 at 23:00 Metoprolol Tartrate (Lopressor) 50 mg TID GTB Last administered on 06/27/18at 08:59; Admin Dose 50 MG; Start 06/27/18 at 08:45 VTE Prophylaxis Risk score (from Nsg)>0 risk: 12 SCD applied (from Nsg): Yes Lines/Catheters IV Catheter Type: PICC Line Central line still needed: No Ulrich in Place: No Assessment/Plan Assessment/Plan 67-year-old female with multivessel coronary artery disease Postop day #7 four-vessel CABG Preop inferior wall STEMI Hypertension Type 2 diabetes mellitus Hyperlipidemia Transfer to telemetry Continue physical therapy Cardiothoracic and cardiology follow-up CRIS HAWTHORNE MD Jun 27, 2018 09:24
--- NOTE | 2018-06-27 09:38 | PN ---
Date/Time of Note Date/Time of Note DATE: 06/27/18 TIME: 09:36 Assessment/Plan Lines/Catheters IV Catheter Type (from Nrs): PICC Line Reyes in Place (from Nrs): No Assessment/Plan Chief Complaint/Hosp Course s/p cabg d/c ivfs advance diet d/c leon drain tubes one more day pt out of bed still needs icu care Subjective 24 Hr Interval Summary Constitutional: improved Feeding: advancing diet Pain Control: well controlled Exam/Review of Systems Vital Signs Vitals Vital Signs Date Temp Pulse Resp B/P (MAP) Pulse Ox O2 O2 Flow FiO2 Time Delivery Rate 06/27/18 98.7 102 27 99/77 (84) 99 Nasal 2.0 08:00 Cannula 06/24/18 40 13:30 Intake and Output 06/26/18 06/26/18 06/27/18 1414:59 22:59 06:59 IntakeIntake Total 685 ml 390 ml 0 ml OutputOutput Total 850 ml 730 ml 1050 ml BalanceBalance -165 ml -340 ml -1050 ml Exam Constitutional: alert, oriented Psych: no complaints Head: normocephalic Eyes: EOMI ENMT: nl lips & teeth Neck: supple Respiratory: other (tube 100 cc overnight n/c oxygen) Cardiovascular: regular rate and rhythm Gastrointestinal: non-tender Drains 60 cc left leg leon Genitourinary - Female: other (reyes) Results Result Diagram: 06/27/18 0705 06/27/18 0705 DIANA SMITH MD Jun 27, 2018 09:38
[2018-06-27] MEDS: SOD FERRIC GLUC COMPLX 125 MG in SOD CHLORIDE 0.9% 100 ML IVPB SCH (13:49)
[2018-06-27] MEDS: ATORVASTATIN 80 MG TAB NGT SCH (20:42)
[2018-06-28] VITALS (24 sets, daily range): BP systolic 103–152; BP diastolic 64–107; PULSE 90–103; RESP 17–36
[2018-06-28] MEDS: ACCUCHECK AT 2AM (Patients on SS coverage) XX SCH (02:00)
[2018-06-28] MEDS: PIPER-TAZO 3.375 GM IV (PMX) 100 ML IVPB SCH ×3 (05:32→21:48)
[2018-06-28] MEDS: Insulin NOVOLOG SS MILD Algorithm (SS with meals and bedtime) SC SCH ×4 (07:05→20:34)
[2018-06-28] MEDS: FAMOTIDINE 20 MG INJ IV SCH (07:49)
[2018-06-28] MEDS: METOPROLOL 50 MG TAB GTB SCH ×3 (08:08→20:32)
[2018-06-28] MEDS: CLOPIDOGREL 75 MG TAB PO SCH (08:08)
[2018-06-28] MEDS: ASCORBIC ACID 500 MG TAB NGT SCH ×2 (08:08→20:31)
[2018-06-28] MEDS: ASPIRIN 81 MG TAB GTB SCH (08:08)
[2018-06-28] MEDS: ENOXAPARIN 40 MG/0.4 ML SYG SC SCH (08:09)
--- NOTE | 2018-06-28 09:05 | CONS ---
Consult Date/Type/Reason Admit Date/Time Jun 17, 2018 at 05:25 Initial Consult Date 06/17/18 Type of Consult Pulmonary Requesting Provider: LISSET PATINO Date/Time of Note DATE: 06/28/18 TIME: 09:04 Subjective Patient continues to improve now ambulating with physical therapy. Still having 200 cc every 24 hours chest tube output. Objective Vital Signs Date Temp Pulse Resp B/P (MAP) Pulse Ox O2 O2 Flow FiO2 Time Delivery Rate 06/28/18 100 20 130/73 97 Nasal 06:00 (92) Cannula 06/28/18 97.8 04:00 06/28/18 2.0 00:28 06/24/18 40 13:30 Intake and Output 06/27/18 06/27/18 06/28/18 1515:00 23:00 07:00 IntakeIntake Total 860 ml 650 ml 100 ml OutputOutput Total 685 ml 560 ml 560 ml BalanceBalance 175 ml 90 ml -460 ml Exam GENERAL: Elderly lady comfortable at rest no acute distress VITAL SIGNS: per chart NECK: Supple. No JVD or lymphadenopathy. CARDIAC EXAM: S1, S2. No added sounds or murmurs. CHEST: clear bilaterally, No added sounds, rales or wheezes ABDOMEN: Soft, nontender. No guarding or rebound. EXTREMITIES: No cyanosis, clubbing or edema. NEUROLOGIC: Generalized weakness. No focal deficits. Vent Setting Ventilator Support Mode: CPAP, PS Fraction of Inspired Oxygen pe: 40 Positive End Expiratory Pressu: 5.0 Results/Medications Result Diagram: 06/28/18 0802 06/28/18 0802 Results 24 hrs Laboratory Tests Test 06/27/18 12:51 06/27/18 17:30 06/27/18 20:44 06/28/18 07:59 Bedside Glucose 119 94 116 94 Test 06/28/18 08:02 White Blood Count 12.1 H Red Blood Count 2.98 L Hemoglobin 8.4 L Hematocrit 27.3 L Mean Corpuscular 91.6 Volume Mean Corpuscular 28.2 L Hemoglobin Mean Corpuscular 30.8 L Hemoglobin Concent Red Cell 19.9 H Distribution Width Platelet Count 432 H Mean Platelet Volume 9.3 Immature 3.000 H Granulocytes % Neutrophils % 72.8 Lymphocytes % 13.7 L Monocytes % 7.9 Eosinophils % 2.2 Basophils % 0.4 Nucleated Red Blood 0.0 Cells % Immature 0.360 H Granulocytes # Neutrophils # 8.8 H Lymphocytes # 1.7 Monocytes # 1.0 H Eosinophils # 0.3 Basophils # 0.1 Nucleated Red Blood 0.0 Cells # Sodium Level 141 Potassium Level 3.8 Chloride Level 103 Carbon Dioxide Level 29 Anion Gap 9 Blood Urea Nitrogen 9 Creatinine 0.65 Est Glomerular > 60 Filtrat Rate mL/min Glucose Level 88 Calcium Level 8.6 Total Bilirubin 0.8 Direct Bilirubin 0.00 Indirect Bilirubin 0.8 Aspartate Amino 37 Transf (AST/SGOT) Alanine 33 Aminotransferase (AL T/SGPT) Alkaline Phosphatase 114 Total Protein 5.9 L Albumin 2.8 L Globulin 3.10 Albumin/Globulin 0.90 Ratio Medications Current Medications Oxycodone/ Acetaminophen (Percocet (5/ 325)) 1 tab Q3H PRN PO PAIN LEVEL 1-5 Last administered on 06/25/18 03:53; Admin Dose 1 TAB; Start 06/20/18 at 19:00 Oxycodone/ Acetaminophen (Percocet (5/ 325)) 2 tab Q3H PRN PO PAIN LEVEL 6-10; Start 06/20/18 at 19:00 Ondansetron HCl (Zofran Inj) 4 mg Q6H PRN IV NAUSEA AND/OR VOMITING Last administered on 06/26/18 10:51; Admin Dose 4 MG; Start 06/20/18 at 19:00 Famotidine (Pepcid Iv) 20 mg BID@08,20 IV Last administered on 06/28/18 07:49; Admin Dose 20 MG; Start 06/20/18 at 20:00 Acetaminophen (Tylenol Tab) 650 mg Q3H PRN PO ELEVATED TEMPERATURE Last administered on 06/27/18 09:05; Admin Dose 650 MG; Start 06/20/18 at 19:00 Potassium Chloride 50 ml @ 50 mls/hr SEE DIRECTION PRN IVPB K+ LEVEL Last administered on 06/26/18 10:58; Admin Dose 50 MLS/HR; Start 06/20/18 at 19:00 Magnesium Sulfate/ Dextrose 100 ml @ 100 mls/hr PRN PRN IVPB PENDING LAB VALUE Last administered on 06/23/18 19:28; Admin Dose 100 MLS/HR; Start 06/20/18 at 19:00 Dextrose (D50w Syringe) 25 ml Q15M PRN IV .DECREASED GLUCOSE; Start 06/21/18 at 03:00 Dextrose (D50w Syringe) 50 ml Q15M PRN IV .DECREASED GLUCOSE; Start 06/21/18 at 03:00 Atorvastatin Calcium (Lipitor) 80 mg HS NGT Last administered on 06/27/18at 20:42; Admin Dose 80 MG; Start 06/21/18 at 21:00 Clopidogrel Bisulfate (plaVIX) 75 mg DAILY PO Last administered on 06/28/18at 08:08; Admin Dose 75 MG; Start 06/22/18 at 09:00 Dextrose (D50w Syringe) 25 ml Q15M PRN IV .DECREASED GLUCOSE; Start 06/22/18 at 08:30 Dextrose (D50w Syringe) 50 ml Q15M PRN IV .DECREASED GLUCOSE; Start 06/22/18 at 08:30 Enoxaparin Sodium (Lovenox) 40 mg DAILY SC Last administered on 06/28/18 08:09; Admin Dose 40 MG; Start 06/22/18 at 10:00 Miscellaneous Information (* Miscellaneous Pharmacy Order) ZOSYN IV PER PHARMACY ONCE XX ; Start 06/22/18 at 14:00 Piperacillin Sod/ Tazobactam Sod 100 ml @ 200 mls/hr Q8 IVPB Last administered on 06/28/18 05:32; Admin Dose 200 MLS/HR; Start 06/22/18 at 14:06 Ascorbic Acid (Vitamin C) 1,000 mg BID NGT Last administered on 06/28/18 08:08; Admin Dose 1,000 MG; Start 06/23/18 at 09:00 Aspirin (Aspirin) 81 mg DAILY GTB Last administered on 06/28/18 08:08; Admin Dose 81 MG; Start 06/24/18 at 09:00 Morphine Sulfate (morphine) 2 mg Q2H PRN IV SEVERE PAIN LEVEL 7-10 Last administered on 06/27/18 22:27; Admin Dose 2 MG; Start 06/24/18 at 15:00 Insulin Aspart (Novolog Insulin Pen) (Adult SC Insulin - Mild Algorithm)... AC MEALS AND BEDTIME SC ; Start 06/25/18 at 17:05 Diagnostic Test (Pha) (Accu-Chek) 1 ea 02 XX Last administered on 3/12/19at 02:00; Admin Dose 1 EA; Start 06/26/18 at 02:00 Miscellaneous Information 1 ea NOTE XX ; Start 06/25/18 at 13:30 Miscellaneous Information 1 ea NOTE XX ; Start 06/25/18 at 14:00 Glucose (Glutose) 15 gm Q15M PRN PO DECREASED GLUCOSE; Start 06/25/18 at 14:00 Glucose (Glutose) 22.5 gm Q15M PRN PO DECREASED GLUCOSE; Start 06/25/18 at 14:00 Glucagon (Glucagen) 1 mg Q15M PRN IM DECREASED GLUCOSE; Start 06/25/18 at 14:00 Glucose (Glutose) 15 gm Q15M PRN BUCCAL DECREASED GLUCOSE; Start 06/25/18 at 14:00 Trazodone HCl (Desyrel) 25 mg HS PRN PO SLEEP Last administered on 06/27/18at 01:29; Admin Dose 25 MG; Start 06/26/18 at 23:00 Metoprolol Tartrate (Lopressor) 50 mg TID GTB Last administered on 06/28/18at 08:08; Admin Dose 50 MG; Start 06/27/18 at 08:45 Assessment/Plan Hospital Course (Demo Recall) IMP: 1. Inferior myocardial infarction, status post angioplasty and stent placement---> status post coronary artery bypass graft surgery 2. Ventricular fibrillation 2/2 #1 3. Likely aspiration pneumonia. 4. Cardiogenic shock. Now resolved 5. History of gallbladder disease. 6. Congestive cardiac failure improved with diuretics RECS: 1. Continue incentive spirometry 2. Encourage out of bed, continue chest tube drainage 3. Continue diuretics 4. Aspiration precautions 5. DVT/GI prophylaxis Stable for transfer to telemetry Critical care time 40 minutes ISABELLA RUSSELL MD, [facility] Jun 28, 2018 09:05
--- NOTE | 2018-06-28 09:31 | PN ---
Date/Time of Note Date/Time of Note DATE: 06/28/18 TIME: 09:28 Assessment/Plan Lines/Catheters IV Catheter Type (from Nrsg): PICC Line Reyes in Place (from Nrsg): Yes Assessment/Plan Chief Complaint/Hosp Course s/p cabg d/c reyes still needs chest tube gradual progress transfer telemetry Subjective 24 Hr Interval Summary Constitutional: no complaints, ambulates Feeding: advancing diet Pain Control: well controlled Exam/Review of Systems Vital Signs Vitals Vital Signs Date Temp Pulse Resp B/P (MAP) Pulse Ox O2 O2 Flow FiO2 Time Delivery Rate 06/28/18 100 28 123/107 92 Nasal 09:00 (112) Cannula 06/28/18 98.4 08:00 06/28/18 2.0 08:00 06/24/18 40 13:30 Intake and Output 06/27/18 06/27/18 06/28/18 1515:00 23:00 07:00 IntakeIntake Total 860 ml 650 ml 100 ml OutputOutput Total 685 ml 560 ml 610 ml BalanceBalance 175 ml 90 ml -510 ml Exam Constitutional: alert, oriented Head: normocephalic Eyes: EOMI ENMT: nl lips & teeth Neck: supple Respiratory: other (chest tube 250 cc total 200 cc/24 oxygen 2 liters n/c) Cardiovascular: regular rate and rhythm Gastrointestinal: soft Musculoskeletal: nl gait and stance Extremities: edema Neurological: nl mental status Results Result Diagram: 06/28/18 0802 06/28/18 0802 DIANA SMITH MD Jun 28, 2018 09:31
--- NOTE | 2018-06-28 09:48 | PN ---
Date/Time of Note Date/Time of Note DATE: 06/28/18 TIME: 09:45 Subjective Doing well. No chest pain or shortness of breath. Ambulating with physical therapy. Objective Vitals Vital Signs Date Temp Pulse Resp B/P (MAP) Pulse Ox O2 O2 Flow FiO2 Time Delivery Rate 06/28/18 100 28 123/107 92 Nasal 09:00 (112) Cannula 06/28/18 98.4 08:00 06/28/18 2.0 08:00 06/24/18 40 13:30 Intake and Output 06/27/18 06/27/18 06/28/18 1515:00 23:00 07:00 IntakeIntake Total 860 ml 650 ml 100 ml OutputOutput Total 685 ml 560 ml 610 ml BalanceBalance 175 ml 90 ml -510 ml Lungs with mild rhonchi Cardiac regular rate and rhythm no murmurs or gallops Chest tube remains in place Abdomen soft nontender nondistended normoactive bowel sounds Extremities no edema Neurological nonfocal Results Result Diagram: 06/28/18 0802 06/28/18 0802 Medications Medications Current Medications Oxycodone/ Acetaminophen (Percocet (5/ 325)) 1 tab Q3H PRN PO PAIN LEVEL 1-5 Last administered on 06/25/18at 03:53; Admin Dose 1 TAB; Start 06/20/18 at 19:00 Oxycodone/ Acetaminophen (Percocet (5/ 325)) 2 tab Q3H PRN PO PAIN LEVEL 6-10; Start 06/20/18 at 19:00 Ondansetron HCl (Zofran Inj) 4 mg Q6H PRN IV NAUSEA AND/OR VOMITING Last administered on 06/26/18at 10:51; Admin Dose 4 MG; Start 06/20/18 at 19:00 Acetaminophen (Tylenol Tab) 650 mg Q3H PRN PO ELEVATED TEMPERATURE Last administered on 06/27/18 09:05; Admin Dose 650 MG; Start 06/20/18 at 19:00 Atorvastatin Calcium (Lipitor) 80 mg HS NGT Last administered on 06/27/18at 20:42; Admin Dose 80 MG; Start 06/21/18 at 21:00 Clopidogrel Bisulfate (plaVIX) 75 mg DAILY PO Last administered on 06/28/18at 08:08; Admin Dose 75 MG; Start 06/22/18 at 09:00 Enoxaparin Sodium (Lovenox) 40 mg DAILY SC Last administered on 06/28/18 08:09; Admin Dose 40 MG; Start 06/22/18 at 10:00 Miscellaneous Information (* Miscellaneous Pharmacy Order) ZOSYN IV PER PHARMACY ONCE XX ; Start 06/22/18 at 14:00 Piperacillin Sod/ Tazobactam Sod 100 ml @ 200 mls/hr Q8 IVPB Last administered on 06/28/18 05:32; Admin Dose 200 MLS/HR; Start 06/22/18 at 14:06 Ascorbic Acid (Vitamin C) 1,000 mg BID NGT Last administered on 06/28/18 08:08; Admin Dose 1,000 MG; Start 06/23/18 at 09:00 Aspirin (Aspirin) 81 mg DAILY GTB Last administered on 06/28/18 08:08; Admin Dose 81 MG; Start 06/24/18 at 09:00 Morphine Sulfate (morphine) 2 mg Q2H PRN IV SEVERE PAIN LEVEL 7-10 Last a dministered on 06/27/18at 22:27; Admin Dose 2 MG; Start 06/24/18 at 15:00 Insulin Aspart (Novolog Insulin Pen) (Adult SC Insulin - Mild Algorithm)... AC MEALS AND BEDTIME SC ; Start 06/25/18 at 17:05 Diagnostic Test (Pha) (Accu-Chek) 1 ea 02 XX Last administered on 06/28/18at 02:00; Admin Dose 1 EA; Start 06/26/18 at 02:00 Glucose (Glutose) 15 gm Q15M PRN PO DECREASED GLUCOSE; Start 06/25/18 at 14:00 Glucagon (Glucagen) 1 mg Q15M PRN IM DECREASED GLUCOSE; Start 06/25/18 at 14:00 Glucose (Glutose) 15 gm Q15M PRN BUCCAL DECREASED GLUCOSE; Start 06/25/18 at 14:00 Trazodone HCl (Desyrel) 25 mg HS PRN PO SLEEP Last administered on 06/27/18 01:29; Admin Dose 25 MG; Start 06/26/18 at 23:00 Metoprolol Tartrate (Lopressor) 50 mg TID GTB Last administered on 06/28/18 08:08; Admin Dose 50 MG; Start 06/27/18 at 08:45 VTE Prophylaxis Risk score (from Nsg)>0 risk: 14 SCD applied (from Ns): Yes Lines/Catheters IV Catheter Type: Saline Lock Central line still needed: No Ulrich in Place: No Assessment/Plan Assessment/Plan 67-year-old female postop day #8 four-vessel CABG Hypertension Type 2 diabetes mellitus Hyperlipidemia Anemia, stable Await transfer to telemetry Continue medical therapy Continue physical therapy Cardiology and cardiothoracic follow-up CRIS HAWTHORNE MD Jun 28, 2018 09:47
[2018-06-28] MEDS ORDERED: morphine LIQ (10 MG/5 ML) CUP PO PRN (11:30)
--- NOTE | 2018-06-28 14:45 | CONS ---
Assessment/Plan Assessment/Plan Hospital Course (Demo Recall) 67 yo with acute inferior stemi, with severe left man disease and acutely occluded dominant LCX. Bare metal stent placed in the prox LCX and balloon angioplasty performed on the left main. She underwent CABG on Wednesday06/20/18 with return to the OR same day for mediastinal bleeding. Doing well overall, chest tube still in place with drainage. Impression: Inferior stemi due to occluded dominant LCX, with severe left main and proximal LAD disease, small nondominant RCA, s/p bare metal stent to prox LCX on Wednesday am and CABG on Wednesday06/20/18 Acute respiratory failure, extubated Anemia due to blood loss Recc: ASA 81 mg daily, clopidogrel, statin. Continue metoprolol, will change to tid. Can switch to metoprolol succinate 200 mg daily if she tolerates OOB/mobilize Surgical management per Dr. Plata/Mariluz/Mariaa Discussed lifestyle -- diet, exercise, cardiac rehab, outpatient follow up Consultation Date/Type/Reason Admit Date/Time Jun 17, 2018 at 05:25 Initial Consult Date 06/17/18 Type of Consult Cardiology Requesting Provider: LISSET PATINO Date/Time of Note DATE: 06/28/18 TIME: 14:41 24 HR Interval Summary Free Text/Dictation Feels swollen, has been up walking twice today. Ulrich catheter and chest tube in place. Exam/Review of Systems Vital Signs Vitals Vital Signs Date Temp Pulse Resp B/P (MAP) Pulse Ox O2 O2 Flow FiO2 Time Delivery Rate 06/28/18 99 23 127/67 97 Nasal 2.0 14:00 (87) Cannula 06/28/18 98.3 12:00 06/24/18 40 13:30 Intake and Output 06/27/18 06/27/18 06/28/18 1515:00 23:00 07:00 IntakeIntake Total 860 ml 650 ml 100 ml OutputOutput Total 685 ml 560 ml 610 ml BalanceBalance 175 ml 90 ml -510 ml Exam Constitutional: alert, oriented, well developed Psych: no complaints, nl mood/affect Head: normocephalic, atraumatic Eyes: nl conjunctiva, EOMI, nl lids, nl sclera ENMT: nl external ears & nose Neck: supple; No jvd, No bruits Respiratory: clear to auscultation, normal air movement Cardiovascular: regular rate and rhythm; No murmurs/extra sounds, No rub Gastrointestinal: soft, nl liver, spleen, non-tender Musculoskeletal: nl extremities to inspection Extremities: edema (all 4 extremities puffy) Neurological: nl mental status Skin: nl turgor Labs Result Diagram: 06/28/18 0802 06/28/18 0802 Results 24hrs Laboratory Tests Test 06/27/18 17:30 06/27/18 20:44 06/28/18 07:59 06/28/18 08:01 Bedside Glucose 94 116 94 Magnesium Level 2.2 Test 06/28/18 08:02 06/28/18 11:33 White Blood Count 12.1 H Red Blood Count 2.98 L Hemoglobin 8.4 L Hematocrit 27.3 L Mean Corpuscular 91.6 Volume Mean Corpuscular 28.2 L Hemoglobin Mean Corpuscular 30.8 L Hemoglobin Concent Red Cell 19.9 H Distribution Width Platelet Count 432 H Mean Platelet Volume 9.3 Immature 3.000 H Granulocytes % Neutrophils % 72.8 Lymphocytes % 13.7 L Monocytes % 7.9 Eosinophils % 2.2 Basophils % 0.4 Nucleated Red Blood 0.0 Cells % Immature 0.360 H Granulocytes # Neutrophils # 8.8 H Lymphocytes # 1.7 Monocytes # 1.0 H Eosinophils # 0.3 Basophils # 0.1 Nucleated Red Blood 0.0 Cells # Sodium Level 141 Potassium Level 3.8 Chloride Level 103 Carbon Dioxide Level 29 Anion Gap 9 Blood Urea Nitrogen 9 Creatinine 0.65 Est Glomerular > 60 Filtrat Rate mL/min Glucose Level 88 Calcium Level 8.6 Total Bilirubin 0.8 Direct Bilirubin 0.00 Indirect Bilirubin 0.8 Aspartate Amino 37 Transf (AST/SGOT) Alanine 33 Aminotransferase (AL T/SGPT) Alkaline Phosphatase 114 Total Protein 5.9 L Albumin 2.8 L Globulin 3.10 Albumin/Globulin 0.90 Ratio Bedside Glucose 93 Medications Medications Current Medications Oxycodone/ Acetaminophen (Percocet (5/ 325)) 1 tab Q3H PRN PO PAIN LEVEL 1-5 Last administered on 06/25/18at 03:53; Admin Dose 1 TAB; Start 06/20/18 at 19:00 Oxycodone/ Acetaminophen (Percocet (5/ 325)) 2 tab Q3H PRN PO PAIN LEVEL 6-10; Start 06/20/18 at 19:00 Ondansetron HCl (Zofran Inj) 4 mg Q6H PRN IV NAUSEA AND/OR VOMITING Last administered on 06/26/18 10:51; Admin Dose 4 MG; Start 06/20/18 at 19:00 Acetaminophen (Tylenol Tab) 650 mg Q3H PRN PO ELEVATED TEMPERATURE Last administered on 06/27/18 09:05; Admin Dose 650 MG; Start 06/20/18 at 19:00 Atorvastatin Calcium (Lipitor) 80 mg HS NGT Last administered on 06/27/18 20:42; Admin Dose 80 MG; Start 06/21/18 at 21:00 Clopidogrel Bisulfate (plaVIX) 75 mg DAILY PO Last administered on 06/28/18 08:08; Admin Dose 75 MG; Start 06/22/18 at 09:00 Enoxaparin Sodium (Lovenox) 40 mg DAILY SC Last administered on 06/28/18 08:09; Admin Dose 40 MG; Start 06/22/18 at 10:00 Miscellaneous Information (* Miscellaneous Pharmacy Order) ZOSYN IV PER PHARMACY ONCE XX ; Start 06/22/18 at 14:00 Piperacillin Sod/ Tazobactam Sod 100 ml @ 200 mls/hr Q8 IVPB Last administered on 06/28/18 13:46; Admin Dose 200 MLS/HR; Start 06/22/18 at 14:06 Ascorbic Acid (Vitamin C) 1,000 mg BID NGT Last administered on 06/28/18 08:08; Admin Dose 1,000 MG; Start 06/23/18 at 09:00 Aspirin (Aspirin) 81 mg DAILY GTB Last administered on 06/28/18 08:08; Admin Dose 81 MG; Start 06/24/18 at 09:00 Insulin Aspart (Novolog Insulin Pen) (Adult SC Insulin - Mild Algorithm)... AC MEALS AND BEDTIME SC ; Start 06/25/18 at 17:05 Diagnostic Test (Pha) (Accu-Chek) 1 ea 02 XX Last administered on 06/28/18 02:00; Admin Dose 1 EA; Start 06/26/18 at 02:00 Glucose (Glutose) 15 gm Q15M PRN PO DECREASED GLUCOSE; Start 06/25/18 at 14:00 Glucagon (Glucagen) 1 mg Q15M PRN IM DECREASED GLUCOSE; Start 06/25/18 at 14:00 Glucose (Glutose) 15 gm Q15M PRN BUCCAL DECREASED GLUCOSE; Start 06/25/18 at 14:00 Trazodone HCl (Desyrel) 25 mg HS PRN PO SLEEP Last administered on 06/27/18at 01:29; Admin Dose 25 MG; Start 06/26/18 at 23:00 Metoprolol Tartrate (Lopressor) 50 mg TID GTB Last administered on 06/28/18at 13:47; Admin Dose 50 MG; Start 06/27/18 at 08:45 Morphine Sulfate (morphine) 6 mg Q2H PRN PO SEVERE PAIN LEVEL 7-10; Start 06/28/18 at 11:30 LISSET PATINO Jun 28, 2018 14:45
[2018-06-28] MEDS ORDERED: FUROSEMIDE 20 MG INJ IV ONE (15:00)
[2018-06-28] MEDS: ATORVASTATIN 80 MG TAB NGT SCH (20:31)
[2018-06-28] MEDS: OXYCODONE/ACETAMINOPHEN (5/325) TAB PO PRN (20:31)
[2018-06-29] VITALS (21 sets, daily range): BP systolic 100–145; BP diastolic 62–79; PULSE 90–104; RESP 17–26
[2018-06-29] MEDS: ACCUCHECK AT 2AM (Patients on SS coverage) XX SCH (01:58)
[2018-06-29] MEDS: PIPER-TAZO 3.375 GM IV (PMX) 100 ML IVPB SCH ×3 (05:13→22:59)
[2018-06-29] MEDS: Insulin NOVOLOG SS MILD Algorithm (SS with meals and bedtime) SC SCH (06:51)
[2018-06-29] MEDS: ASCORBIC ACID 500 MG TAB NGT SCH ×2 (08:23→20:47)
[2018-06-29] MEDS: CLOPIDOGREL 75 MG TAB PO SCH (08:23)
[2018-06-29] MEDS: ASPIRIN 81 MG TAB GTB SCH (08:23)
[2018-06-29] MEDS: METOPROLOL 50 MG TAB GTB SCH ×3 (08:24→20:47)
[2018-06-29] MEDS: ENOXAPARIN 40 MG/0.4 ML SYG SC SCH (08:26)
--- NOTE | 2018-06-29 08:49 | CONS ---
Assessment/Plan Assessment/Plan Hospital Course (Demo Recall) 67 yo with acute inferior stemi, with severe left man disease and acutely occluded dominant LCX. Bare metal stent placed in the prox LCX and balloon angioplasty performed on the left main. She underwent CABG on Wednesday06/20/18 with return to the OR same day for mediastinal bleeding. Doing well overall, chest tube still in place with drainage, downgraded to telemetry. Impression: Inferior stemi due to occluded dominant LCX, with severe left main and proximal LAD disease, small nondominant RCA, s/p bare metal stent to prox LCX on Wednesday am and CABG on Wednesday06/20/18 Anemia due to blood loss Hypertension, controlled Recc: ASA 81 mg daily, clopidogrel, statin. Change metoprolol tartrate to succinate 200 mg daily starting tomorrow OOB/mobilize Chest tube and post-surgical management per Dr. Plata/Mariluz/Mariaa Case discussed with Dr. Solorzano, telemetry transfer, discharge planning Consultation Date/Type/Reason Admit Date/Time Jun 17, 2018 at 05:25 Initial Consult Date 06/17/18 Type of Consult Cardiology Requesting Provider: LISSET PATINO Date/Time of Note DATE: 06/29/18 TIME: 08:46 24 HR Interval Summary Free Text/Dictation No events overnight, fair appetite, no pain. Patient downgraded to telemetry. Chest tube and wound vac still in place. Exam/Review of Systems Vital Signs Vitals Vital Signs Date Temp Pulse Resp B/P (MAP) Pulse Ox O2 O2 Flow FiO2 Time Delivery Rate 06/29/18 93 17 112/67 96 Nasal 2.0 07:00 (82) Cannula 06/29/18 98.1 04:00 06/29/18 27 00:24 Intake and Output 06/28/18 06/28/18 06/29/18 1515:00 23:00 07:00 IntakeIntake Total 220 ml 510 ml 170 ml OutputOutput Total 590 ml 2255 ml 610 ml BalanceBalance -370 ml -1745 ml -440 ml Exam Constitutional: alert, oriented, well developed Psych: no complaints, nl mood/affect Head: normocephalic, atraumatic Eyes: EOMI, nl lids, nl sclera ENMT: nl external ears & nose Neck: supple; No jvd, No bruits Respiratory: clear to auscultation, normal air movement Cardiovascular: regular rate and rhythm; No murmurs/extra sounds, No rub Gastrointestinal: soft, non-tender Musculoskeletal: nl extremities to inspection Extremities: edema (mild in LE's) Neurological: nl mental status, nl speech Skin: nl turgor, other (wound vac over sternotomy wound) Labs Result Diagram: 06/29/18 0500 06/29/18 0500 Results 24hrs Laboratory Tests Test 06/28/18 11:33 06/28/18 17:27 06/28/18 20:33 06/29/18 02:00 Bedside Glucose 93 94 103 96 Test 06/29/18 05:00 06/29/18 06:35 06/29/18 08:23 White Blood Count 12.6 H Red Blood Count 3.10 L Hemoglobin 8.8 L Hematocrit 28.3 L Mean Corpuscular 91.3 Volume Mean Corpuscular 28.4 L Hemoglobin Mean Corpuscular 31.1 L Hemoglobin Concent Red Cell 19.7 H Distribution Width Platelet Count 512 H Mean Platelet Volume 9.2 Immature 3.200 H Granulocytes % Neutrophils % 68.6 Lymphocytes % 15.9 Monocytes % 8.8 Eosinophils % 2.9 Basophils % 0.6 Nucleated Red Blood 0.0 Cells % Immature 0.400 H Granulocytes # Neutrophils # 8.7 H Lymphocytes # 2.0 Monocytes # 1.1 H Eosinophils # 0.4 Basophils # 0.1 Nucleated Red Blood 0.0 Cells # Sodium Level 140 Potassium Level 3.9 Chloride Level 103 Carbon Dioxide Level 29 Anion Gap 8 Blood Urea Nitrogen 12 Creatinine 0.64 Est Glomerular > 60 Filtrat Rate mL/min Glucose Level 79 Calcium Level 8.5 Bedside Glucose 92 92 Medications Medications Current Medications Oxycodone/ Acetaminophen (Percocet (5/ 325)) 1 tab Q3H PRN PO PAIN LEVEL 1-5 Last administered on 06/28/18at 20:31; Admin Dose 1 TAB; Start 06/20/18 at 19:00 Oxycodone/ Acetaminophen (Percocet (5/ 325)) 2 tab Q3H PRN PO PAIN LEVEL 6-10; Start 06/20/18 at 19:00 Ondansetron HCl (Zofran Inj) 4 mg Q6H PRN IV NAUSEA AND/OR VOMITING Last administered on 3/10/19at 10:51; Admin Dose 4 MG; Start 06/20/18 at 19:00 Acetaminophen (Tylenol Tab) 650 mg Q3H PRN PO ELEVATED TEMPERATURE Last administered on 06/27/18 09:05; Admin Dose 650 MG; Start 06/20/18 at 19:00 Atorvastatin Calcium (Lipitor) 80 mg HS NGT Last administered on 06/28/18 20:31; Admin Dose 80 MG; Start 06/21/18 at 21:00 Clopidogrel Bisulfate (plaVIX) 75 mg DAILY PO Last administered on 06/29/18 08:23; Admin Dose 75 MG; Start 06/22/18 at 09:00 Enoxaparin Sodium (Lovenox) 40 mg DAILY SC Last administered on 06/29/18 08:26; Admin Dose 40 MG; Start 06/22/18 at 10:00 Miscellaneous Information (* Miscellaneous Pharmacy Order) ZOSYN IV PER PHARMACY ONCE XX ; Start 06/22/18 at 14:00 Piperacillin Sod/ Tazobactam Sod 100 ml @ 200 mls/hr Q8 IVPB Last administered on 06/29/18 05:13; Admin Dose 200 MLS/HR; Start 06/22/18 at 14:06 Ascorbic Acid (Vitamin C) 1,000 mg BID NGT Last administered on 06/29/18 08:23; Admin Dose 1,000 MG; Start 06/23/18 at 09:00 Aspirin (Aspirin) 81 mg DAILY GTB Last administered on 06/29/18 08:23; Admin Dose 81 MG; Start 06/24/18 at 09:00 Insulin Aspart (Novolog Insulin Pen) (Adult SC Insulin - Mild Algorithm)... AC MEALS AND BEDTIME SC ; Start 06/25/18 at 17:05 Diagnostic Test (Pha) (Accu-Chek) 1 ea 02 XX Last administered on 06/29/18 01:58; Admin Dose 1 EA; Start 06/26/18 at 02:00 Glucose (Glutose) 15 gm Q15M PRN PO DECREASED GLUCOSE; Start 06/25/18 at 14:00 Glucagon (Glucagen) 1 mg Q15M PRN IM DECREASED GLUCOSE; Start 06/25/18 at 14:00 Glucose (Glutose) 15 gm Q15M PRN BUCCAL DECREASED GLUCOSE; Start 06/25/18 at 14:00 Trazodone HCl (Desyrel) 25 mg HS PRN PO SLEEP Last administered on 06/27/18at 01:29; Admin Dose 25 MG; Start 06/26/18 at 23:00 Metoprolol Tartrate (Lopressor) 50 mg TID GTB Last administered on 06/29/18at 08:24; Admin Dose 50 MG; Start 06/27/18 at 08:45; Stop 06/29/18 at 23:00 Morphine Sulfate (morphine) 6 mg Q2H PRN PO SEVERE PAIN LEVEL 7-10; Start 06/28/18 at 11:30 Metoprolol Succinate (Toprol Xl) 200 mg DAILY PO ; Start 06/30/18 at 09:00; Status UNV LISSET PATINO Jun 29, 2018 08:49
--- NOTE | 2018-06-29 09:07 | CONS ---
Consult Date/Type/Reason Admit Date/Time Jun 17, 2018 at 05:25 Initial Consult Date 06/17/18 Type of Consult Pulmonary Requesting Provider: LISSET PATINO Date/Time of Note DATE: 06/29/18 TIME: 09:06 Subjective Continues to improve. Awake alert oriented on room air this morning no respiratory distress. Chest tube continues to drain 120 cc over the last 24 hours. Chest x-ray shows resolving bilateral infiltrates and effusions. Objective Vital Signs Date Temp Pulse Resp B/P (MAP) Pulse Ox O2 O2 Flow FiO2 Time Delivery Rate 06/29/18 93 17 112/67 96 Nasal 2.0 07:00 (82) Cannula 06/29/18 98.1 04:00 06/29/18 27 00:24 Intake and Output 06/28/18 06/28/18 06/29/18 1414:59 22:59 06:59 IntakeIntake Total 220 ml 510 ml 170 ml OutputOutput Total 440 ml 2335 ml 730 ml BalanceBalance -220 ml -1825 ml -560 ml Exam GENERAL: Elderly lady comfortable at rest no acute distress VITAL SIGNS: per chart NECK: Supple. No JVD or lymphadenopathy. CARDIAC EXAM: S1, S2. No added sounds or murmurs. CHEST: clear bilaterally, No added sounds, rales or wheezes ABDOMEN: Soft, nontender. No guarding or rebound. EXTREMITIES: No cyanosis, clubbing or edema. NEUROLOGIC: Generalized weakness. No focal deficits. Vent Setting Ventilator Support Mode: CPAP, PS Fraction of Inspired Oxygen pe: 27 Positive End Expiratory Pressu: 5.0 Results/Medications Result Diagram: 06/29/18 0500 06/29/18 0500 Results 24 hrs Laboratory Tests Test 06/28/18 11:33 06/28/18 17:27 06/28/18 20:33 06/29/18 02:00 Bedside Glucose 93 94 103 96 Test 06/29/18 05:00 06/29/18 06:35 06/29/18 08:23 White Blood Count 12.6 H Red Blood Count 3.10 L Hemoglobin 8.8 L Hematocrit 28.3 L Mean Corpuscular 91.3 Volume Mean Corpuscular 28.4 L Hemoglobin Mean Corpuscular 31.1 L Hemoglobin Concent Red Cell 19.7 H Distribution Width Platelet Count 512 H Mean Platelet Volume 9.2 Immature 3.200 H Granulocytes % Neutrophils % 68.6 Lymphocytes % 15.9 Monocytes % 8.8 Eosinophils % 2.9 Basophils % 0.6 Nucleated Red Blood 0.0 Cells % Immature 0.400 H Granulocytes # Neutrophils # 8.7 H Lymphocytes # 2.0 Monocytes # 1.1 H Eosinophils # 0.4 Basophils # 0.1 Nucleated Red Blood 0.0 Cells # Sodium Level 140 Potassium Level 3.9 Chloride Level 103 Carbon Dioxide Level 29 Anion Gap 8 Blood Urea Nitrogen 12 Creatinine 0.64 Est Glomerular > 60 Filtrat Rate mL/min Glucose Level 79 Calcium Level 8.5 Bedside Glucose 92 92 Medications Current Medications Oxycodone/ Acetaminophen (Percocet (5/ 325)) 1 tab Q3H PRN PO PAIN LEVEL 1-5 Last administered on 06/28/18 20:31; Admin Dose 1 TAB; Start 06/20/18 at 19:00 Oxycodone/ Acetaminophen (Percocet (5/ 325)) 2 tab Q3H PRN PO PAIN LEVEL 6-10; Start 06/20/18 at 19:00 Ondansetron HCl (Zofran Inj) 4 mg Q6H PRN IV NAUSEA AND/OR VOMITING Last administered on 06/26/18 10:51; Admin Dose 4 MG; Start 06/20/18 at 19:00 Acetaminophen (Tylenol Tab) 650 mg Q3H PRN PO ELEVATED TEMPERATURE Last administered on 06/27/18 09:05; Admin Dose 650 MG; Start 06/20/18 at 19:00 Atorvastatin Calcium (Lipitor) 80 mg HS NGT Last administered on 06/28/18 20:31; Admin Dose 80 MG; Start 06/21/18 at 21:00 Clopidogrel Bisulfate (plaVIX) 75 mg DAILY PO Last administered on 06/29/18 08:23; Admin Dose 75 MG; Start 06/22/18 at 09:00 Enoxaparin Sodium (Lovenox) 40 mg DAILY SC Last administered on 06/29/18 08:26; Admin Dose 40 MG; Start 06/22/18 at 10:00 Miscellaneous Information (* Miscellaneous Pharmacy Order) ZOSYN IV PER PHARMACY ONCE XX ; Start 06/22/18 at 14:00 Piperacillin Sod/ Tazobactam Sod 100 ml @ 200 mls/hr Q8 IVPB Last administered on 3/13/19at 05:13; Admin Dose 200 MLS/HR; Start 06/22/18 at 14:06 Ascorbic Acid (Vitamin C) 1,000 mg BID NGT Last administered on 06/29/18at 08:23; Admin Dose 1,000 MG; Start 06/23/18 at 09:00 Aspirin (Aspirin) 81 mg DAILY GTB Last administered on 06/29/18at 08:23; Admin Dose 81 MG; Start 06/24/18 at 09:00 Insulin Aspart (Novolog Insulin Pen) (Adult SC Insulin - Mild Algorithm)... AC MEALS AND BEDTIME SC ; Start 06/25/18 at 17:05 Diagnostic Test (Pha) (Accu-Chek) 1 ea 02 XX Last administered on 06/29/18at 01:58; Admin Dose 1 EA; Start 06/26/18 at 02:00 Glucose (Glutose) 15 gm Q15M PRN PO DECREASED GLUCOSE; Start 06/25/18 at 14:00 Glucagon (Glucagen) 1 mg Q15M PRN IM DECREASED GLUCOSE; Start 06/25/18 at 14:00 Glucose (Glutose) 15 gm Q15M PRN BUCCAL DECREASED GLUCOSE; Start 06/25/18 at 14:00 Trazodone HCl (Desyrel) 25 mg HS PRN PO SLEEP Last administered on 06/27/18at 01:29; Admin Dose 25 MG; Start 06/26/18 at 23:00 Metoprolol Tartrate (Lopressor) 50 mg TID GTB Last administered on 06/29/18at 08:24; Admin Dose 50 MG; Start 06/27/18 at 08:45; Stop 06/29/18 at 23:00 Morphine Sulfate (morphine) 6 mg Q2H PRN PO SEVERE PAIN LEVEL 7-10; Start 06/28/18 at 11:30 Metoprolol Succinate (Toprol Xl) 200 mg DAILY PO ; Start 06/30/18 at 09:00 Assessment/Plan Hospital Course (Demo Recall) IMP: 1. Inferior myocardial infarction, status post angioplasty and stent placement---> status post coronary artery bypass graft surgery 2. Ventricular fibrillation 2/2 #1 3. Likely aspiration pneumonia. 4. Cardiogenic shock. Now resolved 5. History of gallbladder disease. 6. Congestive cardiac failure improved with diuretics RECS: 1. Continue incentive spirometry 2. Encourage out of bed, continue chest tube drainage 3. Continue diuretics 4. Aspiration precautions 5. DVT/GI prophylaxis Stable for transfer to telemetry Critical care time 40 minutes ISABELLA RUSSELL MD, [facility] Jun 29, 2018 09:07
--- NOTE | 2018-06-29 09:08 | PN ---
Date/Time of Note Date/Time of Note DATE: 06/29/18 TIME: 09:06 Subjective Doing very well. Sitting in the chair. No complaints of chest pain or shortness of breath Objective Vitals Vital Signs Date Temp Pulse Resp B/P (MAP) Pulse Ox O2 O2 Flow FiO2 Time Delivery Rate 06/29/18 93 17 112/67 96 Nasal 2.0 07:00 (82) Cannula 06/29/18 98.1 04:00 06/29/18 27 00:24 Intake and Output 06/28/18 06/28/18 06/29/18 1515:00 23:00 07:00 IntakeIntake Total 220 ml 510 ml 170 ml OutputOutput Total 590 ml 2255 ml 610 ml BalanceBalance -370 ml -1745 ml -440 ml Decreased breath sounds at the bases Regular rate and rhythm no murmurs or gallops Abdomen soft nontender nondistended normoactive bowel sounds Extremities no edema Neurological nonfocal Results Result Diagram: 06/29/18 0500 06/29/18 0500 Medications Medications Current Medications Oxycodone/ Acetaminophen (Percocet (5/ 325)) 1 tab Q3H PRN PO PAIN LEVEL 1-5 Last administered on 06/28/18 20:31; Admin Dose 1 TAB; Start 06/20/18 at 19:00 Oxycodone/ Acetaminophen (Percocet (5/ 325)) 2 tab Q3H PRN PO PAIN LEVEL 6-10; Start 06/20/18 at 19:00 Ondansetron HCl (Zofran Inj) 4 mg Q6H PRN IV NAUSEA AND/OR VOMITING Last admini stered on 06/26/18 10:51; Admin Dose 4 MG; Start 06/20/18 at 19:00 Acetaminophen (Tylenol Tab) 650 mg Q3H PRN PO ELEVATED TEMPERATURE Last administered on 06/27/18 09:05; Admin Dose 650 MG; Start 06/20/18 at 19:00 Atorvastatin Calcium (Lipitor) 80 mg HS NGT Last administered on 06/28/18at 20:31; Admin Dose 80 MG; Start 06/21/18 at 21:00 Clopidogrel Bisulfate (plaVIX) 75 mg DAILY PO Last administered on 06/29/18at 08:23; Admin Dose 75 MG; Start 06/22/18 at 09:00 Enoxaparin Sodium (Lovenox) 40 mg DAILY SC Last administered on 06/29/18at 08:26; Admin Dose 40 MG; Start 06/22/18 at 10:00 Miscellaneous Information (* Miscellaneous Pharmacy Order) ZOSYN IV PER PHARMACY ONCE XX ; Start 06/22/18 at 14:00 Piperacillin Sod/ Tazobactam Sod 100 ml @ 200 mls/hr Q8 IVPB Last administered on 06/29/18at 05:13; Admin Dose 200 MLS/HR; Start 06/22/18 at 14:06 Ascorbic Acid (Vitamin C) 1,000 mg BID NGT Last administered on 06/29/18 08:23; Admin Dose 1,000 MG; Start 06/23/18 at 09:00 Aspirin (Aspirin) 81 mg DAILY GTB Last administered on 06/29/18at 08:23; Admin Dose 81 MG; Start 06/24/18 at 09:00 Insulin Aspart (Novolog Insulin Pen) (Adult SC Insulin - Mild Algorithm)... AC MEALS AND BEDTIME SC ; Start 06/25/18 at 17:05 Diagnostic Test (Pha) (Accu-Chek) 1 ea 02 XX Last administered on 06/29/18at 01:58; Admin Dose 1 EA; Start 06/26/18 at 02:00 Glucose (Glutose) 15 gm Q15M PRN PO DECREASED GLUCOSE; Start 06/25/18 at 14:00 Glucagon (Glucagen) 1 mg Q15M PRN IM DECREASED GLUCOSE; Start 06/25/18 at 14:00 Glucose (Glutose) 15 gm Q15M PRN BUCCAL DECREASED GLUCOSE; Start 06/25/18 at 14:00 Trazodone HCl (Desyrel) 25 mg HS PRN PO SLEEP Last administered on 06/27/18at 01:29; Admin Dose 25 MG; Start 06/26/18 at 23:00 Metoprolol Tartrate (Lopressor) 50 mg TID GTB Last administered on 06/29/18at 08:24; Admin Dose 50 MG; Start 06/27/18 at 08:45; Stop 06/29/18 at 23:00 Morphine Sulfate (morphine) 6 mg Q2H PRN PO SEVERE PAIN LEVEL 7-10; Start 06/28/18 at 11:30 Metoprolol Succinate (Toprol Xl) 200 mg DAILY PO ; Start 06/30/18 at 09:00 VTE Prophylaxis Risk score (from Ns)>0 risk: 14 SCD applied (from [facility] [place]): Yes Lines/Catheters IV Catheter Type: Saline Lock Ulrich in Place: No Assessment/Plan Assessment/Plan 67-year-old female postop day #9 four-vessel CABG Hypertension, well controlled Hyperlipidemia Continue postop care Ambulate with PT Await removal of chest tube Cardiology and cardiothoracic follow-up CRIS HAWTHORNE MD Jun 29, 2018 09:08
[2018-06-29] MEDS: ACETAMINOPHEN 325 MG TAB PO PRN (10:05)
--- NOTE | 2018-06-29 19:25 | PN ---
Date/Time of Note Date/Time of Note DATE: 06/29/18 TIME: 19:23 Assessment/Plan Lines/Catheters IV Catheter Type (from Nrsg): Saline Lock Ulrich in Place (from Nrsg): No Assessment/Plan Chief Complaint/Hosp Course s/p cabg chest tube still draining otherwise good progress Subjective 24 Hr Interval Summary Constitutional: improved Feeding: advancing diet Pain Control: well controlled Exam/Review of Systems Vital Signs Vitals Vital Signs Date Temp Pulse Resp B/P (MAP) Pulse Ox O2 O2 Flow FiO2 Time Delivery Rate 06/29/18 98.0 95 22 138/71 99 Nasal 2.0 18:57 (93) Cannula 06/29/18 27 00:24 Intake and Output 06/28/18 06/28/18 06/29/18 1515:00 23:00 07:00 IntakeIntake Total 220 ml 510 ml 170 ml OutputOutput Total 590 ml 2255 ml 610 ml BalanceBalance -370 ml -1745 ml -440 ml Exam Constitutional: oriented Head: atraumatic Eyes: EOMI ENMT: nl lips & teeth Neck: non-tender Respiratory: other (chest tube 400 cc total 170 cc/24) Cardiovascular: regular rate and rhythm Gastrointestinal: soft Neurological: FOOD EDITOR II-XII intact Results Result Diagram: 06/29/18 0500 06/29/18 0500 DIANA SMITH MD Jun 29, 2018 19:25
[2018-06-29] MEDS: ATORVASTATIN 80 MG TAB NGT SCH (20:46)
[2018-06-29] MEDS: traZODone 50 MG TAB PO PRN (23:10)
[2018-06-30] VITALS (10 sets, daily range): BP systolic 130–153; BP diastolic 63–80; PULSE 61–106; RESP 18–22
[2018-06-30] MEDS: PIPER-TAZO 3.375 GM IV (PMX) 100 ML IVPB SCH ×3 (05:39→21:23)
--- NOTE | 2018-06-30 06:05 | PN ---
Date/Time of Note Date/Time of Note DATE: 06/30/18 TIME: 06:04 Assessment/Plan Lines/Catheters IV Catheter Type (from Nrs): PICC Line Ulrich in Place (from Nrs): No Assessment/Plan Assessment/Plan feels well. remove chest tubes. had blood in urine today. if persists may need further work up. increase activity Exam/Review of Systems Vital Signs Vitals Vital Signs Date Temp Pulse Resp B/P (MAP) Pulse Ox O2 O2 Flow FiO2 Time Delivery Rate 06/30/18 98.7 100 18 133/63 92 04:00 (86) 06/29/18 Nasal 2.0 20:46 Cannula 06/29/18 27 00:24 Intake and Output 06/29/18 06/29/18 06/30/18 1515:00 23:00 07:00 IntakeIntake Total 820 ml 120 ml 100 ml OutputOutput Total 40 ml 10 ml BalanceBalance 780 ml 110 ml 100 ml Results Result Diagram: 06/29/18 0500 06/29/18 0500 ROSI HOWELL MD Jun 30, 2018 06:05
[2018-06-30] MEDS: ASPIRIN 81 MG TAB GTB SCH (09:17)
[2018-06-30] MEDS: CLOPIDOGREL 75 MG TAB PO SCH (09:18)
[2018-06-30] MEDS: ASCORBIC ACID 500 MG TAB NGT SCH ×2 (09:18→21:26)
[2018-06-30] MEDS: METOPROLOL (XL) 100 MG TAB PO SCH (09:22)
[2018-06-30] MEDS: ENOXAPARIN 40 MG/0.4 ML SYG SC SCH (09:25)
--- NOTE | 2018-06-30 10:28 | PN ---
Date/Time of Note Date/Time of Note DATE: 06/30/18 TIME: 10:25 Subjective Doing well. No chest pain or shortness of breath. She noticed jani blood in the toilet bowl. Patient is not sure whether she is having hematuria or bright red blood per rectum. She did not have a bowel movement and denies melena. Objective Vitals Vital Signs Date Temp Pulse Resp B/P (MAP) Pulse Ox O2 O2 Flow FiO2 Time Delivery Rate 06/30/18 Nasal 2.0 08:25 Cannula 06/30/18 94 08:06 06/30/18 98.0 22 136/66 96 08:04 (89) 06/29/18 27 00:24 Intake and Output 06/29/18 06/29/18 06/30/18 1515:00 23:00 07:00 IntakeIntake Total 820 ml 120 ml 100 ml OutputOutput Total 40 ml 30 ml 20 ml BalanceBalance 780 ml 90 ml 80 ml Neck supple Lungs clear to auscultation Cardiac regular rate and rhythm Abdomen soft nontender nondistended normoactive bowel sounds Extremities no edema Neurological nonfocal Results Result Diagram: 06/29/18 0500 06/29/18 0500 Medications Medications Current Medications Oxycodone/ Acetaminophen (Percocet (5/ 325)) 1 tab Q3H PRN PO PAIN LEVEL 1-5 Last administered on 06/28/18at 20:31; Admin Dose 1 TAB; Start 06/20/18 at 19:00 Oxycodone/ Acetaminophen (Percocet (5/ 325)) 2 tab Q3H PRN PO PAIN LEVEL 6-10; Start 06/20/18 at 19:00 Ondansetron HCl (Zofran Inj) 4 mg Q6H PRN IV NAUSEA AND/OR VOMITING Last administered on 06/26/18at 10:51; Admin Dose 4 MG; Start 06/20/18 at 19:00 Acetaminophen (Tylenol Tab) 650 mg Q3H PRN PO ELEVATED TEMPERATURE Last administered on 06/29/18at 10:05; Admin Dose 650 MG; Start 06/20/18 at 19:00 Atorvastatin Calcium (Lipitor) 80 mg HS NGT Last administered on 06/29/18at 20:46; Admin Dose 80 MG; Start 06/21/18 at 21:00 Clopidogrel Bisulfate (plaVIX) 75 mg DAILY PO Last administered on 06/30/18 09:18; Admin Dose 75 MG; Start 06/22/18 at 09:00 Enoxaparin Sodium (Lovenox) 40 mg DAILY SC Last administered on 06/30/18 09:25; Admin Dose 40 MG; Start 06/22/18 at 10:00 Miscellaneous Information (* Miscellaneous Pharmacy Order) ZOSYN IV PER PHARMACY ONCE XX ; Start 06/22/18 at 14:00 Piperacillin Sod/ Tazobactam Sod 100 ml @ 200 mls/hr Q8 IVPB Last administered on 06/30/18 05:39; Admin Dose 200 MLS/HR; Start 06/22/18 at 14:06 Ascorbic Acid (Vitamin C) 1,000 mg BID NGT Last administered on 06/30/18 09:18; Admin Dose 1,000 MG; Start 06/23/18 at 09:00 Aspirin (Aspirin) 81 mg DAILY GTB Last administered on 06/30/18 09:17; Admin Dose 81 MG; Start 06/24/18 at 09:00 Trazodone HCl (Desyrel) 25 mg HS PRN PO SLEEP Last administered on 06/29/18 23:10; Admin Dose 25 MG; Start 06/26/18 at 23:00 Morphine Sulfate (morphine) 6 mg Q2H PRN PO SEVERE PAIN LEVEL 7-10; Start 06/28/18 at 11:30 Metoprolol Succinate (Toprol Xl) 200 mg DAILY PO Last administered on 06/30/18 09:22; Admin Dose 200 MG; Start 06/30/18 at 09:00 VTE Prophylaxis Risk score (from Nsg)>0 risk: 8 SCD applied (from Nsg): Yes Lines/Catheters IV Catheter Type: Saline Lock Central line still needed: No Ulrich in Place: No Assessment/Plan Assessment/Plan Postop day 10 four-vessel CABG, stable Hypertension, well controlled Type 2 diabetes mellitus Anemia, stable Rule out hematuria versus GI bleed Continue postop care Monitor hemoglobin Urinalysis Stool for occult blood Cardiology and cardiothoracic follow-up CRIS HAWTHORNE MD Jun 30, 2018 10:28
--- NOTE | 2018-06-30 11:45 | CONS ---
Assessment/Plan Assessment/Plan Assessment/Plan (Daily) Assessment recommendations; 1. Patient admitted with acute AL status post CABG with reexploration of the chest cavity because of tamponade. Clinically markedly improved now. 2. Possibly some element of aspiration pneumonia, currently on appropriate antimicrobial regimen. 3. Episode of V. fib. 4. Mild anemia. Continue current supportive care. Consider stopping antibiotics. Consultation Date/Type/Reason Admit Date/Time Jun 17, 2018 at 05:25 Initial Consult Date 06/17/18 Type of Consult Pulmonary/critical care Patient's condition is improving gradually. Patient remains completely awake and alert. Denies any shortness of breath, chest pain, coughing, wheezing. General exam; elderly female, awake alert, currently in no distress. Requesting Provider: LISSET PATINO Date/Time of Note DATE: 06/30/18 TIME: 11:43 24 HR Interval Summary Free Text/Dictation Patient's condition is stable. Has been transferred to telemetry unit. Denies any shortness of breath, chest pain, coughing, wheezing, sputum production. General exam; elderly lady, awake alert, ambulatory in the room. Currently no distress. Exam/Review of Systems Exam Vitals Vital Signs Date Temp Pulse Resp B/P (MAP) Pulse Ox O2 O2 Flow FiO2 Time Delivery Rate 06/30/18 97.8 106 22 149/69 96 Room Air 11:32 (95) 06/30/18 2.0 08:25 06/29/18 27 00:24 Intake and Output 06/29/18 06/29/18 06/30/18 1515:00 23:00 07:00 IntakeIntake Total 820 ml 120 ml 100 ml OutputOutput Total 40 ml 30 ml 20 ml BalanceBalance 780 ml 90 ml 80 ml Exam HEENT exam; supple neck, no JVD. No lymphadenopathy. Midline trachea. No thyromegaly. Patient has fair dentition. No neck masses. Pupils are small bilaterally. Chest exam; clear to auscultation. S1-S2 audible, no murmurs. Regular rhythm. Dressing applied over the sternum. Abdomen exam; soft, nontender. No organomegaly. Bowel sounds audible. Extremity exam; no peripheral edema clubbing. [employer] exam; no focal deficit. Results Result Diagram: 06/29/18 0500 06/29/18 0500 Medications Medication Current Medications Oxycodone/ Acetaminophen (Percocet (5/ 325)) 1 tab Q3H PRN PO PAIN LEVEL 1-5 Last administered on 06/28/18 20:31; Admin Dose 1 TAB; Start 06/20/18 at 19:00 Oxycodone/ Acetaminophen (Percocet (5/ 325)) 2 tab Q3H PRN PO PAIN LEVEL 6-10; Start 06/20/18 at 19:00 Ondansetron HCl (Zofran Inj) 4 mg Q6H PRN IV NAUSEA AND/OR VOMITING Last administered on 06/26/18 10:51; Admin Dose 4 MG; Start 06/20/18 at 19:00 Acetaminophen (Tylenol Tab) 650 mg Q3H PRN PO ELEVATED TEMPERATURE Last administered on 06/29/18 10:05; Admin Dose 650 MG; Start 06/20/18 at 19:00 Atorvastatin Calcium (Lipitor) 80 mg HS NGT Last administered on 06/29/18 20:46; Admin Dose 80 MG; Start 06/21/18 at 21:00 Clopidogrel Bisulfate (plaVIX) 75 mg DAILY PO Last administered on 06/30/18 09:18; Admin Dose 75 MG; Start 06/22/18 at 09:00 Enoxaparin Sodium (Lovenox) 40 mg DAILY SC Last administered on 06/30/18 09:25; Admin Dose 40 MG; Start 06/22/18 at 10:00 Miscellaneous Information (* Miscellaneous Pharmacy Order) ZOSYN IV PER PHARMACY ONCE XX ; Start 06/22/18 at 14:00 Piperacillin Sod/ Tazobactam Sod 100 ml @ 200 mls/hr Q8 IVPB Last administered on 06/30/18 05:39; Admin Dose 200 MLS/HR; Start 06/22/18 at 14:06 Ascorbic Acid (Vitamin C) 1,000 mg BID NGT Last administered on 06/30/18 09:18; Admin Dose 1,000 MG; Start 06/23/18 at 09:00 Aspirin (Aspirin) 81 mg DAILY GTB Last administered on 06/30/18 09:17; Admin Dose 81 MG; Start 06/24/18 at 09:00 Trazodone HCl (Desyrel) 25 mg HS PRN PO SLEEP Last administered on 3/13/19at 23:10; Admin Dose 25 MG; Start 06/26/18 at 23:00 Morphine Sulfate (morphine) 6 mg Q2H PRN PO SEVERE PAIN LEVEL 7-10; Start 06/28/18 at 11:30 Metoprolol Succinate (Toprol Xl) 200 mg DAILY PO Last administered on 06/30/18at 09:22; Admin Dose 200 MG; Start 06/30/18 at 09:00 GURWINDER BRADFORD 14, 2019 11:45
[2018-06-30] MEDS: ATORVASTATIN 80 MG TAB NGT SCH (21:23)
--- NOTE | 2018-06-30 21:32 | CONS ---
Assessment/Plan Assessment/Plan Hospital Course (Demo Recall) 67 yo with acute inferior stemi, with severe left man disease and acutely occluded dominant LCX. Bare metal stent placed in the prox LCX and balloon angioplasty performed on the left main. She underwent CABG on Wednesday06/20/18 with return to the OR same day for mediastinal bleeding. Doing well overall, chest tube still in place with drainage, downgraded to telemetry. Impression: Inferior stemi due to occluded dominant LCX, with severe left main and proximal LAD disease, small nondominant RCA, s/p bare metal stent to prox LCX on Wednesday am and CABG on Wednesday06/20/18 Anemia due to blood loss Hypertension, not ideally controlled Deconditioning Recc: ASA 81 mg daily, clopidogrel, statin. Continue metoprolol succinate 200 mg Add losartan OOB/mobilize Discharge planning Consultation Date/Type/Reason Admit Date/Time Jun 17, 2018 at 05:25 Initial Consult Date 06/17/18 Type of Consult Cardiology Requesting Provider: LISSET PATINO Date/Time of Note DATE: 06/30/18 TIME: 21:26 24 HR Interval Summary Free Text/Dictation Short of breath walking to the bathroom. Has not walked far. No pain at present. Exam/Review of Systems Vital Signs Vitals Vital Signs Date Temp Pulse Resp B/P (MAP) Pulse Ox O2 O2 Flow FiO2 Time Delivery Rate 06/30/18 98 20:02 06/30/18 98.3 20 153/80 96 20:00 (104) 06/30/18 Room Air 15:59 06/30/18 2.0 08:25 06/29/18 27 00:24 Intake and Output 06/29/18 06/29/18 06/30/18 1515:00 23:00 07:00 IntakeIntake Total 820 ml 120 ml 100 ml OutputOutput Total 40 ml 30 ml 20 ml BalanceBalance 780 ml 90 ml 80 ml Exam Constitutional: alert, oriented, well developed Psych: no complaints, nl mood/affect Head: normocephalic, atraumatic Eyes: nl conjunctiva, nl lids, nl sclera ENMT: nl external ears & nose Neck: No jvd, No bruits Respiratory: clear to auscultation, normal air movement Cardiovascular: regular rate and rhythm; No murmurs/extra sounds Gastrointestinal: soft, nl liver, spleen, non-tender Musculoskeletal: nl extremities to inspection Extremities: No edema Neurological: nl mental status, nl speech Skin: nl turgor Labs Result Diagram: 06/29/18 0500 06/29/18 0500 Results 24hrs Laboratory Tests Test 06/30/18 14:00 Urine Color YELLOW Urine Clarity SLIGHTLY CLOUDY A Urine pH 7.0 Urine Specific [place] 1.012 Urine Ketones 1+ H Urine Nitrite NEGATIVE Urine Bilirubin NEGATIVE Urine Urobilinogen 2+ H Urine Leukocyte Esterase NEGATIVE Urine Microscopic RBC 2 Urine Microscopic WBC 5 Urine Squamous Epithelial Cells MODERATE Urine Hemoglobin NEGATIVE Urine Glucose NEGATIVE Urine Total Protein NEGATIVE Medications Medications Current Medications Oxycodone/ Acetaminophen (Percocet (5/ 325)) 1 tab Q3H PRN PO PAIN LEVEL 1-5 Last administered on 06/28/18at 20:31; Admin Dose 1 TAB; Start 06/20/18 at 19:00 Oxycodone/ Acetaminophen (Percocet (5/ 325)) 2 tab Q3H PRN PO PAIN LEVEL 6-10; Start 06/20/18 at 19:00 Ondansetron HCl (Zofran Inj) 4 mg Q6H PRN IV NAUSEA AND/OR VOMITING Last administered on 06/26/18at 10:51; Admin Dose 4 MG; Start 06/20/18 at 19:00 Acetaminophen (Tylenol Tab) 650 mg Q3H PRN PO ELEVATED TEMPERATURE Last administered on 06/29/18at 10:05; Admin Dose 650 MG; Start 06/20/18 at 19:00 Atorvastatin Calcium (Lipitor) 80 mg HS NGT Last administered on 06/29/18at 20:46; Admin Dose 80 MG; Start 06/21/18 at 21:00 Clopidogrel Bisulfate (plaVIX) 75 mg DAILY PO Last administered on 06/30/18at 09:18; Admin Dose 75 MG; Start 06/22/18 at 09:00 Enoxaparin Sodium (Lovenox) 40 mg DAILY SC Last administered on 06/30/18at 09:25; Admin Dose 40 MG; Start 06/22/18 at 10:00 Miscellaneous Information (* Miscellaneous Pharmacy Order) ZOSYN IV PER PHARMACY ONCE XX ; Start 06/22/18 at 14:00 Piperacillin Sod/ Tazobactam Sod 100 ml @ 200 mls/hr Q8 IVPB Last administered on 06/30/18 13:15; Admin Dose 200 MLS/HR; Start 06/22/18 at 14:06 Ascorbic Acid (Vitamin C) 1,000 mg BID NGT Last administered on 06/30/18 09:18; Admin Dose 1,000 MG; Start 06/23/18 at 09:00 Aspirin (Aspirin) 81 mg DAILY GTB Last administered on 06/30/18 09:17; Admin Dose 81 MG; Start 06/24/18 at 09:00 Trazodone HCl (Desyrel) 25 mg HS PRN PO SLEEP Last administered on 06/29/18 23:10; Admin Dose 25 MG; Start 06/26/18 at 23:00 Morphine Sulfate (morphine) 6 mg Q2H PRN PO SEVERE PAIN LEVEL 7-10; Start 06/28/18 at 11:30 Metoprolol Succinate (Toprol Xl) 200 mg DAILY PO Last administered on 06/30/18 09:22; Admin Dose 200 MG; Start 06/30/18 at 09:00 LISSET PATINO Jun 30, 2018 21:32
[2018-06-30] MEDS: traZODone 50 MG TAB PO PRN (22:12)
[2018-07-01] VITALS (10 sets, daily range): BP systolic 114–131; BP diastolic 65–68; PULSE 79–106; RESP 17–18
[2018-07-01] MEDS: PIPER-TAZO 3.375 GM IV (PMX) 100 ML IVPB SCH ×2 (05:37→13:35)
[2018-07-01] MEDS: ACETAMINOPHEN 325 MG TAB PO PRN (06:00)
[2018-07-01] MEDS: ENOXAPARIN 40 MG/0.4 ML SYG SC SCH (08:22)
[2018-07-01] MEDS: METOPROLOL (XL) 100 MG TAB PO SCH (08:23)
[2018-07-01] MEDS: ASPIRIN 81 MG TAB GTB SCH (08:23)
[2018-07-01] MEDS: CLOPIDOGREL 75 MG TAB PO SCH (08:23)
[2018-07-01] MEDS: ASCORBIC ACID 500 MG TAB NGT SCH (08:24)
--- NOTE | 2018-07-01 08:26 | PN ---
Date/Time of Note Date/Time of Note DATE: 07/01/18 TIME: 08:23 Assessment/Plan Lines/Catheters IV Catheter Type (from Nrsg): PICC Line Ulrich in Place (from Nrsg): No Assessment/Plan Chief Complaint/Hosp Course s/p cabg pt to try stairs awaiting stool for occult blood Subjective 24 Hr Interval Summary Constitutional: BM, urine output, other (hematuria or brb per rectum yesterday has stairs at home) Feeding: baseline diet Pain Control: well controlled Exam/Review of Systems Vital Signs Vitals Vital Signs Date Temp Pulse Resp B/P (MAP) Pulse Ox O2 O2 Flow FiO2 Time Delivery Rate 07/01/18 97 08:09 07/01/18 97.9 17 129/66 98 07:45 (87) 06/30/18 Nasal 2.0 20:05 Cannula 06/29/18 27 00:24 Intake and Output 06/30/18 06/30/18 07/01/18 1515:00 23:00 07:00 IntakeIntake Total 960 ml 180 ml BalanceBalance 960 ml 180 ml Exam Constitutional: alert, oriented Psych: no complaints Head: atraumatic Eyes: EOMI ENMT: nl lips & teeth Neck: supple Respiratory: normal air movement Cardiovascular: regular rate and rhythm Gastrointestinal: soft Musculoskeletal: nl extremities to inspection Results Result Diagram: 07/01/18 0528 06/29/18 0500 DIANA SMITH MD Jul 01, 2018 08:25
[2018-07-01] MEDS ORDERED: LOSARTAN 50 MG TAB PO SCH (09:00)
[2018-07-01] MEDS ORDERED: ATOR-2 NGT (09:49)
[2018-07-01] MEDS ORDERED: ACET325T33 PO (09:49)
[2018-07-01] MEDS ORDERED: LOSA50TA2 PO (09:49)
[2018-07-01] MEDS ORDERED: METO-336 PO (09:49)
[2018-07-01] MEDS ORDERED: ASPI-831 GTB (09:49)
[2018-07-01] MEDS ORDERED: CLOP75TA28 PO (09:49)
--- NOTE | 2018-07-01 09:50 | PDOCDIS ---
Discharge Instructions CONDITION [id number] Patient Condition: [id number] Good HOME CARE INSTRUCTIONS: [id number] Diet Instructions: [id number] y FOLLOW UP/APPOINTMENTS Follow-up Plan pcp [address] Mcgraw [address] Monge 1 week CRIS HAWTHORNE MD Jul 01, 2018 09:49
--- NOTE | 2018-07-01 12:39 | CONS ---
Consult Date/Type/Reason Admit Date/Time Jun 17, 2018 at 05:25 Initial Consult Date 06/17/18 Type of Consult Pulmonary Requesting Provider: LISSET PATINO Date/Time of Note DATE: 07/01/18 TIME: 12:39 Subjective Stable no respiratory distress Objective Vital Signs Date Temp Pulse Resp B/P (MAP) Pulse Ox O2 O2 Flow FiO2 Time Delivery Rate 07/01/18 95 12:04 07/01/18 98.6 17 131/68 94 11:18 (89) 07/01/18 Nasal 2.0 08:20 Cannula 06/29/18 27 00:24 Intake and Output 06/30/18 06/30/18 07/01/18 1515:00 23:00 07:00 IntakeIntake Total 960 ml 180 ml BalanceBalance 960 ml 180 ml Exam GENERAL: Well-nourished well-developed lady VITAL SIGNS: per chart NECK: Supple. No JVD or lymphadenopathy. CARDIAC EXAM: S1, S2. No added sounds or murmurs. CHEST: clear bilaterally, No added sounds, rales or wheezes ABDOMEN: Soft, nontender. No guarding or rebound. EXTREMITIES: No cyanosis, clubbing or edema. NEUROLOGIC: Generalized weakness. No focal deficits. Vent Setting Ventilator Support Mode: CPAP, PS Fraction of Inspired Oxygen pe: 27 Positive End Expiratory Pressu: 5.0 Results/Medications Result Diagram: 07/01/18 0528 06/29/18 0500 Results 24 hrs Laboratory Tests Test 06/30/18 14:00 07/01/18 05:28 Urine Color YELLOW Urine Clarity SLIGHTLY CLOUDY A Urine pH 7.0 Urine Specific [place] 1.012 Urine Ketones 1+ H Urine Nitrite NEGATIVE Urine Bilirubin NEGATIVE Urine Urobilinogen 2+ H Urine Leukocyte Esterase NEGATIVE Urine Microscopic RBC 2 Urine Microscopic WBC 5 Urine Squamous Epithelial Cells MODERATE Urine Hemoglobin NEGATIVE Urine Glucose NEGATIVE Urine Total Protein NEGATIVE White Blood Count 11.3 H Red Blood Count 3.15 L Hemoglobin 9.2 L Hematocrit 29.1 L Mean Corpuscular Volume 92.4 Mean Corpuscular Hemoglobin 29.2 Mean Corpuscular Hemoglobin Concent 31.6 L Red Cell Distribution Width 19.9 H Platelet Count 597 H Mean Platelet Volume 9.2 Immature Granulocytes % 2.100 H Neutrophils % 68.6 Lymphocytes % 16.7 Monocytes % 9.3 Eosinophils % 2.8 Basophils % 0.5 Nucleated Red Blood Cells % 0.0 Immature Granulocytes # 0.240 H Neutrophils # 7.7 H Lymphocytes # 1.9 Monocytes # 1.1 H Eosinophils # 0.3 Basophils # 0.1 Nucleated Red Blood Cells # 0.0 Medications Current Medications Oxycodone/ Acetaminophen (Percocet (5/ 325)) 1 tab Q3H PRN PO PAIN LEVEL 1-5 Last administered on 06/28/18 20:31; Admin Dose 1 TAB; Start 06/20/18 at 19:00 Oxycodone/ Acetaminophen (Percocet (5/ 325)) 2 tab Q3H PRN PO PAIN LEVEL 6-10; Start 06/20/18 at 19:00 Ondansetron HCl (Zofran Inj) 4 mg Q6H PRN IV NAUSEA AND/OR VOMITING Last administered on 06/26/18 10:51; Admin Dose 4 MG; Start 06/20/18 at 19:00 Acetaminophen (Tylenol Tab) 650 mg Q3H PRN PO ELEVATED TEMPERATURE Last administered on 07/01/18 06:00; Admin Dose 650 MG; Start 06/20/18 at 19:00 Atorvastatin Calcium (Lipitor) 80 mg HS NGT Last administered on 06/30/18 21:23; Admin Dose 80 MG; Start 06/21/18 at 21:00 Clopidogrel Bisulfate (plaVIX) 75 mg DAILY PO Last administered on 07/01/18 08:23; Admin Dose 75 MG; Start 06/22/18 at 09:00 Miscellaneous Information (* Miscellaneous Pharmacy Order) ZOSYN IV PER PHARMACY ONCE XX ; Start 06/22/18 at 14:00 Piperacillin Sod/ Tazobactam Sod 100 ml @ 200 mls/hr Q8 IVPB Last administered on 07/01/18 05:37; Admin Dose 200 MLS/HR; Start 06/22/18 at 14:06 Ascorbic Acid (Vitamin C) 1,000 mg BID NGT Last administered on 07/01/18 08:24; Admin Dose 1,000 MG; Start 06/23/18 at 09:00 Aspirin (Aspirin) 81 mg DAILY GTB Last administered on 07/01/18 08:23; Admin Dose 81 MG; Start 06/24/18 at 09:00 Trazodone HCl (Desyrel) 25 mg HS PRN PO SLEEP Last administered on 06/30/18at 22:12; Admin Dose 25 MG; Start 06/26/18 at 23:00 Morphine Sulfate (morphine) 6 mg Q2H PRN PO SEVERE PAIN LEVEL 7-10; Start 06/28/18 at 11:30 Metoprolol Succinate (Toprol Xl) 200 mg DAILY PO Last administered on 07/01/18at 08:23; Admin Dose 200 MG; Start 06/30/18 at 09:00 Losartan Potassium (Cozaar) 50 mg DAILY PO Last administered on 07/01/18at 08:23; Admin Dose 50 MG; Start 07/01/18 at 09:00 Assessment/Plan Hospital Course (Demo Recall) IMP: 1. Inferior myocardial infarction, status post angioplasty and stent placement---> status post coronary artery bypass graft surgery 2. Ventricular fibrillation 2/2 #1 3. Likely aspiration pneumonia. 4. Cardiogenic shock. Now resolved 5. History of gallbladder disease. 6. Congestive cardiac failure improved with diuretics RECS: 1. Continue incentive spirometry 2. Bronchodilators as needed 3. Continue diuretics 4. Aspiration precautions 5. DVT/GI prophylaxis Agree with discharge planning ISABELLA RUSSELL MD, [facility] Jul 01, 2018 12:39
== END 2018-07-01 18:30 | DRG 231 ==
LOC: E/R 04:42 → ICU 05:25 → 6WM 06-29 18:28
PROVIDERS: ADMIT Internal Medicine; ATTEND Internal Medicine
PROC: 5A02210 Assistance with Cardiac Output using Balloon Pump, Continuous (ICD-10-PCS; 2018-06-17)
PROC: 02703ZZ Dilation of Coronary Artery, One Artery, Percutaneous Approach (ICD-10-PCS; 2018-06-17)
PROC: 5A1955Z Respiratory Ventilation, Greater than 96 Consecutive Hours (ICD-10-PCS; 2018-06-17)
PROC: 5A2204Z Restoration of Cardiac Rhythm, Single (ICD-10-PCS; 2018-06-17)
PROC: B211YZZ Fluoroscopy of Multiple Coronary Arteries using Other Contrast (ICD-10-PCS; 2018-06-17)
PROC: 0BH18EZ Insertion of Endotracheal Airway into Trachea, Via Natural or Artificial Opening Endoscopic (ICD-10-PCS; 2018-06-17)
PROC: 02703DZ Dilation of Coronary Artery, One Artery with Intraluminal Device, Percutaneous Approach (ICD-10-PCS; 2018-06-17 05:30)
PROC: 02100Z9 Bypass Coronary Artery, One Artery from Left Internal Mammary, Open Approach (ICD-10-PCS; 2018-06-20)
PROC: 0WCC0ZZ Extirpation of Matter from Mediastinum, Open Approach (ICD-10-PCS; 2018-06-20)
PROC: 06BQ4ZZ Excision of Left Saphenous Vein, Percutaneous Endoscopic Approach (ICD-10-PCS; 2018-06-20)
PROC: 0W3C0ZZ Control Bleeding in Mediastinum, Open Approach (ICD-10-PCS; 2018-06-20)
PROC: 30233N1 Transfusion of Nonautologous Red Blood Cells into Peripheral Vein, Percutaneous Approach (ICD-10-PCS; 2018-06-20)
PROC: 30233R1 Transfusion of Nonautologous Platelets into Peripheral Vein, Percutaneous Approach (ICD-10-PCS; 2018-06-20)
PROC: 30233K1 Transfusion of Nonautologous Frozen Plasma into Peripheral Vein, Percutaneous Approach (ICD-10-PCS; 2018-06-20)
PROC: 021209W Bypass Coronary Artery, Three Arteries from Aorta with Autologous Venous Tissue, Open Approach (ICD-10-PCS; principal; 2018-06-20 14:00)
PROC: 5A1221Z Performance of Cardiac Output, Continuous (ICD-10-PCS; 2018-06-21)
PROC: 02HV33Z Insertion of Infusion Device into Superior Vena Cava, Percutaneous Approach (ICD-10-PCS; 2018-06-26)
DX: I21.19 ST elevation (STEMI) myocardial infarction involving other coronary artery of inferior wall (principal); J96.01 Acute respiratory failure with hypoxia; I46.2 Cardiac arrest due to underlying cardiac condition; I49.01 Ventricular fibrillation; J69.0 Pneumonitis due to inhalation of food and vomit; I47.2 Ventricular tachycardia; G93.40 Encephalopathy, unspecified; D62 Acute posthemorrhagic anemia; I97.611 Postprocedural hemorrhage of a circulatory system organ or structure following cardiac bypass; Z68.41 Body mass index [BMI] 40.0-44.9, adult; K80.20 Calculus of gallbladder without cholecystitis without obstruction; I25.10 Atherosclerotic heart disease of native coronary artery without angina pectoris; E78.5 Hyperlipidemia, unspecified; E66.9 Obesity, unspecified; I11.0 Hypertensive heart disease with heart failure; I50.9 Heart failure, unspecified; E66.01 Morbid (severe) obesity due to excess calories; E11.9 Type 2 diabetes mellitus without complications
CPT/HCPCS: 31500; 36415; 36430; 36569; 36592; 36600; 71045; 74018; 76937; 80048; 80053; 80202; 81001; 81003; 82040; 82550; 82553; 82803; 82962; 83605; 83735; 84100; 84132; 84484; 85014; 85025; 85049; 85362; 85378; 85384; 85610; 85670; 85730; 86644; 86850; 86900; 86901; 86920; 86945; 87040; 87070; 87081; 87086; 89220; 92526; 92610; 92928; 92950; 93005; 93306; 93312; 93325; 93454; 93880; 94002; 94003; 94770; 96374; 97110; 97116; 97163; 97167; 97530; 97535; C1725; C1876; C1887; C1894; C9113; C9460; C9606; J0171; J0282; J0690; J1170; J1265; J1327; J1644; J1650; J1815; J1940; J2250; J2260; J2270; J2370; J2405; J2440; J2543; J2720; J2916; J3010; J3370; J3475; J3480; J7030; J7040; J7042; J7050; J7070; J7189; P9016; P9035; P9045; P9047; P9059; Q9967